=== PATIENT | female | born 1950 | race Caucasian/White ===

== ENCOUNTER 2018-01-11 22:28 | Outpatient (REF) | payer MEDICARE, SELFPAY ==
[2018-01-11 23:27] LABS: TSH 29.78 uIU/mL (0.358-3.74)
[2018-01-13 12:43] LABS: Hepatitis C Ab w Rflx HCV PCR Negative (NEGAT)
== END 2018-01-11 22:48 ==
LOC: NCHCN 22:28
PROVIDERS: PCP Internal Medicine; Visit Provider Internal Medicine
DX: E03.9 Hypothyroidism, unspecified (principal); Z11.59 Encounter for screening for other viral diseases; Z01.84 Encounter for antibody response examination
CPT/HCPCS: 86803; 84443

== ENCOUNTER → 2018-08-16 16:11 | Outpatient (REF) | payer OTHER, SELFPAY ==
[2018-08-16 22:00] LABS: TSH (W/Ref FT4) 6.61 uIU/mL (0.358-3.74)
[2018-08-16 22:19] LABS: FREE T4 0.74 ng/dL (0.76-1.46)
== END ==
LOC: NCHCN 16:11
PROVIDERS: PCP Internal Medicine; Visit Provider Internal Medicine
DX: E03.9 Hypothyroidism, unspecified (principal)
CPT/HCPCS: 84439; 84443

== ENCOUNTER 2018-08-27 13:11 | Outpatient (REF) | payer OTHER, SELFPAY ==
--- NOTE | 2018-08-27 12:15 | PAPFT_PTH ---
PATIENT: Brenna Mc LOC: [facility]#:[id number] AGE/SX: 67/F ROOM: RE08/27/[address]: Nicole Baxter : 1950 BED: DIS: 08/27/2018 SPEC #: [id number] RECD: 08/30/18 13:04 STATUS: KEKE OROZCO #: [id number] NATALIIA: 08/27/18 12:[address]: Nicole Baxter DEPT: [facility] Cytology RECD BY: Shauna Perea ENTERED: 08/30/18 13:04 SP TYPE: PAPFT OTHR DR: Stuart Leyva Tissues: 1 - CX/ENDOCX FOR PAP SMEARS Procedures: PAP THIN PREP/UVM Screening HPV DNA PROBE Comments: [id number] (CHLAMYDIA/GC)
[2018-08-27 20:52] LABS: Abs Immature Grans 0.01 k/cumm (0.0-0.09); Absolute Eosinophil Count 0.52 k/cumm (0.0-0.7); Absolute Lymphocyte Count 1.46 k/cumm (1.2-3.4); Absolute Monocyte Count 0.43 k/cumm (0.11-0.7); Absolute Neutrophil Count 2.37 k/cumm (1.2-6.7); Eosinophils % 10.6; HCT 39.8 % (36.0-46.0); HGB 12.5 g/dL (12.0-15.5); Immature Grans % 0.2; Lymphocytes % 29.9; Mean Corp. HGB Concentration 31.4 g/dL (32.0-36.0); Mean Corpuscular Hemoglobin 29.1 pg (27.0-33.0); Mean Corpuscular Volume 92.6 fL (80-95); Mean Platelet Volume 10.4 fL (8.0-11.0); Monocytes % 8.8; Neutrophils % 48.5; Platelet Count 277 x1000/uL (130-400); RBC Distribution Width 16.3 % (11.7-14.6); White Blood Cell Count 4.89 k/cumm (4.4-10.8)
[2018-08-27 21:06] LABS: Iron 57 ug/dL (50-175); Total Iron Binding Capacity 375 ug/dL (250-450); Transferrin Sat 15 % (15-50)
[2018-08-27 21:39] LABS: ALT 24 U/L (12-78); AST 20 U/L (15-37); Albumin 3.4 g/dL (3.4-5.0); Alkaline Phosphatase 70 U/L (46-116); Anion Gap 12.3 mmol/L (3-11); BUN 21 mg/dL (7-18); Bilirubin, Total 0.3 mg/dL (0.2-1.0); CO2 23.7 mmol/L (21.0-32.0); CREATININE 1.05 mg/dL (0.55-1.02); Calcium 8.6 mg/dL (8.5-10.1); Chloride 109 mmol/L (98-107); Cholesterol 220 mg/dL (50-200); Estimated GFR 52.43 (mL/min/1.73m2); Glucose 84 mg/dL (70-100); HDL Cholesterol 62 mg/dL (40-60); LDL CHOLESTEROL 137 mg/dL (<100); Magnesium 1.6 mg/dL (1.8-2.4); Potassium 3.9 mmol/L (3.5-5.1); Sodium 145 mmol/L (136-145); Total Protein 6.4 g/dL (6.4-8.2); Triglyceride 85 mg/dL (30-150); Vitamin B12 507 pg/mL (193-986)
[2018-08-30 11:27] LABS: HIV-1/2 Ag & Ab Screen Negative (NEGAT)
[2018-08-30 14:19] LABS: Syphilis Serology (RPR) Negative (Negative)
[2018-08-31 14:26] LABS: Chlamydia Result Negative; GC Result Negative; Specimen Description SEE COMMENTS
== END 2018-08-27 13:31 ==
LOC: NCHCN 13:11
PROVIDERS: PCP Internal Medicine; Visit Provider Nurse Practitioner Family
DX: R53.83 Other fatigue (principal); D64.9 Anemia, unspecified; I10 Essential (primary) hypertension; E78.5 Hyperlipidemia, unspecified; N18.3 Chronic kidney disease, stage 3 (moderate); E53.8 Deficiency of other specified B group vitamins; E03.9 Hypothyroidism, unspecified; Z11.3 Encounter for screening for infections with a predominantly sexual mode of transmission; Z11.4 Encounter for screening for human immunodeficiency virus [HIV]; Z12.4 Encounter for screening for malignant neoplasm of cervix; Z11.51 Encounter for screening for human papillomavirus (HPV)
CPT/HCPCS: 80053; 80061; 83721; 87389; 87491; 87591; 88142; 82607; 83540; 83550; 83735; 85025; 86592; 87624

== ENCOUNTER 2018-12-27 11:31 | Outpatient (REF) | payer OTHER, SELFPAY ==
[2018-12-27 21:42] LABS: TSH (W/Ref FT4) 0.17 uIU/mL (0.36-3.74)
[2018-12-27 22:00] LABS: FREE T4 1.04 ng/dL (0.76-1.46)
== END 2018-12-27 11:51 ==
LOC: NCHCN 11:31
PROVIDERS: PCP Internal Medicine; Visit Provider Specialist/Technologist Athletic Trainer
DX: E03.9 Hypothyroidism, unspecified (principal)
CPT/HCPCS: 84439; 84443

== ENCOUNTER 2020-02-10 14:57 | Outpatient (REF) | payer OTHER, SELFPAY ==
[2020-02-10 20:49] LABS: HGB 11.5 g/dL (11.2-15.7); MCH 28.9 pg (27.0-33.0); MCHC 31.9 % (32.0-36.0); MCV 90.5 fL (80-95); MPV 10.8 fL (8.0-11.0); Platelet Count 350 10^3/uL (130-400); RBC 3.98 10^6/uL (3.93-5.22); RDW 14.9 % (11.7-14.6); RDW-SD 49.3 fL; WBC 7.75 10^3/uL (4.4-10.8)
[2020-02-10 21:33] LABS: Hemoglobin A1C 5.3 % (<5.7)
[2020-02-10 22:20] LABS: ALT 27 U/L (14-59); AST 26 U/L (15-37); Albumin 3.7 g/dL (3.4-5.0); Alkaline Phosphatase 69 U/L (46-116); Anion Gap 10.6 mmol/L (3-11); BUN 51 mg/dL (7-18); Bilirubin, Total 0.3 mg/dL (0.2-1.0); CO2 21.4 mmol/L (21.0-32.0); CREATININE 1.79 mg/dL (0.55-1.02); Calcium 8.6 mg/dL (8.5-10.1); Chloride 108 mmol/L (98-107); Estimated GFR 28.16 (mL/min/1.73m2); Glucose 65 mg/dL (74-106); Potassium 4.9 mmol/L (3.5-5.1); Sodium 140 mmol/L (136-145); TSH 0.01 uIU/mL (0.36-3.74); Total Protein 6.5 g/dL (6.4-8.2); Vitamin B12 484 pg/mL (193-986)
[2020-02-10 22:50] LABS: FREE T4 1.31 ng/dL (0.76-1.46)
[2020-02-13 05:11] LABS: Vitamin D 25 Total 66.6 ng/ml (30-100)
[2020-02-13 12:48] LABS: Albumin 60.1 % (55.8-66.1); Total Protein 6.4 g/dL (6.3-8.2)
== END 2020-02-10 15:17 ==
LOC: NCHCN 14:57
PROVIDERS: PCP Internal Medicine; Visit Provider Internal Medicine
DX: Z98.84 Bariatric surgery status (principal); E53.8 Deficiency of other specified B group vitamins; E03.9 Hypothyroidism, unspecified; N95.0 Postmenopausal bleeding; E10.9 Type 1 diabetes mellitus without complications; M15.9 Polyosteoarthritis, unspecified; M17.9 Osteoarthritis of knee, unspecified
CPT/HCPCS: 80053; 82306; 85027; 82607; 83036; 84165; 84439; 84443

== ENCOUNTER 2020-02-16 01:26 | Outpatient (CLI) | payer OTHER, SELFPAY ==
--- NOTE | 2020-02-16 | DI.US_ITS ---
EXAM: US PELVIS TRANSVAGINAL CLINICAL HISTORY: POSTMENOPAUSAL BLEEDING,N95.0,CYSTOCELE,N81.0 TECHNIQUE: Ultrasound performed using standard protocol. COMPARISON: US LEFT BREAST COMP = 4 QUADRANTS from 08/26/2017 FINDINGS: Pelvic ultrasound was performed transabdominally and transvaginally. Uterus is 59 x 14 x 40 millimet ers with an unremarkable myometrial appearance. Endometrial stripe is about 3 millimeters in thickne ss and appears homogeneous. The ovaries are unremarkable in appearance, right ovary measures 19 x 14 x 11 millimeters and left ov sonal measures 23 x 19 x 12 millimeters. Kidneys are unremarkable in appearance except for an incidental simple cyst measuring 4.6 cm in great est diameter of lower pole of the left kidney. No free fluid identified in the cul-de-sac. IMPRESSION: Negative pelvic ultrasound in a postmenopausal patient. DATA REPOSITORY:
== END 2020-02-16 01:46 ==
PROVIDERS: PCP Internal Medicine; Visit Provider Internal Medicine
DX: N81.0 Urethrocele (principal); N95.0 Postmenopausal bleeding
CPT/HCPCS: 76830; 76856

== ENCOUNTER 2020-05-09 11:50 | Emergency (ER) | payer OTHER, SELFPAY ==
[2020-05-09 12:01] VITALS: BP 126/65; PULSE 75; RESP 18; TEMP 36.7; O2SAT 99
--- NOTE | 2020-05-09 12:30 | W.ED.GENAD ---
Discharge Plan Disposition Patient Disposition: HOME Condition: Stable Discharge Details Clinical Impression: Rectal prolapse, Wound dehiscence Primary Care Provider: Stuart Leyva ED Provider: Sadiq Schultz Home Meds and New Rx's Prescriptions: Continued cyanocobalamin (vitamin B-12) 1,000 mcg capsule 1,000 mcg PO DAILY RF: 0 magnesium oxide 200 mg magnesium tablet 200 mg PO BID RF: 0 triamcinolone acetonide 0.1 % ointment 1 applic TP DAILY RF: 0 acetaminophen 500 mg capsule 500 mg PO Q6H PRNRF: 0 folic acid 400 mcg tablet 0.4 mg PO DAILY RF: 0 calcium carbonate-vitamin D3 600 mg(1,500mg) -200 unit tablet 1 tab PO DAILY RF: 0 Women's 50 Plus Multivitamin 400 mcg-500 mg calcium-20 mcg tablet 1 tab PO DAILY RF: 0 dextroamphetamine-amphetamine [Adderall] 20 MG tablet 20 mg PO TID RF: 0 topiramate [Topamax] 200 MG tablet 200 mg PO BID RF: 0 duloxetine [Cymbalta] 30 MG capsule,delayed release(DR/EC) 30 mg PO DAILY RF: 0 gabapentin 300 mg capsule 800 mg PO .three times daily RF: 0 levothyroxine [Synthroid] 100 mcg tablet 50 mcg PO DAILY RF: 0 omeprazole [Prilosec] 40 mg capsule,delayed release(DR/EC) 40 mg PO BID PRNRF: 0 tramadol 50 mg tablet 50 mg PO QID PRN RF: 0 aspirin 81 mg Tablet,Delayed Release (Dr/Ec) 81 mg PO DAILY RF: 0 Discharge Instructions Instructions: Wound Dehiscence (ED), Rectal Prolapse (ED) Additional Instructions: At this time it appears as though the rectal prolapse has resolved, I certainly understand it does return with certain types of movements and pressure. There is no emergent procedure indicated but I have spoken with our surgical team, Dr. Melo, who will see you in her office tomorrow at 3 PM. Also, I know you have been doing wet-to-dry pack on your abdominal wound however I did request that a barber or beauty shop manager to evaluate you today. This can also likely be assessed tomorrow through the surgical team. Please watch for new or worsening symptoms and return to the ER for any concerns. Referrals: Rosa Melo DO [OSTEOPATHIC DOCTOR] - Discharge Data Discharge Date/Time-TO BE ENTERED AT DEPARTURE: 05/09/20 13:47 Medical Decision Making 69-year-old female being referred to the ER for rectal prolapse as she was just evaluated by Dr. Umanzor. Apparently Dr. Umanzor also spoke with our surgical team, Dr. Melo. Patient at this time is asymptomatic, denies any abdominal pain, rectal pain to me whatsoever. I did receive a call from Dr. Melo who is aware of the patient and recommended using table sugar directly onto the prolapse if it is present for treatment here in the ER and she will be happy to follow the patient as an outpatient in her clinic tomorrow. Her clinic was contacted and an appointment for 3 PM was made. She does have impressive abdominal wound with dehiscence however there is no drainage, erythema, warmth, tenderness. I will have our wound care team RN evaluate the patient here in the ER and properly dressed. As far as her physical examination I see no acute rectal prolapse. Given this is unremarkable I also did an external vaginal exam and see no signs of a uterine or vaginal prolapse either. I explained my findings to the patient and she reports that it is not poking out right now. At this time there is no acute action required for the suspected rectal prolapse. She has follow-up with surgery tomorrow and both the rectal prolapse and the surgical incision can be addressed. Patient has no additional questions or concerns and is comfortable with this plan. Medical Records Medical records reviewed: Yes I reviewed the patient's medical records. HPI General Mode of arrival: ambulatory. Date/Time Provider Initiated Documentation: 05/09/20 11:59. Limitations to Documentation: no limitations. Information obtained by: patient. HPI Narrative: This is a 69-year-old female with past medical history that includes ADD, anxiety, GERD, hypertension, rectal prolapse, ventral incisional hernia, presenting to the ER today for ongoing symptoms that began in January. She states that she has had rectal prolapse since January, intermittent in nature. She states that she has been seen by her primary care provider for this. She had surgery for a hernia at [facility] on the ninth of this month, has a abdominal incision and wound that she is using wet-to-dry packing. She denies headache, fever, chest pain, shortness of breath, back pain, abdominal pain, nausea, vomiting, diarrhea, constipation, vaginal bleeding or discharge, dysuria, hematuria. She was evaluated by Dr. Apryl Umanzor, [place] RANGER OPERATOR, today. She personally evaluated the patient and saw a rectal prolapse. No evidence of necrosis or ischemia. She subsequently contacted our surgical team, Dr. Melo, who is aware that the patient is coming to the ER for evaluation. Patient denies any rectal pain whatsoever. Related Data Home Medications Medication Instructions Recorded Confirmed dextroamphetamine-amphetamine 20 mg PO TID 01/19/15 05/09/20 [Adderall] duloxetine [Cymbalta] 30 mg PO DAILY 01/19/15 05/09/20 topiramate [Topamax] 200 mg PO BID tab-cap 01/19/15 05/09/20 acetaminophen 500 mg capsule 500 mg PO Q6H PRN 09/09/18 05/09/20 calcium carbonate 600 mg (1,500 1 tab PO DAILY 09/09/18 05/09/20 mg)-vitamin D3 200 unit tablet cyanocobalamin (vitamin B-12) 1,000 mcg PO DAILY 09/09/18 05/09/20 1,000 mcg capsule folic acid 400 mcg tablet 0.4 mg PO DAILY 09/09/18 05/09/20 gabapentin 300 mg capsule 800 mg PO .three times daily cap 09/09/18 05/09/20 levothyroxine 100 mcg tablet 50 mcg PO DAILY tab-cap 09/09/18 05/09/20 magnesium oxide 200 mg PO BID tab 09/09/18 05/09/20 ofkacvnk-zxo-urnjg ac 400 1 tab PO DAILY tab 09/09/18 05/09/20 mcg-calcium carb 500 mg-vit K1 20 mcg tablet omeprazole 40 mg capsule,delayed 40 mg PO BID PRN tab-cap 09/09/18 05/09/20 release tramadol 50 mg tablet 50 mg PO QID PRN tab-cap 09/09/18 05/09/20 triamcinolone acetonide 0.1 % 1 applic TP DAILY 09/09/18 05/09/20 topical ointment aspirin 81 mg PO DAILY 05/09/20 05/09/20 Allergies Allergy/AdvReac Type Severity Reaction Status Date / Time codeine AdvReac Intermediate Unverified 05/09/20 12:18 NSAIDS (Non-Steroidal AdvReac Intermediate Unverified 05/09/20 12:18 Anti-Inflamma General Stated Complaint: GenMedical LUIS MIGUEL: 3 Review of Systems Constitutional Constitutional: Denies fatigue, Denies fever(s) and Denies headache(s) ENT Ears, Nose, Mouth, and Throat: Denies headache(s) Cardiovascular Cardiovascular: Denies chest pain Respiratory Respiratory: Denies cough Gastrointestinal Gastrointestinal: Denies abdominal pain, Denies constipation, Denies diarrhea, Denies nausea and Denies vomiting Genitourinary Genitourinary: Denies dysuria Musculoskeletal Musculoskeletal: Denies back pain Integumentary/Breasts Skin/Breast: Denies rash Neurologic Neurologic: Denies headache(s) Endocrine Endocrine: Denies fatigue PFSH Medical History ADD (attention deficit disorder) Anxiety B12 deficiency Chronic renal insufficiency Depression DJD (degenerative joint disease) GERD (gastroesophageal reflux disease) Heart murmur Hyperlipidemia Hypertension Hypothyroidism (acquired) Rectal prolapse S/P bariatric surgery Vaginal atrophy Ventral incisional hernia Weight loss, abnormal Surgical History Arthroplasty of knee Cholecystectomy Gastric Bypass Paola en y ? LTKA Thyroid total resection for goiter Total replacement of hip right venous ligation bilateral Social History Smoking/Tobacco Use Status: Never Smoking risk assessment performed?: Yes Alcohol Intake: never Substance use type: does not use Do you feel safe at home: Yes Exam Const General: cooperative, healthy appearing, comfortable and no acute distress Orientation: alert and awake HENMT Head: normal to inspection, normocephalic and atraumatic Mouth: moist mucous membranes Eyes General: appearance normal, both eyes and all related structures Conjunctivae: conjunctivae normal Sclera: sclerae normal Neck Neck: normal visual inspection, trachea midline and supple Resp Effort & Inspection: normal respiratory effort and able to speak in complete sentences Auscultation: clear to auscultation bilaterally Cardio Rate: regular rate Rhythm: regular rhythm GI Inspection: incision (Vertical incision with dehiscence) Palpation: soft, not firm, no guarding and nontender Auscultation: normal bowel sounds Rectal Exam - female: visual inspection normal Other: Abdomen without any erythema, warmth, drainage or tenderness. The rectal and pelvic examination performed with female RN in room External Female Exam: normal external appearance, normal appearance of the urethra and no tenderness externally Back/Spine/Pelvis Back: No back tenderness Skin General skin exam: no rashes or lesions noted Neuro General: patient alert, patient awake, moves all extremities and no focal motor deficits Sensory Exam: no sensory deficits noted Psych Appearance: grossly normal Mental Status: mental status grossly normal Course Vital Signs Vital signs: Vital Signs Temperature 36.7 C 05/09/20 12:01 Pulse 75 05/09/20 12:01 Respiratory Rate 18 05/09/20 12:01 Blood Pressure 126/65 05/09/20 12:01 Pulse Oximetry 99 05/09/20 12:01 Temperature 36.7 C 05/09/20 12:01 Temperature Source Skin 05/09/20 12:01 Pulse 75 05/09/20 12:01 Respiratory Rate 18 05/09/20 12:01 Respiratory Effort Non-Labored 05/09/20 12:17 Blood Pressure 126/65 05/09/20 12:01 Blood Pressure Position Sitting 05/09/20 12:01 Pulse Oximetry 99 05/09/20 12:01 Oxygen Delivery Method Room Air 05/09/20 12:01 Oxygen Flow Rate 0 05/09/20 12:01 Pain Level 1 05/09/20 12:01
== END 2020-05-09 13:47 | disposition home or self-care (01) ==
PROVIDERS: Emergency Provider Physician Assistant; PCP Internal Medicine
DX: K62.3 Rectal prolapse (principal); K43.9 Ventral hernia without obstruction or gangrene; T81.31XA Disruption of external operation (surgical) wound, not elsewhere classified, initial encounter; Y83.8 Other surgical procedures as the cause of abnormal reaction of the patient, or of later complication, without mention of misadventure at the time of the procedure; Z98.890 Other specified postprocedural states; I10 Essential (primary) hypertension
CPT/HCPCS: 99284; 99283

== ENCOUNTER → 2020-05-14 15:33 | Outpatient (BNVA) | payer OTHER, SELFPAY | PROVIDERS: PCP Internal Medicine; Referring Provider Internal Medicine; Visit Provider Surgery | DX: K62.3 Rectal prolapse (principal); N95.2 Postmenopausal atrophic vaginitis; F41.9 Anxiety disorder, unspecified; Z90.49 Acquired absence of other specified parts of digestive tract; Z98.890 Other specified postprocedural states | CPT/HCPCS: 99214 ==

== ENCOUNTER 2020-09-18 17:10 | Outpatient (REF) | payer OTHER, SELFPAY ==
[2020-09-18 21:42] LABS: Anion Gap 10.1 mmol/L (3-11); BUN 30 mg/dL (7-18); CO2 24.9 mmol/L (21.0-32.0); CREATININE 1.3 mg/dL (0.55-1.02); Calcium 8.6 mg/dL (8.5-10.1); Chloride 109 mmol/L (98-107); Estimated GFR 40.73 (mL/min/1.73m2); FREE T4 0.86 ng/dL (0.76-1.46); Glucose 112 mg/dL (74-106); Potassium 4.5 mmol/L (3.5-5.1); Sodium 144 mmol/L (136-145); TSH 0.98 uIU/mL (0.36-3.74)
== END 2020-09-18 17:11 | disposition home or self-care (01) ==
LOC: NCHCN 17:10
PROVIDERS: PCP Internal Medicine; Visit Provider Internal Medicine
DX: E03.9 Hypothyroidism, unspecified (principal); I10 Essential (primary) hypertension; N17.9 Acute kidney failure, unspecified; R53.83 Other fatigue
CPT/HCPCS: 80048; 84439; 84443

== ENCOUNTER 2021-04-01 19:55 | Outpatient (REF) | payer OTHER, SELFPAY ==
[2021-04-01 18:38] LABS: BUN 28 mg/dL (7-18); CREATININE 1.2 mg/dL (0.55-1.02); Calcium 8.9 mg/dL (8.5-10.1); Chloride 109 mmol/L (98-107); Estimated GFR 44.54 (mL/min/1.73m2); Glucose 82 mg/dL (74-106); Potassium 4.7 mmol/L (3.5-5.1); Sodium 143 mmol/L (136-145); TSH (W/Ref FT4) 25.78 uIU/mL (0.36-3.74)
[2021-04-01 19:19] LABS: FREE T4 0.54 ng/dL (0.76-1.46)
== END 2021-04-01 19:56 | disposition home or self-care (01) ==
LOC: NCHCN 19:55
PROVIDERS: PCP Internal Medicine; Visit Provider Family Medicine
DX: I10 Essential (primary) hypertension (principal); E03.9 Hypothyroidism, unspecified
CPT/HCPCS: 80048; 84439; 84443

== ENCOUNTER 2022-06-24 17:47 | Outpatient (REF) | payer OTHER, SELFPAY ==
[2022-06-24 22:04] LABS: HCT 39.2 % (36.0-46.0); HGB 12.4 g/dL (11.2-15.7); MCH 30.2 pg (27.0-33.0); MCHC 31.6 % (32.0-36.0); MCV 95 fL (80-95); Platelet Count 300 10^3/uL (130-400); RBC 4.11 10^6/uL (3.93-5.22); RDW 14.4 % (11.7-14.6); RDW-SD 50.3 fL; WBC 6.71 10^3/uL (4.4-10.8)
[2022-06-24 22:45] LABS: ALT 18 U/L (14-59); AST 15 U/L (15-37); Albumin 3.4 g/dL (3.4-5.0); Alkaline Phosphatase 64 U/L (46-116); Anion Gap 8.8 mmol/L (3-11); BUN 28 mg/dL (7-18); Bilirubin, Total 0.2 mg/dL (0.2-1.0); CO2 26.2 mmol/L (21.0-32.0); CREATININE 1.1 mg/dL (0.55-1.02); Calcium 8.7 mg/dL (8.5-10.1); Chloride 110 mmol/L (98-107); Estimated GFR 54.06 (mL/min/1.73m2); Glucose 64 mg/dL (74-106); Potassium 4.3 mmol/L (3.5-5.1); Sodium 145 mmol/L (136-145); TSH (W/Ref FT4) 1.95 uIU/mL (0.36-3.74); Vitamin B12 366 pg/mL (193-986)
== END 2022-06-24 17:48 | disposition home or self-care (01) ==
LOC: NCHCN 17:47
PROVIDERS: PCP Internal Medicine; Visit Provider Internal Medicine
DX: E03.9 Hypothyroidism, unspecified (principal); F41.8 Other specified anxiety disorders; K21.9 Gastro-esophageal reflux disease without esophagitis; N18.30 Chronic kidney disease, stage 3 unspecified; E53.8 Deficiency of other specified B group vitamins
CPT/HCPCS: 80053; 85027; 82607; 84443

== ENCOUNTER 2024-03-02 19:30 | Emergency (ER) | payer OTHER, SELFPAY ==
[2024-03-02] VITALS (9 sets, daily range): BP systolic 178–200; BP diastolic 83–90; PULSE 60–82; RESP 16; TEMP 35.8; O2SAT 97–99
--- NOTE | 2024-03-02 19:42 | ED.GENADUL_ITS ---
Discharge Plan Disposition Patient Disposition: Home Condition: Stable Discharge Details Clinical Impression: Acute on chronic back pain Primary Care Provider: Stuart Leyva ED Provider: Lawson Morley Home Meds and New Rx's Prescriptions: New prednisone 20 mg tablet 40 mg PO DAILY 4 Days Qty: 8 0RF Rx Instructions: take 2 tabs per day once per day starting 03/04/24 methocarbamol 750 mg tablet 750 mg PO QID 7 Days Qty: 28 0RF Continued acetaminophen 500 mg capsule 500 mg PO Q6H PRN Discharge Instructions Instructions: Back Exercises, Methocarbamol, Oxycodone, Prednisone, Low Back Pain ED Additional Instructions: You were seen in the emergency department for your acute on chronic lower back pain, you need to be taking 650 mg of Tylenol every 6 hours, half-way through the Tylenol it would be reasonable to try an NSAID if you have had no upper GI bleeding in a long time take 400 mg of ibuprofen also on a 6-hour schedule. I have sent prescriptions for a skeletal muscle relaxer called methocarbamol to your pharmacy, take this as directed, I have sent you home with an oxycodone tablet to help you sleep tonight and I have sent a prescription for prednisone, start the prednisone we sent you home with tomorrow and cook pickled meat your prescr iption and start it the next day. You need to see pain clinic or spinal doctor for spinal cortisone injections, please return to the emergency department at once for any bowel or urinary changes, numbness to the groin or genitals, paresthesias of lower extremities, worsening back pain with fever. Referrals: [facility] [Provider Group] Stuart Leyva MD [Primary Care Provider] - Discharge Data Discharge Date/Time-TO BE ENTERED AT DEPARTURE: 03/02/24 20:44 HPI General Date/Time Provider Initiated Documentation: 03/02/24 19:42 . HPI Narrative: 73 year-old female presents to ED today by POV/ambulating with a chief complaint of acute on chronic known sciatica/lumbar back pain with onset for the past 3 days. Quality described as sharp R lumbar back pain, no radiation to numbness/tingling in LEs, urinary retention, bowel incontinence, numbness to saddle, dysuria, hematuria, fever, endorses nausea to pain. Severity is described as severe. Palliating factors include OTC analgesics not helping. Provoking factors include movement. Events leading up to the incident/Associated Symptoms: Patient wondering if ED can provide spinal cortisone injections. Patient not anticoagulated. Related Data Home Medications ?Medication ?Instructions ?Recorded ?Confirmed acetaminophen 500 mg capsule 500 mg PO Q6H PRN 09/09/18 03/02/24 methocarbamol 750 mg tablet 750 mg PO QID 7 days #28 tabs 03/02/24 prednisone 20 mg tablet 40 mg (2 x 20 mg) PO DAILY 4 days 03/02/24 #8 tabs Previous Rx's ?Medication ?Instructions ?Recorded methocarbamol 750 mg tablet 750 mg PO QID 7 days #28 tabs 03/02/24 prednisone 20 mg tablet 40 mg (2 x 20 mg) PO DAILY 4 days 03/02/24 #8 tabs Allergies Allergy/AdvReac Type Severity Reaction Status Date / Time codeine AdvReac Unknown Other (See Unverified 03/02/24 19:36 Comment) NSAIDS (Non-Steroidal AdvReac Unknown GI Bleeding Unverified 03/02/24 19:36 Anti-Inflamma General Stated Complaint: Nk/Back Pain LUIS MIGUEL: 4 Review of Systems All systems reviewed & are unremarkable except as noted in HPI and below Exam Narrative Exam Narrative: GENERAL APPEARANCE: Well-nourished, non-toxic, awake and alert, atraumatic, no acute distress. SKIN: Warm, pink, dry, intact, without rashes/lesions/ulcerations. HEAD: Normocephalic, atraumatic, normal hair distribution for gender/age. EYES: Normal conjunctiva, no exudates on lids/lashes. ENT: Nares patent, no circumoral cyanosis, no facial swelling NECK: Supple, trachea midline, painless cervical ROM. LUNGS/CHEST: Non-labored respirations, normal A/P diameter, symmetrical expansion, no chest wall deformity HEART (CV/PV): No peripheral edema, no JVD. ABDOMEN: Soft, non-distended, no guarding. MSK: Normal ROM, no swelling/deformity to bilateral UEs or LEs, moving all extremities without weakness, no cyanosis, spine midline without tenderness, normal curvature, right paraspinal lumbar tenderness without midline crepitus or step-off, no right CVA tenderness to percussion NEURO: Mental Status AAOx4 - alert to person, place, time, events No facial droop, no forehead involvement. Motor: No focal weakness - strength 5/5 in bilateral UEs and LEs, proximal and distal, symmetric. Sensory: sensation intact to light touch globally. Gait normal: patient ambulated without ataxia into ED room. PSYCH: euthymic, cooperative, pleasant, appropriate speech Course Vital Signs Vital signs: Vital Signs Temperature 35.8 C L 03/02/24 19:33 Pulse 82 03/02/24 19:33 Respiratory Rate 16 03/02/24 19:33 Pulse Oximetry 99 03/02/24 19:33 Temperature 35.8 C L 03/02/24 19:33 Pulse 82 03/02/24 19:33 Respiratory Rate 16 03/02/24 19:33 Respiratory Effort Normal 03/02/24 19:35 Pulse Oximetry 99 03/02/24 19:33 Pain Level 9 03/02/24 19:33 Medical Decision Making This dictation utilizes [id number] dictation software and may contain unedited grammatical errors. 73 year-old female presents to ED today by POV/ambulating with a chief complaint of acute on chronic known sciatica/lumbar back pain with onset for the past 3 days. Quality described as sharp R lumbar back pain, no radiation to numbness/tingling in LEs, urinary retention, bowel incontinence, numbness to saddle, dysuria, hematuria, fever, endorses nausea to pain. Severity is described as severe. Palliating factors include OTC analgesics not helping. Provoking factors include movement. Events leading up to the incident/Associated Symptoms: Patient wondering if ED can provide spinal cortisone injections. Patients' medical history: Hypertension, unmedicated, GERD, chronic renal insufficiency, degenerative disc disease, status post bariatric surgery. Family and social history: Noncontributory. Pertinent exam findings / vital signs include right lumbar paraspinal tenderness without midline vertebral crepitus or step-off, neurovascularly intact in lower extremities with strength 5/5, no saddle anesthesia. Differential / pathologies of concern include chronic lumbar back pain, no symptoms of pyelonephritis or UTI, unlikely cauda equina. Diagnostic studies of: -None. Interventions of: -Acetaminophen, Lidoderm patch, methocarbamol, Zofran, prednisone, and oxycodone to go. ED Course/Assessment/Plan: 73-year-old female presents with acute on chronic lumbar back pain,, worse with movement, no neurovascular compromise of the lower extremities or signs of cauda equina, reports no urinary changes or fevers, patient improved somewhat with medications here and I did provide an oxycodone to go after discussion with the patient, sent prescription for methocarbamol and prednisone, recommend strict r eturn criteria for any neurovascular compromise of lower extremities, urinary retention, bowel incontinence, severe increase in back pain fever. Patient was in significant pain likely because of her hypertension which did improve. Findings not consistent with cauda equina, renal pathology, neurovascular compromise of lower extremities, no risk factors for spinal epidural abscess. Disposition of acute on chronic back pain. Patient verbalized understanding of the plan and return to ED criteria and engaged in shared decision making. Medical Records Medical records reviewed: Yes I reviewed the patient's medical records. Quality:SDOH Health Related Social Needs: No Data to Display PFSH All Active Problems (Updated 03/02/24 @ 20:29 by RENEE Bustamante) Acute on chronic back pain (Acute) S/P right hemicolectomy (Acute) Rectal prolapse (Acute) Vaginal atrophy (Acute) Medical History (Updated 03/02/24 @ 20:29 by RENEE Bustamante) Hypertension GERD (gastroesophageal reflux disease) Chronic renal insufficiency DJD (degenerative joint disease) Ventral incisional hernia Hyperlipidemia Heart murmur Depression B12 deficiency Weight loss, abnormal Surgical History (Updated 05/16/20 @ 20:07 by Rosa Melo DO) venous ligation bilateral Total replacement of hip right Thyroid total resection for goiter LTKA Gastric Bypass Paola en y ? Cholecystectomy Arthroplasty of knee Social History Smoking/Tobacco Use Status: Never Smoking risk assessment performed?: Yes Alcohol Intake: never Substance use type: does not use Do you feel safe at home: Yes Do you feel safe in your relationship?: Yes
[2024-03-02] MEDS: Ondansetron O.D.T. 4 MG TABEF PO (19:54)
[2024-03-02] MEDS: Methocarbamol 750 MG TAB 1500 MG PO (19:54)
[2024-03-02] MEDS: Lidocaine 5% Patch 1 PATCH TP (19:54)
[2024-03-02] MEDS: Acetaminophen 325 MG TAB 650 MG PO (19:55)
--- OUTSIDE RECORDS SUMMARY | 2024-03-02 20:25 | XMS_ITS | Encounter Summary ---
Author Organization [facility] Address [facility] [place] [address] Care Team Providers Care Fence Builder Name Role Phone Stuart Leyva MD Primary Care Provider [phone] Reason for Visit * Reason Onset Date Comments Medication Refill 10/31/2015 Encounter Details Date Type Department Care Team (Late st Contact Info) Description 10/31/2015 Refill [place] [address] Clifton Amaya MD [facility] [place] [address] Social History Tobacco Use Types Packs/Day Years Used Date Smoking Tobacco: Former Cigarettes 0 04/20/1966 - 04/20/2006 Smokeless Tobacco: Never Alcohol Use Standard Drinks/Week Comments No 0 (1 standard drink = 0.6 oz pur e alcohol) Sex and Gender Information Value Date Recorded Sex Assigned at Not on file Gender Identity Not on file Sexual Orientation Not on file documented as of this encounter Plan of Treatment Not on file documented as of this encounter Visit Diagnoses Not on filedocumented in this encounter Care Teams Fence Builder Relationship Specialty Start Date End Date Stuart Leyva MD [address] [place] [address] PCP - General Internal Medicine 06/28/15 documented as of this encounter
--- OUTSIDE RECORDS SUMMARY | 2024-03-02 20:25 | XMS_ITS | Encounter Summary ---
Author Organization [facility] [place] [address] Care Team Providers Care Licensed Land Surveyor Name Role Phone Stuart Leyva MD Primary Care Provider [phone] Reason for Visit * Auth/Cert Specialty Diagnoses / Procedures Referred By Iraj crowe Referred To Contact Diagnoses Ventral incisional hernia abdominal pannus Procedures PRO EXCISE EXCESS SKIN TISSUE, ABDOMEN ABDOMINOPLASTY Referral ID Status Reason Start Date Expiration Date Visits Re quested Visits Authorized [id number] 1 1 Encounter Details Date Type Department Care Team (Latest Contact Info) Description 10/01/2015 6:24 AM EDT - 10/04/2015 6:00 PM EDT Hospital Encounter [address] [place] [address] Ivania Sauer MD [facility] [place] [address] Jeanette Koch MD [facility] [place] [address] Ventral incisional hernia Discharge Disposition: Home with VNA Social History Tobacco Use Types Packs/Day Years [...] on file documented as of this encounter Last Filed Vital Signs Vital Sign Reading Time Taken Comments Blood Pressure 110/72 10/04/2015 2:28 PM EDT Pulse 80 10/04/2015 2:28 PM EDT Temperature 36.5 ??C (97.7 ??F) 10/04/2015 2:28 PM ED T Respiratory Rate 16 10/04/2015 2:28 PM EDT Oxygen Saturation 99% 10/04/2015 9:04 AM EDT Inhaled Oxygen Concentration - - Weight 74 kg (163 lb 1.6 oz) 10/01/2015 6:44 AM EDT Height 162.6 cm (5' 4) 10/01/2015 6:44 AM EDT Body Mass Index 10/01/2015 6:44 AM EDT documented in this encounter Discharge Summaries * Angela Hernandez PA - 10/02/2015 8:15 AM EDT General Surgery Discharge Summary Patient Name: Brenna Mc Patient Age: 64 y.o. Birthdate: 1950 Admit date: 10/01/2015 Discharge date and time: 10/04/2015 Attending Physician: Jeanette Koch MD Primary Diagnosis: Ventral Hernia Secondary Diagnosis: Abdominal Pannus Operations and Procedures: 1) Abdominoplasty and Panniculectomy 2) Ventral Hernia Repair Surgeons: Surgeon(s) and Role: Panel 1: * Ivania Sauer MD - Primary * Tarik Osman MD Panel 2: * Jeanette Koch MD - Primary * Slava Leong DO History of Present Illness: Brenna Mc is a 64 y.o. female referred by Flora Sawyer MD regarding a ventral hernia. Ms. Mc had a history of an open gastric bypass at [facility] over 30 years ago. She has not followed up with her bariatric surgery program recently. She presented with a history of post prandial epigastric pain as well as intermittent vomiting withfood. For a time she states that she was only able to eat fruit, however this has improved somewhat. She reports some spitting up/vomiting of bile and heartburn. This is improved with daily PPI. She also reports taking a significant amount of Aleve due to her arthritis. She also reports noticing a bulge in her abdomen for a little less than a year. She was seen by a surgeon, however was referred to [facility] for repair due to her hernia size. She underwent a CT abdomen pelvis on 01/01/15 that showed a midline ventral hernia containing the cecum, terminal ileum and distal small bowel. There was no evidence of obstructions. There was anatomy consistent with a gastric bypass and stable biliary dilation. On review of this CT, her rectus muscles appear about 10 cm apart. If undergoing ventral hernia repair, she would like to see if she can have excess abdominal skin removed at the same time. In terms of her hernia, she feels that it is getting larger over time and can cause discomfort. When she eats she will feel her bowel get full through her abdomen. She takes laxatives to ensure that she moves her bowels regularly. She was also seen in the Plastic surgery clinic for consideration for abdominal panniculectomy. Her maximum weight was 400 lbs over thirty years ago. She now weighs 169 lbs.She has lost 150 pounds in the last 2 years. Her current weight has been stable for some months. She has lost weight aftergastric bypass surgery which was performed over 30 years ago. She is scheduled to have ventral hernia repair with Dr. Koch and is wondering if she may coordinate this with a panniculectomy at the same time. She feels her protruding stomach exacerbates her back pain. Due to her hernia she reports she is only able to eat fruit. She admits to increasing difficulty with keeping the fold under her pannus free of rashes and infection, and clean, and odor free. She has tried over the counter powders for this but continues to have chronic rashes. Hospital Course: Brenna Mc is a 64 y.o. female who was admitted on 10/01/2015 for a combinedcase of abdominoplasty/panniculectomy and ventral hernia repair. The operative course was uneventful. On POD# 0 she was started on a clear liquid diet that she tolerated without problems. She was advanced to a regular diet later in the day on POD# 1. She was changed to oral pain medications and thePCA was discontinued on POD# 1. The jo catheter was removed on POD# 1 and she was voiding without difficulty. On POD# 1, 2 & 3 the dressings were dry and intact and the wounds were benign. Shedid have a bowel movement prior to discharge and was passing flatus and taking PO without difficulty. Prior to discharge on POD# Brenna Mc was afebrile, with stable vital signs. On POD# 3, she was discharged to home in stable condition. Vital Signs: Last value Range last 24hrs Temperature Temp: 36.7 ??C (98 ??F) Temp: [36.4 ??C (97.5 ??F)-36.9 ??C (98.4 ??F)] Heart Rate Heart Rate: 88 Heart Rate: [77-89] Blood Pressure BP: 116/76 BP: (108-124)/(68-83) Respiratory Rate Resp: 16 Resp: [14-18] SpO2 SpO2: 99 % SpO2: [94 %-100 %] Pertinent Lab Data: Recent Labs 06/16/16 0356 /15/16 0348 //16 0520 WBC 7.0 6.9 6.6 HGB 11.0* 11.8 11.6 HCT 34.4 35.9 35.0 PLATELET 185 182 191 Recent Labs /16/16 0356 //16 0348 //16 0520 NA 140 140 141 K 3.7 3.5 4.0 CL 104 106 106 CO2 25 24 24 BUN 17 14 16 CREATININE 0.79 0.75 0.98 GLUCOSE 86 100 82 CALCIUM 8.0* 7.8* 7.5* Physical Exam: General: NAD, appears uncomfortable, pleasant, conversant HEENT: PERRL, anicteric sclerae CVS: RRR Pulm: CTAB Abd: soft, appropriately tender, non-distended. Mid-line incision with sutures in place with mild drainage but no evidence of edema, erythema or ecchymosis. No evidence of active bleeding, no s/s of infection. Abdominal binder in place. JOSE drains in the bilateral lower abdomen without evidence of edema, erythema or ecchymosis. : jo removed; no problems with voiding Skin: warm, dry Ext: no c/c/e Neuro: CN 2-12 grossly intact, nonfocal,moving all four extremities spontaneously Imaging: No results found. Condition at discharge: Stable Mental Status: awake and alert, oriented x 3 Medications: Your Medications Notice Some of the medications listed here do not show instructions, such as how often to take the medication. Ask your doctor or nurse how to use these medications. Specifically ask about these and similar medications: - folic acid (FOLVITE) 400 mcg tablet - topiramate (TOPAMAX) 200 mg tablet New Medications Dose Details cephalexin 500 mg Cap Commonly known as: KEFLEX Take 1 capsule by mouth 2 times daily for 14 days. 500 mg Quantity: 28 capsule Refills: 1 HYDROmorphone 2 mg Tab Commonly known as: DILAUDID Take 1-2 tablets by mouth every 4 hours as needed for Pain (Take 1 tablet for pain 1-5; take 2 tablets for pain 6-10). 2-4 mg Quantity: 60 tablet Refills: 0 Continued medications, unchanged Dose Details b complex vitamins Cap Take 1 capsule by mouth daily. 1 capsule Refills: 0 calcium-vitamin D3 600 mg(1,500mg) -400 unit Cap 1 Capsule(s), PO, Twice daily Refills: 0 dextroamphetamine-amphetamine 20 mg Tab Commonly known as: ADDERALL Take 20 mg by mouth 4 times daily. 20 mg Refills: 0 DULoxetine 60 mg Cpdr Commonly known as: CYMBALTA Take 60 mg by mouth daily. 60 mg Refills: 0 folic acid 400 mcg Tab Commonly known as: FOLVITE ?nk?wn!?? Refills: 0 furosemide 20 mg Tab Commonly known as: LASIX Take 20 mg by mouth 2 times daily. 20 mg Refills: 0 GLUCOSAMINE CHONDROITIN PLUS ORAL Take by mouth. Refills: 0 levothyroxine 100 mcg Tab Commonly known as: SYNTHROID Take 100 mcg by mouth daily. 100 mcg Refills: 0 multivitamin Tab Commonly known as: THERAGRAN Take 1 tablet by mouth daily. 1 tablet Refills: 0 NEURONTIN 300 mg Cap 300 M-2 Capsule(s), PO, QHS Generic drug: gabapentin Refills: 0 omeprazole 40 mg Cpdr Commonly known as: PriLOSEC Take 40 mg by mouth daily. 40 mg Refills: 0 senna 8.6 mg Tab Commonly known as: SENOKOT Take 1 tablet by mouth daily. 1 tablet Refills: 0 TOPAMAX 200 mg Tab ?nk?wn!?? Generic drug: topiramate Refills: 0 traMADol 50 mg Tab Commonly known as: ULTRAM Take 50 mg by mouth every 6 hours as needed for Pain. 50 mg Refills: 0 STOPPED Medications meloxicam 7.5 mg Tab Commonly known as: MOBIC Disposition: Home Allergies: Allergies Allergen Reactions ??? Lactose Other (See Comments) cramps ??? Codeine Phosphate Nausea Only stomach pain ??? Morphine Sulfate Other (See Comments) leg swelling ??? Nsaids (Non-Steroidal Anti-Inflammatory Drug) Nausea Only stomach pain Outpatient Services/Studies: Referral to Home Health - at DISCHARGE Order Comments: Patient with bilateral lower abdominal JOSE drains that need draining and maintenancedaily. Patient needs assistance with maintenance and draining/documenting. Scheduling Instructions: DOCUMENTATION FOR VNA SERVICES (INCLUDING THOSE PATIENTS WITH MEDICARE COVERAGE REQUIRING HOME VNA SERVICES AND/OR HOSPICE SERVICES) PAT[facility]ATION[facility] [address] [facility] [address] (home) Undercover Operator's Name: Patient In discussion with the attending physician, it is certified that this patient is under their care and that they, or a Nurse Practitioner,Clinical Nurse specialist or Physician Data Security Administrator who is working directly with them, had a face to face encounter that meets the physician face to face encounter requirements with this patient on 10/04/2015 The encounter with the patient was in whole, or in part, for the following medical condition, whichis the primary reason for home health care services: s/p ventral incisional hernia & panniculectomy In discussion with the provider, it is certified that, based on their findings, the following services are medically necessary for home health services. To provide the following care/treatments with the clinical findings supporting the need for services as follows: HOME CARE ORDERS: RN ORDERS:Assess wound or incision, vital signs, cardiopulmonary status, nutrition, hydration, elimination, meds effectiveness and management; reinforce education re health issues PT ORDERS: Continue rehab for endurance, gait stability and strength with mobility and transfers. Home safety evaluation. Home exercise program if appropriate. OT: assess and continue rehab for managing ADL's. HOME HEALTH CARE AGENCY: [facility] PHONE: [phone] FAX: [phone] Start of care: 24-48 hours of discharge FOR MEDICARE ONLY: (please delete this section if not Medicare) In discussion with the attending physician, it is certified that the clinical findings support thatthis patient is homebound because absences from home require considerable and taxing effort due to: Restricted mobility due to LE strength and motion due to recent surgery Deconditioned frail elder with poor ambulation tolerance , requires assistance to leave home Please note that any additional orders needs or changes will need to be obtained from this patient's PCP: STUART LEYVA MD [address] / [facility] [address] All VNA agencies which cover the area of patient's residence have been reviewed, either verbally clifford writing, and patient/family have chosen the home health care agency noted Question Response Notes Agency name and contact information [facility] Patient location post discharge home What services are requested Registered Nurse Start date 10/05/2015 Responsible MD post discharge contact info home Scheduled Appointments: Future Appointments and Orders Future Appointments Provider Department Dept Phone 10/16/2015 9:40 AM Georgia Fatima APRN Plastic Surgery [phone] 11/05/2015 11:30 AM Jeanette Koch MD General Surgery [phone] Future Orders Complete By Expires Referral to Home Health - at DISCHARGE [[id number] CPT(R)] As directed Process Instructions: Scheduling Instructions: DOCUMENTATION FOR VNA SERVICES (INCLUDING THOSE PATIENTS WITH MEDICARE COVERAGE REQUIRING HOME VNA SERVICES AND/OR HOSPICE SERVICES) PATIENT'S LOCATION: [facility] [address] [facility] [address] (home) Undercover Operator's Name: Patient In discussion with the attending physician, it is certified that this patient is under their care and that they, or a Nurse Practitioner,Clinical Nurse specialist or Physician Data Security Administrator who is working directly with them, had a face to face encounter that meets the physician face to face encounter requirements with this patient on 10/04/2015 The encounter with the patient was in whole, or in part, for the following medical condition, whichis the primary reason for home health care services: s/p ventral incisional hernia & panniculectomy In discussion with the provider, it is certified that, based on their findings, the following services are medically necessary for home health services. To provide the following care/treatments with the clinical findings supporting the need for services as follows: HOME CARE ORDERS: RN ORDERS:Assess wound or incision, vital signs, cardiopulmonary status, nutrition, hydration, elimination, meds effectiveness and management; reinforce education re health issues PT ORDERS: Continue rehab for endurance, gait stability and strength with mobility and transfers. Home safety evaluation. Home exercise program if appropriate. OT: assess and continue rehab for managing ADL's. HOME HEALTH CARE AGENCY: [facility] PHONE: [phone] FAX: [phone] Start of care: 24-48 hours of discharge FOR MEDICARE ONLY: (please delete this section if not Medicare) In discussion with the attending physician, it is certified that the clinical findings support thatthis patient is homebound because absences from home require considerable and taxing effort due to: Restricted mobility due to LE strength and motion due to recent surgery Deconditioned frail elder with poor ambulation tolerance , requires assistance to leave home Please note that any additional orders needs or changes will need to be obtained from this patient's PCP: STUART LEYVA MD [address] / [facility] [address] All VNA agencies which cover the area of patient's residence have been reviewed, either verbally clifford writing, and patient/family have chosen the home health care agency noted Comments: Patient with bilateral lower abdominal JOSE drains that need draining and maintenance daily. Patient needs assistance with maintenance and draining/documenting. Questions: Agency name and contact information: [facility] Patient location post discharge: home What services are requested: Registered Nurse Start date: 10/05/2015 Responsible MD post discharge contact info: home Instructions Given to Patient at Discharge: Instructions following open Abdominal Surgery Wound Care: Your sutures will need to be removed in 10-14 days. An appointment in the Plastic Surgery clinic will be scheduled for you to have them removed if your Primary Care Provider is not able to remove them for you. You do not have to keep the area covered, unless it is more comfortable when it is covered. You may now shower and get incisions wet. Pat dry immediately following. Do not scrub them vigorously for the next 2-3 weeks. Do not soak incision(s) under water for the next 2 weeks (i.e. soaking inbath or swimming) as this may promote a wound infection Call Doctor For: Please call if you notice worsening redness or drainage from the incision(s) lasting longer than 5 days after your surgery; any foul-smelling drainage from the incision; pain not controlled by pain medications; persistent nausea or vomiting, or for any fevers greater than 101.3 F. The number for questions is [phone] before 5 PM weekdays and [phone] after 5 PM and weekends. Diet: You have no restrictions to your diet at this time. Activity: No heavy lifting more than 10-15 pounds for the next 2 weeks, then you may gradually liftheavier objects as tolerated by discomfort. Otherwise activity as tolerated by your comfort level. Pain Medication: Take only as needed. -Take the medication exactly as it is prescribed and make sure to read all instructions that come with the medication. -Over the next couple of days you should be requiring less of this medication to control you pain, so that eventually you will not need any at all. You do not have to take all of the medication that was prescribed, you may have some left over. -You may use ibuprofen (motrin, advil) or tylenol in addition to this medication if your pain is not controlled. -Taking more than the prescribed amount of medication or using with alcohol or other drugs can cause you to stop breathing resulting in coma, brain damage or . -Opioids can slow reaction time, cause drowsiness or cloud judgement. No driving for 8 hours after any dose of opioid pain medication if one was prescribed for you. -Using this drug may cause addiction. While addiction is more common in people with a personal or family history of addiction, it can occur in anyone. -Opioids are at risk of being diverted by anyone with access to your home. Opioids should be storedin a safe and secure place, such as a locked cabinet or safe. -Unused opioids should be disposed of appropriately. They may be returned to a take-back location, or mixed with a small amount of water and poured over an undesirable waste such as used coffee grounds or cat litter. -Please note that most pain medications can cause constipation. You may use a stool softener such as Miralax to prevent this. Other Medication: There have been no changes to your medications. Please resume the use of them as you had been taking prior to admission. Drain Care: Empty the drain(s) at least once daily. Keep track of how much drainage there is in each 24 hour time frame. When the drainage is less than 30cc in 24 hours for 2 days in a row; the drainis ready to be removed. Please call the clinic at [phone] to schedule an appointment to have the drain(s) removed. If you have more than one drain, it is possible they may be removed at different times. Follow-up: You have a follow-up appointment scheduled with Dr. Koch in the General Surgery clinic on Thursday, November 05, 2015 at 11:30am. You are also scheduled for a follow-up appointment with Plastic Surgery on Friday, October 16, 2015 at 9:40am. Signed: FRANCISCO JAVIER Sheppard 10/04/2015 Primary Neva Physician: STUART LEYVA MD [address] / [facility] [address] [facility] A Prospective Study of Opioid Use in General Surgery Patients RESEARCH PROJECT INFORMATION SHEET This research project is being conducted by Dr. Saravanan Tristan Jr. and surgeons from the Section of General Surgery from the Department of Surgery at the [facility]. It is a study which is designed to help surgeons determine the best number of pain pills that should beinitially prescribed to patients after outpatient surgery and at discharge from the hospital. Your participation is voluntary. Participation involves completing a Survey Form which tracks your daily pain level and use of post-operative pain medicines. You may choose to not answer any or all questions. The survey will be collected when you return for a post-operative visit with your doctor. The surveys will be stored as password protected files in a coded manner that assures confidentiality. Names and other identifying information will not be used in any presentation or paper written about this project. If you agree to participate, we will collect information from your medical record but we will not add any information about this research to your medical record. The information collected will be your age, gender, the nature of the operation you had and your use of pain medicines around the time ofsurgery or while you were an inpatient. The information collected will be maintained confidentially. Names and other identifying information will not be used in any presentation or paper written about this project. Data collected for this study will be maintained until April 2019. The information collected for this study will be used only for purposes of research as stated earlier in this form. Research data may be shared with officials of [facility], [facility], and others involved in the oversight of this study as permitted by law. Questions about this project may be directed to: Saravanan Tristan Jr., MD, Section of General Surgery, [facility], [place] [address] . [id number] [facility] Approval Expires 08/27/2016 [facility] Approval Date 08/29/2015 Patient Survey Form for A Prospective Study of Postoperative Opioid Use in General Surgery Patients Your Name: Brenna Mc Opioid prescribed: Dilaudid 2mg Number of pills prescribed: 60 Opioid prescription filled (Y/N): yes You are being asked to be part of a research study on the use of opioid pain medicines after surgery. Your participation is voluntary. All information from this study will be kept confidential. ? Unless this box is checked, your surgeon would like you to take acetaminophen (Tylenol) 650 mg three times a day until your pain is gone. Only use the opioid if you still have pain after taking acetaminophen. Acetaminophen used (Y/N): Post-operative or Number opioid pills Pain Score: rate your pain on scale 0-10 post-discharge day taken (1 = hardly notice the pain; 10 = can???t focus on anything but pain) 0 1 2 3 4 5 6 7 8 9 10 >10 Total number of opioid pills taken: Date submitted: If you have taken all of the opioids prescribed to you and you are still having significant pain, call [phone] Thursday-Thursday 7am -5pm and talk to one of the General Surgery nurses. Did you require an opioid refill? (Y/N) If you have unused opioids, please dispose of them by flushing them down the toilet or deposit them in the drop box at your local police or fire station. documented in this encounter Discharge Instructions * Discharge Instructions* Angela Hernandez PA - 10/04/2015 1:59 PM EDT PLASTIC SURGERY DISCHARGE INSTRUCTIONS During the first 1 to 3 weeks, expect to feel tired from the anesthesia and in general, due to the healing process. Rest frequently during the day, and limit visitors until you feel more up to it. Altered sensation (such as shooting or burning pain) or numbness is common after surgery. Normal ornear normal sensation should return within a few months but some areas may stay numb permanently. You will be able to return to work in 4-6 weeks. You will not be able to lift more than 5 pounds for 6 weeks and no more than 10- 20 pounds for 3 months. No strenuous exercise (tennis, aerobics, jogging) for 3 months. Feel free to walk as much as you want. Walking improves circulation, respiratory function and healing. You will not be able to drive for 2-3 weeks or while taking you pain medication. You may wear your safety belt if you place a small pillow over your abdominal incision. No sexual activity for 6 weeks. No smoking for at least 2 weeks following your surgery. POSTOPERATIVE DRAIN AND INCISION CARE Your hospital nurse will review your drain care. You will learn how to strip, measure, and record the total amount of fluid from each drain. Call the clinic at [phone] and schedule an appointment with the nurses to have your drains removed when the drainage is 30cc or less in a 24 hour period for 2 days in a row. Note: Generalized abdominal swelling above the incision may last for several weeks to months due totissue fluid build-up. Do not use ice or heat on your surgical site. You may shower 48 hours after surgery. Do not take a bath or use a hot tub until your skin is completely healed. To reduce the strain on your incision, you should remain in a flexed/recliner chair position for about 5 days- this may take longer in some instances so let your body be your guide. You may remove your dressings after 48 hours. If you feel more comfortable with dressings under thebinder, then you may replace them to suit your comfort needs. If present, nonabsorbable stitches are removed in 2 weeks. Spitting sutures: Occasionally an area of redness and tenderness develops where a dissolving stitchbecomes irritated and pushes to the surface. If this occurs, it is not an emergency. You may clip the stitch with a clean scissor or call for an appointment with a nurse. No tanning on incision lines for at least 6 months to minimize scarring. No over the counter lotions, solutions, or herbal preparations on your incisions unless directed byyour doctor. You will be provided with an abdominal binder or girdle. Wear it 24 hours a day for 4 to 6 weeks, removing it briefly to shower. If any of these occur, contact your doctor right away - 1) Signs of infection: A temperature over 100.4'F or 38'C. Redness or warmth spreading away from the incision lines after the first 48 hours. Yellow pus-like or foul smelling drainage larger than dime size from the incisions or drainage sites. 2) Seromas/Hematoma: Before or after your drains are removed, if you notice localized swelling thiscould be a collection of fluid under the skin at or near the incision site. 3) Increased pain or discomfort that is not relieved by your pain medicine. During office hours: Thursday through Thursday 8 am to 5 pm Call [phone] On weekends or after hours: Call [phone] and ask the remelt pan tank operator to page the Plastic Surgery Resident manager mission. Prescription Line: Call the line at [phone] from 8am-4pm Thursday through Thursday. Narcotic renewals will not be honored after hours or on weekends. Make your request a few days before you run out as it make take up to 24 hours for physician approval. Scheduled Appointments: Future Appointments and Orders ?? Future Appointments?? Provider?? Department?? Dept Phone?? 10/16/2015 9:40 AM?? Georgia Fatima APRN?? Plastic Surgery?? [phone]?? 11/05/2015 11:30 AM?? Jeanette Koch MD?? General Surgery?? [phone]?? Instructions Given to Patient at Discharge: Instructions following open Abdominal Surgery Wound Care: Your sutures will need to be removed in 10-14 days. An appointment in the Plastic Surgery clinic will be scheduled for you to have them removed if your Primary Care Provider is not able to remove them for you. ?? You do not have to keep the area covered, unless it is more comfortable when it is covered. You may now shower and get incisions wet. Pat dry immediately following. Do not scrub them vigorously for the next 2-3 weeks. Do not soak incision(s) under water for the next 2 weeks (i.e. soaking inbath or swimming) as this may promote a wound infection Call Doctor For: Please call if you notice worsening redness or drainage from the incision(s) lasting longer than 5 days after your surgery; any foul-smelling drainage from the incision; pain not controlled by pain medications; persistent nausea or vomiting, or for any fevers greater than 101.3 F. The number for questions is [phone] before 5 PM weekdays and [phone] after 5 PM and weekends. Diet: You have no restrictions to your diet at this time. Activity: No heavy lifting more than 10-15 pounds for the next 2 weeks, then you may gradually liftheavier objects as tolerated by discomfort. Otherwise activity as tolerated by your comfort level. Pain Medication: Take only as needed. -Take the medication exactly as it is prescribed and make sure to read all instructions that come with the medication. ?? -Over the next couple of days you should be requiring less of this medication to control you pain, so that eventually you will not need any at all. You do not have to take all of the medication that was prescribed, you may have some left over. ?? -You may use ibuprofen (motrin, advil) or tylenol in addition to this medication if your pain is not controlled. -Taking more than the prescribed amount of medication or using with alcohol or other drugs can cause you to stop breathing resulting in coma, brain damage or . ?? -Opioids can slow reaction time, cause drowsiness or cloud judgement. No driving for 8 hours after any dose of opioid pain medication if one was prescribed for you. ?? -Using this drug may cause addiction. While addiction is more common in people with a personal or family history of addiction, it can occur in anyone. -Opioids are at risk of being diverted by anyone with access to your home. Opioids should be storedin a safe and secure place, such as a locked cabinet or safe. ?? -Unused opioids should be disposed of appropriately. They may be returned to a take-back location, or mixed with a small amount of water and poured over an undesirable waste such as used coffee grounds or cat litter. ?? -Please note that most pain medications can cause constipation. You may use a stool softener such as Miralax to prevent this. Other Medication: There have been no changes to your medications. Please resume the use of them as you had been taking prior to admission. Drain Care: Empty the drain(s) at least once daily. Keep track of how much drainage there is in each 24 hour time frame. When the drainage is less than 30cc in 24 hours for 2 days in a row; the drainis ready to be removed. Please call the clinic at [phone] to schedule an appointment to have the drain(s) removed. If you have more than one drain, it is possible they may be removed at different times. Follow-up: You have a follow-up appointment scheduled with Dr. Koch in the General Surgery clinic on Thursday, November 05, 2015 at 11:30am. You are also scheduled for a follow-up appointment with Plastic Surgery on Friday, October 16, 2015 at 9:40am. [facility] A Prospective Study of Opioid Use in General Surgery Patients RESEARCH PROJECT INFORMATION SHEET This research project is being conducted by Dr. Saravanan Tristan Jr. and surgeons from the Section of General Surgery from the Department of Surgery at the [facility]. It is a study which is designed to help surgeons determine the best number of pain pills that should beinitially prescribed to patients after outpatient surgery and at discharge from the hospital. Your participation is voluntary. Participation involves completing a Survey Form which tracks your daily pain level and use of post-operative pain medicines. You may choose to not answer any or all questions. The survey will be collected when you return for a post-operative visit with your doctor. The surveys will be stored as password protected files in a coded manner that assures confidentiality. Names and other identifying information will not be used in any presentation or paper written about this project. If you agree to participate, we will collect information from your medical record but we will not add any information about this research to your medical record. The information collected will be your age, gender, the nature of the operation you had and your use of pain medicines around the time ofsurgery or while you were an inpatient. The information collected will be maintained confidentially. Names and other identifying information will not be used in any presentation or paper written about this project. Data collected for this study will be maintained until April 2019. The information collected for this study will be used only for purposes of research as stated earlier in this form. Research data may be shared with officials of [facility], [facility], and others involved in the oversight of this study as permitted by law. Questions about this project may be directed to: Saravanan Tristan Jr., MD, Section of General Surgery, [facility], [place], [id number] . [id number] [facility] Approval Expires 08/27/2016 [facility] Approval Date 08/29/2015 Patient Survey Form for A Prospective Study of Postoperative Opioid Use in General Surgery Patients Your Name: Brenna Mc Opioid prescribed: Dilaudid 2mg ?? Number of pills prescribed: 60 Opioid prescription filled (Y/N): yes You are being asked to be part of a research study on the use of opioid pain medicines after surgery. Your participation is voluntary. All information from this study will be kept confidential. ? Unless this box is checked, your surgeon would like you to take acetaminophen (Tylenol) 650 mg three times a day until your pain is gone. Only use the opioid if you still have pain after taking acetaminophen. Acetaminophen used (Y/N): Post-operative or Number opioid pills Pain Score: rate your pain on scale 0-10 post-discharge day taken (1 = hardly notice the pain; 10 = can???t focus on anything but pain) 0 1 2 3 4 5 6 7 8 9 10 >10 Total number of opioid pills taken: Date submitted: ?? If you have taken all of the opioids prescribed to you and you are still having significant pain, call [phone] Thursday-Thursday 7am -5pm and talk to one of the General Surgery nurses. Did you require an opioid refill? (Y/N) If you have unused opioids, please dispose of them by flushing them down the toilet or deposit them in the drop box at your local police or fire station. documented in this encounter Medications at Time of Discharge Medication Sig Dispensed Refills Start Date End Date omeprazole (PRILOSEC) 40 mg Capsule, Delayed Release(E.C.) Take 40 mg by mouth daily. levothyroxine (SYNTHROID) 100 mcg Tablet Take 100 mcg by mouth daily. b complex vitamins Capsule Take 1 capsule by mouth daily. traMADol (ULTRAM) 50 mg Tablet Take 50 mg by mouth every 6 hours as needed for Pain. furosemide (LASIX) 20 mg Tablet Take 20 mg by mouth 2 times daily. GLUC/CHND/OM3/DHA/EPA/F MELLISSA/STR (GLUCOSAMINE CHONDROITIN PLUS ORAL) Take by mouth. senna (SENOKOT) 8.6 mg Tablet Take 1 tablet by mouth daily. multivitamin (THERAGRAN) tablet Take 1 tablet by mouth daily. gabapentin (NEURONTIN) 300 mg capsule 300 M-2 Capsule(s), PO, QHS 01/02/2010 folic acid (FOLVITE) 400 mcg tablet 01/02/2010 topiramate (TOPAMAX) 200 mg tablet 01/02/2010 Calcium Carbonate-Vitamin D3 600 mg(1,500mg) -400 unit Cap 1 Capsule(s), PO, Twice daily 01/02/2010 cephalexin (KEFLEX) 500 mg Capsule Take 1 capsule by mouth 2 times daily for 14 days. 28 capsule 1 10/04/2015 10/18/2015 HYDROmorphone (DILAUDID) 2 mg Tablet Take 1-2 tablets by mouth every 4 hours as needed for Pain (Take 1 tablet for pain 1-5; take 2 tablets for pain 6-10). 60 tablet 10/03/2015 10/26/2015 DULoxetine (CYMBALTA) 60 mg Capsule, Delayed Release(E.C.) Take 60 mg by mouth daily. 10/26/2015 dextroamphetamine-amphe tamine (ADDERALL) 20 mg tablet Take 20 mg by mouth 4 times daily. 10/26/2015 documented as of this encounter Progress Notes * Arti Albert MSW - 10/04/2015 3:04 PM EDT Office of Care Management (OCM) Social Work Note Relevant Information MANAGER LANDSCAPE was referred to the Patient by Sadie Ram RN/PABLO for assistance completing Advance Directives. MANAGER LANDSCAPE met with Patient and completed [place] Advance Directives this afternoon. Patient appeared to be in good spirits this afternoon and expressed appreciation for services received at [facility]. Patient appointed friend Ally Schmitz as DPOA agent ([id number] [place] [address]; home phone of [phone] and cell of [phone]) and no alternate designated at this time. Patient listed her children, Jaquelin Chen, Raymond Chen, and Dariela Chen as individuals whoshould NOT be consulted related to her health care. Original and copies for agent returned to the Francisco Javier perdomo. Copy to be scanned to the record at [facility] and to be sent to [place] AD registry. MANAGER LANDSCAPE will continue to be available for support and referral to resources as needed. MIKE Guevara * Nely Jonas RN - 10/04/2015 2:53 PM EDT IV removed, site benign. My assessment remains unchanged from my previous assessment. Patient denies chest pain or SOB. Discussed pain management. Patient medicated before discharge. Patient has all belongings and has received discharge summary. Summary reviewed and all questions answered. Patient e ncouraged to call with any further questions or concerns. Patient discharged to home with friend. Discharge packet and prescriptions sent home with patient. Drain care done with patient and friend, both verbalized understanding of procedure. [facility]charge summary [facility]ed to [facility]. [facility] called. * Sadie Ram RN - 10/04/2015 11:43 AM EDT Office of Care Management (OCM) / Clinical Documentation Manager(CM)/ Initial Assessment Discussed patient with Provider Team and in multidisciplinary discharge-planning rounds. Reviewed record and interviewed patient. Introduced/reviewed CM role and services accepted. REASON for HOSPITALIZATION: POD#3 s/p ventral hernia repair w/ mesh and panniculectomy. PMH has no past medical history on file. PREVIOUS FUNCTIONAL STATUS: Independent CURRENT FUNCTIONAL STATUS: SOCIAL / FAMILY SUPPORTS: Lives alone, but has a friend that will stay with her for a bit. ADVANCE DIRECTIVES: Advanced Directives-educated on these and patient would like to fill out HEALTH /PRESCRIPTION COVERAGE: Medicare & Medicaid [place] CURRENT HOME/COMMUNITY SERVICES/EQUIPMENT: NONE MANAGER LANDSCAPE REFERRAL: Notified for: ADs PRIMARY CARE PHYSICIAN: STUART LEYVA MD [address] / [place] [address] DISCHARGE NEEDS: Property Coordinator will ask the Battery Tester And Repairer to place referral to: [facility]. PHONE: [phone] FAX: [phone] ANTICIPATED BARRIERS TO DISCHARGE: NONE TRANSPORTATION @ D/C: Friend PLAN: CM will continue to monitor progress, follow for continuity of care and assist with dischargeplanning while hospitalized . * Jhonny Engel MD - 10/04/2015 7:15 AM EDT PLASTIC SURGERY INPATIENT PROGRESS NOTE ID: Brenna Mc is a 64 y.o. female patient POD#3 s/p ventral hernia repair w/ mesh and panniculectomy. S: No events overnight. No complaints. Pain controlled. Tolerating diet. + flatus. O: Temp: [36.4 ??C (97.5 ??F)-36.9 ??C (98.4 ??F)] Heart Rate: [77-90] Resp: [14-18] BP: (105-124)/(64-83) Intake/Output Summary (Last 24 hours) at 10/04/15 0715 Last data filed at 10/04/15 0548 Gross per 24 hour Intake 1447 ml Output 615 ml Net 832 ml NAD, A/O Nonlabored, symmetric chest movement Abd incision CDI, no SOI, JOSE drains SS Recent Results (from the past 24 hour(s)) Basic Metabolic Panel (non-fasting) Result Value Ref Range Glucose Lvl 86 65 - 199 mg/dL BUN 17 8 - 18 mg/dL Creatinine 0.79 0.70 - 1.20 mg/dL Sodium 140 135 - 145 mmol/L Potassium 3.7 3.5 - 5.0 mmol/L Chloride 104 98 - 107 mmol/L CO2 25 22 - 31 mmol/L Anion Gap 11 5 - 15 mmol/L Calcium 8.0 (L) 8.5 - 10.5 mg/dL Estimated GFR >60 >=60 Hemogram Result Value Ref Range WBC 7.0 4.0 - 10.0 x10(3)/mcL RBC 3.85 (L) 3.93 - 5.22 x10(6)/mcL Hemoglobin 11.0 (L) 11.2 - 15.7 gm/dL Hematocrit 34.4 34.0 - 45.0 % MCV 89.4 79.0 - 94.0 fL MCH 28.6 26.6 - 32.2 pg MCHC 32.0 32.0 - 36.5 gm/dL Platelets 185 145 - 370 x10(3)/mcL RDWSD 52.1 (H) 35.0 - 46.0 fL RDWCV 15.9 (H) 10.9 - 14.4 % MPV 10.1 9.0 - 12.0 fL Differential, Automated Result Value Ref Range Neutrophils % 66.9 % Neutr Abs (ANC) 4.65 1.50 - 6.30 x10(3)/mcL Lymphocytes % 15.4 % Lymphocytes Abs 1.1 1.0 - 3.6 x10(3)/mcL Monocytes % 14.0 % Monocyte Abs 1.0 0.2 - 1.0 x10(3)/mcL Eosinophils % 3.2 % Eosinophils Abs 0.2 0.0 - 0.5 x10(3)/mcL Basophils % 0.4 % Basophils Abs 0.0 0.0 - 0.2 x10(3)/mcL Immature Gran % 0.10 % Charline Gran Abs 0.01 0.00 - 0.05 x10(3)/mcL A/P: Brenna Mc is a 64 y.o. female patient POD#3 s/p ventral hernia repair w/ mesh and panniculectomy. Doing well post op. + flatus. No BM. Tolerating diet. Continue JOSE drains. Walk over hunched over for first week. Abdominal binder when OOB. Prealbumin 22 on 3/9/16. OK for discharge from a plastic surgery standpoint. No heavy lifting. Continue ancef while in house and then give keflex ondischarge while drains are in place. Follow up in 7-10 days upon discharge. Jhonny Engel MD Plastic Surgery Resident, PGY-6 * Dorothy Lopez, PT - 10/03/2015 1:13 PM EDT Physical Therapy Initial Note Patient profile: Brenna Mc is a 64 y.o. female admitted on 10/01/2015 by Jeanette Maharaj MD for scheduled ventral hernia repair w/ mesh and panniculectomy Social History/Premordid Level of Function: [facility], [place] in a mobile home 4 steps w/ b/l railing to enter Gets OO high bed toward R and has use a log roll technique from having ahd previous abdominal surgery S: I want to go home tomorrow. I have a friend who will be staying with me for as long as I need her. I have stayed very active and I use that log roll technique all the time O: Referral received. eDH reviewed. Spoke w/ RN. Pt seen for initial eval, log roll bed mobility, tranfer and gait training on level w/ device and ^/down 3 stairs with 2 railings w/ CGA 1 A/P: Pt now POD # 2 ventral hernia repair w/ mesh and panniculectomy Moving quite well but did need some assistance with her legs when getting into flat high bed using stool and a log roll technique r/t pain. Anticipate thatm with good pain management that she will achieve the following goals by tomorrow to allow safe return home with /7 from friend. Will have no DME needs. Will assess for ongoing PT needs at [place] 1. Pt will not be limited by pain for all the following activities 2. Pt will demonstrate safe and independent log roll bed mobility 3. Pt will demonstrate safe and Independent transfers 4. Pt will demonstrate safe and independent ambulation without assistive device level and stairs prn (ambulate 4x.day w/ nursing staff) 5. Pt will demonstrate independent knowledge and performance of postural and general ROM exs prn 6. Pt will demonstrate effective deep breath and cough to Indep manage secretions. Treatment Plan: See 2-3x for progressive functional conditioning/ strengthening, postural and ROM exs, log roll bed mobility, transfers and gait training, pt and family teaching, DC Planning If any questions please contact: Dorothy Lopez PT In-patient Rehab. Medicine Pager # [phone] Total Time Spent with Patient : 33 mins eval Total Timed Treatment: 0 mins * Angela Hernandez PA - 10/03/2015 10:16 AM EDT Minimally Invasive Surgery Inpatient Progress Note ID: Brenna Mc is a 64 y.o. female s/p abdominoplasty, panniculectomy and ventral hernia repair. Now 2 Days Post-Op. 24hr events: ?? No acute events ?? Jo d/c'd ?? Advanced to regular diet ?? Transitioned to oral pain medications Subjective: Admits to feeling a little better today than she did yesterday. She states she does have a rx for Xanax at home, which she typically only uses at night to help her sleep. She admits her back and sciatica are causing her more pain and discomfort than her abdomen. She mentions that the chair in her room is also extremely uncomfortable. She did walk yesterday with a walker without much trouble. She has been ambulating to the bathroom frequently. She admits she has not had much to eat as she is not hungry. Also not having a BM is not helping her to want to eat anything. O: Last value Range last 24hrs Temperature Temp: 36.8 ??C (98.2 ??F) Temp: [36.6 ??C (97.9 ??F)-37.5 ??C (99.5 ??F)] Heart Rate Heart Rate: 90 Heart Rate: [81-90] Blood Pressure BP: 122/82 BP: (116-144)/(72-82) Respiratory Rate Resp: 18 Resp: [16-18] SpO2 SpO2: 98 % SpO2: [95 %-98 %] 10/01 0701 - 10/02 0700 In: 2764 [P.O.:1960; I.V.:804] Out: 1565 [Urine:1365] Physical Exam: General: NAD, resting comfortably, pleasant, conversant HEENT: PERRL, anicteric sclerae CVS: RRR Pulm: CTAB Abd: soft, appropriately tender, non-distended. MId-line incision with sutures present without any evidence of edema, erythema or ecchymosis. No drainage noted or s/s of infection. 2 drains in the lower abdomen, one on the left, and one on the right. : no problems with voiding Skin: warm, dry Ext: no c/c/e Neuro: non-focal, moving all four extremities spontaneously Labs: Recent Labs 10/03/15 0348 10/02/15 0520 WBC 6.9 6.6 HGB 11.8 11.6 HCT 35.9 35.0 PLATELET 182 191 Recent Labs 10/03/15 0348 10/02/15 0520 NA 140 141 K 3.5 4.0 CL 106 106 CO2 24 24 BUN 14 16 CREATININE 0.75 0.98 GLUCOSE 100 82 CALCIUM 7.8* 7.5* Microbiology: None New Studies: None ASSESSMENT: Brenna Mc is a 64 y.o. female s/p abdominoplasty, panniculectomy and ventral hernia repair. Now 2 Days Post-Op Slow to progress. HLIV to encourage po intake. PLAN: NEURO: Pain control with oral Dilaudid and Tylenol. Continue home Ultram, Adderall, Neurontin and Cymbalta. Ativan x1 given last evening with good results. CV: No acute issues. PULM: Encourage frequent ambulation and IS use. GI: Diet Regular diet : no problems with voiding FEK: HLIV; monitor lytes and replace prn ID: no indication of active infection. HEME: No indication of active bleeding ENDO: Continue home synthroid 100mcg PROPHYLAXIS: JAVIER for DVT; Protonix for gastric DISPO: floor status, Full Code Plan for discharge possible later today or tomorrow depending on progress. FRANCISCO JAVIER SHEPPARD 10/03/2015 * Mary Anne Ruiz, DO - 10/03/2015 7:57 AM EDT PLASTIC SURGERY INPATIENT PROGRESS NOTE ID: [id number] POD#2 s/p ventral hernia repair w/ mesh and panniculectomy S: No issues overnight. Patient without c/o. Pain poorly controlled, denies n/v. +Flatus/- BM O: Vitals: 10/03/15 0359 BP: 141/72 Pulse: 81 Resp: 18 Temp: 36.6 ??C (97.9 ??F) I/O last 3 completed shifts: In: 4618 [P.O.:2680; I.V.:1938] Out: 3730 [Urine:3340; Other:390] I/O this shift: In: - Out: 250 [Urine:250] GEN: NAD, A/O x 3 LUNG: CTA b/l HEART: RRR, no murmurs ABD: abdominal binder in place, surgical dressings removed, incisions healing adequately, no areas of dehiscence appreciated, no ecchymosis/erythema surrounding incisional sites, no evidence of hematoma/seroma, JOSE bilaterally holding bulb suction with moderate volume serosanguinous drainage in bulb EXTREM: no c/c/e A/P: Brenna Mc is a 64 y.o. female patient POD#2 s/p ventral hernia repair w/ mesh by General Surgery and panniculectomy by Plastic Surgery (Dr. Sauer). Patient is progressing slowly post-operative. She looks quite uncomfortable and would benefit from better pain management. This should allow for more ambulation and more rapid surgical recovery. JOSE's should remain in place. MARY ANNE RUIZ DO 10/03/2015 * Angela Hernnadez PA - 10/02/2015 10:06 AM EDT Minimally Invasive Surgery Inpatient Progress Note ID: Brenna Mc is a 64 y.o. female s/p abdominoplasty, panniculectomy and ventral hernia repair. Now 1 Day Post-Op. 24hr events: ?? No acute events Subjective: Admits to having what she describes as a burning sensation in her lower abdomen, but states her back is causing her more discomfort than her abdomen. She has been tolerating clear liquidswithout any problems. She recently had the jo removed, and has not yet voided on her own. She denies n/v/cp/sob. She is nervous about getting out of bed to ambulate, but states she knows she needsto. O: Last value Range last 24hrs Temperature Temp: 37 ??C (98.6 ??F) Temp: [36.5 ??C (97.7 ??F)-37.9 ??C (100.2 ??F)] Heart Rate Heart Rate: 75 Heart Rate: [62-111] Blood Pressure BP: 130/70 BP: (120-153)/(70-96) Respiratory Rate Resp: 16 Resp: [9-20] SpO2 SpO2: 97 % SpO2: [97 %-100 %] 09/30 0701 - 10/01 0700 In: 4104 [P.O.:770; I.V.:3334] Out: 2770 [Urine:2280] Physical Exam: General: NAD, resting comfortably, pleasant, conversant HEENT: PERRL, anicteric sclerae CVS: RRR Pulm: CTAB Abd: soft, appropriately tender, non-distended. MId-line incision with sutures present without any evidence of edema, erythema or ecchymosis. No drainage noted or s/s of infection. 2 drains in the lower abdomen, one on the left, and one on the right. : jo removed; awaiting first void Skin: warm, dry Ext: no c/c/e Neuro: non-focal, moving all four extremities spontaneously Labs: Recent Labs 10/02/15 0520 WBC 6.6 HGB 11.6 HCT 35.0 PLATELET 191 Recent Labs 10/02/15 0520 NA 141 K 4.0 CL 106 CO2 24 BUN 16 CREATININE 0.98 GLUCOSE 82 CALCIUM 7.5* Microbiology: None New Studies: None ASSESSMENT: Brenna Mc is a 64 y.o. female s/p abdominoplasty, panniculectomy and ventral hernia repair. Now 1 Day Post-Op PLAN: NEURO: Pain control with ENLISTED AIRCREW/AERIAL OBSERVER/GUNNER Dilaudid; transition to oral Dilaudid and Tylenol. Continue home Ultram, Adderall, Neurontin and Cymbalta. CV: NO acute issues. PULM: Encourage frequent ambulation and IS use. GI: Diet Clear Liquid; will advance when demonstrating ROBF. : jo removed; awaiting first void FEK: LR 100cc/hr until tolerating adequate po; monitor lytes and replace prn ID: no indication of active infection. HEME: No indication of active bleeding ENDO: Continue home synthroid 100mcg PROPHYLAXIS: JAVIER for DVT; Protonix for gastric DISPO: floor status, Full Code Plan for discharge possible tomorrow or the next day depending on progress. FRANCISCO JAVIER SHEPPARD 10/02/2015 * Mary Anne Ruiz, DO - 10/02/2015 7:26 AM EDT PLASTIC SURGERY INPATIENT PROGRESS NOTE ID: [id number] POD#1 s/p ventral hernia repair w/ mesh and panniculectomy S: No issues overnight. Patient without c/o. Pain moderately controlled, denies n/v. Did not get out of bed last night. O: Vitals: 10/02/15 0452 BP: 131/76 Pulse: 70 Resp: 17 Temp: 36.5 ??C (97.7 ??F) I/O last 3 completed shifts: In: 4104 [P.O.:770; I.V.:3334] Out: 2770 [Urine:2280; Other:310; Blood:180] GEN: NAD, A/O x 3 LUNG: CTA b/l HEART: RRR, no murmurs ABD: abdominal binder in place, midline dressing with small areas of saturation, incisions otherwise healing well, horizontal inferior abdominal incision dressings clean/dry, JOSE bilaterally holding bulb suction with moderate volume serosanguinous drainage in bulb EXTREM: no c/c/e A/P: Brenna Mc is a 64 y.o. female patient POD#1 s/p ventral hernia repair w/ mesh by General Surgery and panniculectomy by Plastic Surgery (Dr. Sauer). Patient is doing well post-operatively. It is important she begin ambulating as tolerated. PT/OT consults placed. JOSE's should remain in place. Operative dressings to be removed tomorrow AM. MARY ANNE RUIZ, DO 10/02/2015 * Maryam Snider RN - 10/01/2015 3:53 PM EDT Patient arrived to floor via bed. Patient A&O x 3, lungs clear, heart rate regular. Patient hashypoactive bowel sounds. Patient has a dressing to midline abd, drainage to dressing, area marked. Pt has bilateral JOSE drains. Insertion site to R JOSE putting out a small amount of serosanguinous drainage, abdominal pad placed. JOSE on R putting out small amount serosanguinous drainage. JOSE on L putting out a moderate amount of serosanguinous drainage. Jo in place. Patient has an IV of LR and Dilaudid ENLISTED AIRCREW/AERIAL OBSERVER/GUNNER infusing into L PIV. Patient states their pain level is 7/10. Patient denies chest pain, shortness of breath, numbness or tingling. Patient oriented to room, call massey, IS. RN will monitor patient. * Paige Salamanca RN - 10/01/2015 12:48 PM EDT Arrived pacu #9, monitors placed, alarms set. Abd. Binder in place. C/O nausea documented in this encounter H&P Notes * Jeanette Koch MD - 10/01/2015 7:18 AM EDT Please see clinic note dated 06/27/15 for further historical details, copied below. The patient's history and physical exam have been reviewed and completed. There has been no interval change from thatof the pre-operative history and physical exam. She underwent an EGD that showed to evidence of obstruction or ulceration at her GJ. All preoperative questions were answered. Plan to proceed with open ventral hernia repair with mesh, possible component separation, with panniculectomy by plastics. Brenna Mc is a 64 y.o. female referred by FLORA SAWYER MD regarding a ventral hernia. Ms. Mc had a history of an open gastric bypass at [facility] over 30 years ago. She has not followed up with her bariatric surgery program recently. She now presents with a history of post prandial epigastric pain as well as intermittent vomiting with food. For a time she states that she was only able to eat fruit, however this has improved somewhat. She reports some spitting up/vomiting of bile and heartburn. This is improved with daily PPI. She also reports taking a significant amount of Aleve due to her arthritis. She also reports noticing a bulge in her abdomen for a little less than a year. She was seen by a surgeon, however was referred to [facility] [place] for repair due to her hernia size. She underwent a CT abdomen pelvis on 01/01/15 that showed a midline ventral hernia containing the cecum, terminal ileum and distal small bowel. There was no evidence of obstructions. There was anatomy consistent with a gastric bypass and stable biliary dilation. On my review of this CT, her rectus muscles appear about 10 cm apart. If undergoing ventral hernia repair, she would like to see if she can have excess abdominal skin removed at the same time. In terms of her hernia, she feels that it is getting larger over time and can cause discomfort. When she eats she will feel her bowel get full through her abdomen. She takes laxatives to ensure that she moves her bowels regularly. Modifiable risk factors: Body mass index is 28.72 kg/(m^2). Tobacco: Denies Diabetes: Non diabetic Patient Active Problem List Diagnosis Code ??? Right knee pain M25.561 ??? S/P Right total hip arthroplasty- 01/12/2008 ([facility]) Z96.649 ??? S/P Left total knee arthroplasty- 07/15/2007 ([facility]) Z96.659 ??? Migraine G43.909 ??? Hypertension I10 ??? Hypothyroidism E03.9 ??? Hyperlipidemia E78.5 ??? Depression F32.9 ??? Pain in thoracic spine M54.6 ??? Thoracic spondylosis without myelopathy M47.814 ??? ADD (attention deficit disorder) F90.0 Depression - ex recently reports taking pills I shouldn't have however I am better now Past surgical history: Venous ligation? Cholecystectomy Gastric bypass L TKA R CADE Thyroidectomy Medications: Current Outpatient Prescriptions on File Prior to Visit Medication Sig Dispense Refill ??? dextroamphetamine-amphetamine (ADDERALL) 20 mg tablet Take 20 mg by mouth 4 times daily. ??? multivitamin (THERAGRAN) tablet Take 1 tablet by mouth daily. ??? gabapentin (NEURONTIN) 300 mg capsule 300 M-2 Capsule(s), PO, QHS ??? folic acid (FOLVITE) 400 mcg tablet ??? topiramate (TOPAMAX) 200 mg tablet ??? Calcium Carbonate-Vitamin D3 600 mg(1,500mg) -400 unit Cap 1 Capsule(s), PO, Twice daily ??? [DISCONTINUED] levothyroxine (SYNTHROID) 88 mcg tablet Take 88 mcg by mouth daily. ??? [DISCONTINUED] venlafaxine (EFFEXOR XR) 150 mg 24 hr capsule Take 150 mg by mouth daily. ??? [DISCONTINUED] OMEPRAZOLE ORAL Take 40 mg by mouth nightly. ??? [DISCONTINUED] metoprolol succinate (TOPROL-XL) 50 mg 24 hr tablet Take 100 mg by mouth daily. ??? [DISCONTINUED] LORazepam (ATIVAN) 1 mg tablet Take 0.5 mg by mouth as needed. Breaks a 1mg in half ??? [DISCONTINUED] simvastatin (ZOCOR) 20 mg tablet ??? [DISCONTINUED] nadkojx-xfcyrudivvnnk-nkwbbvlt (EXCEDRIN EXTRA STRENGTH) 250-250-65 mg per tablet No current facility-administered medications on file prior to visit. Omeprazole 40 mg daily. Allergies: Lactose; Codeine phosphate; Morphine sulfate; and Nsaids (non-steroidal anti- inflammatory drug) Social History: reports that she quit smoking about 9 years ago. She has never used smokeless tobacco. She reports that she does not drink alcohol or use illicit drugs. On disability for her arthritis since 1995 Family History: Father - cirrhosis 2 sisters - etoh, mental health/depression Son - obese, hypertension MGF - CAD MGM - DM, sister, aunt Stroke Review of systems: Review of systems is negative for any unexplained weight loss or weight gain - she states that her weight fluxuates. She denies any cough, chest pain or shortness on breath on exertion. She has no fevers, chills or night sweats. Bowel and bladder elimination is normal. She does report peripheral edema. All other system reviews are negative. BP 152/77 mmHg Pulse 79 Resp 16 Ht 162.6 cm (5' 4) Wt 75.932 kg (167 lb 6.4 oz) BMI 28.72 kg/m2 SpO2 100% On physical examination, this is a thin female who appears her stated age. She has intermittent abnormal involuntary movements of her lips. There is no scleral or skin icterus. Mucous membranes are moist and pupils reactive. Her lungs are clear to auscultation. Heart is regular, rate, and rhythm and without murmurs. Her abdomen is nontender and without palpable masses. The incisional hernia itself is soft and easily reducible in her central abdomen. Her fascial edges are about 10 cm apart. She has a large amount of excess abdominal skin, as well as skin under her arms. Her extremity and neurological exam are grossly normal. Impression: Symptomatic ventral hernia s/p distal open gastric bypass, as well as intermittent vomiting and epigastric pain. Her hernia is soft and easily reversible, and there was no evidence of obstruction on exam. I am concerned that she may have a narrowing or ulceration of her gastro-jejunostomy, particularly given her chronic NSAID use. I do not have her operative reports to see how her bypass was performed. I would like to proceed with an EGD to assess her upper GI anatomy and ensure that this is not causing her symptoms prior to proceeding with a hernia repair. We discussed open and laparoscopic hernia repairs, however given the width of her fascia defect, I recommended an open repair. She may require component separation depending on intraoperative findings. She would like to see plastic surgery to see if she can have her excess abdominal skin removed at the same time. I will place a referral for this. Will also check her nutrition labs and vitamins to ensure that she is well nourished. Will finalize a surgical plan after her endoscopy, labs, and plastic surgery evaluation. * Tarik Osman MD - 10/01/2015 6:51 AM EDT Patient Name: Brenna Mc Patient Age: 64 y.o. Birthdate: 1950 Admit date: 10/01/2015 Attending Physician: Ivania Sauer MD No interval changes in medical hx. There were no vitals filed for this visit. nad nsr Breathing is non labored Abdominal pannus. Ventral hernia A/p To OR for panniculectomy with hernia repair by General Surgery. The operative procedure, risks, benefits, alternatives and complications were discussed, patient's questions were answered and she elected to proceed. Consent was verified. documented in this encounter Nursing Notes * Nina Watts RN - 10/01/2015 8:28 AM EDT One white metal ring and eye glasses labeled and brought to OR main desk, per procedure. Patient kept two rings on with stones, aware they would be cut off if indicated. documented in this encounter Miscellaneous Notes * Initial Assessments - Raj Obrien, OT - 10/04/2015 1:58 PM EDT Occupational Therapy Evaluation Patient profile: Brenna Mc is a 64 y.o. female admitted on 10/01/2015 by Jeanette Maharaj MD for ventral hernia repair with mesh and panniculectomy. Pt is POD #3. Active Non-Hospital Problems Diagnosis ??? Abdominal pannus ??? ADD (attention deficit disorder) ??? Pain in thoracic spine ??? Thoracic spondylosis without myelopathy ??? Right knee pain ??? S/P Right total hip arthroplasty- 01/12/2008 ([facility]) ??? S/P Left total knee arthroplasty- 07/15/2007 ([facility]) ??? Migraine ??? Hypertension ??? Hypothyroidism ??? Hyperlipidemia ??? Depression Past Surgical History Procedure Laterality Date ??? Gastric bypass surgery ??? Pro excise excess skin tissue, abdomen N/A 10/01/2015 ABDOMINOPLASTY performed by Ivania Sauer MD at [facility] MAIN OR ??? Pro muscle-skin flap, trunk Bilateral 10/01/2015 FLAP, MYOCUTANEOUS OR FASCIOCUTANEOUS, TRUNK performed by Ivania Sauer MD at [facility] MAIN OR ??? Pro repair incisional hernia, reducible N/A 10/01/2015 REPAIR INITIAL INCISIONAL OR VENTRAL HERNIA REDUCIBLE performed by Jeanette Koch MD at [facility] MAIN OR ??? N/A 10/01/2015 MODIFIER PANNICULECTOMY performed by Ivania Sauer MD at [facility] MAIN OR ??? N/A 10/01/2015 MODIFIER MESH,BARD VENTRALIGHT ST performed by Jeanette Koch MD at [facility] OR Social History: Patient lives alone. States she has a friend who can help her out Home Setup: mobile home with 4 steps to enter DME: none Baseline ADL/Mobility: Independent with ADL???s and IADL???s. Code status: full Precautions/Special Considerations: log roll bed mobility, abdominal incisions, abdominal binder when OOB, no heavy lifting Activity order: activity as tolerated Subjective: I had one of these a long time ago, of course I remember how to work it. re: sockaid Objective: Seen today for OT evaluation. Cognitive Status/Behavior: ?? alert, oriented to person, place, and time ?? Pleasant and cooperative ?? Receptive to suggestions ?? Confused re: management of drains (ie where to pin them, how to take care of them). Nursing to provide education on care, instructed pt in various places to pin them for comfort Communication: functional Vision & Perception: functional Range of motion, strength, coordination: Hand dominance: right Bilateral UEs are within functional limitations B LE's: moving against gravity, unable to make figure 4 position Sensation: not formally assessed Activities of Daily Living: Self-feeding: independent Hygiene grooming: pt combing hair with set up Upper and lower body dressing and bathing: ?? Showered with nursing and supervision - discussed shower set up and safety for home ?? Mod A to don abdominal binder ?? Mod A to don underwear - pt provided with newspaper or periodical editor to make task easier upon d/c ?? Pt also provided with sockaid and long handled sponge, educated on use and pt verbalizes understanding ?? Pinned drains to abdominal binder - pt educated on how to don underwear with the drains in placeto avoid kinks in the tubing, anticipate that it will be easiest to pin drains to inside of shirt once dressed Toileting: Toilet Transfer: independent Toilet Hygiene: independent Functional Mobility: Sit to stand: independent Ambulation: in room with supervision Stand to sit: independent Balance: ?? Sitting: good ?? Standing: good IADL???s: Assistance available to patient. Pt aware of lifting restriction and states that she willhave a friend coming to stay with her who can assist with heavier tasks. Endurance: Information taken from last recorded vitals in flowsheet. Last value Range last 8 hrs Heart Rate Heart Rate: 88 Heart Rate: [88] Blood Pressure BP: 116/76 BP: (116)/(76) SpO2 SpO2: 99 % SpO2: [99 %] On room air. Pain: C/o soreness. Skin: Abdominal incisions. Informed Consent: The patient agrees to and understands the OT treatment plan and goals. Education: patient have been educated on Role of occupational therapy/rehabilitation, Assistive device/technique, ADL, Positioning, Safety, Precautions/Protocol, Brace Management, Functional Mobility, Activity pacing/Energy conservation, Home Management, Balance and Recommendations and verbalizes understanding. Patient status, treatment, and mobility recommendations discussed with nursing. Assessment: Pt has been seen by OT for evaluation, and she demonstrates the ability to perform basic ADL???s with supervision-min A and use of adaptive equipment. Pt with difficulty performing LB dressing but states she will have a friend present who could help, she was also given adaptive equipment to make tasks easier. Pt educated in energy conservation strategies for home and reports she will have assistance for IADL tasks upon initial d/c. She was educated on drain management (ie where to pin drains to her clothing) but requires cuing to follow through. Anticipate that pt will return homewith assistance. Do not anticipate further OT needs. Equipment needs at discharge: Patient has all necessary equipment Discharge Recommendations: Based on the current findings noted during this evaluation, patient could benefit from Home without further Skilled Therapy when medically ready for hospital discharge. Other Recommendations: Encourage OOB activity and participation in self-care activities. Plan: OT will continue to monitor. Eval Date: 10/04/2015 Total time spent with patient: 35 minutes for evaluation Total timed interventions: 15 minutes for SCHM Pager: [phone] RAJ OBRIEN OT 10/04/2015 Occupational Therapy Rehabilitation Department * Plan of Care - Nely Boyce RN - 10/04/2015 2:39 AM EDT Problem: General Plan of Care Goal: Plan of Care Review Outcome: Ongoing (Interventions Implemented as Appropriate) 10/04/15 0225 Plan of Care Review Plan of Care Outcome Status ongoing (interventions implemented as appropriate) Progress progress toward functional goals as expected Coping/Psychosocial Response Interventions Plan of Care Reviewed with patient OUTCOME EVALUATION NOTE: OUTCOME SUMMARY: Pt A&O x4; able to sleep in between care. PRN Dilaudid for pain. Abdominal binder in place. Abdominal incisions BRIAN. Bilateral abdominal JPs putting out small amount SS fluid. Pt voiding adequateamount. One time Ativan administered per order. Will continue to closely monitor. PLAN MOVING FORWARD: -[x]Pain Control -[x]Mobilize INDIVIDUALIZED FALL PREVENTION: Patient has history of: No past medical history on file. Patient has following SCHEDULED medications: ??? gabapentin 300 mg Oral BID ??? dextroamphetamine-amphetamine 20 mg Oral 4 Times Daily ??? DULoxetine 60 mg Oral Daily ??? folic acid 400 mcg Oral Daily ??? levothyroxine 100 mcg Oral Daily ??? multivitamin 1 tablet Oral Daily ??? topiramate 100 mg Oral BID ??? sodium chloride 0.9 % 5 mL Intravenous BID ??? heparin (porcine) 5,000 Units Subcutaneous 2 times per day ??? docusate sodium 100 mg Oral BID ??? polyethylene glycol (MIRALAX)oral powder 17 g Oral Daily ??? senna 8.6 mg Oral BID ??? pantoprazole 40 mg Oral Daily ??? acetaminophen 1,000 mg Oral [facility] Patient has following PRN medications: HYDROmorphone, traMADol, sodium chloride 0.9 %, lidocaine, magnesium hydroxide, bisacodyl, prochlorperazine OR prochlorperazine, diphenhydrAMINE, ondansetron, nalOXone Baseline mobility: independent. Pt currently independent. Assistance: --assist with walker Supervision: -[]Hands-on for all transfers and ambulation -[x]Eyes-on for all transfers and ambulation -[]Arms-Reach for all transfers and ambulation Surveillance: -[x]Bed Alarm/Chair Alarm -[x]Purposeful Rounding -[x]Team Care -[x]Bedside Nurse Knowledge Exchange CPG OUTCOME EVALUATION: Goal: Individualization and Mutuality Outcome: Ongoing (Interventions Implemented as Appropriate) 10/03/15 1608 Individualization Patient Specific Goals pain control, ambulate, discharge home Goal: Fall Prevention-Safe Patient Handling Outcome: Ongoing (Interventions Implemented as Appropriate) 10/03/15 0743 10/03/152039 Musculoskeletal Interventions Activity/Level of Assistance -- independently Positioning -- HOB up 30-45 degrees;independent Self-Care Promotion adaptive equipment provided;independence encouraged while providing assistance -- Schreiber Fall Risk History of Falling -- 0 Secondary Diagnosis -- 15 Ambulatory Aids -- 0 Intravenous Therapy/Heparin/Saline Lock -- 20 Gait/Transferring -- 10 Mental Status -- 0 Score -- 45 Activity and Safety Assistive Device -- None OTHER Schreiber Fall Risk -- High Safety Interventions Safety Precautions/Fall Reduction -- assistive device;environmental modification;lighting adjusted for task/safety;low bed;nonskid shoes/slippers when out of bed;room near unit station Goal: Infection Control Outcome: Ongoing (Interventions Implemented as Appropriate) 10/03/152039 Coping/Psychosocial Response Interventions Counseling calming techniques promoted;emotional support provided Safety Interventions Isolation Precautions standard precautions maintained Infection Prevention nutrition promoted;hydration promoted;promote handwashing;rest/sleep promoted Goal: Discharge Needs Assessment Outcome: Ongoing (Interventions Implemented as Appropriate) 10/03/15 1608 10/04/15 0225 Discharge Needs Assessment Concerns to be Addressed -- no discharge needs identified Readmission Within the Last 30 Days no previous admission in last 30 days -- Equipment Needed After Discharge none -- Current Health Anticipated Changes Related to Illness none -- Self-Care Equipment Currently Used at Home none -- Living Environment Transportation Available family or friend will provide -- Problem: Pain, Acute (Adult, Obstetrics) Goal: Identify Signs and Symptoms and Related Risk Factors Signs and symptoms and related risk factors are identified upon initiation of Human Response Clinical Practice Guideline (CPG) Outcome: Ongoing (Interventions Implemented as Appropriate) 10/02/15 0253 Pain, Acute Related Risk Factors (Acute Pain) anxiety;surgery Signs and Symptoms (Acute Pain) facial mask of pain/grimace;verbalization of pain descriptors Goal: Acceptable Pain Control/Comfort Level Patient will demonstrate the desired outcomes. Outcome: Ongoing (Interventions Implemented as Appropriate) 10/04/15 0225 Pain, Acute (Adult, Obstetrics) Acceptable Pain Control/Comfort Level making progress toward outcome * Plan of Care - Nely Jonas RN - 10/03/2015 4:12 PM EDT Problem: General Plan of Care Goal: Plan of Care Review 10/03/15 1608 Plan of Care Review Plan of Care Outcome Status ongoing (interventions implemented as appropriate) Progress progress toward functional goals as expected Coping/Psychosocial Response Interventions Plan of Care Reviewed with patient OUTCOME EVALUATION NOTE: OUTCOME SUMMARY: Pt had a good day. Pt is ambulating around unit and in room independently. Pt passed physical therapy. Abd binder in place. Pain is being controlled w/ PRN Dilaudid (see MAR). JOSE drains in place. Pt eating and drinking. Pt is hoping to go home tomorrow. Call massey in reach, pt ringing, will Continueto monitor. PLAN MOVING FORWARD: Pain control, ambulate, prepare for discharge INDIVIDUALIZED FALL PREVENTION INTERVENTIONS: Patient-specific fall risk factors per assessment: [current deficits]: Hospital environment, narcotic medications, surgery Assistance [level of assistance required for transfers and ambulation]: independent Supervision [direct monitoring required during toileting and ADLs]: Eyes on w/ ADLs Surveillance [continuous indirect monitoring]: Hourly rounding, nurse knowledge exchange at bedside Patient-specific fall prevention interventions for sensory deficits provided, if applicable: CPG GOAL OUTCOME EVALUATION: Goal: Individualization and Mutuality 10/03/15 1608 Individualization Patient Specific Goals pain control, ambulate, discharge home Goal: Fall Prevention-Safe Patient Handling 10/03/15 0743 10/03/15 1519 Musculoskeletal Interventions Activity/Level of Assistance -- independently Positioning -- up in chair Self-Care Promotion adaptive equipment provided;independence encouraged while providing assistance -- Safety Interventions Safety Precautions/Fall Reduction bed alarm;environmental modification;fall reduction program maintained;low bed;lighting adjusted for task/safety;assistive device;nonskid shoes/slippers when out of bed;muscle strengthening facilitated;room near unit station -- Goal: Infection Control 10/03/15 0743 Coping/Psychosocial Response Interventions Counseling verbalization of feelings encouraged;reassurance provided Safety Interventions Isolation Precautions standard precautions maintained Infection Prevention rest/sleep promoted;nutrition promoted;hydration promoted;environmental surveillance Goal: Discharge Needs Assessment 10/03/15 1608 Discharge Needs Assessment Concerns to be Addressed no discharge needs identified Readmission Within the Last 30 Days no previous admission in last 30 days Equipment Needed After Discharge none Current Health Anticipated Changes Related to Illness none Self-Care Equipment Currently Used at Home none Living Environment Transportation Available family or friend will provide Problem: Pain, Acute (Adult, Obstetrics) Intervention: Pain Management Interventions 10/03/15 0743 Pain/Comfort Interventions Pain Management Interventions multimodal measures utilized * Op Note - Ivania Sauer MD - 10/03/2015 7:57 AM EDT [facility] [place] Operative Note Patient Name: Brenna Mc : [id number] MR#: [id number] Case Date: 10/01/2015 Surgeon: Surgeon(s) and Role: Panel 1: * Ivania Sauer MD - Primary * Tarik Osman MD Panel 2: * Jeanette Koch MD - Primary * Slava Leong DO Preoperative diagnosis: abdominal pannus Postoperative diagnosis: abdominal pannus Procedure(s): ABDOMINOPLASTY MODIFIER PANNICULECTOMY FLAP, MYOCUTANEOUS OR FASCIOCUTANEOUS, TRUNK REPAIR INITIAL INCISIONAL OR VENTRAL HERNIA REDUCIBLE MODIFIER MESH,BARD VENTRALIGHT ST Anesthesia: General Estimated Blood Loss: 160 mL Specimens removed during surgery: abdominal pannus, not sent for pathology Findings: 0.875 kg pannus Complications: none Fluids: 2 L crystalloid Drains: 19F x2 Drain/Device Site 10/01/15 Left abdomen collapsible closed device (Active) Insertion Site drainage 10/02/2015 9:00 PM Drainage Characteristics/Odor serosanguineous 10/02/2015 9:00 PM Drainage Amount moderate 10/02/2015 9:00 PM Therapy Setting (Negative Pressure Wound Therapy) continuous therapy 10/02/2015 9:00 PM General Output (mL) 20 10/03/2015 4:00 AM Drain/Device Site 10/01/15 Right abdomen collapsible closed device (Active) Insertion Site drainage 10/02/2015 9:00 PM Drainage Characteristics/Odor serosanguineous 10/02/2015 9:00 PM Drainage Amount small 10/02/2015 9:00 PM Therapy Setting (Negative Pressure Wound Therapy) continuous therapy 10/02/2015 9:00 PM General Output (mL) 10 10/03/2015 4:00 AM Surgical Closure: Primary Closure - closure of ALL tissue levels during the original surgery regardless of wires, wickes, drains, or other devices extruding through the incision Disposition: awakened from anesthesia, extubated and taken to the recovery room in a stable condition, having suffered no apparent untoward event. Condition: doing well without problems (Please see the Surgical Encounter Summary for any Implant and Specimen details pertinent to this patient.) HPI/Surgical Indications: 64 year old female with large ventral hernia and patulous abdominal pannus from weight loss. We were consulted by Dr Lopez for panniculectomy and possible component's separation. We discussed the procedure in detail with the patient and she agreed, electing to proceed. Procedure Description: TYPE OF REPORT: Operative report. DATE OF SURGERY: October 01, 2015. Ms. Mc was identified and marked in the upright position in the preoperative holding area with a [id number] panniculectomy incisional pattern. We reviewed the surgical plan with the patient which was to allow Dr. Koch to perform her hernia repair through a pre-existing midline abdominal incision and that we would remove the excess skin through this incisional pattern. We also discussed the possibility of a separation of components to achieve closure over the mesh. The patient understood the potential risks and complications and elected to proceed. The patient was brought to the operating room, placed on the operating room table in the supine position. Anesthetic monitors and SCDs were applied. After induction of general anesthesia, the patient was intubated orally and maintained on general anesthesia throughout the remainder of the case. The abdomen and flanks were prepped and draped in a standard sterile fashion. The operation began with Dr. Koch performing an open ventral hernia repair with mesh through a pre-existing vertical supraumbilical midline incision. The details of this will be dictated independently by Dr. Koch. Upon completion of the hernia repair, we were called to the operating room. There was no need for component separation as there was primary closure of the fascia. We began by evaluating the wound. There was use of Prolene sutures for lateral tacking of the mesh in a circumferential fashion. There was no significant bleeding. There was a significant amount of redundant skin in the midline. We began by extending our incision around the umbilical remnant which was preserved and then the low inferior Pfannenstiel-type incision. Dissection ensued from superficial to deep with electrocautery. At the level of the rectus fascia, flaps were elevated on each side. Care was taken to preserve lateral row perforators to supply the skin of the abdominal wound closure. As there was a significant amount of nonabsorbable suture and an ample amount of extra skin, we opted to perform a [id number] closure utilizing dermal fascial flaps in the midline. We de-epithelialized the skin of the area which was planned for resection on each side along the vertical midline. This was approximately 6-8 cm on each side. We then utilized this as a dermal fascial flap and tacked the left abdominal flap to the right anterior rectus sheath making a small opening in the flap for the umbilical remnant. We trimmed more of the right sided flap and secured this to the dermal aspect of the left sided flap. This gave the patient improved contour and performed double coverage over non-absorbing sutures from the hernia repair. We then trimmed the excess skin in a vzrvz-pr-bbk pattern and weighed this. This was 875 g. Hemostasis was achieved with electrocautery. Two number 19 Uzbek Clifton style drains were inserted and brought out through lateral low abdominal incisional skin. Closure was then performed in a multilayered fashion with 0 Vicryl for fascial level repair, 2-0 Vicryl for deep dermis and an absorbed stapling device for deep dermis along the Pfannenstiel limb of the cejfm-hy-xvo panniculectomy. The Pfannenstiel portion was closed at the skin level with 3-0 Monocryl in a running subcuticular fashion. The midline was closed with 3-0 Prolene in the interrupted and running subcuticular fashion for improved strength. Operative sites were cleansed and dried. Dermabond was applied across the wound margins. The drapes were taken down. The patient was weaned from anesthesia and extubated in the operating room. She was transitioned to her OR stretcher and transported to the Postanesthesia Care Unit where she was reported stable and breathing spontaneously. There were no apparent complications to the procedure. The patient tolerated the procedure well. All sponge and needle counts were reported as corrected by nursing staff at the end of the case. Infection Bundle used? No Attestation: Case Date: 10/01/2015 I was present and I participated during the entire procedure (does not need to include opening and closing). IVANIA SAUER MD 10/03/2015 * Plan of Care - Maryam Snider RN - 10/02/2015 1:42 PM EDT Problem: General Plan of Care Goal: Plan of Care Review Outcome: Ongoing (Interventions Implemented as Appropriate) 10/02/15 0253 10/02/15 0804 Plan of Care Review Plan of Care Outcome Status ongoing (interventions implemented as appropriate) -- Progress progress toward functional goals as expected -- Coping/Psychosocial Response Interventions Plan of Care Reviewed with -- patient OUTCOME EVALUATION NOTE: OUTCOME SUMMARY: Pt has been anxious and tearful throughout the day. Pt c/o of some pain in abdomen and the majorityof pain r/t to her baseline back pain. Pain managed with t-pump, Tramadol prn, Dilaudid prn, Tylenol and gabapentin scheduled. Pt up with a 1-assist and FWW. Pt in chair most of the day today. Pt encouraged to drink. IV fluids maintained due to poor oral intake. Pt voided x2. BS inaccurate due to bandage, concerns for retention due to fluids, increased oral intake, and hx of retention. However, straight cathed after 2nd void for 40cc. Vital signs remain stable. Hypoactive BS, pt denies passing flatus. Dressing to abdomen noted to have dried drainage. JOSE drains maintained. L putting out > than R, serosanguinous drainage. Pt resting between care. PLAN MOVING FORWARD: Pain control Mobilize INDIVIDUALIZED FALL PREVENTION INTERVENTIONS: Patient-specific fall risk factors per assessment: [current deficits]: Pain medication, unfamiliar environment, generalized weakness Assistance [level of assistance required for transfers and ambulation]: 1-assist with FWW Supervision [direct monitoring required during toileting and ADLs]: Hands on with ADLs Surveillance [continuous indirect monitoring]: Bed alarm, rounding Patient-specific fall prevention interventions for sensory deficits provided, if applicable: N/A CPG GOAL OUTCOME EVALUATION: Goal: Individualization and Mutuality Outcome: Ongoing (Interventions Implemented as Appropriate) 10/01/15 1823 Mutuality/Individual Preferences What anxieties, fears or concerns do you have about your health or care? none What questions do you have about your health or care? none What information would help us give you more personalized care? no information to anyone but Ally Goal: Fall Prevention-Safe Patient Handling Outcome: Ongoing (Interventions Implemented as Appropriate) 10/02/15 0253 10/02/15 0804 10/02/15 1009 Musculoskeletal Interventions Activity/Level of Assistance -- -- up in room;ambulated Positioning -- -- up in chair Self-Care Promotion assistance provided to decrease frustration;independence encouraged while providing assistance -- -- Schreiber Fall Risk History of Falling -- 0 -- Secondary Diagnosis -- 0 -- Ambulatory Aids -- 0 -- Intravenous Therapy/Heparin/Saline Lock -- 20 -- Gait/Transferring -- 10 -- Mental Status -- 0 -- Score -- 30 -- Activity and Safety Assistive Device -- -- Front wheel walker OTHER Schreiber Fall Risk -- Med -- Safety Interventions Safety Precautions/Fall Reduction -- bed alarm;environmental modification;lighting adjusted for task/safety;low bed;nonskid shoes/slippers when out of bed -- Goal: Infection Control Outcome: Ongoing (Interventions Implemented as Appropriate) 10/02/15 0804 Coping/Psychosocial Response Interventions Counseling calming techniques promoted;emotional support provided;goal setting facilitated;relaxation techniques promoted Safety Interventions Isolation Precautions standard precautions maintained Infection Prevention environmental surveillance;hydration promoted Goal: Discharge Needs Assessment Outcome: Ongoing (Interventions Implemented as Appropriate) 10/02/15 0253 Discharge Needs Assessment Concerns to be Addressed no discharge needs identified Readmission Within the Last 30 Days no previous admission in last 30 days Equipment Needed After Discharge none Current Health Anticipated Changes Related to Illness none Self-Care Equipment Currently Used at Home none Living Environment Transportation Available car;family or friend will provide Problem: Pain, Acute (Adult, Obstetrics) Goal: Identify Signs and Symptoms and Related Risk Factors Signs and symptoms and related risk factors are identified upon initiation of Human Response Clinical Practice Guideline (CPG) Outcome: Ongoing (Interventions Implemented as Appropriate) 10/02/15 0253 Pain, Acute Related Risk Factors (Acute Pain) anxiety;surgery Signs and Symptoms (Acute Pain) facial mask of pain/grimace;verbalization of pain descriptors Goal: Acceptable Pain Control/Comfort Level Patient will demonstrate the desired outcomes. Outcome: Ongoing (Interventions Implemented as Appropriate) 10/02/15 1320 Pain, Acute (Adult, Obstetrics) Acceptable Pain Control/Comfort Level making progress toward outcome * Plan of Care - Bing Ghosh RN - 10/02/2015 3:14 AM EDT Problem: General Plan of Care Goal: Plan of Care Review 10/02/15 025 Plan of Care Review Plan of Care Outcome Status ongoing (interventions implemented as appropriate) Progress progress toward functional goals as expected Coping/Psychosocial Response Interventions Plan of Care Reviewed with patient OUTCOME EVALUATION NOTE: OUTCOME SUMMARY: Pt rested comfortably between care overnight. Denies N/V, SOB, CP. Midline abdominal dsg showing dried drainage (area previously marked). JOSE drains x 2 patent and draining s/s fluid. Abdominal binderon. Jo catheter in place; air locking frequently - requiring tube manipulation for urine drainage. Pain well controlled with ENLISTED AIRCREW/AERIAL OBSERVER/GUNNER and tylenol. PLAN MOVING FORWARD: Pain control JOSE drain management D/C jo Ambulate INDIVIDUALIZED FALL PREVENTION INTERVENTIONS: Patient-specific fall risk factors per assessment: [current deficits]: Medications; unfamiliar environment; surgery <24 hrs ago Assistance [level of assistance required for transfers and ambulation]: Repositions independently; has not been OOB yet Supervision [direct monitoring required during toileting and ADLs]: Eyes on Surveillance [continuous indirect monitoring]: Masimo; purposeful rounding Patient-specific fall prevention interventions for sensory deficits provided, if applicable: N/A CPG GOAL OUTCOME EVALUATION: Goal: Individualization and Mutuality 10/01/15 9747 Mutuality/Individual Preferences What anxieties, fears or concerns do you have about your health or care? none What questions do you have about your health or care? none What information would help us give you more personalized care? no information to anyone but Ally Goal: Fall Prevention-Safe Patient Handling 10/01/15 1545 10/01/15 2100 10/01/152110 Musculoskeletal Interventions Activity/Level of Assistance (pt has not been OOB yet) -- -- Positioning -- independent -- Self-Care Promotion -- -- -- Schreiber Fall Risk History of Falling -- -- 0 Secondary Diagnosis -- -- 0 Ambulatory Aids -- -- 0 Intravenous Therapy/Heparin/Saline Lock -- -- 20 Gait/Transferring -- -- 10 Mental Status -- -- 0 Score -- -- 30 OTHER Schreiber Fall Risk -- -- Med Safety Interventions Safety Precautions/Fall Reduction -- -- bed alarm;environmental modification;fall reduction programmaintained;lighting adjusted for task/safety;low bed 10/02/15252 Musculoskeletal Interventions Activity/Level of Assistance -- Positioning -- Self-Care Promotion assistance provided to decrease frustration;independence encouraged while providing assistance Schreiber Fall Risk History of Falling -- Secondary Diagnosis -- Ambulatory Aids -- Intravenous Therapy/Heparin/Saline Lock -- Gait/Transferring -- Mental Status -- Score -- OTHER Schreiber Fall Risk -- Safety Interventions Safety Precautions/Fall Reduction -- Goal: Infection Control 10/01/15 2100 10/01/152110 Coping/Psychosocial Response Interventions Counseling emotional support provided;reassurance provided -- Safety Interventions Isolation Precautions -- standard precautions maintained Infection Prevention -- rest/sleep promoted;promote handwashing;hydration promoted;environmental surveillance;bronchial hygiene promoted Goal: Discharge Needs Assessment 10/02/15252 Discharge Needs Assessment Concerns to be Addressed no discharge needs identified Readmission Within the Last 30 Days no previous admission in last 30 days Equipment Needed After Discharge none Current Health Anticipated Changes Related to Illness none Self-Care Equipment Currently Used at Home none Living Environment Transportation Available car;family or friend will provide Problem: Pain, Acute (Adult, Obstetrics) Goal: Identify Signs and Symptoms and Related Risk Factors Signs and symptoms and related risk factors are identified upon initiation of Human Response Clinical Practice Guideline (CPG) 10/02/15252 Pain, Acute Related Risk Factors (Acute Pain) anxiety;surgery Signs and Symptoms (Acute Pain) facial mask of pain/grimace;verbalization of pain descriptors Goal: Acceptable Pain Control/Comfort Level Patient will demonstrate the desired outcomes. 10/02/15 0253 Pain, Acute (Adult, Obstetrics) Acceptable Pain Control/Comfort Level making progress toward outcome * Op Note - Jeanette Koch MD - 10/01/2015 1:58 PM EDT [facility] [place] Operative Note Patient Name: Brenna Mc : [id number] MR#: [id number] Case Date: 10/01/2015 Surgeon: Surgeon(s) and Role: Panel 1: * Ivania Sauer MD - Primary * Tarik Osman MD Panel 2: * Jeanette Koch MD - Primary * Slava Leong DO Preoperative diagnosis: Ventral hernia Postoperative diagnosis: Ventral hernia Procedure(s): REPAIR INITIAL INCISIONAL OR VENTRAL HERNIA REDUCIBLE MODIFIER MESH,BARD VENTRALIGHT ST Panniculectomy performed by Dr. Sauer Findings: 15 cm fascial defect in length, approximately 10 cm wide, however able to bring fascial edges together without difficulty without need for component separation. Fascia generally attenuated with poorly developed rectus abdominus muscles. Ventrio mesh 24.6 cm x 19.6 cm placed as underlay, fascia closed over mesh. Anesthesia: General Estimated Blood Loss: 160 mL (50 ml for General surgery portion of the procedure) Specimens removed during surgery: None Drains: None for hernia repair, drains were placed by Dr. Sauer Surgical Closure: Primary Closure - closure of ALL tissue levels during the original surgery regardless of wires, wickes, drains, or other devices extruding through the incision Disposition: awakened from anesthesia, extubated and taken to the recovery room in a stable condition, having suffered no apparent untoward event. 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 After review of her therapeutic options, she presented for openelective repair, with coordination for a panniculectomy by Dr. Sauer of Plastic surgery. Operative Procedure: The patient was brought to the Operating Room and placed in a supine position with arms out. Following uneventful induction of general endotracheal anesthesia, an orogastric tubewas placed as well as Venodyne stockings. Her abdomen was prepped and draped in the usual sterile fashion. A 10 blade was then used to create an incision through the previous scar. This incision was carefully carried down using electrocautery and scissors to enter the abdominal cavity in the mid portion of her surgery. Inspection of the abdomen revealed minimal omental adhesions to the hernia sacand adhesions. These were taken down sharply, bluntly and using electrocautery until the under surfa ce of the fascia was free of adhesions. Her transverse colon was elevated and the jejuno-jejunostomy was located and appeared widely patent. The upper portion of her fascia did not have a true herniadefect, however was very attenuated and therefore the the length of her prior incision was opened up and the old suture was removed. The hernia sac was excised using electrocautery. The muscles of the rectus abdominus were grasped and found the easily come together in the midline. She did not require a component separation. Small flaps were then created in the subcutaneous plane above the fascia to allow for better fascial bites. We then placed an underlay [address] mesh. This was anchored with interrupted 0 prolenes, placed every 2-3 cm, incorporating fascia and the inner layer of the mesh ring. We ensured that there was no bowel caught in the closure prior to tying down the mesh.A small area of redundant attenuated fascia in the midline was excised. The fascia was then closed primarily using two running #1 PDS sutures. At this point the procedure was turned over to Dr. Sauer to complete to panniculectomy portion of the procedure. I was the attending physician supervising the resident in the above care and I was present with theresident for the entire general surgery portion of the procedure. * Brief Op Note - Tarik Osman MD - 10/01/2015 12:54 PM EDT Brief Operative Note Patient Name: Brenna Mc : [id number] MR#: [id number] Case Date: 10/01/2015 Surgeon: Surgeon(s) and Role: Panel 1: * Ivania Sauer MD - Primary * Tarik Osman MD Panel 2: * Jeanette Koch MD - Primary * Slava Leong DO Preoperative diagnosis: abdominal pannus Postoperative diagnosis: abdominal pannus Procedure(s): ABDOMINOPLASTY MODIFIER PANNICULECTOMY FLAP, MYOCUTANEOUS OR FASCIOCUTANEOUS, TRUNK REPAIR INITIAL INCISIONAL OR VENTRAL HERNIA REDUCIBLE MODIFIER MESH,BARD VENTRALIGHT ST Specimen: none Anesthesia: General Findings: 0.875 kg pannus Complications: none Fluids: 2L Estimated Blood Loss: 180cc Drains: 19F x2 Disposition: awakened from anesthesia, extubated and taken to the recovery room in a stable condition, having suffered no apparent untoward event. Condition: doing well without problems (Please see the Surgical Encounter Summary for any Implant and Specimen details pertinent to this patient.) Infection Bundle used? N/A * Brief Op Note - Slava Leong DO - 10/01/2015 10:33 AM EDT Brief Operative Note Patient Name: Brenna Mc : [id number] MR#: [id number] Case Date: 10/01/2015 Surgeon: Surgeon(s) and Role: Panel 1: * Ivania Sauer MD - Primary Panel 2: * Jeanette Koch MD - Primary * Slava Leong DO Preoperative diagnosis: Incisional hernia, abdominal pannus Postoperative diagnosis: Same Procedure(s): Panel 2: Open ventral hernia repair with mesh Anesthesia: General Findings: Large incisional hernia, 15 x 10 cm Ventrio mesh 24.6 cm x 19.6 cm placed as underlay, fascia closed over mesh Complications: None Fluids: Final IVF TBD Estimated Blood Loss: 50 mL from our portion of the procedure Drains: None from Dr. Koch portion of the procedure Disposition: Plan to extubate in OR Condition: doing well without problems (Please see the Surgical Encounter Summary for any Implant and Specimen details pertinent to this patient.) Infection Bundle used? N/A documented in this encounter Plan of Treatment Not on file documented as of this encounter Procedures Procedure Name Priority Date/Time Associated Diagnosis Comments SUPERVISOR PARTIAL DENTURE DEPARTMENT SCAN 10/06/2015 12:00 AM EDT HEMOGRAM Routine 10/04/2015 3:56 AM EDT DIFFERENTIAL, AUTOMATED Routine 10/04/19 3:56 AM EDT CBC (WITH DIFF) Routine 10/04/2015 3:56 AM EDT BASIC METABOLIC PANEL Routine 10/04/2015 3:56 AM EDT HEMOGRAM Routine 10/03/2015 3:48 AM EDT DIFFERENTIAL, AUTOMATED Routine 10/03/19 3:48 AM EDT CBC (WITH DIFF) Routine 10/03/2015 3:48 AM EDT BASIC METABOLIC PANEL Routine 10/03/2015 3:48 AM EDT HEMOGRAM Routine 10/02/2015 5:20 AM EDT DIFFERENTIAL, AUTOMATED Routine 10/02/19 5:20 AM EDT CBC (WITH DIFF) Routine 10/02/2015 5:20 AM EDT BASIC METABOLIC PANEL Routine 10/02/2015 5:20 AM EDT MODIFIER MESH,BARD VENTRALIGHT ST 10/01/2015 7:37 AM EDT abdominal pannus REPAIR INITIAL INCISIONAL OR VENTRAL HERNIA REDUCIBLE (WRVU 11.92) 10/01/2015 7:37 AM EDT abdominal pannus FLAP, MYOCUTANEOUS OR FASCIOCUTANEOUS, TRUNK (WRVU 23) 10/01/2015 7:37 AM EDT abdominal pannus MODIFIER PANNICULECTOMY 10/01/19 16 7:37 AM EDT abdominal pannus PANNICULECTOMY (WRVU 17.11) 10/01/2015 7:37 AM EDT abdominal pannus REPAIR INITIAL INCISIONAL OR VENTRAL HERNIA REDUCIBLE Routine 10/01/2015 6:36 AM EDT FLAP, MYOCUTANEOUS OR FASCIOCUTANEOUS, TRUNK Routine 10/01/2015 6:36 AM EDT POCT HGB STAT 10/01/2015 documented in this encounter Results * SCAN DOC: SUPERVISOR PARTIAL DENTURE DEPARTMENT (10/06/2015 12:00 AM EDT) Anatomical Region Laterality Modality Other Scanning Provider MEDIA MGR SCAN EXT O RDR/RSLT * Differential, Automated (10/04/2015 3:56 AM EDT) Neutrophil % 66.9 % [facility] Neutrophil Absolute 4.65 1.50 - 6.30 x10(3)/[facility] Lymph % 15.4 % [facility] Lymphocytes Abs 1.1 1.0 - 3.6 x10(3)/[facility] Monocyte % 14.0 % [facility] Monocyte Abs 1.0 0.2 - 1.0 x10(3)/[facility] Eos % 3.2 % [facility] Eosinophils Abs 0.2 0.0 - 0.5 x10(3)/[facility] Basophil % 0.4 % [facility] Baso Absolute 0.0 0.0 - 0.2 x10(3)/[facility] LABORATORY Immature Gran % 0.10 % [facility] Comment: Immature granulocytes(IG's)percentage and absolute count will include metamyelocytes, myelocytes, and promyelocytes. Blood smears from CBCs yielding IG's will be scanned manually for concordance. If this scan disagrees with the automated IG or if promyelocytes are noted, a manual differential will be performed. Immature Gran Absolute 0.01 0.00 - 0.05 x10(3)/[facility] LABORATORY Blood specimen (specimen) 10/04/2015 3:56 AM EDT 10/04/2015 4:21 AM EDT Narrative Resulting Agency Comment Spec In Lab Jeanette Koch MD HEMATOLOGY ORDERABL ES [facility] [place] [address] * (ABNORMAL) Hemogram (10/04/2015 3:56 AM EDT) White Blood Cell 7.0 4.0 - 10.0 x10(3)/mc L [facility] Red Blood Cell 3.85(L) 3.93 - 5.22 x10(6)/mc L [facility] Hemoglobin 11.0(L) 11.2 - 15.7 gm/dL [facility] Hematocrit 34.4 34.0 - 45.0 % [facility] Mean Cell Volume 89.4 79.0 - 94.0 fL [facility] Mean Cell Hemoglobin 28.6 26.6 - 32.2 pg [facility] Mean Cell Hemoglobin Concentration 32.0 32.0 - 36.5 gm/dL [facility] Platelet 185 145 - 370 x10(3)/mc L [facility] RDW Standard Deviation 52.1(H) 35.0 - 46.0 fL [facility] RDW coefficient of variation 15.9(H) 10.9 - 14.4 % [facility] Mean Platelet Volume 10.1 9.0 - 12.0 fL [facility] Blood specimen (specimen) 10/04/2015 3:56 AM EDT 10/04/2015 4:21 AM EDT Narrative Resulting Agency Comment Spec In Lab Jeanette Koch MD HEMATOLOGY ORDERABL ES [facility] [place] [address] * (ABNORMAL) Basic Metabolic Panel (non-fasting) (10/04/2015 3:56 AM EDT) Glucose 86 65 - 199 mg/dL [facility] Comment:Diabetes: >=200 mg/d L plus symptoms Blood Urea Nitrogen 17 8 - 18 mg/dL [facility] Creatinine 0.79 0.70 - 1.20 mg/dL [facility] Comment: Please note that the pediatric reference intervals supplied above were not validated at [facility] [facility]. Results from pediatric patients should be interpreted in conjunction to the patient's age, height and muscle mass. Sodium 140 135 - 145 mmol/L [facility] Potassium 3.7 3.5 - 5.0 mmol/L [facility] Comment: Please note: ??Patients with WBC >100,000 may have falsely elevated Potassium levels. ??For accurate Potassium quantification in these patients send serum separator tube (gold top) for subsequent determinations. ??Contact the Clinical Chemistry Laboratory if there are any questions. Chloride 104 98 - 107 mmol/L [facility] Carbon Dioxide 25 22 - 31 mmol/L [facility] Anion Gap 11 5 - 15 mmol/L [facility] Calcium 8.0(L) 8.5 - 10.5 mg/dL [facility] Est Glomerular Filtration Rate >60 >=60 [facility] Comment: This estimated GFR (eGFR) value was calculated using the MDRD equation which has been validated on patients between the ages of 18 and 70. The MDRD should not be used to assess kidney function in patients < 18 years of age or in patients with extremes of body mass, or in patients with acute kidney failure. This value should be multiplied by 1.2 for patients. For further information please copy and paste the following links into your internet browser. [email or web address] Blood specimen (specimen) 10/04/2015 3:56 AM EDT 10/04/2015 4:21 AM EDT Narrative Resulting Agency Comment Spec In Lab Jeanette Kcoh MD CHEMISTRY ORDERABLE S [facility] [place] [address] * (ABNORMAL) Differential, Automated (10/03/2015 3:48 AM EDT) Neutrophil % 75.5 % [facility] Neutrophil Absolute 5.20 1.50 - 6.30 x10(3)/[facility] LABORATORY Lymph % 10.0 % [facility] Lymphocytes Abs 0.7(L) 1.0 - 3.6 x10(3)/[facility] LABORATORY Monocyte % 12.2 % [facility] Monocyte Abs 0.8 0.2 - 1.0 x10(3)/[facility] LABORATORY Eos % 1.6 % [facility] Eosinophils Abs 0.1 0.0 - 0.5 x10(3)/[facility] LABORATORY Basophil % 0.6 % [facility] Baso Absolute 0.0 0.0 - 0.2 x10(3)/[facility] LABORATORY Immature Gran % 0.10 % [facility] Comment: Immature granulocytes(IG's)percentage and absolute count will include metamyelocytes, myelocytes, and promyelocytes. Blood smears from CBCs yielding IG's will be scanned manually for concordance. If this scan disagrees with the automated IG or if promyelocytes are noted, a manual differential will be performed. Immature Gran Absolute 0.01 0.00 - 0.05 x10(3)/ L [facility] Blood specimen (specimen) 10/03/2015 3:48 AM EDT 10/03/2015 4:16 AM EDT Narrative Resulting Agency Comment Spec In Lab Jeanette Koch MD HEMATOLOGY ORDERABL ES [facility] [place] [address] * (ABNORMAL) Hemogram (10/03/2015 3:48 AM EDT) White Blood Cell 6.9 4.0 - 10.0 x10(3)/mc L [facility] Red Blood Cell 4.06 3.93 - 5.22 x10(6)/mc L [facility] Hemoglobin 11.8 11.2 - 15.7 gm/dL [facility] Hematocrit 35.9 34.0 - 45.0 % [facility] Mean Cell Volume 88.4 79.0 - 94.0 fL [facility] Mean Cell Hemoglobin 29.1 26.6 - 32.2 pg [facility] Mean Cell Hemoglobin Concentration 32.9 32.0 - 36.5 gm/dL [facility] Platelet 182 145 - 370 x10(3)/mc L [facility] RDW Standard Deviation 52.6(H) 35.0 - 46.0 fL [facility] RDW coefficient of variation 16.1(H) 10.9 - 14.4 % [facility] Mean Platelet Volume 10.1 9.0 - 12.0 fL [facility] Blood specimen (specimen) 10/03/2015 3:48 AM EDT 10/03/2015 4:16 AM EDT Narrative Resulting Agency Comment Spec In Lab Jeanette Koch MD HEMATOLOGY ORDERABL ES [facility] [place] [address] * (ABNORMAL) Basic Metabolic Panel (non-fasting) (10/03/2015 3:48 AM EDT) Glucose 100 65 - 199 mg/dL [facility] Comment:Diabetes: >=200 mg/d L plus symptoms Blood Urea Nitrogen 14 8 - 18 mg/dL [facility] Creatinine 0.75 0.70 - 1.20 mg/dL [facility] Comment: Please note that the pediatric reference intervals supplied above were not validated at [facility] [place] [facility]. Results from pediatric patients should be interpreted in conjunction to the patient's age, height and muscle mass. Sodium 140 135 - 145 mmol/L [facility] Potassium 3.5 3.5 - 5.0 mmol/L [facility] Comment: Please note: ??Patients with WBC >100,000 may have falsely elevated Potassium levels. ??For accurate Potassium quantification in these patients send serum separator tube (gold top) for subsequent determinations. ??Contact the Clinical Chemistry Laboratory if there are any questions. Chloride 106 98 - 107 mmol/L [facility] Carbon Dioxide 24 22 - 31 mmol/L [facility] Anion Gap 10 5 - 15 mmol/L [facility] Calcium 7.8(L) 8.5 - 10.5 mg/dL [facility] Est Glomerular Filtration Rate >[address] [facility] Comment: This estimated GFR (eGFR) value was calculated using the MDRD equation which has been validated on patients between the ages of 18 and 70. The MDRD should not be used to assess kidney function in patients < 18 years of age or in patients with extremes of body mass, or in patients with acute kidney failure. This value should be multiplied by 1.2 for patients. For further information please copy and paste the following links into your internet browser. [email or web address] Blood specimen (specimen) 10/03/2015 3:48 AM EDT 10/03/2015 4:16 AM EDT Narrative Resulting Agency Comment Spec In Lab Jeanette Koch MD CHEMISTRY ORDERABLE S [facility] [place] [address] * Differential, Automated (10/02/2015 5:20 AM EDT) Neutrophil % 65.8 % [facility] Neutrophil Absolute 4.35 1.50 - 6.30 x10(3)/[facility] LABORATORY Lymph % 20.4 % [facility] Lymphocytes Abs 1.4 1.0 - 3.6 x10(3)/[facility] LABORATORY Monocyte % 11.5 % [facility] Monocyte Abs 0.8 0.2 - 1.0 x10(3)/[facility] LABORATORY Eos % 1.4 % [facility] Eosinophils Abs 0.1 0.0 - 0.5 x10(3)/[facility] LABORATORY Basophil % 0.6 % [facility] Baso Absolute 0.0 0.0 - 0.2 x10(3)/[facility] LABORATORY Immature Gran % 0.30 % [facility] Comment: Immature granulocytes(IG's)percentage and absolute count will include metamyelocytes, myelocytes, and promyelocytes. Blood smears from CBCs yielding IG's will be scanned manually for concordance. If this scan disagrees with the automated IG or if promyelocytes are noted, a manual differential will be performed. Immature Gran Absolute 0.02 0.00 - 0.05 x10(3)/[facility] LABORATORY Blood specimen (specimen) 10/02/2015 5:20 AM EDT 10/02/2015 5:37 AM EDT Narrative Resulting Agency Comment Spec In Lab Jeanette Koch MD HEMATOLOGY ORDERABL ES [facility] [place] [address] * (ABNORMAL) Hemogram (10/02/2015 5:20 AM EDT) White Blood Cell 6.6 4.0 - 10.0 x10(3)/ L [facility] Red Blood Cell 3.98 3.93 - 5.22 x10(6)/[facility] LABORATORY Hemoglobin 11.6 11.2 - 15.7 gm/dL [facility] Hematocrit 35.0 34.0 - 45.0 % [facility] Mean Cell Volume 87.9 79.0 - 94.0 fL [facility] Mean Cell Hemoglobin 29.1 26.6 - 32.2 pg [facility] Mean Cell Hemoglobin Concentration 33.1 32.0 - 36.5 gm/dL [facility] Platelet 191 145 - 370 x10(3)/mc L [facility] RDW Standard Deviation 53.7(H) 35.0 - 46.0 fL [facility] RDW coefficient of variation 16.8(H) 10.9 - 14.4 % [facility] Mean Platelet Volume 10.1 9.0 - 12.0 fL [facility] Blood specimen (specimen) 10/02/2015 5:20 AM EDT 10/02/2015 5:37 AM EDT Narrative Resulting Agency Comment Spec In Lab Jeanette Koch MD HEMATOLOGY ORDERABL ES [facility] [place] [address] * (ABNORMAL) Basic Metabolic Panel (non-fasting) (10/02/2015 5:20 AM EDT) Glucose 82 65 - 199 mg/dL [facility] Comment:Diabetes: >=200 mg/d L plus symptoms Blood Urea Nitrogen 16 8 - 18 mg/dL [facility] Creatinine 0.98 0.70 - 1.20 mg/dL [facility] Comment: Please note that the pediatric reference intervals supplied above were not validated at [facility]. Results from pediatric patients should be interpreted in conjunction to the patient's age, height and muscle mass. Sodium 141 135 - 145 mmol/L [facility] Potassium 4.0 3.5 - 5.0 mmol/L [facility] Comment: Please note: ??Patients with WBC >100,000 may have falsely elevated Potassium levels. ??For accurate Potassium quantification in these patients send serum separator tube (gold top) for subsequent determinations. ??Contact the Clinical Chemistry Laboratory if there are any questions. Chloride 106 98 - 107 mmol/L [facility] Carbon Dioxide 24 22 - 31 mmol/L [facility] Anion Gap 11 5 - 15 mmol/L [facility] Calcium 7.5(L) 8.5 - 10.5 mg/dL [facility] Est Glomerular Filtration Rate 57(L) >=60 [facility] Comment: This estimated GFR (eGFR) value was calculated using the MDRD equation which has been validated on patients between the ages of 18 and 70. The MDRD should not be used to assess kidney function in patients < 18 years of age or in patients with extremes of body mass, or in patients with acute kidney failure. This value should be multiplied by 1.2 for patients. For further information please copy and paste the following links into your internet browser. [email or web address] Blood specimen (specimen) 10/02/2015 5:20 AM EDT 10/02/2015 5:37 AM EDT Narrative Resulting Agency Comment Spec In Lab Jeanette Koch MD CHEMISTRY ORDERABLE S [facility] [place] [id number] * POCT HGB (10/01/2015) POC Hemoglobin 13.5 g/dL 10/01/2015 Ivania Sauer MD POINT OF CARE TEST O RDERABLES documented in this encounter Visit Diagnoses Diagnosis Ventral incisional hernia Ventral incisional hernia documented in this encounter Admitting Diagnoses Diagnosis Ventral incisional hernia documented in this encounter Administered Medications Inactive Administered Medications - up to 3 most recent administrations Medication Order MAR Action Action Date Dose Rate Site acetaminophen (OFIRMEV) injection 1,000 mg 1,000 mg, Intravenous, at 400 mL/hr, Administer over 15 Minutes, EVERY 8 HOURS SCHEDULED, 3 doses, First dose on Thu10/01/15 at 1400, Last dose on Thu10/02/15 at 0600, Maximum dose of acetaminophen is 4000 mg from all sources in 24 hours., Routine, Is ketorolac (Toradol) IV contraindicated? Yes, Can this patient tolerate oral medications or suppositories? Yes Given 10/01/2015 1:29 PM EDT 1,000 mg 400 mL/hr acetaminophen (TYLENOL) tablet 1,000 mg 1,000 mg, Oral, EVERY 6 HOURS SCHEDULED, First dose on Thu10/01/15 at 1800, Until Discontinued, Maximum dose of acetaminophen is 4000 mg from all sources in 24 hours., Routine Given 10/04/2015 12:33 PM EDT 1,000 mg Given 10/04/2015 5:47 AM EDT 1,000 mg Given 10/04/2015 12:10 AM EDT 1,000 mg bisacodyl (DULCOLAX) suppository 10 mg 10 mg, Rectal, DAILY PRN, Starting on Thu10/01/15 at 1524, Until Thu10/04/15 at 0904, Constipation, Administer if needed per patient's routine or if no bowel movement within 48 hours to achieve: 1) One bowel movement at least every 48 hours, AND 2) Without straining. If multiple bowel medications ordered, consider adding if docusate or milk of magnesia not sufficient., Routine Given 10/03/2015 6:05 PM EDT 10 mg dextroamphetamine-amphetamine (ADDERALL) tablet 20 mg 20 mg, Oral, 4 TIMES DAILY, First dose on Thu10/02/15 at 0600, Until Discontinued, Routine Given 10/04/2015 12:3 3 PM EDT 20 mg Given 10/04/2015 8:36 AM EDT 20 mg Given 10/04/2015 5:46 AM EDT 20 mg docusate sodium (COLACE) capsule 100 mg 100 mg, Oral, 2 TIMES DAILY, First dose on Thu10/01/15 at 2100, Until Discontinued, Routine Given 10/03/2015 8:48 PM EDT 100 mg Given 10/03/2015 9:04 AM EDT 100 mg Given 10/02/2015 8:57 PM EDT 100 mg DULoxetine (CYMBALTA) capsule 60 mg 60 mg, Oral, DAILY, First dose on Thu10/02/15 at 0900, Until Discontinued, Routine Given 10/04/2015 9:12 AM EDT 60 mg Given 10/03/2015 9:05 AM EDT 60 mg Given 10/02/2015 8:05 AM EDT 60 mg fentaNYL (PF) 50 mcg/mL 2mL syringe 25 mcg, Intravenous, EVERY 5 MIN PRN, Pain, for 1-4 pain score, Starting on Thu10/01/15 at 1233, Until Thu10/01/15 at 1514, for 1-4 pain score Hold for respiratory rate less than 10 per minute. Maximum dose: 250 mcg over one hour., PACU Recovery Given 10/01/2015 2:17 PM EDT 25 mcg Given 10/01/2015 2:11 PM EDT 25 mcg Given 10/01/2015 2:06 PM EDT 25 mcg folic acid (FOLVITE) tablet 400 mcg 400 mcg, Oral, DAILY, First dose on Thu10/01/15 at 1700, Until Discontinued, Routine Given 10/04/2015 9:12 AM EDT 400 mcg Given 10/03/2015 9:06 AM EDT 400 mcg Given 10/02/2015 8:05 AM EDT 400 mcg furosemide (LASIX) tablet 20 mg 20 mg, Oral, 2 TIMES DAILY, First dose (after last modification) on Thu10/01/15 at 1800, Until Discontinued, Routine Given 10/01/2015 6:23 PM EDT 20 mg gabapentin (NEURONTIN) capsule 300 mg 300 mg, Oral, 3 TIMES DAILY, First dose on Thu10/01/15 at 1630, Until Discontinued, Routine Given 10/02/2015 8:04 AM EDT 300 mg Given 10/01/2015 9:01 PM EDT 300 mg Given 10/01/2015 4:15 PM EDT 300 mg gabapentin (NEURONTIN) capsule 300 mg 300 mg, Oral, 2 TIMES DAILY, First dose (after last modification) on Thu10/02/15 at 2100, Until Discontinued, Routine Given 10/04/2015 8:36 AM EDT 300 mg Given 10/03/2015 8:48 PM EDT 300 mg Given 10/03/2015 9:06 AM EDT 300 mg heparin (porcine) subcutaneous injection 5,000 Units 5,000 Units, Subcutaneous, EVERY 12 HOURS SCHEDULED (2 times per day), First dose on Thu10/01/15 at 2100, Until Discontinued, Routine Given 10/04/2015 9:12 AM EDT 5,000 Units Given 10/03/2015 8:48 PM EDT 5,000 Units Given 10/03/2015 9:07 AM EDT 5,000 Units HYDROmorphone (DILAUDID) 1 mg/mL [employer]ED [employer]CREW/[employer]BSERVER/GUNNER 50 mL Intravenous, ENLISTED AIRCREW/AERIAL OBSERVER/GUNNER ONLY, Starting on Thu10/01/15 at 1300, Until Thu10/02/15 at 0708 New Syringe/Cartridge 10/01/2015 1:18 PM EDT 50 mg HYDROmorphone (DILAUDID) syringe 0.2-0.4 mg 0.2-0.4 mg, Intravenous, EVERY 5 MIN PRN, Pain, Starting on Thu10/01/15 at 1233, Until Thu10/01/15 at 1514, For moderate pain (4-6) give: 0.2 mg every 5 minute prn For severe pain (7-10) give: 0.4 mg every 5 minutes prn Maximum dose: 4 mg per hour Hold for respiratory rate less than 10 per minute., PACU Recovery Given 10/01/2015 1:49 PM EDT 0.4 mg Given 10/01/2015 1:41 PM EDT 0.4 mg Given 10/01/2015 1:31 PM EDT 0.4 mg HYDROmorphone (DILAUDID) tablet 2-4 mg 2-4 mg, Oral, EVERY 4 HOURS PRN, Starting on Thu10/02/15 at 0707, Until Thu10/05/15 at 0040, Pain, Take 1 tablet for pain 1-5; take 2 tablets for pain 6-10, Routine Given 10/04/2015 12:33 PM EDT 4 mg Given 10/04/2015 8:36 AM EDT 4 mg Given 10/04/2015 4:24 AM EDT 4 mg lactated ringers infusion 1,000 mL 1,000 mL, at 100 mL/hr, Intravenous, CONTINUOUS, Starting on Thu10/01/15 at 0715, Until Thu10/01/15 at 1317, Day of Surgery (Day of Procedure) New Bag 10/01/2015 1:16 PM EDT 1,000 mLs 100 mL/hr New Bag 10/01/2015 12:45 PM EDT New Bag 10/01/2015 9:26 AM EDT lactated ringers infusion 1,000 mL 1,000 mL, at 100 mL/hr, Intravenous, CONTINUOUS, Starting on Thu10/01/15 at 1300, Until Thu10/03/15 at 0848 New Bag 10/02/2015 12:17 PM EDT 1,000 mL s 100 mL/hr New Bag 10/01/2015 9:03 PM EDT 1,000 mLs 100 mL/hr New Bag 10/01/2015 1:25 PM EDT 1,000 mLs 100 mL/hr levothyroxine (SYNTHROID) tablet 100 mcg 100 mcg, Oral, DAILY, First dose on Thu10/02/15 at 0600, Until Discontinued, Routine Given 10/04/2015 5:46 AM EDT 100 mcg Given 10/03/2015 6:24 AM EDT 100 mcg Given 10/02/2015 6:31 AM EDT 100 mcg LORazepam (ATIVAN) tablet 0.5-1 mg 0.5-1 mg, Oral, ONCE, 1 dose, On Thu10/02/15 at 2130, Please give 0.5mg tablet, if in 45 minutes no relief please give another 0.5mg tablet, Routine Given 10/02/2015 9:23 PM EDT 0.5 mg LORazepam (ATIVAN) tablet 0.5-1 mg 0.5-1 mg, Oral, ONCE, 1 dose, On Thu10/03/15 at 2100, Please give 0.5mg tablet, if in 45 minutes no relief please give another 0.5mg tablet, Routine Given 10/03/2015 8:48 PM EDT 0.5 mg multivitamin (THERAGRAN) tablet 1 tablet 1 tablet, Oral, DAILY, First dose on Thu10/01/15 at 1700, Until Discontinued Given 10/04/2015 9:12 AM EDT 1 tablet Given 10/03/2015 9:05 AM EDT 1 tablet Given 10/02/2015 8:05 AM EDT 1 tablet ondansetron (ZOFRAN) injection 4 mg 4 mg, Intravenous, EVERY 30 MIN PRN, Starting on Thu10/01/15 at 1233, Until Thu10/01/15 at 1514, Nausea, May repeat 4 mg once in 30 minutes. If multiple antiemetics ordered, use ondansetron first and if ineffective use prochlorperazine second and if ineffective use promethazine, PACU Recovery Given 10/01/2015 1:00 PM EDT 4 mg pantoprazole (PROTONIX) tablet 40 mg 40 mg, Oral, DAILY, First dose on Thu10/02/15 at 0900, Until Discontinued, DO NOT CRUSH OR OPEN Therapeutic interchange for omeprazole (Prilosec) 40 mg Given 10/04/2015 9:12 AM EDT 40 mg Given 10/03/2015 9:06 AM EDT 40 mg Given 10/02/2015 9:49 AM EDT 40 mg polyethylene glycol (MIRALAX) packet 17 g 17 g, Oral, DAILY, First dose on Thu10/01/15 at 1700, Until Discontinued, Routine Given 10/03/2015 9:04 AM EDT 17 g Given 10/02/2015 8:05 AM EDT 17 g prochlorperazine (COMPAZINE) injection 10 mg 10 mg, Intravenous, EVERY 6 HOURS PRN, Starting on Thu10/01/15 at 1524, Until Thu10/05/15 at 0040, Nausea, Nausea/Vomiting, If multiple antiemetics are ordered, use ondansetron first. If ondansetron ineffective use prochlorperazine. , Routine prochlorperazine (COMPAZINE) tablet 10 mg 10 mg, Oral, EVERY 6 HOURS PRN, Starting on Thu10/01/15 at 1524, Until Thu10/05/15 at 0040, Nausea, Nausea/Vomiting, If multiple antiemetics are ordered, use ondansetron first. If ondansetron ineffective use prochlorperazine. PO Preferred. If patient unable to take PO, may give IV if ordered., Routine senna (SENOKOT) tablet 8.6 mg 8.6 mg, Oral, 2 TIMES DAILY, First dose on Thu10/01/15 at 2100, Until Discontinued, Routine Given 10/03/2015 8:48 PM EDT 8.6 mg Given 10/03/2015 9:05 AM EDT 8.6 mg Given 10/02/2015 8:57 PM EDT 8.6 mg sodium chloride 0.9 % flush 5 mL 5 mL, Intravenous, 2 TIMES DAILY, First dose on Thu10/01/15 at 2100, Until Discontinued, Routine Given 10/04/2015 9:13 AM EDT 5 mLs Given 10/03/2015 8:48 PM EDT 5 mLs Given 10/03/2015 9:09 AM EDT 5 mLs topiramate (TOPAMAX) tablet 100 mg 100 mg, Oral, 2 TIMES DAILY, First dose on Thu10/01/15 at 2100, Until Discontinued, Routine Given 10/04/2015 9:12 AM EDT 100 mg Given 10/03/2015 8:48 PM EDT 100 mg Given 10/03/2015 9:06 AM EDT 100 mg traMADol (ULTRAM) tablet 50 mg 50 mg, Oral, EVERY 6 HOURS PRN, Starting on Thu10/01/15 at 1524, Until Thu10/01/15 at 1625, Pain, Routine Given 10/01/2015 4:15 PM EDT 50 mg traMADol (ULTRAM) tablet 50 mg 50 mg, Oral, EVERY 6 HOURS PRN, Starting on Thu10/02/15 at 0909, Until Thu10/05/15 at 0040, Pain, Routine Given 10/04/2015 3:17 AM EDT 50 mg Given 10/02/2015 6:46 PM EDT 50 mg Given 10/02/2015 10:09 AM EDT 50 mg documented in this encounter Active and Recently Administered Medications Times are shown in EDT. Scheduled Medication Order 10/02/2015 10/03/2015 10/04/2015 acetaminophen (TYLENOL) tablet 1,000 mg 1,000 mg, Oral, EVERY 6 HOURS SCHEDULED, First dose on Thu10/01/15 at 1800, Until Discontinued, Maximum dose of acetaminophen is 4000 mg from all sources in 24 hours., Routine 0043 (Given - Provider: Bing Ghosh RN)0631 (Given - Provider: Bing Ghosh RN)1213 (Given - Provider: Maryam Snider RN)1707 (Given - Provider: Maryam Snider RN) 0225 (Given - Provider: Bing Ghosh RN)0624 (Given - Provider: Bing Ghosh RN)1115 (Given - Provider: Nely Jonas RN)1800 (Not Given - Provider: Nely Jonas RN - Reason: Patient/family refused) 0010 (Given - Provider: Nely Boyce RN)0547 (Given - Provider: Nely Boyce RN)1233 (Given - Provider: Nely Jonas RN)1800 (Due) dextroamphetamine-amphet amine (ADDERALL) tablet 20 mg 20 mg, Oral, 4 TIMES DAILY, First dose on Thu10/02/15 at 0600, Until Discontinued, Routine 0631 (Given - Provider: Bing Ghosh RN)0805 (Given - Provider: Maryam Snider RN)1213 (Given - Provider: Maryam Snider RN)1422 (Given - Provider: Maryam Snider RN) 0624 (Given - Provider: Bing Ghosh RN)0906 (Given - Provider: Nely Jonas RN)1114 (Given - Provider: Nely Jonas RN)1517 (Given - Provider: Nely Jonas RN) 0546 (Given - Provider: Nely Boyce RN)0836 (Given - Provider: Nely Jonas RN)1233 (Given - Provider: Nely Jonas RN)1500 (Due) docusate sodium (COLACE) capsule 100 mg 100 mg, Oral, 2 TIMES DAILY, First dose on Thu10/01/15 at 2100, Until Discontinued, Routine 0805 (Given - Provider: Maryam Snider RN)205 (Given - Provider: Bing Ghosh RN) 0904 (Given - Provider: Nely Jonas RN)2048 (Given - Provider: Nely Boyce RN) 0900 (Not Given - Provider: Nely Jonas RN - Reason: Medication Discontinued) DULoxetine (CYMBALTA) capsule 60 mg 60 mg, Oral, DAILY, First dose on Thu10/02/15 at 0900, Until Discontinued, Routine 0805 (Given - Provider: Maryam Snider RN) 0905 (Given - Provider: Nely Jonas RN) 0912 (Given - Provider: Nely Jonas RN) folic acid (FOLVITE) tablet 400 mcg 400 mcg, Oral, DAILY, First dose on Thu10/01/15 at 1700, Until Discontinued, Routine 0805 (Given - Provider: Mrayam Snider RN) 0906 (Given - Provider: Nely Jonas RN) 0912 (Given - Provider: Nely Jonas RN) gabapentin (NEURONTIN) capsule 300 mg (CANCELED) 300 mg, Oral, 3 TIMES DAILY, First dose on Thu10/01/15 at 1630, Until Discontinued, Routine 08 (Given - Provider: Maryam Snider RN) gabapentin (NEURONTIN) capsule 300 mg 300 mg, Oral, 2 TIMES DAILY, First dose (after last modification) on Thu10/02/15 at 2100, Until Discontinued, Routine 2056 (Given - Provider: Bing Ghosh RN) 09 (Given - Provider: Nely Jonas RN)2047 (Given - Provider: Nely Boyce RN) 0836 (Given - Provider: Nely Jonas RN)2100 (Due) heparin (porcine) subcutaneous injection 5,000 Units 5,000 Units, Subcutaneous, EVERY 12 HOURS SCHEDULED (2 times per day), First dose on Thu10/01/15 at 2100, Until Discontinued, Routine 0805 (Given - Provider: Maryam Snider RN)2056 (Given - Provider: Bing Ghosh RN) 0907 (Given - Provider: Nely Jonas RN)2047 (Given - Provider: Nely Boyce RN) 0912 (Given - Provider: Nely Jonas RN)2100 (Due) levothyroxine (SYNTHROID) tablet 100 mcg 100 mcg, Oral, DAILY, First dose on Thu10/02/15 at 0600, Until Discontinued, Routine 0631 (Given - Provider: Bing Ghosh RN) 0624 (Given - Provider: Bing Ghosh RN) 0546 (Given - Provider: Nely Boyce RN) LORazepam (ATIVAN) tablet 0.5-1 mg (COMPLETED) 0.5-1 mg, Oral, ONCE, 1 dose, On Thu10/02/15 at 2130, Please give 0.5mg tablet, if in 45 minutes no relief please give another 0.5mg tablet, Routine 2122 (Given - Provider: Bing Ghosh RN) LORazepam (ATIVAN) tablet 0.5-1 mg (COMPLETED) 0.5-1 mg, Oral, ONCE, 1 dose, On Thu10/03/15 at 2100, Please give 0.5mg tablet, if in 45 minutes no relief please give another 0.5mg tablet, Routine 2047 (Given - Provider: Nely Boyce RN) multivitamin (THERAGRAN) tablet 1 tablet 1 tablet, Oral, DAILY, First dose on Thu10/01/15 at 1700, Until Discontinued 08 (Given - Provider: Maryam Snider RN) 09 (Given - Provider: Nely Jonas RN) 09 (Given - Provider: Nely Jonas RN) pantoprazole (PROTONIX) tablet 40 mg 40 mg, Oral, DAILY, First dose on Thu10/02/15 at 0900, Until Discontinued, DO NOT CRUSH OR OPEN Therapeutic interchange for omeprazole (Prilosec) 40 mg 0949 (Given - Provider: Maryam Snider RN) 09 (Given - Provider: Nely Jonas RN) 09 (Given - Provider: eNly Jonas RN) polyethylene glycol (MIRALAX) packet 17 g 17 g, Oral, DAILY, First dose on Thu10/01/15 at 1700, Until Discontinued, Routine 08 (Given - Provider: Maryam Snider RN) 09 (Given - Provider: Nely Jonas RN) 09 (Not Given - Provider: Nely Jonas RN - Reason: Medication Discontinued) senna (SENOKOT) tablet 8.6 mg 8.6 mg, Oral, 2 TIMES DAILY, First dose on Thu10/01/15 at 2100, Until Discontinued, Routine 0805 (Given - Provider: Maryam Snider RN)2056 (Given - Provider: Bing Ghosh RN) 09 (Given - Provider: Nely Jonas RN)2047 (Given - Provider: Nely Boyce RN) 0900 (Not Given - Provider: Nely Jonas RN - Reason: Medication Discontinued) sodium chloride 0.9 % flush 5 mL 5 mL, Intravenous, 2 TIMES DAILY, First dose on Thu10/01/15 at 2100, Until Discontinued, Routine 0806 (Given - Provider: Maryam Snider RN)210 (Given - Provider: Bing Ghosh RN) 09 (Given - Provider: Nely Jonas RN)204 (Given - Provider: Nely Boyce RN) 0913 (Given - Provider: Nely Jonas RN)2100 (Due) topiramate (TOPAMAX) tablet 100 mg 100 mg, Oral, 2 TIMES DAILY, First dose on Thu10/01/15 at 2100, Until Discontinued, Routine 0805 (Given - Provider: Maryam Snider RN)205 (Given - Provider: Bing Ghosh RN) 09 (Given - Provider: Nely Jonas RN)2047 (Given - Provider: Nely Boyce RN) 0912 (Given - Provider: Nely Jonas RN)2100 (Due) Continuous Medication Order 10/02/2015 10/03/2015 10/04/2015 lactated ringers infusion 1,000 mL (CANCELED) 1,000 mL, at 100 mL/hr, Intravenous, CONTINUOUS, Starting on Thu10/01/15 at 1300, Until Thu10/03/15 at 0848 1217 (New Bag - Provider: Maryam Snider RN) PRN Medication Order 10/02/2015 10/03/2015 10/04/2015 bisacodyl (DULCOLAX) suppository 10 mg 10 mg, Rectal, DAILY PRN, Starting on Thu10/01/15 at 1524, Until Graciela 10/04/15 at 0904, Constipation, Administer if needed per patient's routine or if no bowel movement within 48 hours to achieve: 1) One bowel movement at least every 48 hours, AND 2) Without straining. If multiple bowel medications ordered, consider adding if docusate or milk of magnesia not sufficient., Routine 1805 (Given - Provider: Nely Jonas RN) diphenhydrAMINE (BENADRYL) injection 25 mg 25 mg, Intravenous, EVERY 30 MIN PRN, 2 doses, Starting on Thu10/01/15 at 1524, Until Thu10/05/15 at 0040, Itching, May repeat dose in 30 minutes if pruritis not relieved. Per ENLISTED AIRCREW/AERIAL OBSERVER/GUNNER order., Routine HYDROmorphone (DILAUDID) tablet 2-4 mg 2-4 mg, Oral, EVERY 4 HOURS PRN, Starting on Thu10/02/15 at 0707, Until Thu10/05/15 at 0040, Pain, Take 1 tablet for pain 1-5; take 2 tablets for pain 6-10, Routine 0805 (Given - Provider: Maryam Snider RN)1214 (Given - Provider: Maryam Snider RN)1707 (Given - Provider: Maryam Snider RN)2057 (Given - Provider: Bing Ghosh RN) 0225 (Given - Provider: Bing Ghosh RN)0642 (Given - Provider: Bing Ghosh RN)1114 (Given - Provider: Nely Jonas RN)1518 (Given - Provider: Nely Jonas RN)1938 (Given - Provider: Nely Jonas RN) 0010 (Given - Provider: Nely Boyce RN)0424 (Given - Provider: Nely Boyce RN)0836 (Given - Provider: Nely Jonas RN)1233 (Given - Provider: Nely Jonas RN) lidocaine (XYLOCAINE) 10 mg/mL (1 %) injection 3 mg 3 mg (0.3 mL), Subcutaneous, ONCE PRN, 1 dose, Starting on Thu10/01/15 at 1524, Until Thu10/05/15 at 0040, for discomfort with PIV insertion, Routine magnesium hydroxide (MILK OF MAGNESIA) oral suspension 10 mL 10 mL, Oral, DAILY PRN, Starting on Thu10/01/15 at 1524, Until Thu10/04/15 at 0904, Constipation, Administer if needed per patient's routine or if no bowel movement within 48 hours to achieve: 1) One bowel movement at least every 48 hours, AND 2) Without straining. If multiple bowel medications ordered, consider adding if docusate not sufficient., Routine nalOXone (NARCAN) injection 0.2 mg 0.2 mg, Intravenous, EVERY 1 MIN PRN, Starting on Thu10/01/15 at 1524, Until Thu10/05/15 at 0040, Opioid Reversal, May repeat every 60 seconds to increase respiratory rate. DO NOT exceed 2 mg total dose. Per ENLISTED AIRCREW/AERIAL OBSERVER/GUNNER order., Routine ondansetron (ZOFRAN) injection 4 mg 4 mg, Intravenous, EVERY 30 MIN PRN, 2 doses, Starting on Thu10/01/15 at 1524, Until Thu10/05/15 at 0040, Nausea, May repeat dose once in 30 minutes if no relief from previous dose. If multiple antiemetics are ordered, use ondansetron first, prochlorperazine second. Per ENLISTED AIRCREW/AERIAL OBSERVER/GUNNER order. prochlorperazine (COMPAZINE) injection 10 mg(Linked Group 1) 10 mg, Intravenous, EVERY 6 HOURS PRN, Starting on Thu10/01/15 at 1524, Until Thu10/05/15 at 0040, Nausea, Nausea/Vomiting, If multiple antiemetics are ordered, use ondansetron first. If ondansetron ineffective use prochlorperazine. , Routine prochlorperazine (COMPAZINE) tablet 10 mg(Linked Group 1) 10 mg, Oral, EVERY 6 HOURS PRN, Starting on Thu10/01/15 at 1524, Until Thu10/05/15 at 0040, Nausea, Nausea/Vomiting, If multiple antiemetics are ordered, use ondansetron first. If ondansetron ineffective use prochlorperazine. PO Preferred. If patient unable to take PO, may give IV if ordered., Routine sodium chloride 0.9 % flush 5-20 mL 5-20 mL, Intravenous, EVERY 1 MIN PRN, Starting on Thu10/01/15 at 1524, Until Thu10/05/15 at 0040, flush, Flush pertains to all indwelling lines. Flush per protocol found in the job aid using the link provided on this medication record., Routine traMADol (ULTRAM) tablet 50 mg 50 mg, Oral, EVERY 6 HOURS PRN, Starting on Thu10/02/15 at 0909, Until Thu10/05/15 at 0040, Pain, Routine 1009 (Given - Provider: Maryam Snider, LAKHWINDER)1846 (Given - Provider: Maryam Snider RN) 0317 (Given - Provider: Nely Boyce RN) Linked Groups Order Group 1: prochlorperazine (COMPAZINE) tablet 10 mgJump to med 10 mg, Oral, EVERY 6 HOURS PRN, Starting on Thu10/01/15 at 1524, Until Thu10/05/15 at 0040, Nausea, Nausea/Vomiting, If multiple antiemetics are ordered, use ondansetron first. If ondansetron ineffective use prochlorperazine. PO Preferred. If patient unable to take PO, may give IV if ordered., Routine Or prochlorperazine (COMPAZINE) injection 10 mgJump to med 10 mg, Intravenous, EVERY 6 HOURS PRN, Starting on Thu10/01/15 at 1524, Until Thu10/05/15 at 0040, Nausea, Nausea/Vomiting, If multiple antiemetics are ordered, use ondansetron first. If ondansetron ineffective use prochlorperazine. , Routine documented in this encounter Care Teams Licensed Land Surveyor Relationship Specialty Start Date End Date Stuart Leyva MD [address] [place] [address] PCP - General Internal Medicine 06/28/15 documented as of this encounter
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
--- OUTSIDE RECORDS SUMMARY | 2024-03-02 20:25 | XMS_ITS | Clinical Summary ---
Author Organization [facility] Address [facility] [place] [address] Care Team Providers Care Cement Mason Maintenance Name Role Phone Stuart Leyva MD Primary Care Provider [phone] Allergies Active Allergy Reactions Criticality Noted Date Comments Codeine Phosphate Nausea Only Medium stomach pain Morphine Sulfate Other (See Comments) Medium leg swelling Nsaids (Non-Steroidal Anti-Inflammatory Drug) Nausea Only Medium stomach pain Medications Medication Sig Dispensed Refills Start Date End Date Status gabapentin (NEURONTIN) 300 mg capsule 300 M-2 Capsule(s), PO, QHS 01/02/2010 Active folic acid (FOLVITE) 400 mcg tablet 01/02/2010 Active topiramate (TOPAMAX) 200 mg tablet 01/02/2010 Active Calcium Carbonate-Vitamin D3 600 mg(1,500mg) -400 unit Cap 1 Capsule(s), PO, Twice daily 01/02/2010 Active multivitamin (THERAGRAN) tablet Take 1 tablet by mouth daily. Active levothyroxine (SYNTHROID) 100 mcg Tablet Take 100 mcg by mouth daily. Active b complex vitamins Capsule Take 1 capsule by mouth daily. Active traMADol (ULTRAM) 50 mg Tablet Take 50 mg by mouth every 6 hours as needed for Pain. Active furosemide (LASIX) 20 mg Tablet Take 20 mg by mouth 2 times daily. Active GLUC/CHND/OM3/DHA/EPA /FISH/STR (GLUCOSAMINE CHONDROITIN PLUS ORAL) Take by mouth. Active senna (SENOKOT) 8.6 mg Tablet Take 1 tablet by mouth daily. Active omeprazole (PRILOSEC) 40 mg Capsule, Delayed Release(E.C.) Take 40 mg by mouth daily. Active acetaminophen (TYLENOL) 500 mg Tablet Take 2 tablets by mouth every 6 hours as needed for Pain (for MODERATE pain). 30 tablet 1 10/30/2015 Active HYDROmorphone (DILAUDID) 2 mg Tablet Take 1-2 tablets by mouth every 4 hours as needed for Pain (2 mg for pain 1-5/10, 4 mg for pain 6-10/10). 30 tablet 10/30/2015 Active Active Problems Problem Noted Date Diagnosed Date Open abdominal wall wound 10/26/2015 Ventral incisional hernia 10/01/2015 Abdominal pannus 07/25/2015 ADD (attention deficit disorder) 09/02/2013 Pain in thoracic spine 06/23/2013 Thoracic spondylosis without myelopathy 06/24/19 14 Right knee pain 06/20/2013 S/P Right total hip arthroplasty- 01/12/2008 (Aric adams) 06/20/2013 S/P Left total knee arthroplasty- 07/15/2007 (Aric adams) 06/20/2013 Migraine 06/20/2013 Hypertension 06/20/2013 Hypothyroidism 06/20/2013 Hyperlipidemia 06/20/2013 Depression 06/20/2013 Immunizations Name Administration Dates Next Due Influenza Vaccine, Whole 04/20/2007 Pneumococcal 23-Valent Polysaccharide (Pneumovax 23) 12/05/2009 Social History Tobacco Use Types Packs/Day Years Used Date Smoking Tobacco: Former Cigarettes 0 04/20/1966 - 04/20/2006 Smokeless Tobacco: Never Alcohol Use Standard Drinks/Week Comments No 0 (1 standard drink = 0.6 oz pur e alcohol) Sex and Gender Information Value Date Recorded Sex Assigned at Not on file Gender Identity Not on file Sexual Orientation Not on file Last Filed Vital Signs Vital Sign Reading Time Taken Comments Blood Pressure 113/92 10/30/2015 1:40 PM EDT Pulse 93 10/30/2015 1:40 PM EDT Temperature 36.9 ??C (98.4 ??F) 10/30/2015 1:40 PM ED T Respiratory Rate 18 10/30/2015 1:40 PM EDT Oxygen Saturation 99% 10/30/2015 1:40 PM EDT Inhaled Oxygen Concentration - - Weight 71.4 kg (157 lb 4.8 oz) 10/26/2015 8:18 P M EDT Height 162.6 cm (5' 4) 10/26/2015 8:18 PM EDT Body Mass Index 27 10/26/2015 8:18 PM EDT Plan of Treatment Health Maintenance Due Date Last Done Comments CT Colonography 1950 Colonoscopy 1950 Colorectal Cancer Screening 1950 FIT DNA 1950 FIT 1950 Sigmoidoscopy (10 year) with FIT yearly 1950 Sigmoidoscopy 1950 Hepatitis C Screening 11/17/1969 Lipid Screening 11/17/1969 Tetanus/Diphtheria/Pertussis Vaccines (1 - Tdap) 11/17 Breast Cancer Share Decision Needed 1991 Breast Cancer screening 1991 Zoster vaccine (1 of 2) 11/17/2001 Bone Density Scan 11/17/2016 Pneumoccocal Vaccine: 65+ (2 of 2 - PCV) 11/17/2016 12/05/2009 Covid-19 Vaccine (1 - 2023- season) 2023 Influenza (Flu) vaccine (1 o f 1 - Influenza standard series) 12/20/2023 04/20/2007 Medical Devices Implanted Type Area Gas Mask Assembler Device Identifier Shelf Expiration Date Model / Serial / Lot Mesh,Ventrio, St,Ovl,7.7x9. 7in ([id number]) - [id number] Implanted:Qty : 1 on 10/01/2015 by Jeanette Koch MD at [facility] IMPLANTS N/A: Abdomen [employer] - 1825 08/15/2017 [id number] / / [id number] Advance Directives Documents on File Type Date Recorded Patient Bulk Gas Specialist Expl anation Advance Directives and Livin g Will 10/04/2015 3:41 PM 10/04/15 * Full Code (Latest Code Status on File) Date Activated Date Inactivated Comments 10/26/2015 6:19 PM 10/30/2015 6:43 PM Question Answer Comments Does patient have capacity to make decision: Yes * Full Code Date Activated Date Inactivated Comments 10/26/2015 6:00 PM 10/26/2015 6:19 PM Question Answer Comments Does patient have capacity to make decision: Yes * Full Code Date Activated Date Inactivated Comments 10/01/2015 11:16 AM 10/05/2015 12:40 AM Question Answer Comments Does patient have capacity to make decision: Yes * Full Code Date Activated Date Inactivated Comments 10/01/2015 7:20 AM 10/01/2015 11:16 AM Question Answer Comments Does patient have capacity to make decision: Yes Care Teams Cement Mason Maintenance Relationship Specialty Start Date End Date Stuart Leyva MD [address] [place] [address] PCP - General Internal Medicine 06/28/15
--- OUTSIDE RECORDS SUMMARY | 2024-03-02 20:25 | XMS_ITS | Encounter Summary ---
Author Organization [facility] Address [facility] [place] [address] Care Team Providers Care Tafe Registrar Name Role Phone Stuart Leyva MD Primary Care Provider [phone] Reason for Visit * Reason Onset Date Comments Medication Refill 10/31/2015 Encounter Details Date Type Department Care Team (Late st Contact Info) Description 10/31/2015 Refill [place] [address] Clifton Amaya MD [facility] [place] [address] Social History Tobacco Use Types Packs/Day Years [...] on file documented as of this encounter Miscellaneous Notes * Telephone Encounter - Emily Escobar RN - 10/31/2015 3:42 PM EDT Insurance would not pay for Avelox; Per Dr. Juan Lisa, and Stephen called into her pharmacy today. documented in this encounter Plan of Treatment Not on file documented as of this encounter Visit Diagnoses Not on filedocumented in this encounter Care Teams Tafe Registrar Relationship Specialty Start Date End Date Stuart Leyva MD [address] [place] [address] PCP - General Internal Medicine 06/28/15 documented as of this encounter
--- OUTSIDE RECORDS SUMMARY | 2024-03-02 20:25 | XMS_ITS | Encounter Summary ---
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 [facility] OR ??? N/A 10/01/2015 MODIFIER PANNICULECTOMY performed by Clifton Amaya MD at [facility] OR ??? N/A 10/01/2015 MODIFIER MESH,BARD VENTRALIGHT ST performed by Jeanette Koch MD at [facility] OR Medications: Current Facility-Administered Medications Medication Dose Route Frequency Provider Last Rate Last Dose ??? HYDROmorphone (DILAUDID) tablet 2-4 mg 2-4 mg Oral Q4H PRN Cliff Sesay MD 4 mg at [id number] ??? lidocaine (LIDODERM) 5 % patch 1 patch 1 patch Transdermal Daily Demetrius Gabriel MD 1 patchat 10/28/15 0855 And ??? lidocaine (LIDODERM) 5 %(700 mg/patch) Patch Verification 1 patch Transdermal BID Demetrius Gabriel MD 1 patch at 10/28/15 0030 And ??? lidocaine (LIDODERM) 5 %(700 mg/patch) Patch Removal 1 patch Transdermal Nightly Demetrius Gabriel MD 1 patch at 10/27/15 2100 ??? folic acid (FOLVITE) tablet 400 mcg 400 mcg Oral BID Clifton Martinez MD 400 mcg at 10/28/15 0852 ??? furosemide (LASIX) tablet 20 mg 20 mg Oral BID Clifton Martinez MD 20 mg at 10/28/15 0854 ??? levothyroxine (SYNTHROID) tablet 100 mcg 100 mcg Oral QAM Clifton Martinez MD 100 mcg at 10/28/15 0518 ??? multivitamin (THERAGRAN) tablet 1 tablet 1 tablet Oral Daily Clifton Martinez MD 1 tablet at 10/28/15 0854 ??? senna (SENOKOT) tablet 8.6 mg 8.6 mg Oral Daily Clifton Martinez MD 8.6 mg at 10/28/15 0853 ??? topiramate (TOPAMAX) tablet 200 mg 200 mg Oral BID Clifton Martinez MD 200 mg at 10/28/15 0852 ??? piperacillin-tazobactam (ZOSYN) 3.375 g in dextrose 5% 50 mL 3.375 g Intravenous Q8H Clifton Martinez MD 3.375 g at 10/28/15 0518 ??? sodium chloride 0.9 % flush 5 mL 5 mL Intravenous BID Clifton Martinez MD 5 mL at 10/26/15 2100 ??? sodium chloride 0.9 % flush 5-20 mL 5-20 mL Intravenous Q1 Min PRN Clifton Martinez MD ??? lactobacillus (BACID) tablet 1 tablet 1 tablet Oral Daily Clifton Martinez MD 1 tablet at 10/28/15 0854 ??? docusate sodium (COLACE) capsule 100 mg 100 mg Oral BID Clifton Martinez MD 100 mg at 10/27/15 0822 ??? ondansetron (ZOFRAN) injection 4 mg 4 mg Intravenous Q8H PRN Clifton Martinez MD ??? acetaminophen (TYLENOL) tablet 1,000 mg 1,000 mg Oral Q6H PRN Clifton Martinez MD 1,000 mg at 10/28/15 0852 ??? polyethylene glycol (MIRALAX) packet 17 g 17 g Oral Daily PRN Clifton Martinez MD ??? bisacodyl (DULCOLAX) EC tablet 10 mg 10 mg Oral BID PRN Clifton Martinez MD ??? bisacodyl (DULCOLAX) suppository 10 mg 10 mg Rectal Daily PRN Clifton Martinez MD ??? enoxaparin (LOVENOX) injection 40 mg 40 mg Subcutaneous Daily Clifton Martinez MD 40 mg at 10/28/15 0855 ??? calcium carbonate (TUMS) chewable tablet 1,000 mg 1,000 mg Oral BID Clifton Martinez MD 1,000 mgat 10/28/15 0855 And ??? cholecalciferol (Vitamin D3) tablet 400 Units 400 Units Oral BID Clifton Martinez MD 400 Units at 10/28/15 0905 ??? pantoprazole (PROTONIX) tablet 40 mg 40 mg Oral Daily Clifton Martinez MD 40 mg at 10/28/15 0854 ??? [START ON 10/29/2015] Vancomycin Level - MAR Order Reminder NOT APPLICABLE Once Clifton Martinez MD ??? vancomycin 1.5 g in sodium chloride 0.9% 250 mL 1,500 mg Intravenous Q24H Clifton Martinez MD 1,500 mg at 10/27/152002 ??? B-Complex with Vitamin C (SUPER B C) capsule 1 capsule 1 capsule Oral Daily Alejandro Reyes MD 1 capsule at 10/28/15 0855 ??? gabapentin (NEURONTIN) capsule 400 mg 400 mg Oral BID Alejandro Reyes MD 400 mg at [id number] Medical Review of Systems: Constitutional: afebrile HEENT: no change in vision or hearing Cardiovascular: no chest pain. S/p bypass. + BLE swelling Respiratory: no SOB GI: + constipation. 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 >Protective factor against SI: taking care of her dog and chickens. >Biggest support system: son Raymond, friend Raquel Shelton who gave her adult chickens and baby chicks. >On disability for spinal stenosis and arthritis. Family Medical/Psychiatric History: (mental illness, substance use, suicide) Depression - everyone maternal and paternal sides, including brothers, sisters, aunts, uncles, parents ETOH abuse - mother and father Extent of History Determination: Andrés # of descriptors, reviewed systems, PFS elements & level of hx with ? X? HPI Descriptors 1-3 1-3 4+ 4+ Reviewed Systems 0 1 2-9 X 10 Past, Fam, Soc Hx 0 0 1 X 3 Level of Hx PF EPF D X C Physical Exam: Last value Range last 24 hrs Temperature Temp: 37 ??C (98.6 ??F) Temp: [36.8 ??C (98.2 ??F)-37.3 ??C (99.1 ??F)] Heart Rate Heart Rate: 63 Heart Rate: [63-82] Blood Pressure BP: 110/70 BP: (107-122)/(55-71) Respiratory Rate Resp: 16 Resp: [16-22] SpO2 SpO2: 99 % SpO2: [97 %-99 %] Mental Status Evaluation: Musculoskeletal System: Muscle Strength/Tone (note atrophy, abnormal movements): normal Gait and Station: requires one person assist Psychiatric: ?? Appearance: age appropriate and thin & gaunt looking Behavior: distraught, cooperative, tearful without actual tears ?? Speech: slurred speech but has no teeth ?? Language: normal ?? Mood: terrible Affect: blunted ?? Thought Process: coherent and concrete ?? Associations: intact ?? Thought Content: no homicidal ideation. no suicidal ideation. Perception: no AVH. no delusions. no paranoia. ?? Orientation: person, place, situation, day of week, month of year and year ?? Attention/Concentration: intact Cognition: grossly intact ?? Memory: recent and remote memory intact ?? Fund of Knowledge: within normal limits ?? Insight: fair but need collateral from son Judgment: fair but need collateral from son Extent of Exam Determination: Andrés completed bullets and level of exam with x. Bullets Completed 1-5 6-8 9+ All Psych & Constitutional + 1 Musculoskeletal Level of Exam PF EPF D X C Assessment: Ms. Mc is a 64 year old female with PMH of CAD, multiple hernias, who is POD#2 s/p hernia repair and pannulectomy who we were consulted to see due to discontinuation of her outpatient psychiatric medications by her prescriber. We tried calling her son Phil but went to v von without identifier so we did not leave a message, but collateral information from son is needed to better assess patient's history. We do not recommend starting patient on stimulants and benzodiazepines at this time since she does not have an established outpatient prescriber to follow up with these medications. Instead, hydroxyzine 25mg PO TID PRN for anxiety would be a better alternative for anxiety symptoms during this hospitalization. We recommend restarting her cymbalta at 30mg for a few days as tolerated and increase to 60mg which is her outpatient dose. Please confirm with PCPthat he will prescribe this for her on an outpatient basis. She would benefit from counseling and ps ychotherapy upon discharge in addition to her medications. Diagnosis: Major Depressive Disorder, Generalized Anxiety Disorder, Attention Deficit Disorder Plan/Recommendations: 1. Continue to get in touch with son for collateral information. 2. Restart cymbalta at 30mg PO daily for 3 days to a week and if patient tolerates, increase to 60mg. Confirm with PCP that he agrees to prescribe this on an outpatient basis. 3. We do not recommend starting patient on stimulants or benzodiazepines at this time. 4. We recommend hydroxyzine 25mg PO TID PRN for anxiety. Recommendations were communicated to primary tennis desk team member Dr. Sesay at pager #[phone]. Josephine Woodson M.D. 10/28/15 Coding Determination Complexity of MDM Determination: Andrés appropriate # of Dx, Amt, complexity of date, Risk, & corresponding level of MDM with x.2 out of 3 elements in row must be met to qualify. # of Possible Diagnoses or Management Options Amount and/or Complexity of Data Risk of Complications, Morbidity, and or Mortality Type of Decision Making Minimal Minimal/None Minimal Straightforward Limited Limited Low Low Multiple Moderate Moderate Moderate X Extensive X Extensive X High X High Inpatient Consult Service Code Determination: Andrés Hx, Exam, MDM & KILEY/CPT Code with ? X? . All nava components in the row must be met to qualify for a given code. HISTORY EXAM MDM KILEY / CPT CODE PF PF Straightforward 3200 / 49209 EPF EPF Straightforward 3210 / 49765 D D Low 3220 / 14060 C C Moderate 3230 / 68365 X C X C X High X 3240 / 91026 Associated attestation - Marizol Haider MD - 10/28/2015 3:04 PM EDT Psychiatry Teaching Physician Involvement Resident: Chintan/Stevenson I saw and evaluated the patient [X ] With the resident. I reviewed the patient???s history during the visit and [X ] I agree with the details as written. My exam [X ] confirms the resident's findings. The assessment and plan were formulated in discussion with me and [X ] I agree with them as documented. Major issues addressed/discussed: 64 year old woman with history of anxiety, depression, ADHD admitted for management of periumbilical wound s/p hernia repair and panniculectomy. We were consulted for assistance in managing psychiatric medications since she reports that her outpatient providers refuse to continue prescribing for her (duloxetine 60mg daily, Adderall 20mg QID, alprazolam 1mg QHS PRN). She denies any suicidal ideation or safety concerns, but reports terrible mood and poor concentration since being without her medications. Her history of why providers are no longer willing to prescribe for her is somewhat convoluted and involves multiple other people treating her poorly (friend, psychiatry REFRIGERATION TECHNICIAN, [facility], PCP). It will be very important to obtain collateral information from son and providers in order to sort out the situatio n. Currently, she has no prescribers and is very anxious about finding someone who will prescribe her medications (especially Adderall). We discussed with her that we currently recommend resuming duloxetine (will re- start at 30mg x 3 days since she has been off it and then increase back to prior dose of 60mg). We do not recommend concurrent use of benzodiazepines with opioids (she is taking Dilaudid) and would not recommend resumingeither alprazolam or Adderall until we are able to obtain additional collateral, particularly sincethe potential for history of medication misuse has been raised. We suggested PRn hydroxyzine in themeantime for anxiety as needed. Recommendations as per resident note above, but in addition it will be important to obtain collateral information from her outpatient providers if possible. Psychiatry service will continue to follow. Please page [phone] with questions. * Plan of Care - Stuart Roth RN - 10/28/2015 4:54 AM EDT Problem: General Plan of Care Goal: Plan of Care Review Outcome: Ongoing (Interventions Implemented as Appropriate) 10/27/15 0426 10/27/15 2121 10/28/15 0452 Coping/Psychosocial Response Interventions Plan of Care Reviewed with -- patient -- Plan of Care Review Plan of Care Outcome Status ongoing (interventions implemented as appropriate) -- -- Progress -- -- no change OUTCOME EVALUATION NOTE: OUTCOME SUMMARY: No changes this shift. Pt continued to cry off and on. Refused pain medication throughout shift. Wet to dry abdominal dressing changed. PLAN MOVING FORWARD: ABT tx. Wound care. INDIVIDUALIZED FALL PREVENTION INTERVENTIONS: Patient-specific fall risk factors per assessment: [current deficits]: Wound, IV tubing Assistance [level of assistance required for transfers and ambulation]: sba Supervision [direct monitoring required during toileting and ADLs]: rn/manager wholesale Surveillance [continuous indirect monitoring]: Masimo, hourly rounding Patient-specific fall prevention interventions for sensory deficits provided, if applicable: [X] N/A CPG GOAL OUTCOME EVALUATION: Goal: Fall Prevention-Safe Patient Handling Outcome: Ongoing (Interventions Implemented as Appropriate) 10/27/15205810/27/152120 Safety Interventions Safety Precautions/Fall Reduction -- bed alarm;environmental modification;fall reduction program maintained;lighting adjusted for task/safety;low bed;muscle strengthening facilitated;nonskid shoes/slippers when out of bed;room near unit station Musculoskeletal Interventions Activity/Level of Assistance -- with stand by assist Positioning HOB up 30 degrees;independent -- Self-Care Promotion assistance provided to decrease frustration -- Schreiber Fall Risk History of Falling -- 0 Secondary Diagnosis -- 15 Ambulatory Aids -- 0 Intravenous Therapy/Heparin/Saline Lock -- 20 Gait/Transferring -- 0 Mental Status -- 0 Score -- 35 Activity and Safety Assistive Device None -- OTHER Schreiber Fall Risk -- Med Goal: Infection Control Outcome: Ongoing (Interventions Implemented as Appropriate) 10/27/152120 Safety Interventions Isolation Precautions standard precautions maintained Infection Prevention bronchial hygiene promoted;environmental surveillance;hydration promoted;nutrition promoted;promote handwashing;rest/sleep promoted Coping/Psychosocial Response Interventions Counseling calming techniques promoted;goal setting facilitated;personal strengths integrated;problem solving facilitated;reassurance provided;relaxation techniques promoted;understanding of situation facilitated;verbalization of feelings encouraged Goal: Discharge Needs Assessment Outcome: Ongoing (Interventions Implemented as Appropriate) 10/26/15195110/26/15202710/28/15451 Self-Care Equipment Currently Used at Home -- -- none Discharge Needs Assessment Equipment Needed After Discharge -- -- none Current Health Anticipated Changes Related to Illness none -- -- Living Environment Transportation Available -- family or friend will provide -- Problem: Pain, Acute (Adult, Obstetrics) Goal: Acceptable Pain Control/Comfort Level Patient will demonstrate the desired outcomes. Outcome: Ongoing (Interventions Implemented as Appropriate) 10/28/15451 Pain, Acute (Adult, Obstetrics) Acceptable Pain Control/Comfort Level making progress toward outcome Problem: Skin Integrity Impairment, Risk/Actual (Adult, Obstetrics) Goal: Skin Integrity/Wound Healing Patient will demonstrate the desired outcomes. Outcome: Ongoing (Interventions Implemented as Appropriate) 10/28/15 0452 Skin Integrity Impairment, Risk/Actual (Adult, Obstetrics) Skin Integrity/Wound Healing making progress toward outcome Problem: Infection, Risk/Actual (Adult, Obstetrics) Goal: Infection Prevention/Resolution/Control Patient will demonstrate the desired outcomes. Outcome: Ongoing (Interventions Implemented as Appropriate) 10/28/15 0452 Infection, Risk/Actual (Adult, Obstetrics) Infection Prevention/Resolution/Control making progress toward outcome * Plan of Care - Sadie Walters RN - 10/27/2015 5:48 PM EDT Problem: General Plan of Care Goal: Plan of Care Review Outcome: Ongoing (Interventions Implemented as Appropriate) 10/27/156 10/27/15 0846 Coping/Psychosocial Response Interventions Plan of Care Reviewed with -- patient Plan of Care Review Plan of Care Outcome Status ongoing (interventions implemented as appropriate) -- Progress improving -- OUTCOME EVALUATION NOTE: OUTCOME SUMMARY: Brenna seemed to have a decent day. Brenna was teary on and off all day today, spoke with social work. Pain management was an issue, giving PRN tramadol Q4h and tylenol Q6h, pain has gone down from a 9to 7/10 by the end of the day. Pain located in back (chronic back pain) and her abdomen. Abdominal dressing changed X2 during the day- due to changed T.I.D. Edema noted in BLE, SCDs in place the majority of the day, as well as patient being prescribed lasix. Adequate I&O, tolerating IV antibiotics. PLAN MOVING FORWARD: Encourage patient to ambulate (she had refused), pain management, abdominal wound dressing change, encourage hydration. INDIVIDUALIZED FALL PREVENTION INTERVENTIONS: Patient-specific fall risk factors per assessment: [current deficits]: 4+ medications, patient in significant pain, taking tramadol for pain management, female patient, edema in BLE, intermittent IV tubing, Masimo/SCDs. Assistance [level of assistance required for transfers and ambulation]: None, (assistance out of bed) Supervision [direct monitoring required during toileting and ADLs]: Eyes Surveillance [continuous indirect monitoring]: Hourly rounding, NKE at bedside, bed/chair alarm Patient-specific fall prevention interventions for sensory deficits provided, if applicable: [X] Yes Call massey within reach, lighting adjusted for tasks, environmental modification, bed/chair alarm, masimo tubing, IV tubing, Non skid socks when out of bed CPG GOAL OUTCOME EVALUATION: Goal: Fall Prevention-Safe Patient Handling Outcome: Ongoing (Interventions Implemented as Appropriate) 10/27/15 0846 Safety Interventions Safety Precautions/Fall Reduction bed alarm;chair alarm;lighting adjusted for task/safety;low bed;nonskid shoes/slippers when out of bed;supervised activity Musculoskeletal Interventions Activity/Level of Assistance independently Positioning HOB up 30-45 degrees;independent Self-Care Promotion assistance provided to decrease frustration;independence encouraged while providing assistance Schreiber Fall Risk History of Falling 0 Secondary Diagnosis 15 Ambulatory Aids 0 Intravenous Therapy/Heparin/Saline Lock 20 Gait/Transferring 0 Mental Status 0 Score 35 Activity and Safety Assistive Device None OTHER Schreiber Fall Risk Med Goal: Infection Control Outcome: Ongoing (Interventions Implemented as Appropriate) 10/27/15 0846 Safety Interventions Isolation Precautions standard precautions maintained Infection Prevention bronchial hygiene promoted;hydration promoted;nutrition promoted;rest/sleep promoted;promote handwashing Coping/Psychosocial Response Interventions Counseling calming techniques promoted;emotional support provided;personal strengths integrated;problem solving facilitated;reassurance provided;relaxation techniques promoted;understanding of situation facilitated;verbalization of feelings encouraged Goal: Discharge Needs Assessment Outcome: Ongoing (Interventions Implemented as Appropriate) 10/26/15195110/26/152027 Current Health Anticipated Changes Related to Illness none -- Living Environment Transportation Available -- family or friend will provide Problem: Pain, Acute (Adult, Obstetrics) Goal: Acceptable Pain Control/Comfort Level Patient will demonstrate the desired outcomes. Outcome: Ongoing (Interventions Implemented as Appropriate) 10/27/15 173 Pain, Acute (Adult, Obstetrics) Acceptable Pain Control/Comfort Level making progress toward outcome Problem: Skin Integrity Impairment, Risk/Actual (Adult, Obstetrics) Goal: Skin Integrity/Wound Healing Patient will demonstrate the desired outcomes. Outcome: Ongoing (Interventions Implemented as Appropriate) 10/27/15 1734 Skin Integrity Impairment, Risk/Actual (Adult, Obstetrics) Skin Integrity/Wound Healing making progress toward outcome Problem: Infection, Risk/Actual (Adult, Obstetrics) Goal: Infection Prevention/Resolution/Control Patient will demonstrate the desired outcomes. Outcome: Ongoing (Interventions Implemented as Appropriate) 10/27/15 1734 Infection, Risk/Actual (Adult, Obstetrics) Infection Prevention/Resolution/Control making progress toward outcome * Consult Note - Stuart Rodriguez MD - 10/27/2015 10:55 AM EDT Infectious Disease Inpatient Consult Note Reason for Consult: We are being asked to see Brenna Mc at the request of Dr. Amaya for evaluation of abdominal wound infection. HPI: Brenna Mc is a 64 y.o. female with h/o gastric bypass 30 years ago, R CADE, L TKA, migraines, ADD, depression, and recent admission from 09/30-10/03 for panniculectomy with ventral hernia repairwho is now admitted with an abdominal wound infection. Apparently, her surgery went well and she was discharged home with drains in place. She states that her PCP removed her stitches and there was asmall area that was not quite healed that started draining fluid - first clear and then becoming purulent. Per the surgery f/u note, she removed her own drains at home. At her f/u visit in plastics clinic on 10/25, the wound was large and foul smelling, so it was debrided in the office and packed. She was subsequently admitted and started on Vanc/Zosyn while awaiting culture results. She denies anyfevers or chills at home. Says she has been feeling awful since admission - wondering if the antibiotics are making her feel worse. No rashes or diarrhea. Says she just feels worn out. Past Medical history: No past medical history on file. Patient Active Problem List Diagnosis Code ??? Right knee pain M25.561 ??? S/P Right total hip arthroplasty- 01/12/2008 ([facility]) Z96.649 ??? S/P Left total knee arthroplasty- 07/15/2007 ([facility]) Z96.659 ??? Migraine G43.909 ??? Hypertension I10 ??? Hypothyroidism E03.9 ??? Hyperlipidemia E78.5 ??? Depression F32.9 ??? Pain in thoracic spine M54.6 ??? Thoracic spondylosis without myelopathy M47.814 ??? ADD (attention deficit disorder) F90.0 ??? Abdominal pannus E65 ??? Ventral incisional hernia K43.2 ??? Open abdominal wall wound S31.109A Medications: Vanc/Zosyn since 10/25 Allergies: Allergies Allergen Reactions ??? Lactose Other (See Comments) cramps ??? Codeine Phosphate Nausea Only stomach pain ??? Morphine Sulfate Other (See Comments) leg swelling ??? Nsaids (Non-Steroidal Anti-Inflammatory Drug) Nausea Only stomach pain Social History: Social History Social History ??? Marital status: Spouse name: N/A ??? Number of children: N/A ??? Years of education: N/A Occupational History ??? Not on file. Social History Main Topics ??? Smoking status: Former Smoker Years: 40.00 Quit date: 04/20/2006 ??? Smokeless tobacco: Never Used ??? Alcohol use No ??? Drug use: No ??? Sexual activity: Not on file Other Topics Concern ??? Not on file Social History Narrative Family History: non-contributory ROS General Denies fevers, chills HEENT Denies headache CVS Denies chest pain. Pulm Denies shortness of breath, cough. GI + abdominal pain, denies nausea/vomiting, constipation/diarrhea Denies dysuria. MS Denies arthralgia/myalgias. Neuro Denies focal weakness, paresthesias. Skin + abdominal wound Physical Exam: Last value Range last 48 hrs Temperature Temp: 36.8 ??C (98.2 ??F) Temp: [36.8 ??C (98.2 ??F)-37.3 ??C (99.1 ??F)] Heart Rate Heart Rate: 82 Heart Rate: [65-82] Blood Pressure BP: 107/55 BP: (107-132)/(55-70) Respiratory Rate Resp: 16 Resp: [14-16] SpO2 SpO2: 98 % SpO2: [98 %-100 %] General NAD Neuro A&O x 3 Eyes No icterus, no injection. Throat Mucous membranes moist. Heart RRR, 3/6 systolic murmur. Lungs CTAB. Abdomen Soft, midline with previous incision open with packing in place, no surrounding fluctuance.Mild surrounding erythema. Ext No joint swelling/erythema. Skin No rashes Labs: Lab Results Component Value Date WBC 7.7 10/26/2015 HGB 12.6 10/26/2015 HCT 38.2 10/26/2015 MCV 89.7 10/26/2015 PLATELET 372 (H) 10/26/2015 Lab Results Component Value Date NA 142 10/26/2015 K 3.2 (L) 10/26/2015 CL 103 10/26/2015 CO2 24 10/26/2015 BUN 29 (H) 10/26/2015 CREATININE 1.17 10/26/2015 GLUCOSE 86 10/04/2015 CALCIUM 9.4 10/26/2015 Micro: Wound culture: 10/25 - pending (+WBCs, GPCs) Imaging: None this admission Impression: 64 y.o. female with h/o gastric bypass 30 years ago, R CADE, L TKA, migraines, ADD, depression, and recent admission from 09/30-10/03 for panniculectomy with ventral hernia repair who is now admitted with an abdominal wound infection. Currently on Vanc/Zosyn and wound cultures are pending. Recommendations: 1 - Continue Vanc/Zosyn for now 2 - Will follow up wound cultures with further recs pending results We will continue to follow with you. Discussed with team. Patient seen and discussed with Dr. Rodriguez. Joellen Mendez MD Infectious Disease Fellow Internal Medicine/Pediatrics ID Attending I have confirmed the salient portions of the patient's data set independently by talking with the patient, examining the patient, and perusing the relevant laboratory, microbiological, radiological, pathological and other data. * Plan of Care - Paige Ortiz RN - 10/27/2015 4:31 AM EDT Problem: General Plan of Care Goal: Plan of Care Review Outcome: Ongoing (Interventions Implemented as Appropriate) 10/27/15 0426 Coping/Psychosocial Response Interventions Plan of Care Reviewed with patient Plan of Care Review Plan of Care Outcome Status ongoing (interventions implemented as appropriate) Progress improving OUTCOME EVALUATION NOTE: OUTCOME SUMMARY: RFA IV infiltrated 10min after 0600 Zosyn dose started. Med d/c'd and VAT called to start another IV, which she did. Zosyn cont. No c/o. Shadow drainage noted to lower abd dsg. PLAN MOVING FORWARD: IV abx, wound care, instructions regarding following up with MD appointments as directed. INDIVIDUALIZED FALL PREVENTION INTERVENTIONS: Patient-specific fall risk factors per assessment: [current deficits]: IVF, SCDs Assistance [level of assistance required for transfers and ambulation]: Standby assist Supervision [direct monitoring required during toileting and ADLs]: Eyes Surveillance [continuous indirect monitoring]: Hourly rounding, NKE at bedside Patient-specific fall prevention interventions for sensory deficits provided, if applicable: Yes CPG GOAL OUTCOME EVALUATION: Goal: Fall Prevention-Safe Patient Handling Outcome: Ongoing (Interventions Implemented as Appropriate) 10/27/15 0000 10/27/1519910/27/15216 Safety Interventions Safety Precautions/Fall Reduction -- bed alarm;fall reduction program maintained;nonskid shoes/slippers when out of bed -- Musculoskeletal Interventions Activity/Level of Assistance -- -- bedrest with bathroom privileges;with stand by assist Positioning -- independent -- Self-Care Promotion -- -- -- Schreiber Fall Risk History of Falling 0 -- -- Secondary Diagnosis 15 -- -- Ambulatory Aids 0 -- -- Intravenous Therapy/Heparin/Saline Lock 20 -- -- Gait/Transferring 0 -- -- Mental Status 0 -- -- Score 35 -- -- 10/27/15425 Safety Interventions Safety Precautions/Fall Reduction -- Musculoskeletal Interventions Activity/Level of Assistance -- Positioning -- Self-Care Promotion dressing assistance provided;independence encouraged while providing assistance;toileting assistance provided Schreiber Fall Risk History of Falling -- Secondary Diagnosis -- Ambulatory Aids -- Intravenous Therapy/Heparin/Saline Lock -- Gait/Transferring -- Mental Status -- Score -- Goal: Infection Control Outcome: Ongoing (Interventions Implemented as Appropriate) 10/27/1519910/27/15425 Safety Interventions Isolation Precautions standard precautions maintained -- Infection Prevention -- hydration promoted;nutrition promoted;promote handwashing;rest/sleep promoted Coping/Psychosocial Response Interventions Counseling -- understanding of situation facilitated;verbalization of feelings encouraged documented in this encounter Plan of Treatment Not on file documented as of this encounter Procedures Procedure Name Priority Date/Time Associated Diagnosis Comments EKG 12-LEAD Routine 10/30/2015 6:42 AM EDT Open abdominal wall wound, initial encounter VANCOMYCIN, TROUGH Timed 10/29/2015 8: 47 PM EDT BASIC METABOLIC PANEL Routine 10/28/2015 4:47 PM EDT PREALBUMIN Routine 10/27/2015 10:02 AM EDT HEMOGRAM Routine 10/26/2015 9:17 PM EDT DIFFERENTIAL, AUTOMATED Routine 10/26/2015 9:17 PM EDT CREATININE Routine 10/26/2015 9:17 PM EDT CBC (WITH DIFF) Routine 10/26/2015 9:17 PM EDT BUN Routine 10/26/2015 9:17 PM EDT PHOSPHORUS Routine 10/26/2015 9:17 PM EDT MAGNESIUM Routine 10/26/2015 9:17 PM EDT CALCIUM Routine 10/26/2015 9:17 PM EDT VANCOMYCIN, TROUGH Timed 10/26/2015 9: 17 PM EDT ELECTROLYTES PANEL Routine 10/26/2015 9: 17 PM EDT documented in this encounter Results * EKG 12 Lead (10/30/2015 6:42 AM EDT) Ventricular rate 60 BPM MUSE SYSTEM Atrial Rate 60 BPM MUSE SYSTEM P-R Interval 148 ms MUSE SYSTEM QRS Duration 108 ms MUSE SYSTEM Q-T Interval 420 ms MUSE SYSTEM QTC Calculated (Bezet) 420 ms MUSE SYSTEM Calculated P [place] 60 degrees MUSE SYSTEM Calculated R [place] -36 degrees MUSE SYSTEM Calculated T [place] 41 degrees MUSE SYSTEM INTERPRETATION Normal sinus rhythm Left axis deviation Septal infarct , age undetermined Abnormal ECG When compared with ECG of 19-NOV-2009 13:04, QRS duration has increased Septal infarct is now Present Confirmed by MD Chris, John ([id number]) on 10/30/2015 8:35:16 AM MUSE SYSTEM 10/30/2015 6:42 AM EDT 10/30/2015 8:35 AM EDT Clifton Amaya MD ECG ORDERABLES MUSE SYSTEM * Vancomycin, trough (10/29/2015 8:47 PM EDT) Vancomycin, Trough 12.2 mg/L [facility] Comment: Therapeutic range for complicated infections such as bacteremia, endocarditis, osteomyelitis, meningitis, and hospital-acquired pneumonia caused by S. aureus: 15-20 mg/L Therapeutic range for other indications: 10-15 mg/L Toxic: >25mg/L Reference: Vancomycin Therapeutic Monitoring: Review and Recommendations from the ASHP, IDSA and SIDP Task Force. ??Am J [employer]. 2009; 66:82-98 Blood specimen (specimen) 10/29/2015 8:47 PM EDT 10/29/2015 8:53 PM EDT Narrative Resulting Agency Comment Spec In Lab Clifton Amaya MD CHEMISTRY ORDERABLES Performing Organization Address City/[facility]/ZIP Co de Phone Number [facility] [place] [address] * (ABNORMAL) Basic Metabolic Panel (non-fasting) (10/28/2015 4:47 PM EDT) Glucose 123 65 - 199 mg/dL [facility] Comment:Diabetes: >=200 mg/d L plus symptoms Blood Urea Nitrogen 24(H) 8 - 18 mg/dL [facility] Creatinine 1.17 0.70 - 1.20 mg/dL [facility] Comment: Please note that the pediatric reference intervals supplied above were not validated at [facility] Results from pediatric patients should be interpreted in conjunction to the patient's age, height and muscle mass. Sodium 143 135 - 145 mmol/L [facility] Potassium 3.7 3.5 - 5.0 mmol/L [facility] Comment: Please note: ??Patients with WBC >100,000 may have falsely elevated Potassium levels. ??For accurate Potassium quantification in these patients send serum separator tube (gold top) for subsequent determinations. ??Contact the Clinical Chemistry Laboratory if there are any questions. Chloride 104 98 - 107 mmol/L [facility] Carbon Dioxide 28 22 - 31 mmol/L [facility] Anion Gap 11 5 - 15 mmol/L [facility] Calcium 8.5 8.5 - 10.5 mg/dL [facility] Est Glomerular Filtration Rate 47(L) >=60 [facility] Comment: This estimated GFR (eGFR) [...] the following links into your internet browser. [email or web address] Blood specimen (specimen) 10/28/2015 4:47 PM EDT 10/28/2015 4:50 PM EDT Narrative Resulting Agency Comment Spec In Lab Clifton Amaya MD CHEMISTRY ORDERABLES [facility] [place] [address] * (ABNORMAL) Prealbumin (10/27/2015 10:02 AM EDT) Prealbumin 10(L) 20 - 40 mg/dL [facility] Comment: Prealbumin levels are generally lower in the pediatric population; adult concentrations are usually attained near puberty. Blood specimen (specimen) 10/27/2015 10:02 AM EDT 10/27/2015 10:15 AM EDT Narrative Resulting Agency Comment Spec In Lab Clifton Amaya MD CHEMISTRY ORDERABLES Performing Organization Address [facility] Co de Phone Number [facility] [place] [address] * Vancomycin, trough (10/26/2015 9:17 PM EDT) Vancomycin, Trough <2.3 mg/L [facility] Comment: Therapeutic range for complicated infections such as bacteremia, endocarditis, osteomyelitis, meningitis, and hospital-acquired pneumonia caused by S. aureus: 15-20 mg/L Therapeutic range for other indications: 10-15 mg/L Toxic: >25 mg/L Reference: Vancomycin Therapeutic Monitoring: Review and Recommendations from the ASHP, IDSA and SIDP Task Force. ??Am J Health-Syst Pharm. 2009; 66:82-98 Please be advised that as of 10/31/2014 the Vancomycin assay has been re-calibrated and this re-calibration has resulted in an approximate 20% decrease in the reported Vancomycin results. This re-calibration was mandated by the assay multiple spindle router operator and was needed to bring the Vancomycin concentrations into better alignment with other Vancomycin assay. Blood specimen (specimen) 10/26/2015 9:17 PM EDT 10/26/2015 9:25 PM EDT Narrative Resulting Agency Comment Spec In Lab Clifton Amaya MD CHEMISTRY ORDERABLES Performing Organization Address [facility] Co de Phone Number [facility] [place] [address] * (ABNORMAL) Differential, Automated (10/26/2015 9:17 PM EDT) Neutrophil % 58.0 % [facility] Neutrophil Absolute 4.45 1.50 - 6.30 x10(3)/mc L [facility] Lymph % 20.0 % [facility] Lymphocytes Abs 1.5 1.0 - 3.6 x10(3)/mc L [facility] Monocyte % 11.1 % [facility] Monocyte Abs 0.8 0.2 - 1.0 x10(3)/[facility] Eos % 9.7 % [facility] Eosinophils Abs 0.7(H) 0.0 - 0.5 x10(3)/[facility] Basophil % 0.9 % [facility] Baso Absolute 0.1 0.0 - 0.2 x10(3)/[facility] Immature Gran % 0.30 % [facility] Comment: Immature granulocytes(IG's)percentage and absolute count will include metamyelocytes, myelocytes, and promyelocytes. Blood smears from CBCs yielding IG's will be scanned manually for concordance. If this scan disagrees with the automated IG or if promyelocytes are noted, a manual differential will be performed. Immature Gran Absolute 0.02 0.00 - 0.05 x10(3)/[facility] Blood specimen (specimen) 10/26/2015 9:17 PM EDT 10/26/2015 9:25 PM EDT Narrative Resulting Agency Comment Spec In Lab Clifton Amaya MD HEMATOLOGY ORDERABLE S [facility] [place] [address] * (ABNORMAL) Hemogram (10/26/2015 9:17 PM EDT) White Blood Cell 7.7 4.0 - 10.0 x10(3)/[facility] Red Blood Cell 4.26 3.93 - 5.22 x10(6)/[facility] Hemoglobin 12.6 11.2 - 15.7 gm/dL [facility] Hematocrit 38.2 34.0 - 45.0 % [facility] Mean Cell Volume 89.7 79.0 - 94.0 fL [facility] Mean Cell Hemoglobin 29.6 26.6 - 32.2 pg [facility] Mean Cell Hemoglobin Concentration 33.0 32.0 - 36.5 gm/dL [facility] Platelet 372(H) 145 - 370 x10(3)/mc L [facility] RDW Standard Deviation 48.1(H) 35.0 - 46.0 fL [facility] RDW coefficient of variation 14.9(H) 10.9 - 14.4 % [facility] Mean Platelet Volume 9.2 9.0 - 12.0 fL [facility] Blood specimen (specimen) 10/26/2015 9:17 PM EDT 10/26/2015 9:25 PM EDT Narrative Resulting Agency Comment Spec In Lab Clifton Amaya MD HEMATOLOGY ORDERABLE S Performing Organization Address City/[facility]/ZIP Co de Phone Number [facility] [place] [address] * Phosphorus (10/26/2015 9:17 PM EDT) Phosphorus 4.3 2.5 - 4.5 mg/dL [facility] Blood specimen (specimen) 10/26/2015 9:17 PM EDT 10/26/2015 9:25 PM EDT Narrative Resulting Agency Comment Spec In Lab Clifton Amaya MD CHEMISTRY ORDERABLES Performing Organization Address City/[facility]/ZIP Co de Phone Number [facility] [place] [address] * Magnesium (10/26/2015 9:17 PM EDT) Magnesium 0.78 0.69 - 1.07 mmol/L [facility] Blood specimen (specimen) 10/26/2015 9:17 PM EDT 10/26/2015 9:25 PM EDT Narrative Resulting Agency Comment Spec In Lab Clifton Amaya MD CHEMISTRY ORDERABLES Performing Organization Address City/[facility]/ZIP Co de Phone Number [facility] [place] [address] * Calcium (10/26/2015 9:17 PM EDT) Calcium 9.4 8.5 - 10.5 mg/dL [facility] Blood specimen (specimen) 10/26/2015 9:17 PM EDT 10/26/2015 9:25 PM EDT Narrative Resulting Agency Comment Spec In Lab Clifton Amaya MD CHEMISTRY ORDERABLES Performing Organization Address [facility] Co de Phone Number [facility] [place] [address] * (ABNORMAL) Creatinine (10/26/2015 9:17 PM EDT) [facility] Creatinine 1.17 0.70 - 1.20 mg/dL [facility] Comment: Please note that the pediatric reference intervals supplied above were not validated at [facility] Results from pediatric patients should be interpreted in conjunction to the patient's age, height and muscle mass. Est Glomerular Filtration Rate 47(L) >=60 [facility] Comment: This estimated GFR (eGFR) [...] the following links into your internet browser. [email or web address] Blood specimen (specimen) 10/26/2015 9:17 PM EDT 10/26/2015 9:25 PM EDT Narrative Resulting Agency Comment Spec In Lab Clifton Amaya MD CHEMISTRY ORDERABLES Performing Organization Address [facility] Co de Phone Number [facility] [place] [address] * (ABNORMAL) BUN (10/26/2015 9:17 PM EDT) Blood Urea Nitrogen 29(H) 8 - 18 mg/dL [facility] Blood specimen (specimen) 10/26/2015 9:17 PM EDT 10/26/2015 9:25 PM EDT Narrative Resulting Agency Comment Spec In Lab Clifton Amaya MD CHEMISTRY ORDERABLES Performing Organization Address [facility] Co de Phone Number [facility] [place] [address] * (ABNORMAL) Electrolytes panel (10/26/2015 9:17 PM EDT) Sodium 142 135 - 145 mmol/L [facility] Potassium 3.2(L) 3.5 - 5.0 mmol/L [facility] Comment: Please note: ??Patients with WBC >100,000 may have falsely elevated Potassium levels. ??For accurate Potassium quantification in these patients send serum separator tube (gold top) for subsequent determinations. ??Contact the Clinical Chemistry Laboratory if there are any questions. Chloride 103 98 - 107 mmol/L [facility] Carbon Dioxide 24 22 - 31 mmol/L [facility] Anion Gap 15 5 - 15 mmol/L [facility] Blood specimen (specimen) 10/26/2015 9:17 PM EDT 10/26/2015 9:25 PM EDT Narrative Resulting Agency Comment Spec In Lab Clifton Amaya MD CHEMISTRY ORDERABLES Performing Organization Address [facility] Co de Phone Number [facility] [place] [address] documented in this encounter Visit Diagnoses Diagnosis Open abdominal wall wound, initial encounter Open abdominal wall wound Open wound of abdominal wall, anterior, without mention of complication documented in this encounter Administered Medications Inactive Administered Medications - up to 3 most recent administrations Medication Order MAR Action Action Date Dose Rate Site acetaminophen (TYLENOL) tablet 1,000 mg 1,000 mg, Oral, EVERY 6 HOURS PRN, Starting on Thu10/26/15 at 2004, Until Thu10/30/15 at 1843, Pain, for MODERATE pain, Do not exceed 4,000 mg in 24 hours, Routine Given 10/30/2015 2:02 PM EDT 1,000 mg Given 10/30/2015 7:23 AM EDT 1,000 mg Given 10/29/2015 8:52 PM EDT 1,000 mg B-Complex with Vitamin C (SUPER B C) capsule 1 capsule 1 capsule, Oral, DAILY, First dose on Thu10/27/15 at 0900, Until Discontinued Given 10/29/2015 9:46 AM EDT 1 capsule Given 10/28/2015 8:55 AM EDT 1 capsule Given 10/27/2015 8:21 AM EDT 1 capsule B-Complex with Vitamin C (SUPER B C) capsule 1 capsule 1 capsule, Oral, DAILY, First dose on Thu10/30/15 at 1700, Until Discontinued calcium carbonate (TUMS) chewable tablet 1,000 mg 1,000 mg, Oral, 2 TIMES DAILY, First dose on Thu10/26/15 at 2200, Until Discontinued, Formulary interchange for Calcium 600/Vitamin D 400 BID per P&T, Routine Given 10/30/2015 10:11 AM EDT 1,00 0 mg Given 10/29/2015 8:52 PM EDT 1,000 mg Given 10/29/2015 9:00 AM EDT 1,000 mg cholecalciferol (Vitamin D3) tablet 400 Units 400 Units, Oral, 2 TIMES DAILY, First dose on Thu10/26/15 at 2200, Until Discontinued, Formulary interchange for Calcium 600/Vitamin D 400 BID per P&T, Routine Given 10/30/2015 10:11 AM EDT 400 Units Given 10/29/2015 8:52 PM EDT 400 Units Given 10/29/2015 9:47 AM EDT 400 Units docusate sodium (COLACE) capsule 100 mg 100 mg, Oral, 2 TIMES DAILY, First dose on Thu10/26/15 at 2100, Until Discontinued, Routine Given 10/30/2015 10:12 AM EDT 100 mg Given 10/29/2015 8:53 PM EDT 100 mg Given 10/28/2015 8:21 PM EDT 100 mg DULoxetine (CYMBALTA) capsule 30 mg 30 mg, Oral, DAILY, First dose on Thu10/29/15 at 0900, Until Discontinued, Routine Given 10/30/2015 10:13 AM EDT 30 mg Given 10/29/2015 9:59 AM EDT 30 mg enoxaparin (LOVENOX) injection 40 mg 40 mg, Subcutaneous, DAILY, First dose on Thu10/27/15 at 0900, Until Discontinued, Routine Given 10/30/2015 10:19 AM EDT 40 mg Given 10/29/2015 9:48 AM EDT 40 mg Given 10/28/2015 8:55 AM EDT 40 mg enoxaparin (LOVENOX) injection 40 mg 40 mg, Subcutaneous, ONCE, 1 dose, On Thu10/26/15 at 2200, Routine Given 10/26/2015 9:52 PM EDT 40 mg folic acid (FOLVITE) tablet 400 mcg 400 mcg, Oral, 2 TIMES DAILY, First dose on Thu10/26/15 at 2200, Until Discontinued, Routine Given 10/30/2015 10:12 AM EDT 400 mcg Given 10/29/2015 8:53 PM EDT 400 mcg Given 10/29/2015 9:46 AM EDT 400 mcg furosemide (LASIX) tablet 20 mg 20 mg, Oral, 2 TIMES DAILY, First dose on Thu10/26/15 at 2200, Until Discontinued, Routine Given 10/28/2015 4:32 PM EDT 20 mg Given 10/28/2015 8:54 AM EDT 20 mg Given 10/27/2015 4:39 PM EDT 20 mg furosemide (LASIX) tablet 20 mg 20 mg, Oral, 2 TIMES DAILY PRN, Starting on Thu10/29/15 at 0915, Until Thu10/30/15 at 1843, for edema as needed, Routine gabapentin (NEURONTIN) capsule 400 mg 400 mg, Oral, 2 TIMES DAILY, First dose (after last reorder) on Thu10/27/15 at 0000, Until Discontinued, Routine Given 10/30/2015 10:11 AM EDT 400 mg Given 10/29/2015 8:53 PM EDT 400 mg Given 10/29/2015 9:47 AM EDT 400 mg hyaluronidase (ovine) (VITRASE) injection 1-10 mL 1-10 mL, Subcutaneous, ONCE, On Thu10/27/15 at 0845, 1 dose, Hyaluronidase is supplied in a 1-mL vial at a concentration of 200 units/mL. Dilute with 9 mL of normal saline. This yields the desired concentration of 20 units/mL. Draw up 1 mL increments of the diluted solution into a 1-mL syringe with a 26-g needle. Instill 0.2 -mL aliquots of the solution at least every 2 - 3 centimeters or five evenly spaced aliquots subcutaneously around the periphery of the infiltrated area. Use a new 26-gauge needle for each injection. This is best done within one hour of the extravasation. Discard the remaining solution. Given 10/27/2015 8:45 AM EDT 1 mL Right Arm HYDROmorphone (DILAUDID) tablet 2-4 mg 2-4 mg, Oral, EVERY 4 HOURS PRN, Starting on Thu10/28/15 at 0817, Until Thu10/30/15 at 1843, Pain, 2 mg for pain 1-5/10, 4 mg for pain 6-1010, Routine Given 10/30/2015 2:03 PM EDT 4 mg Given 10/30/2015 7:24 AM EDT 4 mg Given 10/30/2015 2:05 AM EDT 4 mg hydrOXYzine (ATARAX) tablet 25 mg 25 mg, Oral, 3 TIMES DAILY PRN, Starting on Thu10/29/15 at 0601, Until Thu10/30/15 at 1843, Itching, Routine lactobacillus (BACID) tablet 1 tablet 1 tablet, Oral, DAILY, First dose on Thu10/27/15 at 0900, Until Discontinued, Routine Given 10/30/2015 10:11 AM EDT 1 tablet Given 10/29/2015 9:59 AM EDT 1 tablet Given 10/28/2015 8:54 AM EDT 1 tablet levofloxacin (LEVAQUIN) tablet 750 mg 750 mg, Oral, EVERY MORNING, First dose on Thu10/30/15 at 0700, Until Discontinued, Routine, Indication for (Active or Suspected): Skin/Skin Structure, Restricted Antibiotic: Please indicate the most appropriate choice: ID Approval by Saravanan Dyson Given 10/30/2015 10:45 AM EDT 750 mg levothyroxine (SYNTHROID) tablet 100 mcg 100 mcg, Oral, EVERY MORNING, First dose on 10/27/15 at 0600, Until Discontinued, Routine Given 10/30/2015 5:44 AM EDT 100 mcg Given 10/29/2015 6:03 AM EDT 100 mcg Given 10/28/2015 5:18 AM EDT 100 mcg lidocaine (LIDODERM) 5 % patch 1 patch 1 patch, Transdermal, DAILY, First dose on Thu10/27/15 at 1400, Until Discontinued, Apply patch(es) for 12 hours, and then remove for 12 hours, Routine Patch Applied 10/28/2015 8:55 AM EDT 1 patch 14- Abdomen (Right) Patch Applied 10/27/2015 2:44 PM EDT 1 patch 14- Abdomen (Right) lidocaine (LIDODERM) 5 %(700 mg/patch) Patch Removal Transdermal, NIGHTLY, First dose on Thu10/27/15 at 2100, Until Discontinued, Remove lidocaine 5 %(700 mg/patch) patch lidocaine (LIDODERM) 5 %(700 mg/patch) Patch Verification Transdermal, 2 TIMES DAILY, First dose on Thu10/28/15 at 0030, Until Discontinued, Verify lidocaine 5 %(700 mg/patch) patch. lidocaine (XYLOCAINE) 10 mg/mL (1 %) injection 3 mg 3 mg (0.3 mL), Subcutaneous, ONCE PRN, 1 dose, Starting on Thu10/26/15 at 2004, Until Thu10/27/15 at 0750, for discomfort with PIV insertion, Recovery (Recovery-Hospital Unit), Routine Given 10/27/2015 7:50 AM EDT 3 mg Left Arm multivitamin (THERAGRAN) tablet 1 tablet 1 tablet, Oral, DAILY, First dose on Thu10/26/15 at 2200, Until Discontinued Given 10/30/2015 10:19 AM EDT 1 tablet Given 10/29/2015 9:47 AM EDT 1 tablet Given 10/28/2015 8:54 AM EDT 1 tablet pantoprazole (PROTONIX) tablet 40 mg 40 mg, Oral, DAILY, First dose on Thu10/26/15 at 2100, Until Discontinued, Formulary interchange for Omeprazole 40mg po Daily per P&T DO NOT CRUSH OR OPEN Given 10/30/2015 10:12 AM EDT 40 mg Given 10/29/2015 9:59 AM EDT 40 mg Given 10/28/2015 8:54 AM EDT 40 mg piperacillin-tazobactam (ZOSYN) 3.375 g in dextrose 5% 50 mL 3.375 g, Intravenous, EVERY 8 HOURS, First dose on Thu10/26/15 at 2200, Until Discontinued, Administer over 4 Hours, Warning Vesicant/Irritant Medication , Indication for (Active or Suspected): Skin/Skin Structure Given 10/29/2015 2:12 PM EDT 3.375 g 12.5 mL/hr Given 10/29/2015 6:03 AM EDT 3.375 g 12.5 mL/hr Given 10/29/2015 12:01 AM EDT 3.375 g 12.5 mL/hr senna (SENOKOT) tablet 8.6 mg 8.6 mg, Oral, DAILY, First dose on Thu10/27/15 at 0900, Until Discontinued, Routine Given 10/30/2015 10:14 AM EDT 8.6 mg Given 10/29/2015 9:47 AM EDT 8.6 mg Given 10/28/2015 8:53 AM EDT 8.6 mg sodium chloride 0.9 % flush 5 mL 5 mL, Intravenous, 2 TIMES DAILY, First dose on Thu10/26/15 at 2100, Until Discontinued, Recovery (Recovery-Hospital Unit), Routine Given 10/30/2015 10:45 AM EDT 5 mLs Given 10/29/2015 9:00 PM EDT 5 mLs Given 10/29/2015 9:48 AM EDT 5 mLs topiramate (TOPAMAX) tablet 200 mg 200 mg, Oral, 2 TIMES DAILY, First dose on Thu10/26/15 at 2200, Until Discontinued, Routine Given 10/30/2015 10:12 AM EDT 200 mg Given 10/29/2015 8:54 PM EDT 200 mg Given 10/29/2015 9:46 AM EDT 200 mg traMADol (ULTRAM) tablet 50 mg 50 mg, Oral, EVERY 6 HOURS PRN, Starting on Thu10/26/15 at 2004, Until Thu10/27/15 at 1219, Pain, Routine Given 10/27/2015 8:25 AM EDT 50 mg Given 10/27/2015 2:25 AM EDT 50 mg traMADol (ULTRAM) tablet 50 mg 50 mg, Oral, EVERY 4 HOURS PRN, Starting on Thu10/27/15 at 1230, Until Thu10/28/15 at 0829, Pain, Routine Given 10/27/2015 4:39 PM EDT 50 mg Given 10/27/2015 12:31 PM EDT 50 mg vancomycin 1.5 g in sodium chloride 0.9% 250 mL 1,500 mg, Intravenous, EVERY 24 HOURS, First dose on Thu10/26/15 at 2100, Until Discontinued, Maximum infusion rate is 1 gram/hour. If flushing of the face, neck, upper body, arms, and/or back occurs decrease infusion rate by 50% to reduce the severity of symptoms. This medication may have an associated drug lab level. Please see MAR for scheduled level. Warning Vesicant/Irritant Medication , STAT, Indication for (Active or Suspected): Skin/Skin Structure Given 10/28/2015 10:13 PM EDT 1,500 mg Given 10/27/2015 8:03 PM EDT 1,500 mg Given 10/27/2015 1:37 AM EDT 1,500 mg documented in this encounter Active and Recently Administered Medications Times are shown in EDT. Scheduled Medication Order 10/28/2015 10/29/2015 10/30/2015 B-Complex with Vitamin C (SUPER B C) capsule 1 capsule 1 capsule, Oral, DAILY, First dose on Thu10/27/15 at 0900, Until Discontinued 0855 (Given - Provider: Sadie Walters RN) 0946 (Given - Provider: Sadie Walters RN) 09 (Not Given - Provider: Sadie Walters RN - Reason: Patient/family refused - Comment: she had wanted to rest and not wait for it to come up from pharmacy) B-Complex with Vitamin C (SUPER B C) capsule 1 capsule 1 capsule, Oral, DAILY, First dose on Thu10/30/15 at 1700, Until Discontinued calcium carbonate (TUMS) chewable tablet 1,000 mg(Linked Group 1) 1,000 mg, Oral, 2 TIMES DAILY, First dose on Thu10/26/15 at 2200, Until Discontinued, Formulary interchange for Calcium 600/Vitamin D 400 BID per P&T, Routine 0855 (Given - Provider: Sadie Walters RN)2021 (Given - Provider: Paige Ortiz RN) 0900 (Given - Provider: Sadie Walters RN)2051 (Given - Provider: Brenna Kessler RN) 101 (Given - Provider: Giselle Ignacio RN) cholecalciferol (Vitamin D3) tablet 400 Units(Linked Group 1) 400 Units, Oral, 2 TIMES DAILY, First dose on Thu10/26/15 at 2200, Until Discontinued, Formulary interchange for Calcium 600/Vitamin D 400 BID per P&T, Routine 0905 (Given - Provider: Sadie Walters RN)2020 (Given - Provider: Paige Ortiz, LAKHWINDER) 0947 (Given - Provider: Sadie Walters RN)2051 (Given - Provider: Brenna Kessler RN) 101 (Given - Provider: Giselle Ignacio RN) docusate sodium (COLACE) capsule 100 mg 100 mg, Oral, 2 TIMES DAILY, First dose on Thu10/26/15 at 2100, Until Discontinued, Routine 0852 (Not Given - Provider: Sadie Walters RN - Reason: Patient/family refused)2020 (Given - Provider: Paige Ortiz RN) 09 (Not Given - Provider: Sadie Walters RN - Reason: Patient/family refused)2052 (Given - Provider: Brenna Kessler RN) 101 (Given - Provider: Giselle Ignacio RN) DULoxetine (CYMBALTA) capsule 30 mg 30 mg, Oral, DAILY, First dose on Thu10/29/15 at 0900, Until Discontinued, Routine 0959 (Given - Provider: Sadie Walters RN) 101 (Given - Provider: Giselle Ignacio RN) enoxaparin (LOVENOX) injection 40 mg 40 mg, Subcutaneous, DAILY, First dose on Thu10/27/15 at 0900, Until Discontinued, Routine 0855 (Given - Provider: Sadie Walters RN) 0948 (Given - Provider: Sadie Walters RN) 101 (Given - Provider: Giselle Ignacio RN) folic acid (FOLVITE) tablet 400 mcg 400 mcg, Oral, 2 TIMES DAILY, First dose on Thu10/26/15 at 2200, Until Discontinued, Routine 0852 (Given - Provider: Sadie Walters RN)2021 (Given - Provider: Paige Ortiz RN) 0946 (Given - Provider: Sadie Walters RN)2052 (Given - Provider: Brenna Kessler RN) 101 (Given - Provider: Giselle Ignacio RN) furosemide (LASIX) tablet 20 mg (CANCELED) 20 mg, Oral, 2 TIMES DAILY, First dose on Thu10/26/15 at 2200, Until Discontinued, Routine 0854 (Given - Provider: Sadie Walters RN)1632 (Given - Provider: Sadie Walters RN) 0900 (Not Given - Provider: Sadie Walters RN - Reason: Patient/family refused) gabapentin (NEURONTIN) capsule 400 mg 400 mg, Oral, 2 TIMES DAILY, First dose (after last reorder) on Thu10/27/15 at 0000, Until Discontinued, Routine 0854 (Given - Provider: Sadie Walters RN)2021 (Given - Provider: Paige Ortiz RN) 0947 (Given - Provider: Sadie Walters RN)205 (Given - Provider: Brenna Kessler RN) 1011 (Given - Provider: Giselle Ignacio RN) lactobacillus (BACID) tablet 1 tablet 1 tablet, Oral, DAILY, First dose on Thu10/27/15 at 0900, Until Discontinued, Routine 0854 (Given - Provider: Sadie Walters RN) 0959 (Given - Provider: Sadie Walters RN) 1011 (Given - Provider: Giselle Ignacio, LAKHWINDER) levofloxacin (LEVAQUIN) tablet 750 mg 750 mg, Oral, EVERY MORNING, First dose on Thu10/30/15 at 0700, Until Discontinued, Routine, Indication for (Active or Suspected): Skin/Skin Structure, Restricted Antibiotic: Please indicate the most appropriate choice: ID Approval by Saravanan Dyson 1045 (Given - Provider: Sadie Walters RN - Comment: to be given after EKG obtained) levothyroxine (SYNTHROID) tablet 100 mcg 100 mcg, Oral, EVERY MORNING, First dose on Thu10/27/15 at 0600, Until Discontinued, Routine 0518 (Given - Provider: Stuart Roht RN) 0603 (Given - Provider: Paige Ortiz, LAKHWINDER) 0544 (Given - Provider: Brenna Kessler RN) lidocaine (LIDODERM) 5 % patch 1 patch(Linked Group 2) 1 patch, Transdermal, DAILY, First dose on Thu10/27/15 at 1400, Until Discontinued, Apply patch(es) for 12 hours, and then remove for 12 hours, Routine 0855 (Patch Applied - Provider: Sadie Walters RN) 0948 (Not Given - Provider: Sadie Walters RN - Reason: Patient/family refused - Comment: It did not even work for me) 0900 (Not Given - Provider: Giselle Ignacio RN - Reason: Patient/family refused) lidocaine (LIDODERM) 5 %(700 mg/patch) Patch Removal(Linked Group 2) Transdermal, NIGHTLY, First dose on Thu10/27/15 at 2100, Until Discontinued, Remove lidocaine 5 %(700 mg/patch) patch 2100 (Patch Removed - Provider: Paige Ortiz RN) 2100 (Patch Not Removed (add comment) - Provider: Brenna Kessler RN - Comment: no patch) lidocaine (LIDODERM) 5 %(700 mg/patch) Patch Verification(Linked Group 2) Transdermal, 2 TIMES DAILY, First dose on Thu10/28/15 at 0030, Until Discontinued, Verify lidocaine 5 %(700 mg/patch) patch. 0030 (Not Given - Provider: Stuart Roth RN - Reason: Contraindicated - Comment: removed per order)0900 (Patch (dose and location) verified - Provider: Sadie Walters RN)2100 (Patch (dose and location) verified - Provider: Paige Ortiz RN) 0900 (Patch Not Verified (add comment) - Provider: Sadie Walters RN - Comment: patient refused)2100 (Not Given - Provider: Brenna Kessler RN - Reason: See comment - Comment: no patch) 0900 (Not Given - Provider: Giselle Ignacio RN - Reason: Patient/family refused) multivitamin (THERAGRAN) tablet 1 tablet 1 tablet, Oral, DAILY, First dose on Thu10/26/15 at 2200, Until Discontinued 0854 (Given - Provider: Sadie Walters RN) 0947 (Given - Provider: Sadie Walters RN) 1019 (Given - Provider: Giselle Ignacio RN) pantoprazole (PROTONIX) tablet 40 mg 40 mg, Oral, DAILY, First dose on Thu10/26/15 at 2100, Until Discontinued, Formulary interchange for Omeprazole 40mg po Daily per P&T DO NOT CRUSH OR OPEN 0854 (Given - Provider: Sadie Walters RN) 0959 (Given - Provider: Sadie Walters RN) 1012 (Given - Provider: Giselle Ignacio, LAKHWINDER) piperacillin-tazobacta m (ZOSYN) 3.375 g in dextrose 5% 50 mL (CANCELED) 3.375 g, Intravenous, EVERY 8 HOURS, First dose on Thu10/26/15 at 2200, Until Discontinued, Administer over 4 Hours, Warning Vesicant/Irritant Medication , Indication for (Active or Suspected): Skin/Skin Structure 0518 (Given - Provider: Stuart Roth RN)1309 (Given - Provider: Sadie Walters RN) 0001 (Given - Provider: Paige Ortiz, LAKHWINDER)0603 (Given - Provider: Paige Ortiz RN)1412 (Given - Provider: Sadie Walters RN) senna (SENOKOT) tablet 8.6 mg 8.6 mg, Oral, DAILY, First dose on Thu10/27/15 at 0900, Until Discontinued, Routine 0853 (Given - Provider: Sadie Walters RN) 0947 (Given - Provider: Sadie Walters RN) 1014 (Given - Provider: Giselle Ignacio, LAKHWINDER) sodium chloride 0.9 % flush 5 mL 5 mL, Intravenous, 2 TIMES DAILY, First dose on Thu10/26/15 at 2100, Until Discontinued, Recovery (Recovery-Hospital Unit), Routine 0900 (Not Given - Provider: Sadie Walters RN - Reason: See comment - Comment: IV infusing)2014 (Given - Provider: Paige Ortiz RN) 0948 (Given - Provider: Sadie Walters RN)2100 (Given - Provider: Brenna Kessler RN) 104 (Given - Provider: Sadie Walters RN) topiramate (TOPAMAX) tablet 200 mg 200 mg, Oral, 2 TIMES DAILY, First dose on Thu10/26/15 at 2200, Until Discontinued, Routine 0852 (Given - Provider: Sadie Walters RN)2020 (Given - Provider: Paige Ortiz RN) 0946 (Given - Provider: Sadie Walters RN)2054 (Given - Provider: Brenna Kessler, LAKHWINDER) 1012 (Given - Provider: Giselle Ignacio, LAKHWINDER) vancomycin 1.5 g in sodium chloride 0.9% 250 mL (CANCELED) 1,500 mg, Intravenous, EVERY 24 HOURS, First dose on Thu10/26/15 at 2100, Until Discontinued, Maximum infusion rate is 1 gram/hour. If flushing of the face, neck, upper body, arms, and/or back occurs decrease infusion rate by 50% to reduce the severity of symptoms. This medication may have an associated drug lab level. Please see MAR for scheduled level. Warning Vesicant/Irritant Medication , STAT, Indication for (Active or Suspected): Skin/Skin Structure 2213 (Given - Provider: Paige Ortiz RN) 2100 (Not Given - Provider: Brenna Kessler RN - Reason: Medication Discontinued) PRN Medication Order 10/28/2015 10/29/2015 10/30/2015 acetaminophen (TYLENOL) tablet 1,000 mg 1,000 mg, Oral, EVERY 6 HOURS PRN, Starting on Thu10/26/15 at 2003, Until Thu10/30/15 at 1843, Pain, for MODERATE pain, Do not exceed 4,000 mg in 24 hours, Routine 0852 (Given - Provider: Sadie Walters RN) 0912 (Given - Provider: Giselle Ignacio, LAKHWINDER)2052 (Given - Provider: Brenna Kessler, LAKHWINDER) 0723 (Given - Provider: Brenna Kessler, LAKHWINDER)1402 (Given - Provider: Sadie Walters RN) bisacodyl (DULCOLAX) EC tablet 10 mg 10 mg, Oral, 2 TIMES DAILY PRN, Starting on Thu10/26/15 at 2003, Until Thu10/30/15 at 1843, Constipation, DO NOT CRUSH OR OPEN Administer if needed per patient's routine or if no bowel movement within 48 hours to achieve: 1) One bowel movement at least every 48 hours, AND 2) Without straining. If multiple bowel medications ordered, consider adding bisacodyl if polyethylene glycol (MIRALAX) and lactulose not sufficient., Routine bisacodyl (DULCOLAX) suppository 10 mg 10 mg, Rectal, DAILY PRN, Starting on Thu10/26/15 at 2004, Until Thu10/30/15 at 1843, Constipation, Administer if needed per patient's routine or if no bowel movement within 48 hours to achieve: 1) One bowel movement at least every 48 hours, AND 2) Without straining. If multiple bowel medications ordered, consider adding bisacodyl if polyethylene glycol (MIRALAX) and lactulose not sufficient. If patient unable to take PO, may give FL if ordered, Routine furosemide (LASIX) tablet 20 mg 20 mg, Oral, 2 TIMES DAILY PRN, Starting on Thu10/29/15 at 0915, Until Thu10/30/15 at 1843, for edema as needed, Routine 0945 (Not Given - Provider: Sadie Walters RN - Reason: Patient/family refused - Comment: I am going home) HYDROmorphone (DILAUDID) tablet 2-4 mg 2-4 mg, Oral, EVERY 4 HOURS PRN, Starting on Thu10/28/15 at 0817, Until Thu10/30/15 at 1843, Pain, 2 mg for pain 1-5/10, 4 mg for pain 6-10/10, Routine 0851 (Given - Provider: Sadie Walters RN)1315 (Given - Provider: Sadie Walters RN)202 (Given - Provider: Paige Ortiz RN)2133 (Given - Provider: Paige Ortiz RN) 0557 (Given - Provider: Paige Ortiz, LAKHWINDER)1000 (Given - Provider: Sadie Walters RN)1408 (Given - Provider: Sadie Walters RN)2051 (Given - Provider: Brenna Kessler, LAKHWINDER) 0205 (Given - Provider: Brenna Kessler RN)0724 (Given - Provider: Brenna Kessler RN)1403 (Given - Provider: Sadie Walters RN) hydrOXYzine (ATARAX) tablet 25 mg 25 mg, Oral, 3 TIMES DAILY PRN, Starting on Thu10/29/15 at 0601, Until Thu10/30/15 at 1843, Itching, Routine ondansetron (ZOFRAN) injection 4 mg(Linked Group 3) 4 mg, Intravenous, EVERY 8 HOURS PRN, Starting on Thu10/26/15 at 2003, Until Thu10/30/15 at 1843, Nausea, May repeat times one in 30 minutes if ineffective. If multiple antiemetics are ordered, use ondanstron first, Recovery (Recovery-Hospital Unit) polyethylene glycol (MIRALAX) packet 17 g 17 g, Oral, DAILY PRN, Starting on Thu10/26/15 at 2003, Until Thu10/30/15 at 1843, Constipation, Administer if needed per patient's routine or if no bowel movement within 48 hours to achieve: 1) One bowel movement at least every 48 hours, AND 2) Without straining. If multiple bowel medications ordered, consider polyethylene glycol(MIRALAX) first., Routine sodium chloride 0.9 % flush 5-20 mL 5-20 mL, Intravenous, EVERY 1 MIN PRN, Starting on Thu10/26/15 at 2003, Until Thu10/30/15 at 1843, flush, Flush pertains to all indwelling lines. Flush per protocol found in the job aid using the link provided on this medication record., Recovery (Recovery-Hospital Unit), Routine Linked Groups Order Group 1: calcium carbonate (TUMS) chewable tablet 1,000 mgJump to med 1,000 mg, Oral, 2 TIMES DAILY, First dose on Thu10/26/15 at 2200, Until Discontinued, Formulary interchange for Calcium 600/Vitamin D 400 BID per P&T, Routine And cholecalciferol (Vitamin D3) tablet 400 UnitsJump to med 400 Units, Oral, 2 TIMES DAILY, First dose on Thu10/26/15 at 2200, Until Discontinued, Formulary interchange for Calcium 600/Vitamin D 400 BID per P&T, Routine Group 2: lidocaine (LIDODERM) 5 % patch 1 patchJump to med 1 patch, Transdermal, DAILY, First dose on Thu10/27/15 at 1400, Until Discontinued, Apply patch(es) for 12 hours, and then remove for 12 hours, Routine And lidocaine (LIDODERM) 5 %(700 mg/patch) Patch VerificationJump to med Transdermal, 2 TIMES DAILY, First dose on Thu10/28/15 at 0030, Until Discontinued, Verify lidocaine 5 %(700 mg/patch) patch. And lidocaine (LIDODERM) 5 %(700 mg/patch) Patch RemovalJump to med Transdermal, NIGHTLY, First dose on 10/27/15 at 2100, Until Discontinued, Remove lidocaine 5 %(700 mg/patch) patch Group 3: ondansetron (ZOFRAN) tablet 4 mg (CANCELED) 4 mg, Oral, EVERY 8 HOURS PRN, Starting on Thu10/26/15 at 2003, Until Thu10/27/15 at 0815, Nausea, Vomiting, If multiple antiemetics are ordered, use ondansetron first. PO Preferred. If patient unable to take PO, may give IV if ordered. May repeat times one in 45 minutes if ineffective., Recovery (Recovery-Hospital Unit), Routine Or ondansetron (ZOFRAN) injection 4 mgJump to med 4 mg, Intravenous, EVERY 8 HOURS PRN, Starting on Thu10/26/15 at 2003, Until Tu10/30/15 at 1843, Nausea, May repeat times one in 30 minutes if ineffective. If multiple antiemetics are ordered, use ondanstron first, Recovery (Recovery- Hospital Unit) documented in this encounter Care Teams Analytics Developer Relationship Specialty Start Date End Date Stuart Leyva MD [address] [place] [address] PCP - General Internal Medicine 06/28/15 documented as of this encounter
--- OUTSIDE RECORDS SUMMARY | 2024-03-02 20:25 | XMS_ITS | Encounter Summary ---
[facility] [place] [address] Care Team Providers Care Wine Steward Name Role Phone Stuart Leyva MD Primary Care Provider [phone] Encounter Details Date Type Department Care Team (Late st Contact Info) Description 11/08/2015 Telephone [place] [id number] Emily Escobar, RN Social History Tobacco Use Types Packs/Day Years [...] Telephone Encounter - Emily Escobar RN - 11/08/2015 12:11 PM EDT TELEPHONE NOTE Date of call: 11/08/2015 Time of call: 12:11 PM Caller: This procedure writer Reason for call: Pt had her hospital check today and did not show for her appointment. Plan/Instructions: I left a message on her machine to give us a call and let us know how she's doing, and if she would like to reschedule. documented in this encounter Plan of Treatment Not on file documented as of this encounter Visit Diagnoses Not on filedocumented in this encounter Care Teams Wine Steward Relationship Specialty Start Date End Date Stuart Leyva MD [address] [place] [address] PCP - General Internal Medicine 06/28/15 documented as of this encounter
--- OUTSIDE RECORDS SUMMARY | 2024-03-02 20:25 | XMS_ITS | Encounter Summary ---
Author Organization [facility] Address [facility] [place] [address] Care Team Providers Care Display Coordinator Name Role Phone Stephen Leiva MD Primary Care Provider [phone] Encounter Details Date Type Department Care Team (Late st Contact Info) Description 11/16/2013 12:11 PM EDT Anesthesia Event [place] [address] Finn Mascorro MD [facility] [place] [address] Ronit Manning, PA [facility] PRE-[place] [address] Anesthesia Record Procedure Summary Procedure Name Responsible Anesthesiologist Anesthesia Start Time Anesthesia Stop Time TOTAL KNEE ARTHROPLASTY (WRVU 19.6) (Right: Knee) Events Date Time Event Comment 11/16/2013 1209 Meds * Agents No agents on file. * Blood No blood administrations on file. Lines, Drains, and Airways Type Details Placement Removal Drain/Device Site 10/01/15; Left; abdo men; collapsible closed device; [address] [place] [place] drain 10/01/15 0000 by Nina Watts, RN Drain/Device Site 10/01/15; Right; abd omen; collapsible closed device; [address] drain 10/01/15 0000 by Nina Watts, RN documented in this encounter Social History Tobacco Use Types Packs/Day [...] on file documented as of this encounter OR Notes * Anesthesia Preprocedure Evaluation - Finn Mascorro MD - 09/01/2013 12:01 PM EDT Pre-Anesthesia Evaluation for: Brenna Bowling a 62 y.o. female. Procedure(s): @TOTAL KNEE ARTHROPLASTY MODIFIER PFC STABILIZED FIXED MODULAR DEPUY Patient Active Problem List Diagnosis ??? Pain in thoracic spine ??? Thoracic spondylosis without myelopathy ??? Right knee pain ??? S/P Right total hip arthroplasty- 01/12/2008 ([facility]) ??? S/P Left total knee arthroplasty- 07/15/2007 ([facility]) ??? Migraine ??? Hypertension ??? Hypothyroidism ??? Hyperlipidemia ??? Depression No past medical history on file. No past surgical history on file. History Substance Use Topics ??? Smoking status: Former Smoker -- 40 years Quit date: 04/20/2006 ??? Smokeless tobacco: Never Used ??? Alcohol Use: No History Drug Use No Allergies Allergen Reactions ??? Lactose Other (See Comments) cramps ??? Codeine Phosphate Nausea Only stomach pain ??? Morphine Sulfate Other (See Comments) leg swelling ??? Nsaids (Non-Steroidal Anti-Inflammatory Drug) Nausea Only stomach pain Medications: MAR and/or home medications have been reviewed. Physical Exam: There were no vitals filed for this visit. There is no height or weight on file to calculate BMI. Airway Assessment: Cardiovascular Assessment: Pulmonary Assessment: Dental Assessment: Misc Assessment: Other exam findings: 08/18/13 ECG: Sinus rhythm, LAD, LAFB C/W ECG from 11/19/09, no significant change. Anesthesia Plan: ASA 2 Mac 4 grade I with two previous surgeries Note documents shoveling snow for 3 hours Chronic pain left knee HTN S/p thyroidectomy There is no documentation of other significant cardiac or pulmonary disease that is likely to alterthe anesthetic plan or course. This is a preliminary note based on a chart review in preparation for anesthetic care. [place] [facility] [place]: documented in this encounter Plan of Treatment Not on file documented as of this encounter Visit Diagnoses Not on filedocumented in this encounter Care Teams Display Coordinator Relationship Specialty Start Date End Date Stephen Leiva MD PCP - General 06/20/13 06/27/15 documented as of this encounter
--- OUTSIDE RECORDS SUMMARY | 2024-03-02 20:26 | XMS_ITS | Encounter Summary ---
Author Organization [facility] Address [facility] [place] [address] Care Team Providers Care Newspaper Writer Name Role Phone Stuart Leyva MD Primary Care Provider [phone] Encounter Details Date Type Department Care Team (Latest Contact Info) Description 06/29/2015 10:12 AM EST - 06/29/2015 11:12 AM EST Hospital Encounter [place] [address] Jeanette Koch MD [facility] [place] [address] Discharge Disposition: Home Social History Tobacco Use Types Packs/Day Years [...] on file documented as of this encounter Medications at Time of Discharge Medication Sig Dispensed Refills Start Date End Date levothyroxine (SYNTHROID) 100 mcg Tablet Take 100 mcg by mouth daily. b complex vitamins Capsule Take 1 capsule by mouth daily. traMADol (ULTRAM) 50 mg Tablet Take 50 mg by mouth every 6 hours as needed for Pain. furosemide (LASIX) 20 mg Tablet Take 20 mg by mouth 2 times daily. GLUC/CHND/OM3/DHA/EPA/FIS H/STR (GLUCOSAMINE CHONDROITIN PLUS ORAL) Take by mouth. [...] Cap 1 Capsule(s), PO, Twice daily 01/02/2010 DULoxetine (CYMBALTA) 60 mg Capsule, Delayed Release(E.C.) Take 60 mg by mouth daily. 10/26/2015 meloxicam (MOBIC) 7.5 mg Tablet Take 7.5 mg by mouth daily. 10/04/2015 dextroamphetamine-ampheta mine (ADDERALL) 20 mg tablet Take 20 mg by mouth 4 times daily. 10/26/2015 documented as of this encounter Plan of Treatment Not on file documented as of this encounter Visit Diagnoses Not on filedocumented in this encounter Active and Recently Administered Medications Care Teams Newspaper Writer Relationship Specialty Start Date End Date Stuart Leyva MD [address] [place] [address] PCP - General Internal Medicine 06/28/15 documented as of this encounter
--- OUTSIDE RECORDS SUMMARY | 2024-03-02 20:26 | XMS_ITS | Encounter Summary ---
Author Organization [facility] [place] [address] Care Team Providers Care Options Advisor Name Role Phone Stephen Leiva MD Primary Care Provider [phone] Encounter Details Date Type Department Care Team (Late st Contact Info) Description 12/26/2010 Orders Only [place] [address] Jae Zuleta MD [address] [place] [address] Social History Tobacco Use Types Packs/Day Years Used Date Smoking Tobacco: Never Assessed Sex and Gender Information Value Date Recorded Sex Assigned at Not on file Gender Identity Not on file Sexual Orientation Not on file documented as of this encounter Plan of Treatment Pending Results Name Type Priority Associated Diagnoses Date /Time Film Library- Storage only DX Pelvis Imaging Routine 12/26/2010 9:02 PM EDT documented as of this encounter Visit Diagnoses Not on filedocumented in this encounter Care Teams Options Advisor Relationship Specialty Start Date End Date Stephen Leiva MD PCP - General 06/20/13 06/27/15 documented as of this encounter
--- OUTSIDE RECORDS SUMMARY | 2024-03-02 20:26 | XMS_ITS | Encounter Summary ---
Author Organization [facility] Address [facility] [place] [address] Care Team Providers Care Assistant Professor Of English Name Role Phone Stephen Leiva MD Primary Care Provider [phone] Encounter Details Date Type Department Care Team (Latest Contact Info) Description 06/20/2013 12:53 PM EST - 06/20/2013 11:59 PM EST Hospital Encounter XRay at [address] [place] [address] Aftercare following joint replacement; Patellofemoral disorder of right knee Social History Tobacco Use Types Packs/Day Years [...] Sig Dispensed Refills Start Date End Date multivitamin (THERAGRAN) tablet Take 1 tablet by mouth daily. gabapentin (NEURONTIN) 300 mg capsule 300 M-2 Capsule(s), PO, QHS 01/02/2010 folic acid (FOLVITE) 400 mcg tablet 01/02/2010 topiramate (TOPAMAX) 200 mg tablet 01/02/2010 Calcium Carbonate-Vitamin D3 600 mg(1,500mg) -400 unit Cap 1 Capsule(s), PO, Twice daily 01/02/2010 levothyroxine (SYNTHROID) 88 mcg tablet Take 88 mcg by mouth daily. 06/27/2015 dextroamphetamine-ampheta mine (ADDERALL) 20 mg tablet Take 20 mg by mouth 4 times daily. 10/26/2015 venlafaxine (EFFEXOR XR) 150 mg 24 hr capsule Take 150 mg by mouth daily. 06/27/2015 OMEPRAZOLE ORAL Take 40 mg by mouth nightly. 06/27/2015 metoprolol succinate (TOPROL-XL) 50 mg 24 hr tablet Take 100 mg by mouth daily. 06/27/2015 LORazepam (ATIVAN) 1 mg tablet Take 0.5 mg by mouth as needed. Breaks a 1mg in half 06/27/2015 simvastatin (ZOCOR) 20 mg tablet 01/02/2010 06/27/2015 wjrbzqf-ikjihomntnhrp-sfa feine (EXCEDRIN EXTRA STRENGTH) 250-250-65 mg per tablet 01/02/2010 06/27/2015 documented as of this encounter Plan of Treatment Not on file documented as of this encounter Procedures Procedure Name Priority Date/Time Associated Diagnosis Comments XR JOINT TEAM ALIGNMENT AP LAT SCHUSS SKYLINE Routine 06/20/2013 1:51 PM EST Aftercare following joint replacement Patellofemoral disorder of right knee documented in this encounter Results * XR JOINT TEAM ALIGNMENT AP LAT SCHUSS SKYLINE (06/20/2013 1:51 PM EST) Anatomical Region Laterality Modality N/A Radiographic Tawana ging 06/20/2013 1:51 PM EST Narrative 06/20/2013 4:58 PM EST Examination JOINT TEAM STANDING ALIGNMENT AP LAT SCHUSS SKYLINE/BILAT Clinical History LT TKA 07/15/07-RT KNEE PAIN Comparison 10/18/2009. Technique Separate images of the pelvis, knees and feet were acquired in the AP projection with the patient standing. In addition to routine views of the knee, these images were stitched together to form a composite image of the pelvis and legs allowing for evaluation of lower extremity alignment in the weight bearing position. 5 views of both knees. Findings The patient is status post a left total knee prosthesis, no sign of postop complication. ??The right knee shows progression of lateral compartment osteoarthritis, slight worsening of medial compartment narrowing to the lesser degree. ??No significant joint effusion noted on either knee, but there is marked patellofemoral joint osteoarthritis on the right. ??This is particularly notable in the medial facet. ??The patient is also status post right total hip replacement, non cemented. ??The weightbearing axis of the lower extremities is as follows: ??Right lower extremity, deviated laterally from the knee midline approximately 20 mm, left lower extremity deviated just laterally to the knee midline, approximately 4 mm. This results in mild right genu valgus. Impression Status post left total knee replacement, no sign of postop complication. ?? Progression of moderate right lateral and milder medial compartment narrowing, and severe osteoarthritis in the right patellofemoral joint. ??Mild right genu valgus. Procedure Note Lino Guthrie MD - 06/20/2013 Examination JOINT TEAM STANDING ALIGNMENT AP LAT SCHUSS SKYLINE/BILAT Clinical History LT TKA 07/15/07-RT KNEE PAIN Comparison 10/18/2009. Technique Separate images of the pelvis, knees and feet were acquired in the AP projection with the patient standing. In addition to routine views of theknee, these images were stitched together to form a composite image of thepelvis and legs allowing for evaluation of lower extremity alignment in the weightbearing position. 5 views of both knees. Findings The patient is status post a left total knee prosthesis, no sign of postop complication. The right knee shows progression of lateral compartment osteoarthritis, slight worsening of medial compartment narrowing to thelesser degree. No significant joint effusion noted on either knee, but there is marked patellofemoral joint osteoarthritis on the right. This isparticularly notable in the medial facet. The patient is also status post right totalhip replacement, non cemented. The weightbearing axis of the lowerextremities is as follows: Right lower extremity, deviated laterally from the kneemidline approximately 20 mm, left lower extremity deviated just laterally to theknee midline, approximately 4 mm. This results in mild right genu valgus. Impression Status post left total knee replacement, no sign of postop complication. Progression of moderate right lateral and milder medial compartmentnarrowing, and severe osteoarthritis in the right patellofemoral joint. Mild rightgenu valgus. Jae Zuleta MD IMG DX ORDERABLES documented in this encounter Visit Diagnoses Diagnosis Aftercare following joint replacement Patellofemoral disorder of right knee Unspecified disorder of lower leg joint documented in this encounter Care Teams Assistant Professor Of English Relationship Specialty Start Date End Date Stephen Leiva MD PCP - General 06/20/13 06/27/15 documented as of this encounter
--- OUTSIDE RECORDS SUMMARY | 2024-03-02 20:26 | XMS_ITS | Encounter Summary ---
Author Organization [facility] Address [facility] [place] [address] Care Team Providers Care Collections Officer Name Role Phone Stephen Sawyer MD Primary Care Provider [phone] Reason for Referral * Consultation (Routine) - Closed Specialty Diagnoses / Procedures Referred By Iraj crowe Referred To Contact Plastic Surgery Diagnoses Ventral hernia without obstruction or gangrene Excess skin of abdomen Jeanette Koch MD [facility] [place] [address] [facility] [address] [address] Referral ID Status Reason Start Date Expiration Date V isits Requested Visits Authorized [id number] Closed Consult, Test & Treat 06/27/2015 06/26/2016 1 1 Encounter Details Date Type Department Care Team (Late st Contact Info) Description 06/27/2015 3:10 PM EST Office [place] [address] Nancy Wooten MD [facility] [place] [address] Jeanette Koch MD [facility] [place] [address] Ventral hernia without obstruction or gangrene; Epigastric pain; Malnutrition; Excess skin of abdomen; Vitamin D deficiency Social History Tobacco Use Types Packs/Day Years [...] Sign Reading Time Taken Comments Blood Pressure 152/77 06/27/2015 3:15 PM EST Pulse 79 06/27/2015 3:15 PM EST Temperature - - Respiratory Rate 16 06/27/2015 3:15 PM EST Oxygen Saturation 100% 06/27/2015 3:15 PM EST Inhaled Oxygen Concentration - - Weight 75.9 kg (167 lb 6.4 oz) 06/27/2015 3:15 P M EST Height 162.6 cm (5' 4) 06/27/2015 3:15 PM EST Body Mass Index 28.73 06/27/2015 3:15 PM EST documented in this encounter Progress Notes * Jeanette Koch MD - 06/27/2015 3:15 PM EST Brenna Mc is a 64 y.o. female referred by STEPHEN SAWYER MD regarding a ventral hernia. Ms. Mc had a history of an open gastric bypass at [facility] over 30 years ago. She has not [...] by a surgeon, however was referred to [facility] for repair due [...] ??? S/P Right total hip arthroplasty- 01/12/2008 ([facility]) Z96.649 ??? S/P Left total knee arthroplasty- 07/15/2007 ([facility]) Z96.659 ??? Migraine G43.909 [...] simvastatin (ZOCOR) 20 mg tablet ??? [DISCONTINUED] yumcidx-iiksheemojyuh-hwxrdbkx (EXCEDRIN EXTRA STRENGTH) 250-250-65 mg per tablet [...] her endoscopy, labs, and plastic surgery evaluation. documented in this encounter Plan of Treatment Scheduled Referrals Name Type Priority Associated Diagnoses Orde r Schedule Referral to Plastic Surgery Outpatient Referral Routine Ventral hernia without obstruction or gangrene Excess skin of abdomen Ordered: 06/27/2015 documented as of this encounter Procedures Procedure Name Priority Date/Time Associated Diagnosis Comments PTH Routine 06/27/2015 4:38 PM EST Malnutrition HEMOGRAM Routine 06/27/2015 4:38 PM EST Malnutrition DIFFERENTIAL, AUTOMATED Routine 06/27/2015 4:38 PM EST Malnutrition VITAMIN B1, WHOLE BLOOD Routine 06/27/2015 4:38 PM EST Malnutrition IRON AND TIBC Routine 06/27/2015 4:38 PM EST Malnutrition VITAMIN D, 25-HYDROXY Routine 06/27/2015 4:38 PM EST Vitamin D deficiency CBC (WITH DIFF) Routine 06/27/2015 4:38 PM EST Malnutrition PREALBUMIN Routine 06/27/2015 4:38 PM EST Malnutrition FOLATE, SERUM Routine 06/27/2015 4:38 PM EST Malnutrition FERRITIN Routine 06/27/2015 4:38 PM EST Malnutrition VITAMIN B12 Routine 06/27/2015 4:38 PM EST Malnutrition COMPREHENSIVE METABOLIC PANEL Routine 06/27/2015 4:38 PM EST Malnutrition documented in this encounter Results * (ABNORMAL) Differential, Automated (06/27/2015 4:38 PM EST) Neutrophil % 66.8 % [facility] Neutrophil Absolute 6.58(H) 1.50 - 6.30 x10(3)/mc L [facility] Lymph % 22.1 % [facility] Lymphocytes Abs 2.2 1.0 - 3.6 x10(3)/ L [facility] Monocyte % 7.4 % [facility] Monocyte Abs 0.7 0.2 - 1.0 x10(3)/mc L [facility] Eos % 3.0 % [facility] Eosinophils Abs 0.3 0.0 - 0.5 x10(3)/ L [facility] Basophil % 0.4 % [facility] Baso Absolute 0.0 0.0 - 0.2 x10(3)/mc L [facility] Immature Gran % 0.30 % [facility] Comment: Immature granulocytes(IG's)percentage and absolute count will include metamyelocytes, myelocytes, and promyelocytes. Blood smears from CBCs yielding IG's will be scanned manually for concordance. If this scan disagrees with the automated IG or if promyelocytes are noted, a manual differential will be performed. Immature Gran Absolute 0.03 0.00 - 0.05 x10(3)/mc L [facility] Blood specimen (specimen) 06/27/2015 4:38 PM EST 06/27/2015 4:45 PM EST Narrative Resulting Agency Comment Spec In Lab Jeanette Koch MD HEMATOLOGY ORDERABL ES [facility] [place] [address] * (ABNORMAL) Hemogram (06/27/2015 4:38 PM EST) White Blood Cell 9.9 4.0 - 10.0 x10(3)/mc L [facility] Red Blood Cell 4.06 3.93 - 5.22 x10(6)/mc L [facility] Hemoglobin 11.6 11.2 - 15.7 gm/dL [facility] Hematocrit 35.2 34.0 - 45.0 % [facility] Mean Cell Volume 86.7 79.0 - 94.0 fL [facility] Mean Cell Hemoglobin 28.6 26.6 - 32.2 pg [facility] Mean Cell Hemoglobin Concentration 33.0 32.0 - 36.5 gm/dL [facility] Platelet 318 145 - 370 x10(3)/mc L [facility] RDW Standard Deviation 48.9(H) 35.0 - 46.0 fL [facility] RDW coefficient of variation 15.6(H) 10.9 - 14.4 % [facility] Mean Platelet Volume 9.2 9.0 - 12.0 fL [facility] Blood specimen (specimen) 06/27/2015 4:38 PM EST 06/27/2015 4:45 PM EST Narrative Resulting Agency Comment Spec In Lab Jeanette Koch MD HEMATOLOGY ORDERABL ES Performing Organization Address City/[facility]/ZIP Co de Phone Number [facility] [place] [address] * Vitamin B1, whole blood (06/27/2015 4:38 PM EST) Vit B1 Lvl Wb (AUGUST) 130 70 - 180 nmol/L [facility] Comment: Test Performed by: [facility] [place] [address] Profiling Machine Operator: Shauna Ellsworth, Ph.D. Blood specimen (specimen) 06/27/2015 4:38 PM EST 06/28/2015 9:07 AM EST Narrative Resulting Agency Comment Spec In Lab Jeanette Koch MD LAB SEND OUT ORDERA BLES Performing Organization Address [facility]/ZIP Co de Phone Number [facility] [place] [address] * Folate, serum (06/27/2015 4:38 PM EST) Folate >20.0 4.6 - 34.8 ng/mL [facility] Blood specimen (specimen) 06/27/2015 4:38 PM EST 06/27/2015 4:45 PM EST Narrative Resulting Agency Comment Spec In Lab Jeanette Koch MD CHEMISTRY ORDERABLE S Performing Organization Address [facility] Co de Phone Number [facility] [place] [address] * PTH (06/27/2015 4:38 PM EST) Parathyroid Hormone 45 15 - 65 pg/mL [facility] Blood specimen (specimen) 06/27/2015 4:38 PM EST 06/27/2015 4:45 PM EST Narrative Resulting Agency Comment Spec In Lab Jeanette Koch MD CHEMISTRY ORDERABLE S Performing Organization Address [place]/[facility] Co de Phone Number [facility] [place] [address] * Prealbumin (06/27/2015 4:38 PM EST) Prealbumin 22 20 - 40 mg/dL [facility] Comment: Prealbumin levels are generally lower in the pediatric population; adult concentrations are usually attained near puberty. Blood specimen (specimen) 06/27/2015 4:38 PM EST 06/27/2015 4:45 PM EST Narrative Resulting Agency Comment Spec In Lab Jeanette Koch MD CHEMISTRY ORDERABLE S Performing Organization Address [facility] Co de Phone Number [facility] [place] [address] * (ABNORMAL) VIT D Total Evaluation (06/27/2015 4:38 PM EST) Vitamin D Total 25 OH 20(L) 30 - 100 ng/mL [facility] Comment: Deficient <10 ng/mL Insufficient 10 to 29 ng/mL Sufficient 30 to 100 ng/mL Potential Intoxication >100 ng/mL According to the [place] National Osteoporosis Foundation, Vitamin D concentrations >30 ng/mL are sufficient to protect bone health. ??The National Kidney Foundation has similarly stated that patients with Vitamin D concentrations <30ng/mL should be considered to be insufficient or deficient. http://PatientsLikeMe/DHnatlkidneyfoundation http://PatientsLikeMe/DHVitD The [employer] Vitamin D Immunoassay detects both 25-OH Vitamin D2 and 25-OH Vitamin D3, but only a total Vitamin D concentration is reported. Blood specimen (specimen) 06/27/2015 4:38 PM EST 06/27/2015 4:45 PM EST Narrative Resulting Agency Comment Spec In Lab Jeanette Koch MD CHEMISTRY ORDERABLE S Performing Organization Address [facility] Co de Phone Number [facility] [place] [address] * Vitamin B12 (06/27/2015 4:38 PM EST) Vitamin B12 917 207 - 974 pg/mL [facility] Blood specimen (specimen) 06/27/2015 4:38 PM EST 06/27/2015 4:45 PM EST Narrative Resulting Agency Comment Spec In Lab Jeanette Koch MD CHEMISTRY ORDERABLE S Performing Organization Address City/[facility] Co de Phone Number [facility] [place] [address] * (ABNORMAL) Comprehensive metabolic panel (non-fasting) (06/27/2015 4:38 PM EST) Glucose 78 65 - 199 mg/dL [facility] Comment:Diabetes: >=200 mg/d L plus symptoms Blood Urea Nitrogen 28(H) 8 - 18 mg/dL [facility] Creatinine 1.02 0.70 - 1.20 mg/dL [facility] Comment: Please note that the pediatric reference intervals supplied above were not validated at [facility]. Results from pediatric patients should be interpreted in conjunction to the patient's age, height and muscle mass. Sodium 145 135 - 145 mmol/L [facility] Potassium 3.7 3.5 - 5.0 mmol/L [facility] Comment: Please note: ??Patients with WBC >100,000 may have falsely elevated Potassium levels. ??For accurate Potassium quantification in these patients send serum separator tube (gold top) for subsequent determinations. ??Contact the Clinical Chemistry Laboratory if there are any questions. Chloride 112(H) 98 - 107 mmol/L [facility] Carbon Dioxide 21(L) 22 - 31 mmol/L [facility] Anion Gap 12 5 - 15 mmol/L [facility] Calcium 8.4(L) 8.5 - 10.5 mg/dL [facility] Protein, Total 6.0(L) 6.1 - 8.0 gm/dL [facility] Albumin 3.8 3.2 - 5.2 gm/dL [facility] Aspartate Aminotransferase 30 0 - 30 unit/L [facility] Alanine Aminotransferase 37(H) 0 - 30 unit/L [facility] Alkaline Phosphatase 70 40 - 104 unit/L [facility] Bilirubin, Total <0.2(L) 0.2 - 1.3 mg/dL [facility] Bilirubin, Direct <0.1 0.0 - 0.3 mg/dL [facility] Est Glomerular Filtration Rate 55(L) >=60 [facility] Comment: This estimated GFR [...] the following links into your internet browser. http://PatientsLikeMe/DHnkdep http://PatientsLikeMe/DHMCnkf Blood specimen (specimen) 06/27/2015 4:38 PM EST 06/27/2015 4:45 PM EST Narrative Resulting Agency Comment Spec In Lab Jeanette Kohc MD CHEMISTRY ORDERABLE S Performing Organization Address [facility] Co de Phone Number [facility] [place] [address] * (ABNORMAL) Ferritin (06/27/2015 4:38 PM EST) Ferritin 12(L) 30 - 400 ng/mL [facility] Comment: Pediatric reference ranges not verified at [facility], interpret with caution. Reference ranges for females greater than 50 years of age approach values for men, i.e., 30-400 ng/mL. Blood specimen (specimen) 06/27/2015 4:38 PM EST 06/27/2015 4:45 PM EST Narrative Resulting Agency Comment Spec In Lab Jeanette Koch MD CHEMISTRY ORDERABLE S Performing Organization Address [facility] Co de Phone Number [facility] [place] [address] * (ABNORMAL) Iron and TIBC (06/27/2015 4:38 PM EST) Iron 23(L) 30 - 150 mcg/dL [facility] TIBC 369 250 - 450 mcg/dL [facility] Iron Saturation 6(L) 20 - 50 % [facility] Blood specimen (specimen) 06/27/2015 4:38 PM EST 06/27/2015 4:45 PM EST Narrative Resulting Agency Comment Spec In Lab Jeanette Koch MD CHEMISTRY ORDERABLE S [facility] [place] [address] documented in this encounter Visit Diagnoses Diagnosis Ventral hernia without obstruction or gangrene Ventral hernia, unspecified, without mention of obstruction or gangrene Epigastric pain Abdominal pain, epigastric Malnutrition Unspecified protein-calorie malnutrition Excess skin of abdomen Unspecified hypertrophic and atrophic condition of skin Vitamin D deficiency Unspecified vitamin D deficiency documented in this encounter Care Teams Collections Officer Relationship Specialty Start Date End Date Stephen Sawyer MD PCP - General 06/20/13 06/27/15 documented as of this encounter
--- OUTSIDE RECORDS SUMMARY | 2024-03-02 20:26 | XMS_ITS | Encounter Summary ---
Author Organization [facility] [address] Care Team Providers Care Shellfish Sorter Name Role Phone Stuart Leyva MD Primary Care Provider Encounter Details Date Type Department Care Team (Latest Contact Info) Description 09/28/2015 8:31 AM EDT - 09/28/2015 11:59 PM EDT Hospital [place] [address] Discharge Disposition: Home Social History Tobacco Use [...] 1-5; take 2 tablets for pain 6-10). 30 tablet 10/03/2015 10/03/2015 HYDROmorphone (DILAUDID) 2 mg Tablet Take 1-2 tablets by mouth every 4 hours as needed for Pain (Take 1 tablet for pain 1-5; take 2 tablets for pain 6-10). 60 tablet 10/03/2015 10/26/2015 DULoxetine (CYMBALTA) 60 mg Capsule, Delayed Release(E.C.) Take 60 mg by mouth daily. 10/26/2015 meloxicam (MOBIC) 7.5 mg Tablet Take 7.5 mg by mouth daily. 10/04/2015 dextroamphetamine-amphe tamine (ADDERALL) 20 mg tablet Take 20 mg by mouth 4 times daily. 10/26/2015 documented as of this encounter Plan of Treatment Not on file documented as of this encounter Procedures Procedure Name Priority Date/Time Associated Diagnosis Comments SURGICAL PATHOLOGY REPORT Routine 09/28/2015 12:00 PM EDT documented in this encounter Results * Surgical Pathology Report (09/28/2015 12:00 PM EDT) Final Diagnosis [id number] ? Location: [facility] The signing pathologist has (i) examined the relevant preparation(s) for the specimen(s) and (ii) rendered or confirmed the diagnosis(es). . ?Surgical Pathology DIAGNOSIS A - Gastric pouch, ??biopsy: Gastric antral gland mucosa with nonspecific reactive gastropathy. No H. pylori-like microorganism is seen. Congo red stain is negative for amyloid. B - Distal esophagus, ?? biopsy: Chronic nonspecific cardioesophagitis. No goblet cell metaplasia is seen. 10/01/15 AAY 10/02/15 Verified by: ? Frantz Ross MD ?Pathologist ?(Electronic Signature) The attending pathologist whose signature appears on this report has reviewed all diagnostic slides and has edited the gross and/or microscopic portion of the report in rendering the final pathologic diagnosis. ADDITIONAL STUDIES Immunohistochemistry Studies: Formalin-fixed, paraffin-embedded tissue sections are studied using the polymer system technique with appropriate positive and negative controls. ?These IHC studies provide the pathologist with adjunctive diagnostic information. Antibody specificity has been verified by testing antibodies on a series of in-house tissues with known immunohistochemical performance characteristics. The clinical interpretation of any antibody positive staining or its absence is evaluated within the context of clinical presentation, morphology, histopathological criteria and other diagnostic tests. Block ? Antibody ?Result (Positive/Negative) A1 ? H. pylori ?Negative CLINICAL INFORMATION Specimen Submitted: A - Gastric pouch B - Distal esophagus - assess for Warren ?? 's, island of salmon mucosa 2 cm above z line Clinical History: Nausea/vomiting, status post gastric bypass Clinical Diagnosis: Normal bypass anatomy Referring Identifier: ??[id number] SPECIMEN PROCESSING A - Labeled/Fixative: Gastric pouch, formalin. Quantity/Size: Single, 0.3 x 0.2 x 0.2 cm. Tissue Description: Soft, leger-pink tissue. Sections/Processing: (T1) . SPECIMEN PROCESSING B - Labeled/Fixative: Distal esophagus, formalin. Quantity/Size: Two, 0.2 and 0.3 cm. Tissue Description: Soft, leger-pink tissue, wispy. Sections/Processing: (T1) ??pps 10/02/2015 4:38 PM EDT [facility] GI Biopsy 09/28/2015 12:0 0 PM EDT 09/28/2015 12:00 PM EDT GI Biopsy 09/28/2015 12:0 0 PM EDT 09/28/2015 12:00 PM EDT Narrative Resulting Agency Comment Spec In Lab / APD Jeanette Koch MD PATHOLOGY/CYTOLOGY ORDERABLES [facility] [place] [address] documented in this encounter Visit Diagnoses Not on filedocumented in this encounter Care Teams Shellfish Sorter Relationship Specialty Start Date End Date Stuart Leyva MD [address] [place] [id number] PCP - General Internal Medicine 06/28/15 documented as of this encounter
--- OUTSIDE RECORDS SUMMARY | 2024-03-02 20:26 | XMS_ITS | Encounter Summary ---
[place] [address] Care Team Providers Care Jewelry Enameler Name Role Phone Adriana Santana APRN Primary Care Provider Reason for Visit * Reason Onset Date Comments Follow-up 05/05/2013 Encounter Details Date Type Department Care Team (Late st Contact Info) Description 05/05/2013 [place]phone [place] [id number] Jae Zuleat MD [address] [place] [address] Follow-up Social History Tobacco Use Types Packs/Day Years Used Date Smoking Tobacco: Never Sex and Gender Information Value Date Recorded Sex Assigned at Not on file Gender Identity Not on file Sexual Orientation Not on file documented as of this encounter Miscellaneous Notes * Telephone Encounter - Tatiana Alberto - 05/17/2013 11:23 AM EST Patient scheduled * Telephone Encounter - Usha Palafox - 05/16/2013 1:13 PM EST Left message on home and cell to schedule follow up appointment. * Telephone Encounter - Yazmin Jaramillo - 05/12/2013 9:57 AM EST I have called and left a message for patient to call and schedule an appointment. She has left knee tka and r hip samy replaced and I believe she now has right knee problems. She called me and said someone from [facility] tried to call her. Her new phone is [phone] She has not been in for years. Thank you Eun documented in this encounter Plan of Treatment Not on file documented as of this encounter Visit Diagnoses Not on filedocumented in this encounter Care Teams Jewelry Enameler Relationship Specialty Start Date End Date Adriana Santana, [address] [place] [address] PCP - General 03/12/10 06/19/13 documented as of this encounter
--- OUTSIDE RECORDS SUMMARY | 2024-03-02 20:26 | XMS_ITS | Encounter Summary ---
Author Organization [facility] Address [facility] [place] [address] Care Team Providers Care Jump Roll Operator Name Role Phone Stuart Leyva MD Primary Care Provider [phone] Encounter Details Date Type Department Care Team (Late Contact Info) Description 06/27/2015 Abstract Nicole Nunez Conversion Results [address] [place] [address] Apd Conversion, Flowsheet Provider, Social History Tobacco Use Types Packs/Day Years [...] Time Taken Comments Blood Pressure 152/77 06/27/2015 8:12 AM EST Sourced from APD Conversion Pulse - - Temperature - - Respiratory Rate - - Oxygen Saturation - - Inhaled Oxygen Concentration - - Weight 77 kg (169 lb 12.1 oz) 06/27/2015 8:12 AM EST Sourced from [facility] Conversion Height 162.6 cm (5' 4.02) 06/27/2015 8 :12 AM EST Sourced from [facility] Conversion Body Mass Index 29.12 06/27/2015 8:12 AM EST documented in this encounter Plan of Treatment Not on file documented as of this encounter Visit Diagnoses Not on filedocumented in this encounter Care Teams Jump Roll Operator Relationship Specialty Start Date End Date Stuart Leyva MD [address] [place] [address] PCP - General Internal Medicine 06/28/15 documented as of this encounter
--- OUTSIDE RECORDS SUMMARY | 2024-03-02 20:26 | XMS_ITS | Encounter Summary ---
Author Organization [facility] [place] [address] Care Team Providers Care Fiber Technician Name Role Phone Stuart Leyva MD Primary Care Provider [phone] Reason for Visit * Auth/Cert Specialty Diagnoses / Procedures Referred By Iraj crowe Referred To Contact Diagnoses Ventral incisional hernia abdominal pannus Procedures PRO EXCISE EXCESS SKIN TISSUE, ABDOMEN ABDOMINOPLASTY Referral ID Status Reason Start Date Expiration Date Visits Re quested Visits Authorized [id number] 1 1 Encounter Details Date Type Department Care Team (Late st Contact Info) Description 10/01/2015 7:32 AM EDT Anesthesia Event [place] [address] Sindi Brown MD [facility] [place] [address] Anesthesia Record Procedure Summary Procedure Name Responsible Anesthesiologist Anesthesia Start Time Anesthesia Stop Time PANNICULECTOMY (WRVU 17.11) (Abdomen) Sindi Brown MD 10/01/15 0732 10/01/15 1300 Events Date Time Event Comment 10/01/2015 0720 0732 Start 0740 AN Verify 0742 An Start Data 0744 An Induction 0746 An Intubation 0752 Anesthesia Ready 0810 an sarita now Procedure #1 St art 0937 Break/Relief In JOANNA Jorge TOTH LLY, KILN PUSHER 0959 Break/Relief Out 1023 an sarita now Procedure #2 st art 1243 Extubation/LMA Out 1245 an stop data 1254 Recovery or ICU Handoff Lisa ent care was transferred to the destination unit staff after review of the patient's medical history, current anesthetic/surgical status and plan, according to the Provider Handoff Checklist. Extub criteria met. Pt extub to FM O2 without diff/ VSS t/o . To PACU awake /exchanging well, denies pain and able to C/DB in PACU. Report to RN at Bedside. 1300 Stop Meds Name Total Midazolam 2 mg fentaNYL 200 mcg IV Lidocaine 40 mg Propofol 160 mg Rocuronium 100 mg Ondansetron 4 mg Dexamethasone 8 mg Neostigmine 1 mg Glycopyrrolate 0.2 mg ceFAZolin (ANCEF) 2g in dextrose 5% 50 m L 4 g Succinylcholine 100 mg HYDROmorphone 2 mg Ketamine 10 mg/mL 40 mg lactated ringers infusion 1,000 mL 2,000 mL * Agents Name O2 Air N2O Sevoflurane (et) * Blood No blood administrations on file. Lines, Drains, and Airways Type Details Placement Removal Drain/Device Site 10/01/15; Left; abdomen; collapsible closed device; [address] [place] drain 10/01/15 0000 by Nina Watts RN Drain/Device Site 10/01/15; Right; abdomen; collapsible closed device; [address] [place] drain 10/01/15 0000 by Nina Watts, LAKHWINDER Supraglottic Oral Airway: 100 mm (5); Inserted by: marilee ; Removal Date: 10/01/15; Removal Time: 1243 10/01/15 1211 by 10/01/15 1243 by Apolonia Raza CRNA Urethral Catheter 10/01/15; Abdominal surgery; Physician order; indwelling catheter with core temperature probe; latex; 14; inserted at this facility; 1; 5; 10; none; drainage bag to dependent drainage; 10/02/15; 0638 10/01/15 0000 by Nina Watts RN 10/02/15 0638 by Eloina Chiang, PRINTING GREY CLOTH TENDER Incision 10/01/15; abdomen; 12/16/21 (LDA cleanup utility RA#[id number]); 1715 (LDA cleanup utility RA#[id number]) 10/01/15 0000 by Nina Watts RN 12/16/21 1715 by Ousmane Mitchell (RETIRED) Peripheral IV Line - Single Lumen 10/01/15; 0740; 10/04/15; 1455 10/01/15 0740 by Apolonia Raza CRNA 10/04/15 1455 by Nely Jonas RN ETT Mask Ventilation: No t Attempted (0); ETT Type: Cuffed, Oral; ETT Size: 7 mm; Rosales Blade: 2; Notes: Asleep, RSI, Cricoid Pressure; Attempts: 1; Laryngoscopy Grade: 1; ETT Placement Verified By: Auscultation, Capnometry, Visual; Secured at Teeth: 21 cm; Inserted by: marilee MEI; Removal Date: 10/01/15; Removal Time: 1243 10/01/15 0746 by Apolonia Raza CRNA 10/01/15 1243 by Apolonia Raza CRNA documented in this encounter Social History Tobacco [...] of this encounter OR Notes * Anesthesia Postprocedure Evaluation - Sindi Brown MD - 10/01/2015 3:00 PM EDT [facility] Department of Anesthesiology Post-procedure Note Patient: Brenna Mc Procedure Summary Date Anesthesia Start Anesthesia Stop Room / Location 10/01/15 0732 [facility] Procedure Diagnosis Surgeon Responsible Provider ABDOMINOPLASTY (N/A Abdomen); MODIFIER PANNICULECTOMY (N/A Abdomen); FLAP, MYOCUTANEOUS OR FASCIOCUTANEOUS, TRUNK (Bilateral Trunk); REPAIR INITIAL INCISIONAL OR VENTRAL HERNIA REDUCIBLE (N/A Abdomen); MODIFIER MESH,BARD VENTRALIGHT ST (N/A ) (abdominal pannus) Clifton Amaya MD; Scott Koch MD Schroeck, Hedwig, MD All Anesthesia Providers: Anesthesiologist: Sindi Brown MD KILN PUSHER: Apolonia Raza CRNA Last (1hr) Vitals: BP Temp Pulse 74 (10/01/15 1430) Resp SpO2 98 % (10/01/15 1445) Patient Location: PACU/[facility] Level of Consciousness: Awake and Alert Pain Management: Satisfactory Analgesia PONV: None Cardiovascular Status: At Baseline and Hemodynamically Stable Respiratory Status: Supplemental O2 (NC or FM) Postoperative Fluid Status: Intravascular EUvolemia Possible Anesthetic Complications: NONE apparent at time of evaluation Final Primary Anesthesia Type: General (The anesthetic type performed was the same as planned.) Comments: SINDI BROWN MD * Anesthesia Preprocedure Evaluation - Sindi Brown MD - 09/29/2015 2:00 PM EDT Pre-Anesthesia Evaluation for: Brenna Mc a 64 y.o. female. Procedure(s): ABDOMINOPLASTY MODIFIER PANNICULECTOMY FLAP, MYOCUTANEOUS OR FASCIOCUTANEOUS, TRUNK IMPLANTATION OF BIOLOGIC IMPLANT FOR SOFT TISSUE REINFORCEMENT REPAIR INITIAL INCISIONAL OR VENTRAL HERNIA REDUCIBLE MODIFIER MESH,BARD VENTRALIGHT ST Patient Active Problem List Diagnosis ??? Abdominal pannus ??? ADD (attention deficit disorder) ??? Pain in thoracic spine ??? Thoracic spondylosis without myelopathy ??? Right knee pain ??? S/P Right total hip arthroplasty- 01/12/2008 ([facility]) ??? S/P Left total knee arthroplasty- 07/15/2007 ([facility]) ??? Migraine ??? Hypertension ??? Hypothyroidism ??? Hyperlipidemia ??? Depression No past medical history on file. Past Surgical History Procedure Laterality Date ??? Gastric bypass surgery History Substance Use Topics ??? Smoking status: Former Smoker Years: 40.00 Quit date: 04/20/2006 ??? Smokeless tobacco: Never Used ??? Alcohol use: No History Drug Use No Allergies Allergen [...] on file to calculate BMI. Airway Assessment: Mallampati: I TM distance: >3 FB Neck ROM: full Cardiovascular Assessment: cardiovascular exam normal Pulmonary Assessment: pulmonary exam normal Dental Assessment: (+) upper dentures and lower dentures Misc Assessment: Anesthesia Plan: ASA 3 general, with a(n) intravenous induction 64yoF for abdominaoplasty and repair of ventral hernia. H/o open bariatric surgery in 2008, HTN (lasix), depression, GERD (symptomatic despite PPI, mainly when NPO she feels like bile is building up, makes me nauseous), hypothyroidism (synthroid), s/p bilat TKA. Active lifestyle (yardwork) without cardiopulm symptoms. Tolerated anes well for previous procedures (except spinal headache once). Creatinine 1.02/GFR 55 in 06/2015. Plan: GETA/RSI, antiemetics. Multimodal analgesia. The patient verbalized understanding of the anesthesia plan including risks and alternatives and agreed to proceed. All questions were answered. Randi Brown MD. Region - Other Informed Consent: Anesthetic plan and risks discussed with patient. Plan discussed with KILN PUSHER and attending. PAT Staff Note documented in this encounter Plan of Treatment Not on file documented as of this encounter Visit Diagnoses Not on filedocumented in this encounter Administered Medications Inactive Administered Medications - up to 3 most recent administrations Medication Order MAR Action Action Date Dose Rate Site ceFAZolin (ANCEF) 2g in dextrose 5% 50 mL 2 g, Intravenous, ONCE, 1 dose, On Thu10/01/15 at 0715, Administer over 30 Minutes, Indication for (Active or Suspected): Prophylaxis Given 10/01/2015 10:57 AM EDT 2 g Given 10/01/2015 7:52 AM EDT 2 g dexamethasone (DECADRON) injection PRN, Starting on Thu10/01/15 at 0800, Until Thu10/01/15 at 1300, Anesthesia Intra-op, Routine Given 10/01/2015 11:45 AM EDT 4 mg Given 10/01/2015 8:00 AM EDT 4 mg fentaNYL 50 mcg/mL multi-dose injection PRN, Starting on Thu10/01/15 at 0744, Until Thu10/01/15 at 1300, Pain, Anesthesia Intra-op, Routine Given 10/01/2015 8:30 AM EDT 100 mcg Given 10/01/2015 7:44 AM EDT 100 mcg glycopyrrolate (ROBINUL) multi-dose injection PRN, Starting on Thu10/01/15 at 1145, Until Thu10/01/15 at 1300, Anesthesia Intra-op, Routine Given 10/01/2015 12:11 PM EDT 0.2 mg HYDROmorphone (DILAUDID) injection PRN, Starting on Thu10/01/15 at 0919, Until Thu10/01/15 at 1300, Pain, Anesthesia Intra-op, Routine Given 10/01/2015 12:45 PM EDT 0.4 mg Given 10/01/2015 11:37 AM EDT 0.4 mg Given 10/01/2015 10:45 AM EDT 0.4 mg ketamine (KETALAR) 10 mg/mL bolus injection (Anesthesia) PRN, Starting on Thu10/01/15 at 1023, Until Thu10/01/15 at 1300, Anesthesia Intra-op Given 10/01/2015 10:23 AM EDT 40 mg lactated ringers infusion 1,000 mL 1,000 mL, at 100 mL/hr, Intravenous, CONTINUOUS, Starting on Thu10/01/15 at 0715, Until Thu10/01/15 at 1317, Day of Surgery (Day of Procedure) New Bag 10/01/2015 1:16 PM EDT 1,000 mLs 100 mL/hr New Bag 10/01/2015 12:45 PM EDT New Bag 10/01/2015 9:26 AM EDT lidocaine (PF) (XYLOCAINE) 100 mg/5 mL (2 %) injection PRN, Starting on Thu10/01/15 at 0744, Until Thu10/01/15 at 1300, Anesthesia Intra-op, Routine Given 10/01/2015 7:44 AM EDT 40 mg midazolam (PF) (VERSED) 1 mg/mL multi-dose injection PRN, Starting on Thu10/01/15 at 0730, Until Thu10/01/15 at 1300, Sleep, Anesthesia Intra-op, Routine Given 10/01/2015 7:30 AM EDT 2 mg neostigmine (PROSTIGMINE) multi-dose injection PRN, Starting on Thu10/01/15 at 1145, Until Thu10/01/15 at 1300, Anesthesia Intra-op, Routine Given 10/01/2015 12:13 PM EDT 1 mg ondansetron (ZOFRAN) injection PRN, Starting on Thu10/01/15 at 1145, Until Thu10/01/15 at 1300, Nausea, Anesthesia Intra-op, Routine Given 10/01/2015 11:45 AM EDT 4 mg propofol (DIPRIVAN) 10 mg/mL bolus injection (Anesthesia) PRN, Starting on Thu10/01/15 at 0744, Until Thu10/01/15 at 1300, Anesthesia Intra-op Given 10/01/2015 7:44 AM EDT 160 mg rocuronium (ZEMURON) multi-dose injection PRN, Starting on Thu10/01/15 at 0804, Until Thu10/01/15 at 1300, Anesthesia Intra-op, Routine Given 10/01/2015 10:00 AM EDT 25 mg Given 10/01/2015 9:09 AM EDT 25 mg Given 10/01/2015 8:04 AM EDT 50 mg succinylcholine (ANECTINE) injection PRN, Starting on Thu10/01/15 at 0744, Until Thu10/01/15 at 1300, Anesthesia Intra-op, Routine Given 10/01/2015 7:44 AM EDT 100 mg documented in this encounter Care Teams Fiber Technician Relationship Specialty Start Date End Date Stuart Leyva MD [address] [place] [address] PCP - General Internal Medicine 06/28/15 documented as of this encounter
--- OUTSIDE RECORDS SUMMARY | 2024-03-02 20:26 | XMS_ITS | Encounter Summary ---
Author Organization [facility] Address [facility] [place] [address] Care Team Providers Care Line Installer Trolley Name Role Phone Stuart Leyva MD Primary Care Provider [phone] Reason for Visit * Auth/Cert Specialty Diagnoses / Procedures Referred By Iraj crowe Referred To Contact Diagnoses Ventral incisional hernia abdominal pannus Procedures PRO EXCISE EXCESS SKIN TISSUE, ABDOMEN ABDOMINOPLASTY Referral ID Status Reason Start Date Expiration Date Visits Re quested Visits Authorized [id number] 1 1 Encounter Details Date Type Department Care Team (Late st Contact Info) Description 10/01/2015 7:30 AM EDT - 10/01/2015 12:28 PM EDT [place] [address] Ivania Sauer MD [facility] [place] [address] PANNICULECTOMY (WRVU 17.11) Social History Tobacco Use Types Packs/Day Years [...] 10/01/2015 6:44 AM EDT Body Mass Index 28 10/01/2015 6:44 AM EDT documented in this [...] history of an open gastric bypass at [facility] over 30 years ago. She has [...] by a surgeon, however was referred to [facility] for repair due to her hernia size. [...] without difficulty. Prior to discharge on POD# Brennagilda Mc was afebrile, with stable vital signs. [...] %-100 %] Pertinent Lab Data: Recent Labs //16 0356 //16 0348 10/01/16 0520 WBC 7.0 6.9 6.6 HGB 11.0* 11.8 11.6 HCT 34.4 35.9 35.0 PLATELET 185 182 191 Recent Labs //16 0356 10/02/16 0348 10/01/16 0520 NA 140 140 141 K 3.7 [...] SERVICES AND/OR HOSPICE SERVICES) PATIENT'S LOCATION: Brenna Mc [address] [facility] [address] (home) Home Furnishings Sales Representative's Name: Patient In discussion with the attending physician, it is certified that this patient is under their care and that they, or a Nurse Practitioner,Clinical Nurse specialist or Physician Relationship Banker who is working directly with them, had [...] for managing ADL's. HOME HEALTH CARE AGENCY: [facility] PHONE: [phone] FAX: [phone] Start of care: 24-48 hours of discharge [...] STUART LEYVA MD [address] / [facility] [place] [address] All VNA agencies which cover the area of patient's residence have been reviewed, either verbally clifford writing, and patient/family have chosen the home health care agency noted Question Response Notes Agency name and contact information [facility] Patient location post discharge home What services are requested Registered Nurse Start date 10/05/2015 Responsible MD post discharge contact info home Scheduled Appointments: Future Appointments and Orders Future Appointments Provider Department Dept Phone 10/16/2015 9:40 AM Georgia Fatima APRN Plastic Surgery [phone] 11/05/2015 11:30 AM Jeanette Koch MD General Surgery [phone] Future Orders Complete By Expires Referral to Home Health - at DISCHARGE [[id number] CPT(R)] As directed Process Instructions: Scheduling Instructions: DOCUMENTATION FOR VNA SERVICES (INCLUDING THOSE PATIENTS WITH MEDICARE COVERAGE REQUIRING HOME VNA SERVICES AND/OR HOSPICE SERVICES) PAT[facility]'S [facility]ATION[facility] [address] [facility] [address] (home) Home Furnishings Sales Representative's Name: Patient In discussion with the attending physician, it is certified that this patient is under their care and that they, or a Nurse Practitioner,Clinical Nurse specialist or Physician Relationship Banker who is working directly with them, had [...] for managing ADL's. HOME HEALTH CARE AGENCY: [facility] PHONE: [phone] FAX: [phone] Start of care: 24-48 hours of discharge [...] STUART LEYVA MD [address] / [facility] [address] All VNA agencies which cover the area of patient's residence have been reviewed, either verbally clifford writing, and patient/family have chosen the home health care agency noted Comments: Patient with bilateral lower abdominal JOSE drains that need draining and maintenance daily. Patient needs assistance with maintenance and draining/documenting. Questions: Agency name and contact information: [facility] Patient location post discharge: [...] 101.3 F. The number for questions is [phone] before 5 PM weekdays and [phone] after 5 PM and weekends. Diet: You [...] be removed. Please call the clinic at [phone] to schedule an appointment to have the [...] STUART LEYVA MD [address] / [facility] [address] [facility] A Prospective Study of Opioid Use in General Surgery Patients RESEARCH PROJECT INFORMATION SHEET This research project is being conducted by Dr. Saravanan Tristan Jr. and surgeons from the Section of General Surgery from the Department of Surgery at the [facility] [employer] [facility] at [facility]. It is a study which is designed [...] data may be shared with officials of [facility], [facility], and others involved in the oversight of this study as permitted by law. Questions about this project may be directed to: Saravanan Tristan Jr., MD, Section of General Surgery, [facility], [place] [id number] . [id number] [facility] Approval Expires 08/27/2016 [facility] Approval Date 08/29/2015 Patient Survey Form [...] you are still having significant pain, call [phone] Thursday-Thursday 7am -5pm and talk to one [...] from each drain. Call the clinic at [phone] and schedule an appointment with the nurses [...] Thursday 8 am to 5 pm Call [phone] On weekends or after hours: Call [phone] and ask the photocopying machine operator to page the Plastic Surgery Resident button decorating machine operator. Prescription Line: Call the line at [phone] from 8am-4pm Thursday through Thursday. Narcotic renewals will not be honored after hours or on weekends. Make your request a few days before you run out as it make take up to 24 hours for physician approval. Scheduled Appointments: Future Appointments and Orders ?? Future Appointments?? Provider?? Department?? Dept Phone?? 10/16/2015 9:40 AM?? Georgia Fatima APRN?? Plastic Surgery?? [phone]?? 11/05/2015 11:30 AM?? Jeanette Koch MD?? General Surgery?? [phone]?? Instructions Given to Patient at Discharge: Instructions [...] 101.3 F. The number for questions is [phone] before 5 PM weekdays and [phone] after 5 PM and weekends. Diet: You [...] be removed. Please call the clinic at [phone] to schedule an appointment to have the [...] on Friday, October 16, 2015 at 9:40am. [facility] A Prospective Study of Opioid Use in General Surgery Patients RESEARCH PROJECT INFORMATION SHEET This research project is being conducted by Dr. Saravanan Tristan Jr. and surgeons from the Section of General Surgery from the Department of Surgery at the [facility] [employer] at [facility]. It is a study which is designed [...] data may be shared with officials of [facility], [facility], and others involved in the oversight of this study as permitted by law. Questions about this project may be directed to: Saravanan Tristan Jr., MD, Section of General Surgery, [facility], [place] [id number] . [id number] [facility] Approval Expires 08/27/2016 [facility] Approval Date 08/29/2015 Patient Survey Form [...] you are still having significant pain, call [phone] Thursday-Thursday 7am -5pm and talk to one [...] of this encounter Progress Notes * Arti Albert, FURNACE ROOM SUPERVISOR - 10/04/2015 3:04 PM EDT Office of Care Management (OCM) Social Work Note Relevant Information FURNACE ROOM SUPERVISOR was referred to the Patient by Sadie Ram RN/PABLO for assistance completing Advance Directives. FURNACE ROOM SUPERVISOR met with Patient and completed [place] Advance Directives this afternoon. Patient appeared to be in good spirits this afternoon and expressed appreciation for services received at [facility]. Patient appointed friend Ally Schmitz as DPOA agent ([address] [place] [address]; home phone of [phone] and cell of [phone]) and no alternate designated at this time. Patient listed her children, Jaquelin Chen, Raymond Chen, and Dariela Chen as individuals whoshould NOT be consulted related to her health care. Original and copies for agent returned to the Francisco Javier perdomo. Copy to be scanned to the record at [facility] and to be sent to [place] AD registry. FURNACE ROOM SUPERVISOR will continue to be available for support [...] EDT Office of Care Management (OCM) / Assurance Sourcing Manager(CM)/ Initial Assessment Discussed patient with Provider [...] & Medicaid [place] CURRENT HOME/COMMUNITY SERVICES/EQUIPMENT: NONE FURNACE ROOM SUPERVISOR REFERRAL: Notified for: ADs PRIMARY CARE PHYSICIAN: STUART LEYVA MD [address] / [place] [address] DISCHARGE NEEDS: Safety Officer will ask the Home Extension Agent to place referral to: [facility] PHONE: [phone] FAX: [phone] ANTICIPATED BARRIERS TO DISCHARGE: NONE TRANSPORTATION @ [...] Abdominal binder when OOB. Prealbumin 22 on 06/27/15. OK for discharge from a plastic surgery standpoint. No heavy lifting. Continue ancef while in house and then give keflex ondischarge while drains are in place. Follow up in 7-10 days upon discharge. Jhonny Engle MD Plastic Surgery Resident, PGY-6 * Dorothy Lopez, PT - 10/03/2015 1:13 PM EDT Physical Therapy Initial Note Patient profile: Brenna Mc is a 64 y.o. female admitted on 10/01/2015 by Jeanette Maharaj MD for scheduled ventral hernia repair w/ mesh and panniculectomy Social History/Premordid Level of Function: [place] 4 steps w/ [...] tomorrow to allow safe return home with 24/7 from friend. Will have no DME needs. Will assess for ongoing PT needs at [place] 1. Pt will not be limited by [...] and gait training, pt and family teaching, [place] Planning If any questions please contact: Dorothy Lopez PT In-patient Rehab. Medicine Pager # [phone] Total Time Spent with Patient : 33 [...] JOSE's should remain in place. MARY ANNE RUIZ, 10/03/2015 * Angela Hernandez PA - 10/02/2015 10:06 AM EDT Minimally [...] Day Post-Op PLAN: NEURO: Pain control with BUILD MANAGER Dilaudid; transition to oral Dilaudid and Tylenol. [...] JAVIER SHEPPARD 10/02/2015 * Mary Anne Ruiz, - 10/02/2015 7:26 AM EDT PLASTIC SURGERY [...] to be removed tomorrow AM. MARY ANNE RUIZ DO 10/02/2015 * Maryam Snider RN - [...] has an IV of LR and Dilaudid BUILD MANAGER infusing into L PIV. Patient states their [...] history of an open gastric bypass at [facility] over 30 years ago. She has [...] by a surgeon, however was referred to [facility] for repair due to her hernia size. [...] ??? S/P Right total hip arthroplasty- 01/12/2008 ([facility]) Z96.649 ??? S/P Left total knee arthroplasty- 07/15/2007 ([facility]) Z96.659 ??? Migraine G43.909 ??? Hypertension I10 [...] simvastatin (ZOCOR) 20 mg tablet ??? [DISCONTINUED] pgemfxx-qheoffvhiqoed-aakejzyd (EXCEDRIN EXTRA STRENGTH) 250-250-65 mg per tablet [...] in this encounter Nursing Notes * Nina Watts, RN - 10/01/2015 8:28 AM EDT One [...] ??? S/P Right total hip arthroplasty- 01/12/2008 ([facility]) ??? S/P Left total knee arthroplasty- 07/15/2007 ([facility]) ??? Migraine ??? Hypertension ??? Hypothyroidism ??? Hyperlipidemia ??? Depression Past Surgical History Procedure Laterality Date ??? Gastric bypass surgery ??? Pro excise excess skin tissue, abdomen N/A 10/01/2015 ABDOMINOPLASTY performed by Ivania Sauer MD at [facility] MAIN OR ??? Pro muscle-skin flap, trunk Bilateral 10/01/2015 FLAP, MYOCUTANEOUS OR FASCIOCUTANEOUS, TRUNK performed by Ivania Sauer MD at [facility] MAIN OR ??? Pro repair incisional hernia, reducible N/A 10/01/2015 REPAIR INITIAL INCISIONAL OR VENTRAL HERNIA REDUCIBLE performed by Jeanette Koch MD at [facility] MAIN OR ??? N/A 10/01/2015 MODIFIER PANNICULECTOMY performed by Ivania Sauer MD at [facility] MAIN OR ??? N/A 10/01/2015 MODIFIER MESH,BARD VENTRALIGHT ST performed by Jeanette Koch MD at [facility] MAIN OR Social History: Patient lives alone. States [...] to don underwear - pt provided with coat fitter to make task easier upon d/c ?? [...] timed interventions: 15 minutes for SCHM Pager: [phone] RAJ OBRIEN OT 10/04/2015 Occupational Therapy Rehabilitation [...] Daily ??? acetaminophen 1,000 mg Oral Q6H JAVIER Patient has following PRN medications: HYDROmorphone, traMADol, [...] Sauer MD - 10/03/2015 7:57 AM EDT [facility] Operative Note Patient Name: Brenna Mc : [id number] MR#: [id number] Case Date: 10/01/2015 Surgeon: Surgeon(s) and Role: [...] in the preoperative holding area with a ynbji-cg-eab panniculectomy incisional pattern. We reviewed the surgical [...] extra skin, we opted to perform a saij-zjuv-ddcsa closure utilizing dermal fascial flaps in the [...] then trimmed the excess skin in a qmpdc-bn-zhx pattern and weighed this. This was 875 g. Hemostasis was achieved with electrocautery. Two number 19 Chinese Clifton style drains were inserted and brought out through lateral low abdominal incisional skin. Closure was then performed in a multilayered fashion with 0 Vicryl for fascial level repair, 2-0 Vicryl for deep dermis and an absorbed stapling device for deep dermis along the Pfannenstiel limb of the hdvlc-vi-ecu panniculectomy. The Pfannenstiel portion was closed at [...] Care Goal: Plan of Care Review 10/02/15 0253 Plan of Care Review Plan of Care [...] for urine drainage. Pain well controlled with BUILD MANAGER and tylenol. PLAN MOVING FORWARD: Pain control [...] OUTCOME EVALUATION: Goal: Individualization and Mutuality 10/01/15 1303 Mutuality/Individual Preferences What anxieties, fears or concerns do you have about your health or care? none What questions do you have about your health or care? none What information would help us give you more personalized care? no information to anyone but Ally Goal: Fall Prevention-Safe Patient Handling 10/01/15 1798 10/01/15 2100 10/01/15 2111 Musculoskeletal Interventions Activity/Level of Assistance (pt has [...] Level Patient will demonstrate the desired outcomes. 10/02/15252 Pain, Acute (Adult, Obstetrics) Acceptable Pain Control/Comfort Level making progress toward outcome * Op Note - Jeanette Koch MD - 10/01/2015 1:58 PM EDT [facility] Operative Note Patient Name: Brenna Mc : [id number] MR#: [id number] Case Date: 10/01/2015 Surgeon: Surgeon(s) and Role: [...] Operative Note Patient Name: Brenna Mc : [id number] MR#: [id number] Case Date: 10/01/2015 Surgeon: Surgeon(s) and Role: [...] Operative Note Patient Name: Brenna Mc : [id number] MR#: [id number] Case Date: 10/01/2015 Surgeon: Surgeon(s) and Role: [...] Procedure Name Priority Date/Time Associated Diagnosis Comments MINES INSPECTOR SCAN 10/06/2015 12:00 AM EDT HEMOGRAM Routine 10/04/2015 3:56 AM EDT DIFFERENTIAL, AUTOMATED Routine 10/04/19 3:56 AM EDT CBC (WITH DIFF) Routine 10/04/2015 3:56 AM EDT BASIC METABOLIC PANEL Routine 10/04/2015 3:56 AM EDT HEMOGRAM Routine 10/03/2015 3:48 AM EDT DIFFERENTIAL, AUTOMATED Routine 10/03/19 16 3:48 AM EDT CBC (WITH DIFF) Routine 10/03/2015 3:48 AM EDT BASIC METABOLIC PANEL Routine 10/03/2015 3:48 AM EDT HEMOGRAM Routine 10/02/2015 5:20 AM EDT DIFFERENTIAL, AUTOMATED Routine 10/02/19 16 5:20 AM EDT CBC (WITH DIFF) Routine [...] in this encounter Results * SCAN DOC: MINES INSPECTOR (10/06/2015 12:00 AM EDT) Anatomical Region Laterality Modality Other Scanning Provider MEDIA MGR SCAN EXT O RDR/RSLT * Differential, Automated (10/04/2015 3:56 AM EDT) Neutrophil % 66.9 % [facility] Neutrophil Absolute 4.65 1.50 - 6.30 x10(3)/[facility] Lymph % 15.4 % [facility] Lymphocytes Abs 1.1 1.0 - 3.6 x10(3)/[facility] Monocyte % 14.0 % [facility] Monocyte Abs 1.0 0.2 - 1.0 x10(3)/[facility] Eos % 3.2 % [facility] Eosinophils Abs 0.2 0.0 - 0.5 x10(3)/[facility] Basophil % 0.4 % [facility] Baso Absolute 0.0 0.0 - 0.2 x10(3)/[facility] Immature Gran % 0.10 % [facility] Comment: Immature granulocytes(IG's)percentage and absolute count will include metamyelocytes, myelocytes, and promyelocytes. Blood smears from CBCs yielding IG's will be scanned manually for concordance. If this scan disagrees with the automated IG or if promyelocytes are noted, a manual differential will be performed. Immature Gran Absolute 0.01 0.00 - 0.05 x10(3)/[facility] Blood specimen (specimen) 10/04/2015 3:56 AM EDT 10/04/2015 4:21 AM EDT Narrative Resulting Agency Comment Spec In Lab Jeanette Koch MD HEMATOLOGY ORDERABL ES [facility] [place] [address] * (ABNORMAL) Hemogram (10/04/2015 3:56 AM EDT) [facility] White Blood Cell 7.0 4.0 - 10.0 x10(3)/mc L [facility] Red Blood Cell 3.85(L) 3.93 - 5.22 x10(6)/ L [facility] Hemoglobin 11.0(L) 11.2 - 15.7 gm/dL [facility] Hematocrit 34.4 34.0 - 45.0 % [facility] Mean Cell Volume 89.4 79.0 - 94.0 fL [facility] Mean Cell Hemoglobin 28.6 26.6 - 32.2 pg [facility] Mean Cell Hemoglobin Concentration 32.0 32.0 - 36.5 gm/dL [facility] Platelet 185 145 - 370 x10(3)/[facility] RDW Standard Deviation 52.1(H) 35.0 - 46.0 fL [facility] RDW coefficient of variation 15.9(H) 10.9 - 14.4 % [facility] Mean Platelet Volume 10.1 9.0 - 12.0 fL [facility] Blood specimen (specimen) 10/04/2015 3:56 AM EDT 10/04/2015 4:21 AM EDT Narrative Resulting Agency Comment Spec In Lab Jeanette Koch MD HEMATOLOGY ORDERABL ES [facility] [place] [address] * (ABNORMAL) Basic Metabolic Panel (non-fasting) (10/04/2015 3:56 AM EDT) [facility] Glucose 86 65 - 199 mg/dL [facility] Comment:Diabetes: >=200 mg/d L plus symptoms Blood Urea Nitrogen 17 8 - 18 mg/dL [facility] Creatinine 0.79 0.70 - 1.20 mg/dL [facility] Comment: Please note that the pediatric reference intervals supplied above were not validated at [facility]. Results from pediatric patients should be interpreted in conjunction to the patient's age, height and muscle mass. Sodium 140 135 - 145 mmol/L [facility] Carbon Dioxide 25 22 - 31 mmol/L [facility] Anion Gap 11 5 - 15 mmol/L [facility] Calcium 8.0(L) 8.5 - 10.5 mg/dL [facility] Est Glomerular Filtration Rate >60 >=60 [facility] Comment: This estimated GFR (eGFR) [...] the following links into your internet browser. [email or web address] Blood specimen (specimen) 10/04/2015 3:56 AM EDT 10/04/2015 4:21 AM EDT Narrative Resulting Agency Comment Spec In Lab Jeanette Koch MD CHEMISTRY ORDERABLE S [facility] [place] [address] * (ABNORMAL) Differential, Automated (10/03/2015 3:48 AM EDT) Neutrophil % 75.5 % [facility] Neutrophil Absolute 5.20 1.50 - 6.30 x10(3)/[facility] Lymph % 10.0 % [facility] Lymphocytes Abs 0.7(L) 1.0 - 3.6 x10(3)/[facility] Monocyte % 12.2 % [facility] Monocyte Abs 0.8 0.2 - 1.0 x10(3)/[facility] Eos % 1.6 % [facility] Eosinophils Abs 0.1 0.0 - 0.5 x10(3)/[facility] Basophil % 0.6 % [facility] Baso Absolute 0.0 0.0 - 0.2 x10(3)/[facility] Immature Gran % 0.10 % [facility] Comment: Immature granulocytes(IG's)percentage and absolute count will include metamyelocytes, myelocytes, and promyelocytes. Blood smears from CBCs yielding IG's will be scanned manually for concordance. If this scan disagrees with the automated IG or if promyelocytes are noted, a manual differential will be performed. Immature Gran Absolute 0.01 0.00 - 0.05 x10(3)/[facility] Blood specimen (specimen) 10/03/2015 3:48 AM EDT 10/03/2015 4:16 AM EDT Narrative Resulting Agency Comment Spec In Lab Jeanette Koch MD HEMATOLOGY ORDERABL ES [facility] [place] [address] * (ABNORMAL) Hemogram (10/03/2015 3:48 AM EDT) White Blood Cell 6.9 4.0 - 10.0 x10(3)/[facility] Red Blood Cell 4.06 3.93 - 5.22 x10(6)/[facility] Hemoglobin 11.8 11.2 - 15.7 gm/dL [facility] Hematocrit 35.9 34.0 - 45.0 % [facility] Mean Cell Volume 88.4 79.0 - 94.0 fL [facility] Mean Cell Hemoglobin 29.1 26.6 - 32.2 pg [facility] Mean Cell Hemoglobin Concentration 32.9 32.0 - 36.5 gm/dL [facility] Platelet 182 145 - 370 x10(3)/mc L [facility] RDW Standard Deviation 52.6(H) 35.0 - 46.0 fL [facility] RDW coefficient of variation 16.1(H) 10.9 - 14.4 % [facility] Mean Platelet Volume 10.1 9.0 - 12.0 fL [facility] Blood specimen (specimen) 10/03/2015 3:48 AM EDT 10/03/2015 4:16 AM EDT Narrative Resulting Agency Comment Spec In Lab Jeanette Koch MD HEMATOLOGY ORDERABL ES [facility] [place] [address] * (ABNORMAL) Basic Metabolic Panel (non-fasting) (10/03/2015 3:48 AM EDT) Glucose 100 65 - 199 mg/dL [facility] Comment:Diabetes: >=200 mg/d L plus symptoms Blood Urea Nitrogen 14 8 - 18 mg/dL [facility] Creatinine 0.75 0.70 - 1.20 mg/dL [facility] Comment: Please note that the pediatric reference intervals supplied above were not validated at [facility]. Results from pediatric patients should be interpreted in conjunction to the patient's age, height and muscle mass. Sodium 140 135 - 145 mmol/L [facility] Potassium 3.5 3.5 - 5.0 mmol/L [facility] Comment: Please note: ??Patients with WBC >100,000 may have falsely elevated Potassium levels. ??For accurate Potassium quantification in these patients send serum separator tube (gold top) for subsequent determinations. ??Contact the Clinical Chemistry Laboratory if there are any questions. Chloride 106 98 - 107 mmol/L [facility] Carbon Dioxide 24 22 - 31 mmol/L [facility] Anion Gap 10 5 - 15 mmol/L [facility] Calcium 7.8(L) 8.5 - 10.5 mg/dL [facility] Est Glomerular Filtration Rate >60 >=60 [facility] Comment: This estimated GFR (eGFR) [...] the following links into your internet browser. [email or web address] Blood specimen (specimen) 10/03/2015 3:48 AM EDT 10/03/2015 4:16 AM EDT Narrative Resulting Agency Comment Spec In Lab Jeanette Koch MD CHEMISTRY ORDERABLE S [facility] [place] [address] * Differential, Automated (10/02/2015 5:20 AM EDT) Neutrophil % 65.8 % [facility] Neutrophil Absolute 4.35 1.50 - 6.30 x10(3)/[facility] Lymph % 20.4 % [facility] Lymphocytes Abs 1.4 1.0 - 3.6 x10(3)/[facility] Monocyte % 11.5 % [facility] Monocyte Abs 0.8 0.2 - 1.0 x10(3)/[facility] Eos % 1.4 % [facility] Eosinophils Abs 0.1 0.0 - 0.5 x10(3)/[facility] Basophil % 0.6 % [facility] Baso Absolute 0.0 0.0 - 0.2 x10(3)/[facility] Immature Gran % 0.30 % [facility] Comment: Immature granulocytes(IG's)percentage and absolute count will include metamyelocytes, myelocytes, and promyelocytes. Blood smears from CBCs yielding IG's will be scanned manually for concordance. If this scan disagrees with the automated IG or if promyelocytes are noted, a manual differential will be performed. Immature Gran Absolute 0.02 0.00 - 0.05 x10(3)/[facility] Blood specimen (specimen) 10/02/2015 5:20 AM EDT 10/02/2015 5:37 AM EDT Narrative Resulting Agency Comment Spec In Lab Jeanette Koch MD HEMATOLOGY ORDERABL ES [facility] [place] [address] * (ABNORMAL) Hemogram (10/02/2015 5:20 AM EDT) White Blood Cell 6.6 4.0 - 10.0 x10(3)/mc L [facility] Red Blood Cell 3.98 3.93 - 5.22 x10(6)/mc L [facility] Hemoglobin 11.6 11.2 - 15.7 gm/dL [facility] Hematocrit 35.0 34.0 - 45.0 % [facility] Mean Cell Volume 87.9 79.0 - 94.0 fL [facility] Mean Cell Hemoglobin 29.1 26.6 - 32.2 pg [facility] Mean Cell Hemoglobin Concentration 33.1 32.0 - 36.5 gm/dL [facility] Platelet 191 145 - 370 x10(3)/mc L [facility] RDW Standard Deviation 53.7(H) 35.0 - 46.0 fL [facility] RDW coefficient of variation 16.8(H) 10.9 - 14.4 % [facility] Mean Platelet Volume 10.1 9.0 - 12.0 fL [facility] Blood specimen (specimen) 10/02/2015 5:20 AM EDT 10/02/2015 5:37 AM EDT Narrative Resulting Agency Comment Spec In Lab Jeanette Koch MD HEMATOLOGY ORDERABL ES [facility] [place] [address] * (ABNORMAL) Basic Metabolic Panel (non-fasting) (10/02/2015 5:20 AM EDT) Glucose 82 65 - 199 mg/dL [facility] Comment:Diabetes: >=200 mg/d L plus symptoms Blood Urea Nitrogen 16 8 - 18 mg/dL [facility] Creatinine 0.98 0.70 - 1.20 mg/dL [facility] Comment: Please note that the pediatric reference intervals supplied above were not validated at [facility]. Results from pediatric patients should be interpreted in conjunction to the patient's age, height and muscle mass. Sodium 141 135 - 145 mmol/L [facility] Potassium 4.0 3.5 - 5.0 mmol/L [facility] Comment: Please note: ??Patients with WBC >100,000 may have falsely elevated Potassium levels. ??For accurate Potassium quantification in these patients send serum separator tube (gold top) for subsequent determinations. ??Contact the Clinical Chemistry Laboratory if there are any questions. Chloride 106 98 - 107 mmol/L [facility] Carbon Dioxide 24 22 - 31 mmol/L [facility] Anion Gap 11 5 - 15 mmol/L [facility] Calcium 7.5(L) 8.5 - 10.5 mg/dL [facility] Est Glomerular Filtration Rate 57(L) >=60 [facility] Comment: This estimated GFR (eGFR) [...] the following links into your internet browser. [email or web address] Blood specimen (specimen) 10/02/2015 5:20 AM EDT 10/02/2015 5:37 AM EDT Narrative Resulting Agency Comment Spec In Lab Jeanette Koch MD CHEMISTRY ORDERABLE S Performing Organization Address City/State/[facility] Co de Phone Number [facility] [place] [address] * POCT HGB (10/01/2015) POC Hemoglobin 13.5 g/dL 10/01/2015 Ivania Sauer MD POINT OF CARE TEST O RDERABLES documented in this encounter Visit Diagnoses Not on filedocumented in this encounter Admitting Diagnoses Diagnosis Ventral [...] Given 10/04/2015 12:10 AM EDT 1,000 mg dextroamphetamine-amphetamine (ADDERALL) tablet 20 mg 20 mg, Oral, 4 TIMES DAILY, First dose on Thu10/02/15 at 0600, Until Discontinued, Routine Given 10/04/2015 12:3 3 PM EDT 20 mg Given 10/04/2015 8:36 AM EDT 20 mg Given 10/04/2015 5:46 AM EDT 20 mg DULoxetine (CYMBALTA) capsule 60 mg 60 mg, Oral, DAILY, First dose on Thu10/02/15 at 0900, Until Discontinued, Routine Given 10/04/2015 9:12 AM EDT 60 mg Given 10/03/2015 9:05 AM EDT 60 mg Given 10/02/2015 8:05 AM EDT 60 mg folic acid (FOLVITE) tablet 400 mcg 400 mcg, Oral, DAILY, First dose on Thu10/01/15 at 1700, Until Discontinued, Routine Given 10/04/2015 9:12 AM EDT 400 mcg Given 10/03/2015 9:06 AM EDT 400 mcg Given 10/02/2015 8:05 AM EDT 400 mcg gabapentin (NEURONTIN) capsule 300 mg 300 mg, [...] 9:07 AM EDT 5,000 Units HYDROmorphone (DILAUDID) tablet 2-4 mg 2-4 mg, Oral, EVERY 4 HOURS PRN, Starting on Thu10/02/15 at 0707, Until Thu10/05/15 at 0040, Pain, Take 1 tablet for pain 1-5; take 2 tablets for pain 6-10, Routine Given 10/04/2015 12:33 PM EDT 4 mg Given 10/04/2015 8:36 AM EDT 4 mg Given 10/04/2015 4:24 AM EDT 4 mg levothyroxine (SYNTHROID) tablet 100 mcg 100 mcg, Oral, DAILY, First dose on Thu10/02/15 at 0600, Until Discontinued, Routine Given 10/04/2015 5:46 AM EDT 100 mcg Given 10/03/2015 6:24 AM EDT 100 mcg Given 10/02/2015 6:31 AM EDT 100 mcg multivitamin (THERAGRAN) tablet 1 tablet 1 tablet, Oral, DAILY, First dose on Thu10/01/15 at 1700, Until Discontinued Given 10/04/2015 9:12 AM EDT 1 tablet Given 10/03/2015 9:05 AM EDT 1 tablet Given 10/02/2015 8:05 AM EDT 1 tablet pantoprazole (PROTONIX) tablet 40 mg 40 mg, Oral, DAILY, First dose on Thu10/02/15 at 0900, Until Discontinued, DO NOT CRUSH OR OPEN Therapeutic interchange for omeprazole (Prilosec) 40 mg Given 10/04/2015 9:12 AM EDT 40 mg Given 10/03/2015 9:06 AM EDT 40 mg Given 10/02/2015 9:49 AM EDT 40 mg prochlorperazine (COMPAZINE) injection 10 mg 10 mg, [...] ordered., Routine sodium chloride 0.9 % flush 5 mL [...] Bing Ghosh RN)1115 (Given - Provider: Nely Jonas, LAKHWINDER)1800 (Not Given - Provider: Nely Jonas RN - Reason: Patient/family refused) 0010 (Given - Provider: Nely Boyce RN)0547 (Given - Provider: Nely Boyce RN)1233 (Given - Provider: Nely Jonas, LAKHWINDER)1800 (Due) dextroamphetamine-amphet amine (ADDERALL) tablet 20 mg 20 mg, Oral, 4 TIMES DAILY, First dose on Thu10/02/15 at 0600, Until Discontinued, Routine 0631 (Given - Provider: Bnig Ghosh RN)0805 (Given - Provider: Maryam Snider [...] Routine 0805 (Given - Provider: Maryam Snider RN)2057 (Given - Provider: Bing Ghosh RN) 0904 (Given - Provider: Nely Jonas RN)204 (Given - Provider: Nely Boyce RN) 0900 [...] 0805 (Given - Provider: Maryam Snider RN) 0906 (Given - Provider: Nely [...] RN) 0836 (Given - Provider: Nely Jonas RN)2099 (Due) heparin (porcine) subcutaneous injection 5,000 Units 5,000 Units, Subcutaneous, EVERY 12 HOURS SCHEDULED (2 times per day), First dose on Thu10/01/15 at 2100, Until Discontinued, Routine 804 (Given - Provider: Maryam Snider RN)2056 (Given - Provider: Bing Ghosh RN) 09 (Given - Provider: Nely Jonas RN)2047 (Given - Provider: Nely Boyce RN) 0912 (Given - Provider: Nely Jonas RN)2099 (Due) levothyroxine (SYNTHROID) tablet 100 mcg 100 [...] 08 (Given - Provider: Maryam Snider RN) 904 (Given - Provider: Nely Jonas RN) 911 (Given - Provider: Nely Jonas RN) pantoprazole (PROTONIX) tablet 40 mg 40 mg, Oral, DAILY, First dose on Thu10/02/15 at 0900, Until Discontinued, DO NOT CRUSH OR OPEN Therapeutic interchange for omeprazole (Prilosec) 40 mg 09 (Given - Provider: Maryam Snider RN) 905 (Given - Provider: Nely Jonas RN) 911 (Given - Provider: Nely Jonas RN) polyethylene glycol (MIRALAX) packet 17 g 17 g, Oral, DAILY, First dose on Thu10/01/15 at 1700, Until Discontinued, Routine 08 (Given - Provider: Maryma Snider RN) 903 (Given - Provider: Nely Jonas RN) 09 (Not Given - Provider: Nely Jonas RN - Reason: Medication Discontinued) senna (SENOKOT) tablet 8.6 mg 8.6 mg, Oral, 2 TIMES DAILY, First dose on Thu10/01/15 at 2100, Until Discontinued, Routine 804 (Given - Provider: Maryam Snider RN)2056 (Given - Provider: Bing Ghosh RN) 904 (Given - Provider: Nely Jonas RN)2047 (Given - Provider: Nely Boyce RN) 0900 (Not Given - Provider: Nely Jonas RN - Reason: Medication Discontinued) sodium chloride 0.9 % flush 5 mL 5 mL, Intravenous, 2 TIMES DAILY, First dose on Thu10/01/15 at 2100, Until Discontinued, Routine 0806 (Given - Provider: Maryam Snider RN)2101 (Given - Provider: Bing Ghosh, LAKHWINDER) 09 (Given - Provider: Nely Jonas, LAKHWINDER)2047 (Given - Provider: Nely Boyce, LAKHWINDER) 0913 (Given - Provider: Nely Jonas, LAKHWINDER)2100 (Due) topiramate (TOPAMAX) tablet 100 mg 100 mg, Oral, 2 TIMES DAILY, First dose on Thu10/01/15 at 2100, Until Discontinued, Routine 08 (Given - Provider: Maryam Snider RN)2056 (Given - Provider: Bing Ghosh, LAKHWINDER) 09 (Given - Provider: Nely Jonas RN)2047 (Given - Provider: Nely Boyce, LAKHWINDER) 09 (Given - Provider: Nely Jonas RN)2100 (Due) [...] 30 minutes if pruritis not relieved. Per BUILD MANAGER order., Routine HYDROmorphone (DILAUDID) tablet 2-4 mg [...] NOT exceed 2 mg total dose. Per BUILD MANAGER order., Routine ondansetron (ZOFRAN) injection 4 mg 4 mg, Intravenous, EVERY 30 MIN PRN, 2 doses, Starting on Thu10/01/15 at 1524, Until Thu10/05/15 at 0040, Nausea, May repeat dose once in 30 minutes if no relief from previous dose. If multiple antiemetics are ordered, use ondansetron first, prochlorperazine second. Per BUILD MANAGER order. prochlorperazine (COMPAZINE) injection 10 mg(Linked Group [...] Pain, Routine 1009 (Given - Provider: Maryam Snider RN)1846 (Given - Provider: Maryam Snider RN) 0317 [...] Routine documented in this encounter Care Teams Line Installer Trolley Relationship Specialty Start Date End Date Stuart Leyva MD [address] [place] [address] PCP - General Internal Medicine 06/28/15 documented as of this encounter
--- OUTSIDE RECORDS SUMMARY | 2024-03-02 20:26 | XMS_ITS | Encounter Summary ---
[place] [address] Care Team Providers Care Outcomes Specialist Name Role Phone Stephen Leiva MD Primary Care Provider [phone] Reason for Visit * Reason Onset Date Comments Pre Procedure Call 09/05/2013 Encounter Details Date Type Department Care Team (Late st Contact Info) Description 09/05/2013 Telephone [place] [id number] Jae Zuleta MD [address] [place] [address] Pre Procedure Call Social History Tobacco Use Types Packs/Day Years [...] encounter Miscellaneous Notes * Telephone Encounter - Donald Moreira - 09/05/2013 1:10 PM EDT Returned patient phone call. Rescheduled surgical procedure with Dr. Zuleta to November 16 from September 14 due to a in the family. * Telephone Encounter - Karyna Bridges - 09/05/2013 12:47 PM EDT Patient states that she has had a in the family and needs to reschedule her surgery with Dr Zuleta. Please call her at [phone]. documented in this encounter Plan of Treatment Not on file documented as of this encounter Visit Diagnoses Not on filedocumented in this encounter Care Teams Outcomes Specialist Relationship Specialty Start Date End Date Stephen Leiva MD PCP - General 06/20/13 06/27/15 documented as of this encounter
--- OUTSIDE RECORDS SUMMARY | 2024-03-02 20:26 | XMS_ITS | Encounter Summary ---
Author Organization [facility] Address [facility] [place] [address] Care Team Providers Care Waybill Clerk Name Role Phone Stephen Leiva MD Primary Care Provider [phone] Encounter Details Date Type Department Care Team (Late st Contact Info) Description 06/21/2013 External Results XRay at [address] [place] [address] Provider, Scanning Social History Tobacco Use Types Packs/Day Years [...] Procedure Name Priority Date/Time Associated Diagnosis Comments DIAGNOSTIC RADIOLOGY SCAN Routine 06/21/2012 DIAGNOSTIC RADIOLOGY SCAN Routine 12/26/2010 documented in this encounter Results * Scan Doc: Diagnostic Radiology (06/21/2012) Anatomical Region Laterality Modality Other Scanning Provider MEDIA MGR SCAN EXT O RDR/RSLT * Scan Doc: Diagnostic Radiology (12/26/2010) Anatomical Region Laterality Modality Other Scanning Provider MEDIA MGR SCAN EXT O RDR/RSLT documented in this encounter Visit Diagnoses Not on filedocumented in this encounter Care Teams Waybill Clerk Relationship Specialty Start Date End Date Stephen Leiva MD PCP - General 06/20/13 06/27/15 documented as of this encounter
--- OUTSIDE RECORDS SUMMARY | 2024-03-02 20:26 | XMS_ITS | Encounter Summary ---
[place] [address] Care Team Providers Care Workers Compensation Legal Secretary Name Role Phone Stephen Leiva MD Primary Care Provider [phone] Encounter Details Date Type Department Care Team (Late st Contact Info) Description 11/16/2013 - 04/20/2019 Surgery [place] [id number] Jae Zuleta MD [address] [place] [address] Not Performed TOTAL KNEE ARTHROPLASTY (WRVU 19.6) Social History Tobacco Use Types Packs/Day Years [...] on file documented as of this encounter H&P Notes * Jae Zuleta MD - 11/16/2013 12:11 PM EDT Patient was a no-show for surgery today. In addition, did not show up for TJA class, PAT, and her pre-op physical. Numerous attempts to contact her by telephone have not been successful. We will notify her PCP. I do not plan to reschedule this patient for surgery in the future, at this time. documented in this encounter Plan of Treatment Not on file documented as of this encounter Visit Diagnoses Not on filedocumented in this encounter Care Teams Workers Compensation Legal Secretary Relationship Specialty Start Date End Date Stephen Leiva MD PCP - General 06/20/13 06/27/15 documented as of this encounter
--- OUTSIDE RECORDS SUMMARY | 2024-03-02 20:26 | XMS_ITS | Encounter Summary ---
Author Organization [facility] Address [facility] [place] [address] Care Team Providers Care Accountant Controller Name Role Phone Stephen Leiva MD Primary Care Provider [phone] Encounter Details Date Type Department Care Team (Latest Contact Info) Description 06/20/2013 12:53 PM EST - 06/20/2013 11:59 PM EST Hospital Encounter XRay at [address] [place] [address] Aftercare following joint replacement Social History Tobacco Use Types Packs/Day Years [...] simvastatin (ZOCOR) 20 mg tablet 01/02/2010 06/27/2015 tmwnqie-jahoxsvaanduu-iqt feine (EXCEDRIN EXTRA STRENGTH) 250-250-65 mg per tablet 01/02/2010 06/27/2015 documented as of this encounter Plan of Treatment Not on file documented as of this encounter Procedures Procedure Name Priority Date/Time Associated Diagnosis Comments XR PELVIS AP AND HIP 2 VIEWS OF 1 HIP Routine 06/20/2013 1:51 PM EST Aftercare following joint replacement documented in this encounter Results * XR pelvis AP and hip 2 views of 1 hip (06/20/2013 1:51 PM EST) Anatomical Region Laterality Modality Pelvis, Hip N/A Radiographic Tawana ging 06/20/2013 1:51 PM EST Narrative 06/20/2013 2:40 PM EST Examination AP PELVIS AND 2 VIEWS ONE HIP/RIGHT Clinical History RT CADE 01/12/08 Comparison Multiple examination since 2007. Technique Findings Cementless right total hip arthroplasty is unchanged in appearance and alignment and no radiolucencies or periprosthetic fracture. ??The left hip osteoarthropathy with loss of superior lateral hip joint space has not been changed. ??there is degenerative disc disease at L5-S1 level. Impression Uncomplicated and unchanged right total hip arthroplasty. Procedure Note Donya Roque MD - 06/20/2013 Examination AP PELVIS AND 2 VIEWS ONE HIP/RIGHT Clinical History RT CADE 01/12/08 Comparison Multiple examination since 2007. Technique Findings Cementless right total hip arthroplasty is unchanged in appearance and alignment and no radiolucencies or periprosthetic fracture. The left hip osteoarthropathy with loss of superior lateral hip joint space has notbeen changed. there is degenerative disc disease at L5-S1 level. Impression Uncomplicated and unchanged right total hip arthroplasty. Jae Zuleta MD IMG DX ORDERABLES documented in this encounter Visit Diagnoses Diagnosis Aftercare following joint replacement documented in this encounter Care Teams Accountant Controller Relationship Specialty Start Date End Date Stephen Leiva MD PCP - General 06/20/13 06/27/15 documented as of this encounter
--- OUTSIDE RECORDS SUMMARY | 2024-03-02 20:26 | XMS_ITS | Encounter Summary ---
Author Organization [facility] Address [facility] [place] [address] Care Team Providers Care Industrial Hygiene Manager Name Role Phone Stephen Leiva MD Primary Care Provider [phone] Encounter Details Date Type Department Care Team (Late st Contact Info) Description 01/01/2015 - 01/01/2015 11:59 PM EDT Hospital Encounter Radiology Library at [facility] [place] [address] [facility] Disposition: Home Social History Tobacco Use [...] simvastatin (ZOCOR) 20 mg tablet 01/02/2010 06/27/2015 rnknmer-caxxshwjxmzrc-nmc feine (EXCEDRIN EXTRA STRENGTH) 250-250-65 mg per tablet 01/02/2010 06/27/2015 documented as of this encounter Plan of Treatment Not on file documented as of this encounter Procedures Procedure Name Priority Date/Time Associated Diagnosis Comments FILM LIBRARY STORAGE ONLY CT ABDOMEN AND PELVIS Routine 01/01/2015 12:00 AM EDT Pain documented in this encounter Results * Film Library- Storage Only CT Abdomen & Pelvis (01/01/2015 12:00 AM EDT) Narrative [facility] - 06/26/2015 3:30 PM EST See PACS for result report. Dr Madsen [facility] FILM LIBRARY ORD ERABLES Performing Organization Address City/State/[facility] Co de Phone Number [place], [place] documented in this encounter Visit Diagnoses Diagnosis Pain Generalized pain documented in this encounter Care Teams Industrial Hygiene Manager Relationship Specialty Start Date End Date Stephen Leiva MD PCP - General 06/20/13 06/27/15 documented as of this encounter
--- OUTSIDE RECORDS SUMMARY | 2024-03-02 20:26 | XMS_ITS | Encounter Summary ---
Author Organization [facility] [place] [address] Care Team Providers Care Pit Shoveler Name Role Phone Stephen Leiva MD Primary Care Provider [phone] Encounter Details Date Type Department Care Team (Late st Contact Info) Description 06/21/2012 Orders [place] [address] Jae Zuleta MD [address] [place] [address] Social History Tobacco Use Types Packs/Day Years Used Date Smoking Tobacco: Never Sex and Gender Information Value Date Recorded Sex Assigned at Not on file Gender Identity Not on file Sexual Orientation Not on file documented as of this encounter Plan of Treatment Pending Results Name Type Priority Associated Diagnoses Date /Time Film Library- Storage only DX Spine Imaging Routine 06/21/2012 9:02 PM EST documented as of this encounter Visit Diagnoses Not on filedocumented in this encounter Care Teams Pit Shoveler Relationship Specialty Start Date End Date Stephen Leiva MD PCP - General 06/20/13 06/27/15 documented as of this encounter
--- OUTSIDE RECORDS SUMMARY | 2024-03-02 20:26 | XMS_ITS | Encounter Summary ---
Author Organization [facility] [place] [address] Care Team Providers Care Technical Mgr Name Role Phone Adriana Santana APRN Primary Care Provider Encounter Details Date Type Department Care Team (Late st Contact Info) Description 05/17/2013 Orders [place] [address] Jae Zuleta MD [address] [place] [address] Aftercare following joint replacement; Patellofemoral disorder of right knee Social History Tobacco Use Types Packs/Day Years Used Date Smoking Tobacco: Never Sex and Gender Information Value Date Recorded Sex Assigned at Not on file Gender Identity Not on file Sexual Orientation Not on file documented as of this encounter Plan of Treatment Not on file documented as of this encounter Results * XR JOINT TEAM [...] the right patellofemoral joint. Mild rightgenu valgus. Authorizing Provider Result Ema Zuleta MD IMG DX ORDERABLES * XR pelvis AP and hip 2 [...] Uncomplicated and unchanged right total hip arthroplasty. Authorizing Provider Result Ema Zuleta MD IMG DX ORDERABLES documented in this encounter Visit Diagnoses Diagnosis Aftercare following joint replacement Patellofemoral disorder of right knee Unspecified disorder of lower leg joint Aftercare following joint replacement Patellofemoral disorder of right knee Unspecified disorder of lower leg joint Aftercare following joint replacement documented in this encounter Care Teams Technical Mgr Relationship Specialty Start Date End Date Adriana Santana APRN [address] [place] [address] PCP - General 03/12/10 06/19/13 documented as of this encounter
--- OUTSIDE RECORDS SUMMARY | 2024-03-02 20:26 | XMS_ITS | Encounter Summary ---
[place] [address] Care Team Providers Care Binding Stitcher Name Role Phone Stephen Leiva MD Primary Care Provider [phone] Reason for Referral * Physical Therapy (Routine) - Declined by Patient Specialty Diagnoses / Procedures Referred By Contac t Referred To Contact Physical Therapy Diagnoses Pain in thoracic spine Latanya Young, [facility] [place] [address] [place] [address] Referral ID Status Reason Start Date Expiration Date Visits Requested Visits Authorized [id number] Declined by Patient Evaluate and Treat 06/23/2013 12/20/2013 1 1 * Consultation (Routine) - Closed Specialty Diagnoses / Procedures Referred By Contac t Referred To Contact Pain Management Diagnoses Pain in thoracic spine Latanya Young, [facility] [place] [address] [facility] [address] [place] [phone] Referral ID Status Reason Start Date Expiration Date V isits Requested Visits Authorized [id number] Closed Consult Only 06/23/2013 12/20/2013 1 1 Reason for Visit * Reason Comments Back Pain Encounter Details Date Type Department Care Team (Late st Contact Info) Description 06/23/2013 9:20 AM EST Office Visit [facility] [place] [address] Latanya Young, BULLET ASSEMBLY PRESS SETTER OPERATOR [facility] [place] [address] Pain in thoracic spine (Primary Dx) Discharge Disposition: Home Social History Tobacco Use [...] as of this encounter Progress Notes * Latanya Young, DYAN - 06/23/2013 10:55 AM EST Chief complaint: Chief Complaint Patient presents with ??? Back Pain History of present illness:This patient is a 62 y.o. female that presents to the spine center for right-sided low back pain. She reports that she's had back pain for years but it has been worsening over time and she can no longer take pain. She was seeing a holistic chiropractor water her, regular basis and while it didn't help she couldn't afford to go all the time. She did lose 100 pounds notesthat it would help her symptoms but really didn't. Hers pain is 10 on a scale of 10. She still be she can get an injection today. She has some numbness in the right leg is sole of the foot. There is a burning pain around the left knee. She has recently had an injection in his knee. Her symptoms are worse with driving and nothing really makes it better. She does like to walk either. She doesn't sleep well. Although she she reports exercising locked but can't give me specific things that she does. Treatments have consisted of PT which sounded like it was modality based only. She is he can call. She uses pillows. She's not interested in opiates. She does have gabapentin. She is also under a lot of stress because she's been taking care of her autistic grandson and he had to be removed in the house recently. She likes to do jewelry making but has been I'm able to sit long enough to do this. Past medical history: Shoulder pain, left knee replacement, neck pain,Right knee pain. Prolapsed bladder. 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 She cares for about cystic grandson. Problem List: Patient Active Problem List Diagnosis Code ??? Right knee pain 719.46 ??? S/P Right total hip arthroplasty- 01/12/2008 ([facility]) V43.64 ??? S/P Left total knee arthroplasty- 07/15/2007 ([facility]) V43.65 ??? Migraine 346.90 ??? Hypertension 401.9 ??? Hypothyroidism 244.9 ??? Hyperlipidemia 272.4 ??? Depression 311 ??? Pain in thoracic spine 724.1 Review of Systems:Positive for 100 pound planned weight loss. Positive for nocturia and urge incontinence has been present for the past 2 months. No GI or other symptoms. Positive for stress. Medications and allergies were reviewed and updated. Physical Examination:. This is a 62-year-old female who appears to be stress. She cries during the exam. Her speech is somewhat pressured. She moves with great difficulty around the room. Her physical exam is notable for some tenderness in the right thoracic region about 3 inches from the axial spine. There is no tenderness elsewhere. She walks with a nonantalgic gait and can walk on heels and toes. Flexibility is actually fairly good in the lumbar spine. The back is somewhat flat however. She has normal strength and sensation. Reflexes are symmetrical and one at the patella and Achilles. There is no Maldonado, clonus, Babinski downgoing toes. There negative dural tension signs and negative SI joint dysfunction tests. She has palpable pulses. Hip range of motion is good to Diagnostic data:She has no recent imaging and a thoracolumbar spine x-ray was ordered for today. She actually reports to the mold maintenance technician that her pain is lower than what she pointed to me. Assessment: She has what appears to be facet arthropathy at the thoracolumbar junction. Plan: I did speak with the pain clinic providers and we are going to trial a thoracolumbar medial branch block and progress to radiofrequency per protocol. To see if that will help her. If it does not seem to help her then I would then order an MRI of the thoracic and lumbar spine to evaluate for this discomfort. And followup with her afterwards. She might also benefit from some physical therapy.She would likely need to do that here. And hopefully we can coordinate that appointment. All questions were answered visit was spent in face to face discussion of present symptoms and future plan of care. This note was written with voice recognition software documented in this encounter Plan of Treatment Scheduled Referrals Name Type Priority Associated Diagnoses Orde r Schedule Referral to Pain Clinic Outpatient Referral Routine Pain in thoracic spine Ordered: 06/23/2013 Referral to Physical Therapy Outpatient Referral Routine Pain in thoracic spine Ordered: 06/23/2013 documented as of this encounter Visit Diagnoses Diagnosis Pain in thoracic spine- Primary documented in this encounter Care Teams Binding Stitcher Relationship Specialty Start Date End Date Stephen Leiva MD PCP - General 06/20/13 06/27/15 documented as of this encounter
--- OUTSIDE RECORDS SUMMARY | 2024-03-02 20:26 | XMS_ITS | Encounter Summary ---
Author Organization [facility] [place] [address] [place] [address] Care Team Providers Care Hull Builder Name Role Phone Stuart Leyva MD Primary Care Provider Encounter Details Date Type Department Care Team (Late st Contact Info) Description 08/15/2015 Notes [place] [address] Jessica Chavira, SPRAY MAKER [facility] [place] [address] Social History Tobacco Use Types Packs/Day Years [...] as of this encounter Progress Notes * Jessica Chavira - 08/15/2015 10:47 AM EDT Bariatric Surgery Program Brenna did not show to today's visit to establish bariatric surgery follow up, and did not call to cancel today's visit. A phone message was left documented in this encounter Plan of Treatment Not on file documented as of this encounter Visit Diagnoses Not on filedocumented in this encounter Care Teams Hull Builder Relationship Specialty Start Date End Date Stuart Leyva MD [address] [place] [address] PCP - General Internal Medicine 06/28/15 documented as of this encounter
--- OUTSIDE RECORDS SUMMARY | 2024-03-02 20:26 | XMS_ITS | Encounter Summary ---
Author Organization [facility] [place] [address] Care Team Providers Care Gardening Supervisor Name Role Phone Stuart Leyva MD Primary Care Provider [phone] Reason for Visit * Reason Comments Advice Only s/p gastric bypass w ith excess abdominal skin also has hernia, upper arms * Consultation (Routine) - Closed Specialty Diagnoses / Procedures Referred By Iraj crowe Referred To Contact Plastic Surgery Diagnoses Ventral hernia without obstruction or gangrene Excess skin of abdomen Jeanette Koch MD [facility] [place] [address] [facility] [address] [place] [address] Referral ID Status Reason Start Date Expiration Date V isits Requested Visits Authorized [id number] Closed Consult, Test & Treat 06/27/2015 06/26/2016 1 1 Encounter Details Date Type Department Care Team (Late st Contact Info) Description 07/25/2015 1:00 PM EDT Office [place] [address] Ivania Sauer MD [facility] [address] Abdominal pannus Social History Tobacco Use Types Packs/Day Years [...] Sign Reading Time Taken Comments Blood Pressure - - Pulse - - Temperature - - Respiratory Rate - - Oxygen Saturation - - Inhaled Oxygen Concentration - - Weight 76.7 kg (169 lb) 07/25/2015 12:53 PM EDT Height 161.9 cm (5' 3.75) 07/25/2015 12:53 PM E DT Body Mass Index 29.24 07/25/2015 12:53 PM EDT documented in this encounter Patient Instructions * Patient Instructions* Jaky Salinas LPN - 07/25/2015 1:32 PM EDT You were given written and verbal preoperative instructions today. To prepare for your upcoming surgery, please review the Pre-Operative Instruction brochure that youwere given at today's appointment. Feel free to call our office [phone] if you have any questions or concerns. We monitor the phones from 8-5 Thursday through Thursday. documented in this encounter Progress Notes * Jaky Salinas LPN - 07/25/2015 1:31 PM EDT Pre-Op Teaching for Surgery Surgery: Components separation hernia repair, cristian hwang Written and verbal pre-operative instructions were given and reviewed with patient: Patient was advised to discontinue use of NSAIDS and aspirin products (unless otherwise advised by patient's PCP/Development Technologist for cardiac symptoms), fish oil, Vitamin E and herbal supplements for 14 days prior to surgery, to perform the pre-op scrub, and to coordinate a ride home following surgery. Smoking status and medications were further reviewed to rule out/address current use of Nicotine, Coumadin, Plavix, Estrogen or Tamoxifen. Photos were taken Patient was instructed to call the clinic at with any questions or concerns prior tosurgery. * Ivania Sauer MD - 07/25/2015 12:56 PM EDT Plastic Surgery Consultation Note Ivania Sauer MD PCP: STUART LEYVA MD CC: Abdominal pannus HPI: Brenna Mc is a 64 y.o. female seen in my office today for consideration for abdominal panniculectomy. She was referred by Dr. oKch for this consultation. Her maximum weight was 400 lbs over [...] is only able to eat fruit. She presents today because of increasing difficulty with keeping the fold under her pannus free of rashes and infection, and clean, and odor free. She has tried over the counter powders for this but continues to have chronic rashes. No past medical history on file. Past Surgical History Procedure Laterality Date ??? Gastric bypass surgery History Social History ??? Marital Status: Spouse Name: N/A Number of Children: N/A ??? Years of Education: N/A Occupational History ??? Not on file. Social History Main Topics ??? Smoking status: Former Smoker -- 40 years Quit date: 04/20/2006 ??? Smokeless tobacco: Never Used ??? Alcohol Use: No ??? Drug Use: No ??? Sexual Activity: Not on file Other Topics Concern ??? Not on file Social History Narrative ROS: HEENT, GI, /Renal, Psych, Card, Pulm, Endo, Heme, Immun, Neuro: negative Examination: Ht 161.9 cm (5' 3.75) Wt 76.658 kg (169 lb) BMI 29.25 kg/m2 Pleasant female in no acute distress, comfortable. She was well oriented and asked appropriate questions throughout the visit. HEENT: MMM, normocephalic, sclera: white, no facial abrasions Neuro: Pupils equal, round, and reactive to light, extra ocular muscles in tact, tongue midline Resp: No stridor, no wheezes, regular rate Extrem: no cyanosis/clubbing/or edema, no rashes Muscuskeletal: gross full ROM x 4 extrem, ambulating, no lesions Abdomen: Pt has well healed right subcostal incision intersecting with superior vertical midline incision She has left subcostal incision in addition There is large protuberant supraumbilical ventral hernia measuring 22 x 25 cm in diameter Grade 2: Panniculus extends to cover the genitalia Evidence of chronic sub pannus intertrigo There is a 9 cm gap between medial border of rectus muscles bilaterally with animation Impression: Brenna Mc is a 64 y.o. female is a suitable candidate for panniculectomy which would likely correct her physical symptomatology. We talked about the scars and risks from panniculectomy.I advised that due to her previous subcostal incisions I would recommend a [id number] pattern panniculectomy. She is aware that infection, delayed wound healing, seroma and numbness are possibilities. She has been provided with the [facility] patient information brochure, as well as their standard informed consent documents on both abdominoplasty, and panniculectomy. She has expressed a desire to proceed with surgical correction. I feel strongly that she will gain significant symptom relief and avoid further intertrigo following surgery. We have obtained photographs today. Insurance Guidelines [ X] Pannus grade 2 or higher [ ] Rashes; prescribed and documented treatment for any rashes that don???t respond to 3 - 6 monthsof treatment. [X ] If the weight has been lost due to gastric bypass, it must be 18 months s/p bariatric surgery [ ] Patient must be at goal weight and stable 6 months Based on this, we will request insurance pre-determination . I will communicate my recommendations to STUART LEYVA MD. Surgical Grid: Surgeon: Jose Luis Duration: 3.5 hours after General Surgery Anticipate 5 nights overnight Timeframe: coordinate Coordinated with: Dr. Koch Procedure: Panniculectomy (cristian de lis pattern) with component separation CPT: 53521, 40371-85, 33579, [address]4821 Surgical site: Abdomen Side: N/a Anesthesia: General Follow up: 7 days PAT: No I, Kalpana Bernal, am acting as scribe for Dr. Sauer. All work documented was performed by Dr. Sauer. ???I performed the above scribed service and agree with the accuracy of the note?? IVANIA SAUER MD documented in this encounter Plan of Treatment Not on file documented as of this encounter Procedures Procedure Name Priority Date/Time Associated Diagnosis Comments PANNICULECTOMY Routine 07/25/2015 1:31 PM EDT documented in this encounter Visit Diagnoses Diagnosis Abdominal pannus Localized adiposity documented in this encounter Care Teams Gardening Supervisor Relationship Specialty Start Date End Date Stuart Leyva MD [address] [place] [address] PCP - General Internal Medicine 06/28/15 documented as of this encounter
--- OUTSIDE RECORDS SUMMARY | 2024-03-02 20:26 | XMS_ITS | Encounter Summary ---
Author Organization [facility] Address [facility] [place] [address] Care Team Providers Care Machine Room Operator Name Role Phone Stuart Leyva MD Primary Care Provider [phone] Encounter Details Date Type Department Care Team (Late st Contact Info) Description 12/04/2009 Orders Only [place] [address] Bry Douglas MD [facility] [place] [address] Social History Tobacco Use Types Packs/Day Years [...] Associated Diagnosis Comments SURGICAL PATHOLOGY REPORT Routine 12/04/2009 7:15 PM EDT documented in this encounter Results * Surgical Pathology Report (12/04/2009 7:15 PM EDT) Surgical Pathology Report [id number] ? Location: 2WST; 0211; B The signing pathologist has (i) examined the relevant preparation(s) for the specimen(s) and (ii) rendered or confirmed the diagnosis(es). . ?Pathology Surgical Pathology Final Report Clinical Information Specimen Submitted: A - Total Thyroid, Neck Clinical History: Not provided Clinical Diagnosis: Multinodular goiter Gross Description Labeled/Fixative: ? Total thyroid, fresh. Qty/Size/Weight: ?Single, 8.5 x 7.5 x 3.7 cm, 114 g. Tissue Description: ? Total thyroid. ?? External Surface: ?Asymmetric with the left lobe markedly larger, ?8.0 x 6.5 x 3.7 cm. ??The right lobe of the ?thyroid is normal sized. ?? Lesion: ?Location: ? Base of left lobe, obliterating the isthmus. ?Size: ? 6.5 x 5.0 x 3.7 cm. ??The cut surface is spongy, ?pink, and seeping copious amounts of fluid. ?Contour/Capsule: ?The lesion is well encapsulated. ?? Additional lesion(s): ??None. ?? Remaining parenchyma: ??Deep red, firm, and homogeneous. Sections/Processin g: ?(1-2) sections of the superior right lobe; (3-4) sections of the mid right lobe; (5-6) sections of the inferior right lobe; (7) section of superior left lobe; (8-23) ??sections of the lesion. ?(R23) ??aje/BTP Microscopic Description Slides reviewed, microscopic description not recorded. 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 Misha COOK, Booker Pink ?Pathologist ?(Electronic Signature) The attending pathologist whose signature appears on this report has reviewed all diagnostic slides and has edited the gross and/or microscopic portion of the report in rendering the final pathologic diagnosis. MARTA HERNDON 12/04/2009 7:15 PM EDT Bry Douglas MD PATHOLOGY/CYTOLOGY ORDERABLES Performing Organization Address City/State/[facility] Co va Phone Number MARTA HERNDON documented in this encounter Visit Diagnoses Not on filedocumented in this encounter Care Teams Machine Room Operator Relationship Specialty Start Date End Date Stuart Leyva MD [address] [place] [address] PCP - General Internal Medicine 06/28/15 documented as of this encounter
--- OUTSIDE RECORDS SUMMARY | 2024-03-02 20:26 | XMS_ITS | Encounter Summary ---
Author Organization [facility] Address [facility] [place] [address] Care Team Providers Care Physical Medicine Specialist Name Role Phone Stuart Leyva MD Primary Care Provider [phone] Encounter Details Date Type Department Care Team (Late st Contact Info) Description 09/13/2015 Telephone [place] [address] Jeanette Koch MD [facility] [place] [place] [address] Social History Tobacco Use Types Packs/Day Years [...] encounter Miscellaneous Notes * Telephone Encounter - Jeanette Koch MD - 09/13/2015 4:05 PM EDT Patient did not have ride to first scheduled EGD. No show for second EGD. Discussed with her - symptoms largely the same, and ideally would perform scope prior to surgery. Alternatively could perform intraop, however would be more difficult to alter surgical plan if there is an ulcer or stricture of her GJ. States she will be able to get a ride on 09/27. Will plan for EGD at [facility] due to available time. She is scheduled for hernia repair/panniculectomy on 10/01/15. documented in this encounter Plan of Treatment Not on file documented as of this encounter Visit Diagnoses Not on filedocumented in this encounter Care Teams Physical Medicine Specialist Relationship Specialty Start Date End Date Stuart Leyva MD [address] [place] [address] PCP - General Internal Medicine 06/28/15 documented as of this encounter
--- OUTSIDE RECORDS SUMMARY | 2024-03-02 20:26 | XMS_ITS | Encounter Summary ---
Author Organization [facility] Address [facility] [place] [address] Care Team Providers Care Labor Contractor Name Role Phone Stephen Sawyer MD Primary Care Provider [phone] Reason for Visit * Reason Comments Back Pain R side Encounter Details Date Type Department Care Team (Latest Contact Info) Description 06/23/2013 11:30 AM EST Procedure [place] [address] Jean Pierre Patel MD [facility] [place] [address] Thoracic spondylosis without myelopathy (Primary Dx) Discharge Disposition: Home Social History [...] Sign Reading Time Taken Comments Blood Pressure 125/79 06/23/2013 12:01 PM EST Pulse 79 06/23/2013 12:01 PM EST Temperature - - Respiratory Rate 18 06/23/2013 12:01 PM EST Oxygen Saturation 99% 06/23/2013 12:01 PM EST Inhaled Oxygen Concentration - - Weight 85.3 kg (188 lb) 06/23/2013 11:46 AM EST Height 162.6 cm (5' 4) 06/23/2013 11:46 AM EST Body Mass Index 32.27 06/23/2013 11:46 AM EST documented in this encounter Patient Instructions * Patient Instructions* Ronit Siddiqui LPN - 06/23/2013 11:47 AM EST [facility] Discharge Instructions: You were seen by Dr. Jean Pierre Patel MD and Jona Jones DO who performed medial branch block. [x] You may resume your normal activities: today. You may shower today. DO NOT tub bathe, use whirlpools, hot tubs or pool therapy for 2 days. RemoveBand-Aid(s) later today/tomorrow. Do not drive until tomorrow. Use caution walking/climbing stairs as you may be unsteady on your feet. You may use your usual medications, including pain medications, as directed, unless otherwise instructed. You may use an ice pack as needed for the first 24 hours, on for 20 minutes then off for 20 minutes. Do not apply heat today. Attempt to empty your bladder 4-6 hours after your procedure. You received the following medications: Lidocaine, Omnipaque (contrast dye) and Sensorcaine. During regular business hours, please phone the Pain Management Center at for appointments or with any questions or if the following or other troubling symptoms develop: 1) Prolonged dizziness or weakness (more than 1 day). 2) Localized swelling, redness or drainage at the injection site(s). 3) Temperature of 101 degrees that lasts for more than 4 hours. After 5 PM or on weekends, call and ask for Pain Clinic provider on-call. If you are unable to reach the Pain Management Center and have a complication, please call your Primary Care Provider or proceed to your local emergency department. Ronit Siddiqui LPN Special instructions Pain Management Center Post -Procedure Pain Log Patient: Brenna Bowling [id number] It is important for you to keep track of your pain after your procedure that took place 06/23/2013. This information will help your Provider to determine how to help reduce your pain. Today you had a procedure for pain in your back. Your pain level before the procedure in this area was 9/10. Your pain level immediately after your procedure was 0/10. Time Pain Score Comments 1 hour 2 hours 3 hours 4 hours Please call the nurse in the Pain Management Center a day or two after your procedure and report the information above. She will assess your response to the procedure, and will recommend appropriate follow-up. documented in this encounter Progress Notes * Ronit Siddiqui LPN - 06/23/2013 11:47 AM EST Pre-Procedure Screening Questions: 1. Status: No 2. 3. 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 Yes 4. Patient taking antibiotics at present? No 5. NPO per Pain Management Center protocol? No 6. 7. Patient diabetic: No __ borderline (not treated with medications) __ managed with oral medications __ managed with injected medications 8. Patient routinely taking anticoagulants ? No Date stopped Current INR Patient Vital Signs documented in Doc Flowsheets associated with this encounter. Patient Discharge Instructions were reviewed with patient and copy provided to patient. documented in this encounter Procedure Notes * Jona Jones - 06/23/2013 12:15 PM ESTAssociated Order(s): NERVE BLOCK - CERVICAL/THORACIC Procedure(s): NERVE BLOCK - CERVICAL/THORACIC Pre-Procedure Diagnose(s): Thoracic spondylosis without myelopathy Thoracic MEDIAL BRANCH BLOCKS Date of Service: 06/23/2013 Patient: Brenna Bowling Provider: JONA JONES DO Brenna Bowling has been referred to the Pain Management Center for lumbar/sacral medial branch blocks. COMMENTS: Thoracic spondylosis without myelopathy. Ms. Bowling has a specific tender point in her thoracic area. Therefore the decision was made to go at the medial branches above and below that tender spot. Ms. Bowling was interviewed and the medical record reviewed. There were no medical, pharmacologic, radiographic or other structural contraindications to attempting fluoroscopically guided local anesthetic lumbar/sacral medial branch blocks. Risks and expected side effects as well as potential benefit of the procedure were reviewed with Ms. Vancend her voiced concerns addressed. The printed consent form was signed and witnessed. Standard time-out procedure was performed. Ms. Bowling was placed in the prone position on the fluoroscopy table and automated blood pressure cuff and pulse oximeter applied. The skin entry points for approaching the anatomic target points of the segmental medial branches ofright T8, T9, T10 and T11 were identified with anfluoroscopy and marked. Following thorough Chlorhexadine preparation of the skin and draping and 1% lidocaine infiltration of the skin entry points and subcutaneous tissues, a 22 gauge spinal needle was placed under fluoroscopic guidance down on to the target point for each respective segmental medial branch.Position was confirmed in A/P, oblique and lateral views with 0.25ml of omnipaque 240. At each point .5ml 0.5% bupivicaine was injected. Ms. Bowling's vital signs were stable throughout the procedure and were as recorded in the docflowsheet by the nursing staff. Follow up plans and appointments were discussed with Ms. Bowling. Ms. Bowling was instructed to keep careful note of how the usual pain was modified by these injections. Specifically, she was asked to keep a pain diary for the next 24 hours using a numeric pain scale of 0-10 and report these results at the follow- up visit. Post procedure instruction was given as documented in the nursing documentation and having met discharge criteria, she was discharged from the Pain Management Center. Based on the medial branches blocked today, if they patient has adequate relief and we are able to proceed to radiofrequency ablation, the treatment should result in the denervation of the right T9-T10, T10-T11 and T11-T12. We would expect to denervate a total of 3 facets during the radiofrequency ablation. COMMENTS: Patient tolerated the procedure well. She presented with pain at a 9/10 on an 11 point scale and left with a 0/10 VAS. The patient will follow-up with her pain diary tomorrow and we will schedule her for RFA or have her follow-up with Latanya. I was the attending physician supervising the resident in the above care and I was present with theresident for the entire procedure. JEAN PIERRE PATEL MD CC: STEPHEN SAWYER MD @PCPADD@ documented in this encounter Plan of Treatment Pending Results Name Type Priority Associated Diagnoses Date /Time XR Fluoro OR c-arm storage only Imaging Routine 06/23/2013 12:14 PM EST Scheduled Orders Name Type Priority Associated Diagnoses Orde r Schedule XR Fluoro OR c-arm storage only Imaging Routine Once PRN (for Ra diant use) for 1 Occurrences starting 06/23/2013 until 06/23/2013 documented as of this encounter Procedures Procedure Name Priority Date/Time Associated Diagnosis Comments NERVE BLOCK - CERVICAL/THORACIC Routine 06/24/2013 11:26 AM EST Thoracic spondylosis without myelopathy documented in this encounter Results * NERVE BLOCK - CERVICAL/THORACIC (06/24/2013 11:26 AM EST) Narrative Jean Pierre Patel MD - 06/24/2013 11:26 AM EST Jean Pierre Patel MD ? 06/24/2013 11:26 AM Thoracic MEDIAL BRANCH BLOCKS Date of Service: ??06/23/2013 Patient: ??Brenna Bowling ?? Provider: ??JONA JONES, DO Brenna Bowling has been referred to the Pain Management Center for lumbar/sacral medial branch blocks. ?? COMMENTS: Thoracic spondylosis without myelopathy. ??Ms. Bowling has a specific tender point in her thoracic area. ??Therefore the decision was made to go at the medial branches above and below that tender spot. Ms. Bowling was interviewed and the medical record reviewed. ?? There were no medical, pharmacologic, radiographic or other structural contraindications to attempting fluoroscopically guided local anesthetic lumbar/sacral medial branch blocks. ?? Risks and expected side effects as well as potential benefit of the procedure were reviewed with Ms. Vancend her voiced concerns addressed. ??The printed consent form was signed and witnessed. ??Standard time-out procedure was performed. Ms. Bowling was placed in the prone position on the fluoroscopy table and automated blood pressure cuff and pulse oximeter applied. ??The skin entry points for approaching the anatomic target points of the segmental medial branches ofright T8, T9, T10 and T11 were identified with anfluoroscopy ??and marked. ?? Following thorough Chlorhexadine preparation of the skin and draping and 1% lidocaine infiltration of the skin entry points and subcutaneous tissues, a 22 gauge spinal needle was placed under fluoroscopic guidance down on to the target point for each respective segmental medial branch.Position was confirmed in A/P, oblique and lateral views with 0.25ml of omnipaque 240. At each point .5ml 0.5% bupivicaine was injected. ?? Ms. Bowling's vital signs were stable throughout the procedure and were as recorded in the docflowsheet by the nursing staff. Follow up plans and appointments were discussed with Ms. Bowling. Ms. Bowling was instructed to keep careful note of how the usual pain was modified by these injections. ??Specifically, she was asked to keep a pain diary for the next 24 hours using a numeric pain scale of 0-10 and report these results at the follow-up visit. ??Post procedure instruction was given as documented in the nursing documentation and having met discharge criteria, she was discharged from the Pain Management Center. Based on the medial branches blocked today, if they patient has adequate relief and we are able to proceed to radiofrequency ablation, the treatment should result in the denervation of the right T9-T10, T10-T11 and T11-T12. We would expect to denervate a total of 3 facets during the radiofrequency ablation. COMMENTS: Patient tolerated the procedure well. ??She presented with pain at a 9/10 on an 11 point scale and left with a 0/10 VAS. ??The patient will follow-up with her pain diary tomorrow and we will schedule her for RFA or have her follow-up with Latanya. I was the attending physician supervising the resident in the above care and I was present with the resident for the entire procedure. JEAN PIERRE PATEL MD CC: STEPHEN SAWYER MD @PCPADD@ Procedure Note Jona Jones - 06/23/2013 12:15 PM EST Thoracic MEDIAL BRANCH BLOCKS Date of Service: 06/23/2013 Patient: Brenna Bowling Provider: JONA JONES DO Brenna Bowling has been referred to the Pain Management Center forlumbar/sacral medial branch blocks. COMMENTS: Thoracic spondylosis without myelopathy. Ms. Bowling has aspecific tender point in her thoracic area. Therefore the decision wasmade to go at the medial branches above and below that tender spot. Ms. Bowling was interviewed and the medical record reviewed. There were nomedical, pharmacologic, radiographic or other structural contraindicationsto attempting fluoroscopically guided local anesthetic lumbar/sacralmedial branch blocks. Risks and expected side effects as well aspotential benefit of the procedure were reviewed with Ms. Noel hervoiced concerns addressed. The printed consent form was signed andwitnessed. Standard time-out procedure was performed. Ms. Bowling was placed in the prone position on the fluoroscopy table andautomated blood pressure cuff and pulse oximeter applied. The skin entrypoints for approaching the anatomic target points of the segmental medialbranches ofright T8, T9, T10 and T11 were identified with anfluoroscopyand marked. Following thorough Chlorhexadine preparation of the skin anddraping and 1% lidocaine infiltration of the skin entry points andsubcutaneous tissues, a 22 gauge spinal needle was placed underfluoroscopic guidance down on to the target point for each respectivesegmental medial branch.Position was confirmed in A/P, oblique and lateralviews with 0.25ml of omnipaque 240. At each point .5ml 0.5% bupivicainewas injected. Ms. Bowling's vital signs were stable throughout the procedure and were asrecorded in the docflowsheet by the nursing staff. Follow up plans and appointments were discussed with Ms. Bowling. was instructed to keep careful note of how the usual pain wasmodified by these injections. Specifically, she was asked to keep a paindiary for the next 24 hours using a numeric pain scale of 0-10 and reportthese results at the follow-up visit. Post procedure instruction wasgiven as documented in the nursing documentation and having met dischargecriteria, she was discharged from the Pain Management Center. Based on the medial branches blocked today, if they patient has adequaterelief and we are able to proceed to radiofrequency ablation, thetreatment should result in the denervation of the right T9-T10, [id number] T11-T12. We would expect to denervate a total of 3 facets during theradiofrequency ablation. COMMENTS: Patient tolerated the procedure well. She presented with painat a 9/10 on an 11 point scale and left with a 0/10 VAS. The patient willfollow-up with her pain diary tomorrow and we will schedule her for RFA orhave her follow-up with Latanya. I was the attending physician supervising the resident in the above careand I was present with the resident for the entire procedure. JEAN PIERRE PATEL MD CC: STEPHEN SAWYER MD @PCPADD@ Jean Pierre Patel MD PROCEDURE/MINOR SURG ICAL ORDERABLES documented in this encounter Visit Diagnoses Diagnosis Thoracic spondylosis without myelopathy- Primary documented in this encounter Administered Medications Inactive Administered Medications - up to 3 most recent administrations Medication Order MAR Action Action Date Dose Rate Site BUpivacaine (PF) (MARCAINE) 0.5 % (5 mg/mL) injection 50 mg 50 mg (10 mL), Subcutaneous, ONCE, 1 dose, On Graciela 06/23/13 at 1230, Wasted 20 ml, Routine Given 06/23/2013 12:30 PM EST 50 mg iohexol (OMNIPAQUE) injection 0.75 mL 0.75 mL, Epidural, ONCE, 1 dose, On Graciela 06/23/13 at 1230, 49.25 mL wasted, Routine Given 06/23/2013 12:30 PM EST 0.75 mLs documented in this encounter Care Teams Labor Contractor Relationship Specialty Start Date End Date Stephen Sawyer MD PCP - General 06/20/13 06/27/15 documented as of this encounter
--- OUTSIDE RECORDS SUMMARY | 2024-03-02 20:26 | XMS_ITS | Encounter Summary ---
Author Organization [facility] [place] [address] Care Team Providers Care Environmental Science Program Director Name Role Phone Stephen Leiva MD Primary Care Provider [phone] Encounter Details Date Type Department Care Team (Late st Contact Info) Description 12/26/2010 Orders [place] [address] Jae Zuleta MD [address] [place] [address] Social History Tobacco Use Types Packs/Day Years Used Date Smoking Tobacco: Never Assessed Sex and Gender Information Value Date Recorded Sex Assigned at Not on file Gender Identity Not on file Sexual Orientation Not on file documented as of this encounter Plan of Treatment Pending Results Name Type Priority Associated Diagnoses Date /Time Film Library- Storage only DX Spine Imaging Routine 12/26/2010 9:02 PM EDT documented as of this encounter Visit Diagnoses Not on filedocumented in this encounter Care Teams Environmental Science Program Director Relationship Specialty Start Date End Date Stephen Leiva MD PCP - General 06/20/13 06/27/15 documented as of this encounter
--- OUTSIDE RECORDS SUMMARY | 2024-03-02 20:26 | XMS_ITS | Encounter Summary ---
[place] [address] Care Team Providers Care Hogshead Liner Name Role Phone Unavailable Primary Care Provider Unavailabl e Encounter Details Date Type Department Care Team (Late st Contact Info) Description 03/04/2010 9:15 AM EST Office Visit Dermatology [address] [place], [place] [address] Maxwell Lynn MD [address], [place] [address] Social History Tobacco Use Types Packs/Day Years [...]
--- OUTSIDE RECORDS SUMMARY | 2024-03-02 20:26 | XMS_ITS | Encounter Summary ---
[place] [address] Care Team Providers Care Diffusion Operator Name Role Phone Unavailable Primary Care Provider Unavailabl e Encounter Details Date Type Department Care Team (Late st Contact Info) Description 02/25/2010 1:30 PM EST Office Visit Dermatology [address] [place], [place] [address] Maxwell Lynn MD [address], [place] [address] Social History Tobacco Use Types Packs/Day Years [...]
--- OUTSIDE RECORDS SUMMARY | 2024-03-02 20:26 | XMS_ITS | Encounter Summary ---
Author Organization [facility] Address [facility] [place] [address] Care Team Providers Care Show Design Supervisor Name Role Phone Stephen Leiva MD Primary Care Provider [phone] Encounter Details Date Type Department Care Team (Latest Contact Info) Description 06/23/2013 10:34 AM EST - 06/23/2013 11:59 PM [facility] Hospital Encounter XRay at [address] [place] [address] Pain in thoracic spine Social History Tobacco Use Types Packs/Day Years [...] simvastatin (ZOCOR) 20 mg tablet 01/02/2010 06/27/2015 lendpat-erhjgalvymkre-txu feine (EXCEDRIN EXTRA STRENGTH) 250-250-65 mg per tablet 01/02/2010 06/27/2015 documented as of this encounter Plan of Treatment Not on file documented as of this encounter Procedures Procedure Name Priority Date/Time Associated Diagnosis Comments XR THORACOLUMBAR SPINE 2 VIEWS Routine 06/23/2013 11:00 AM EST documented in this encounter Results * XR thoracolumbar 2 view (06/23/2013 11:00 AM EST) Anatomical Region Laterality Modality N/A Radiographic Tawana ging 06/23/2013 11:0 0 AM EST Narrative 06/23/2013 11:11 AM EST Examination THORACOLUMBAR SPINE 2 VIEW Clinical History right midback pain [place] Comparison 2011 lumbar spine examination Technique Findings T7-L5 are included. ??The vertebral heights are preserved. ??No fracture. ?? Advanced L5-S1 degenerative disc disease is similar to the 2011 examination with vacuum phenomena and endplate sclerosis. Minimal retrolisthesis of L1 on 2 is also unchanged. There is lower lumbar spine facet arthropathy. The pedicles are intact. multiple abdominal sudha and sutures are in the upper abdomen. ?? Impression ? 1. No loss in vertebral heights of fracture. ? 2. Lower lumbar spine degenerative disc disease and facet arthropathy. ? 3. Minimal retrolisthesis of L1 on 2 is similar to the last examination and is on the basis of degenerative change. Procedure Note Donya Roque MD - 06/23/2013 Examination THORACOLUMBAR SPINE 2 VIEW Clinical History right midback pain TN Comparison 2011 lumbar spine examination Technique Findings T7-L5 are included. The vertebral heights are preserved. No fracture. Advanced L5-S1 degenerative disc disease is similar to the 2011examination with vacuum phenomena and endplate sclerosis. Minimal retrolisthesis of L1on 2 is also unchanged. There is lower lumbar spine facet arthropathy. Thepedicles are intact. multiple abdominal sudha and sutures are in the upperabdomen. Impression 1. No loss in vertebral heights of fracture. 2. Lower lumbar spine degenerative disc disease and facetarthropathy. 3. Minimal retrolisthesis of L1 on 2 is similar to the lastexamination and is on the basis of degenerative change. Luís Carrillo MD IMG DX ORDERABLES documented in this encounter Visit Diagnoses Diagnosis Pain in thoracic spine documented in this encounter Care Teams Show Design Supervisor Relationship Specialty Start Date End Date Stephen Leiva MD PCP - General 06/20/13 06/27/15 documented as of this encounter
--- OUTSIDE RECORDS SUMMARY | 2024-03-02 20:26 | XMS_ITS | Encounter Summary ---
[place] [address] Care Team Providers Care Supervisor Patching Name Role Phone Stephen Leiva MD Primary Care Provider [phone] Encounter Details Date Type Department Care Team (Late st Contact Info) Description 11/10/2013 Telephone [place] [id number] Jae Zuleta MD [address] [place] [address] Social History Tobacco Use Types Packs/Day Years [...] encounter Miscellaneous Notes * Telephone Encounter - Leena Reynolds - 11/25/2013 10:11 AM EDT Patient did not return our call and was a no show for her pre-op appointments as well as her surgery. * Telephone Encounter - Leena Reyonlds - 11/10/2013 9:05 AM EDT Left messages on both patient's home & cell phone number to call us back at her earliest convenience. Left our direct number. documented in this encounter Plan of Treatment Not on file documented as of this encounter Visit Diagnoses Not on filedocumented in this encounter Care Teams Supervisor Patching Relationship Specialty Start Date End Date Stephen Leiva MD PCP - General 06/20/13 06/27/15 documented as of this encounter
--- OUTSIDE RECORDS SUMMARY | 2024-03-02 20:26 | XMS_ITS | Encounter Summary ---
Author Organization [facility] Address [facility] [place] [address] Care Team Providers Care Pantograph Machine Set Up Operator Name Role Phone Stuart Leyva MD Primary Care Provider [phone] Encounter Details Date Type Department Care Team (Late st Contact Info) Description 06/29/2015 11:30 AM EST - 06/29/2015 12:00 PM EST Surgery [place] [address] Jeanette Koch MD [facility] [place] [address] Not Performed EGD, UPPER GI ENDOSCOPY (WRVU 2.09) Social History Tobacco Use Types Packs/Day Years [...] Active and Recently Administered Medications Care Teams Pantograph Machine Set Up Operator Relationship Specialty Start Date End Date Stuart Leyva MD [address] [place] [address] PCP - General Internal Medicine 06/28/15 documented as of this encounter
--- OUTSIDE RECORDS SUMMARY | 2024-03-02 20:26 | XMS_ITS | Encounter Summary ---
Author Organization Replaced By [facility] [place] [address] Care Team Providers Care Delivery Mgr Name Role Phone Stephen Leiva MD Primary Care Provider [phone] Reason for Referral * Surgical (Routine) - Closed Specialty Diagnoses / Procedures Referred By Iraj crowe Referred To Contact Orthopaedic Surgery / Orthopaedics Diagnoses Right knee pain S/P total hip arthroplasty S/P total knee arthroplasty, left Jeanette Garces PA [facility] [place] [address] [facility] [address] [place] [address] Referral ID Status Reason Start Date Expiration Date V isits Requested Visits Authorized [id number] Closed Consult, Test & Treat 06/20/2013 12/17/2013 1 1 Reason for Visit * Reason Comments Follow Up Surgery s/p left tka dos 06/19 10/25 and right samy dos 01/12/08 Right Knee Pain states has spinal st enosis as well. Encounter Details Date Type Department Care Team (Late st Contact Info) Description 06/20/2013 1:10 PM EST Office [place] [address] [facility], DR DURHAM Right knee pain; S/P Right total hip arthroplasty- 01/12/2008 ([facility]); S/P total knee arthroplasty, left; Pain in limb; Debility Discharge Disposition: Home Social History Tobacco Use [...] Sign Reading Time Taken Comments Blood Pressure 131/96 06/20/2013 2:28 PM EST Pulse 76 06/20/2013 2:28 PM EST Temperature - - Respiratory Rate - - Oxygen Saturation - - Inhaled Oxygen Concentration - - Weight 87.7 kg (193 lb 6.4 oz) 06/20/2013 2:28 PM EST with boots on Height 162.6 cm (5' 4) 06/20/2013 2:28 PM EST Body Mass Index 33.2 06/20/2013 2:28 PM EST documented in this encounter Progress Notes * Jae Zuleta MD - 06/20/2013 3:40 PM EST Very pleasant 62-year-old female for whom I previously done a left knee replacement and a right hipreplacement, proximally 6 years ago. She now has worsening pain in the right knee and x-rays show severe tricompartmental osteoarthrosis. She like to go ahead with knee replacement surgery but has such excruciating pain that she is having a difficult time functioning and sleeping. We talked about nonoperative options and decided to proceed with an injection of the right knee today. After meticulous sterile prep with DuraPrep and alcohol, I used a lateral parapatellar approach to inject 30 mg of Kenalog along with 7 cc of Marcaine 0.25% with epinephrine. He tolerated this well, placed a dry sterile bandage, and we will go ahead and make arrangements for right knee replacement surgery in the near future. * Jeanette Garces PA - 06/20/2013 2:56 PM EST Patient Name: Brenna Bowling : 1950 MR#: [id number] Date of Visit: 06/20/2013 Case Date: 07/15/2007 Surgeon: Jae Zuleta MD Procedure: Left TKA Case Date: 01/12/2008 Surgeon: Jae Zuleta MD Procedure: Right SAMY Questionnaire Responses: myD-H Hip & Knee 06/19/2013 MODEMS Satisfaction 100 VR12 - Physical Component Summary 38.73 VR12 - Mental Component Summary 37.07 PROMIS-10 General Health Good PROMIS-10 Quality of Life Good PROMIS-10 Physical Health Good PROMIS-10 Mental Health Good PROMIS-10 Social Activity and Relationship Satisfaction Good PROMIS-10 Social Roles at Home and Work Good PROMIS-10 Everyday Physical Activities Mostly PROMIS-10 Anxious or Depressed last 7 days Sometimes PROMIS-10 Fatigue last 7 days Moderate PROMIS-10 Pain last 7 days 8 PROMIS PHYSICAL HEALTH SCORE (range 16-68) 39.8 PROMIS MENTAL HEALTH SCORE (range 21-68) 43.5 HPI: Brenna Bowling is a very pleasant 62 y.o. year-old female who presents for a followup of her right SAMY and left TKA, she is nearly 6 years out from both. Regarding her right SAMY, she feels it isfunctioning well and pain is significantly improved compared to preoperatively. She is not using any assistive devices. She does give little sore when laying on her right hip, the soreness is all lateral. She has had a couple of falls since she was last seen but only sustained bumps and bruises. Regarding her left TKA, the knee feels like it has been functioning well, pain significantly improved compared to preoperatively. She has no pain with activity. She does feel some intermittent burning over the anterior knee after prolonged activities such as walking, this resolves immediately with resting. She does notice on stairs at times the left knee feels like he might give on her over the anterior knee, she feels that her strength is not very good in her quadriceps. Regarding her right knee, she has been having increasing pain more so over this last winter starting in February 2013. This pain increased after shoveling heavy snow. She has known arthritis in this knee. She has had some swelling but no redness or warmth. She feels a snapping and catching sensation when she is walking. Pain is worse with weightbearing and a little bit better at rest but does notcompletely go away. She describes her pain as anterior and medial. She gets of stabbing pain in theright knee with twisting motions. She has had injections in the past, her last steroid injection was about [address] Cordova in [place]. This lasted for about 2 months. She has tried wrapping her right knee, this does not help and actually makes it worse. She has tried a brace which also year teacher knee. She has done PT in the past with no significant improvement. She is also feeling significant pain starting in her posterior neck and all the way down for her low back. She has had intermittent pain for her right buttock as well radiating down to her right footwith tingling. She would like to be seen for specific evaluation of her spine. ROS: No fevers, chills, nausea, vomiting, or symptoms of infection. Eating and drinking well. Sleeping well at night. No chest pain or SOB. She has a significant backache today and has known disc generation in her lumbar spine. Over the last year she has lost 100 pounds by modifying her diet and activity, she attributes this to drinking more water with lemon in it and eating a lot of grapefruit. She also had a total thyroidectomy 12/04/2009, she is now on replacement therapy for her thyroid. She has not required antibiotic before dental work as she wears full dentures. Social History: She is at significant stress in her personal life recently, she was raising her autistic grandson who became very difficult and hard for her to manage. She recently had him removed from her home. She is now working right now, she has been on disability since 1997 due to arthritis. Nonsmoker. She is a 04-vwzd-dazq history but quit in 2006. Does not drink alcohol. Lives alone now. Physical Exam: Well-appearing female in no acute distress. Alert and Oriented x 3 and answers all questions appropriately. The incision is well healed, with no signs of infection over left knee and right hip. Both calves are soft and non-tender, negative Mignon's. Pedal pulses +2/4 and equal. Sensation equal and intact in both legs. +5/5 strength in EHL, FHL, tibialis anterior, gastrocnemius. Able to SLR both legs, no lag. Right Knee: Lacks about 5?? of extension, can actively flex to 100??. Stable to varus and valgus stress at 0?? and 30??. Negative anterior and posterior drawer. Tender to palpation around the patellawith motion and over the lateral joint line. There is some swelling in the right knee with a moderate effusion, no redness or warmth area patella tracks normally but there is crepitus with flexion and extension. Left Hip: No pain with motion at the left hip, flexion 105??, external rotation 40??, internal rotation 10??, abduction 45??, adduction 20??. Hip Exam: Right Guthrie Hip Score: Less than 30 degrees of fixed flexion: Yes Less than 10 degrees of fixed adduction: Yes less than 10 degrees of fixed int rotation in extension: Yes Limb Length discrepancy: 0cm Motion: Total degrees of Flexion:100 Total degrees of Abduction:45 Total degrees of Ext Rotation: 30 Total degrees of Adduction: 20 Gait Abnormality: Antalgic Pulses Palpable: Right PT: Yes Right DP:Yes Motor/Sensory: Right Distal Motor: Normal Distal Sensory: Normal Hip Abductors 4 and Knee Exam: Left Gait Abnormality: Antalgic Knee ROM: Extension:0 Flexion: 110 Alignment: 0-4 degrees Neutral Stability: A/P Translation <5mm Varus <5mm Valgus <5mm Extension La degrees or less Patella Tracking: Normal Pulses Palpable: Left PT:Yes Left DP:Yes Motor/Sensory: Distal Motor: Normal Distal Sensory: Normal Quadriceps Strength: 5 X-RAYS: 06/20/2013 AP, standing alignment, lateral, skyline, schuss views both knees Findings The patient is status post a left total knee prosthesis, no sign of postop complication. The right knee shows progression of lateral compartment osteoarthritis, slight worsening of medial compartment narrowing to the lesser degree. No significant joint effusion noted on either knee, but there is marked patellofemoral joint osteoarthritis on the right. This is particularly notable in the medial facet. The patient is also status post right total hip replacement, non cemented. The weightbearing axis of the lower extremities is as follows: Right lower extremity, deviated laterally from the knee midline approximately 20 mm, left lower extremity deviated just laterally to the knee midline, approximately 4 mm. This results in mild right genu valgus. Impression - Status post left total knee replacement, no sign of postop complication. Progression of moderate right lateral and milder medial compartment narrowing, and severe osteoarthritis in the right patellofemoral joint. Mild right genu valgus. AP Pelvis and 2 views right hip Findings - Cementless right total hip arthroplasty is unchanged in appearance and alignment and no radiolucencies or periprosthetic fracture. The left hip osteoarthropathy with loss of superior lateral hip joint space has not been changed. there is degenerative disc disease at L5-S1 level. Impression - Uncomplicated and unchanged right total hip arthroplasty. ASSESSMENT/PLAN: This patient was seen in conjunction with Dr. Zuleta. Almost 6 years out from right SAMY in left TKA and doing well overall. She has some trochanteric bursitis on the right side with IT band tightness. She also has some loss of muscle definition both quadriceps. She has been struggling more with right knee pain consistent with her osteoarthritis. I think that the discomfort she feels over the left knee after prolonged activity is most consistent with some quadriceps weakness, she has been under a significant amount of personal stress and admits that she has not been able to focus on stretching and strengthening regularly. I would recommend that she go to physical therapy for her right trochanteric bursitis and bilateral quadriceps strengthening. She would like a steroid injection in her right knee today, this was done as noted below. She wouldalso like to be scheduled for a right TKA, her arthritis has been progressively worsening and she is having more pain associated with this. We reviewed the risks and benefits of knee replacement as well as recovery time and postoperative course. Finally, she has been struggling with increasing back pain and neck pain and would like referral [facility] for further evaluation. I have made this referral today. Plan to followup in 2 years with new x-rays of her right hip and both knees for stable followup. She will come back sooner for her preoperative appointment for her right TKA. We discussed the appropriate precautions surrounding dental prophylaxis. I stressed that she shouldcall the office for a prescription prior to any further dental work for the lifetime of the joint replacement. We also discussed maintaining good foot care and giving prompt attention to any source of infection throughout the body including foot ulcers and urinary tract infections. PROCEDURE NOTE: Right knee steroid injection (performed by Dr. Zuleta) A time-out was performed and the Right knee was confirmed to be the site of injection. The patient was confirmed to have no allergies to betadine, local anesthetics, or corticosteroids. The patient was reminded that blood glucose can be transiently elevated by the corticosteroid injection. The patient was counseled about the potential risks of the procedure, including infection, bleeding and incomplete relief of symptoms. I also discussed with the patient that cortisone is not healthy for muscle tendons or cartilage and that there is an increased risk with repeated injections. The skin was prepped widely over the Right superolateral knee with Duraprep. Then, using sterile technique, a solution consisting of 7 cc 0.25% marcaine (17.5 mg), and 3 cc Kenalog (30 mg) was injected into the Right knee using a 22 gauge needle. The needle was felt to slide into the joint and mixture flowed freely. The skin was cleaned with alcohol and a Band-Aid was applied. The patient tolerated the procedure well. Signed: RENEE DENNISON 06/20/2013 documented in this encounter Plan of Treatment Scheduled Referrals Name Type Priority Associated Diagnoses Orde r Schedule Referral to Spine Center Outpatient Referral Routine Right knee pain S/P Right total hip arthroplasty- 01/12/2008 ([facility]) S/P total knee arthroplasty, left Ordered: 06/20/2013 documented as of this encounter Procedures Procedure Name Priority Date/Time Associated Diagnosis Comments TOTAL KNEE ARTHROPLASTY Routine 06/20/2013 3:42 PM EST documented in this encounter Visit Diagnoses Diagnosis Right knee pain Pain in joint, lower leg S/P Right total hip arthroplasty- 01/12/2008 ([facility]) Hip joint replacement by other means S/P total knee arthroplasty, left Pain in limb Debility Debility, unspecified documented in this encounter Administered Medications Inactive Administered Medications - up to 3 most recent administrations Medication Order MAR Action Action Date Dose Rate Site BUpivacaine (PF) (MARCAINE) 0.25 % (2.5 mg/mL) injection 17.5 mg 17.5 mg, Intra-articular, ONCE, 1 dose, On Thu06/20/13 at 1615, Routine Given 06/20/2013 3:49 PM EST 17.5 mg triamcinolone acetonide (KENALOG) injection 30 mg 30 mg, Intra-articular, ONCE, 1 dose, On 06/20/13 at 1615, Routine Given 06/20/2013 3:50 PM EST 30 mg documented in this encounter Care Teams Delivery Mgr Relationship Specialty Start Date End Date Stephen Leiva MD PCP - General 06/20/13 06/27/15 documented as of this encounter
--- OUTSIDE RECORDS SUMMARY | 2024-03-02 20:26 | XMS_ITS | Encounter Summary ---
Author Organization [facility] Address [facility] [place] [address] Care Team Providers Care Embroiderer Name Role Phone Adriana Santana APRN Primary Care Provider Reason for Visit * Reason Comments Skin Lesion Encounter Details Date Type Department Care Team (Late st Contact Info) Description 08/13/2011 10:00 AM EDT Office Visit Dermatology [address] [place] [address] [address] [place] [address] Maxwell Lynn MD [address], [place] [address] Neurodermatitis (Primary Dx) Social History Tobacco Use Types Packs/Day Years Used Date Smoking Tobacco: Never Sex and Gender Information Value Date Recorded Sex Assigned at Not on file Gender Identity Not on file Sexual Orientation Not on file documented as of this encounter Plan of Treatment Not on file documented as of this encounter Visit Diagnoses Diagnosis Neurodermatitis- Primary Lichenification and lichen simplex chronicus documented in this encounter Care Teams Embroiderer Relationship Specialty Start Date End Date Adriana Santana APRN [address] [place] [address] PCP - General 03/12/10 06/19/13 documented as of this encounter
--- OUTSIDE RECORDS SUMMARY | 2024-03-02 20:27 | XMS_ITS | Encounter Summary ---
Author Organization [facility] [place] [address] Care Team Providers Care Rotary Operator Name Role Phone Stuart Leyva MD Primary Care Provider [phone] Encounter Details Date Type Department Care Team (Late st Contact Info) Description 07/15/2007 Orders Only Orthopaedics at [facility] [address] [place] [address] Jae Zuleta MD [address] [place] [address] Social History Tobacco Use Types Packs/Day Years [...] Associated Diagnosis Comments SURGICAL PATHOLOGY REPORT Routine 07/15/2007 10:34 AM EDT documented in this encounter Results * Surgical Pathology Report (07/15/2007 10:34 AM EDT) Surgical Pathology Report [id number] ? Location: [facility]; [facility]; A The signing pathologist has (i) examined the relevant preparation(s) for the specimen(s) and (ii) rendered or confirmed the diagnosis(es). . ?Pathology Surgical Pathology Final Report Clinical Information Specimen Submitted: A - Bone and tissue left knee Clinical Diagnosis: Left knee OA Gross Description Labeled/Fixativ e: ? Bone and tissue, left knee; fresh. Quantity/Size: ?Multiple, 9.0 x 6.0 x 4.0 cm in aggregate. Tissue Description: ?? Fragments of yellow-white, hard, irregular bone, ?cartilage and soft tissue. ??Eburnation: ? Identified. ??Osteophytes: ?Identified. Sections/Proces sing: ??No sections are submitted. ??aje/EJR Diagnosis Articular bone and soft tissue consistent with osteoarthritis, left knee. ?? Gross surgical pathology examination. CR-0 07/15/07 AJE 07/16/07 Verified by: ? Deedee Espinoza, DO ?Pathologist ?(Electronic Signature) The attending pathologist whose signature appears on this report has reviewed all diagnostic slides and has edited the gross and/or microscopic portion of the report in rendering the final pathologic diagnosis. MARTA HERNDON 07/15/2007 10:3 4 AM EDT Jae Zuleta MD PATHOLOGY/CYTOLOGY O RDERABLES MARTA HERNDON documented in this encounter Visit Diagnoses Not on filedocumented in this encounter Care Teams Rotary Operator Relationship Specialty Start Date End Date Stuart Leyva MD [address] [place] [address] PCP - General Internal Medicine 06/28/15 documented as of this encounter
--- OUTSIDE RECORDS SUMMARY | 2024-03-02 20:27 | XMS_ITS | Clinical Summary ---
Author Organization [facility] Address [address] [place] [address] Care Team Providers Care Rug Designer Name Role Phone Stuart Leyva MD Primary Care Provider [phone] Allergies Active Allergy Reactions Criticality Noted Date Comments Codeine 11/16/2015 Belly pain Medications Folic Acid-Vit B6-Vit B12 2.5-25-1 mg tablet Take by mouth daily. Active topiramate (TOPAMAX) 200 mg tablet Take 200 mg by mouth 2 times daily. Active gabapentin (NEURONTIN) 400 mg capsule Take 400 mg by mouth as needed. Active traMADol (ULTRAM) 50 mg tablet Take 50 mg by mouth every 6 hours. Active DULoxetine (CYMBALTA) 60 mg capsule Take 60 mg by mouth daily. Active omeprazole (PRILOSEC) 20 mg capsule Take 40 mg by mouth daily as needed. Active dextroamphetami ne-amphetamine (ADDERALL) 20 mg tablet Take 20 mg by mouth 2 times daily. Active Multivitamins with Minerals tablet tablet Take 1 Tab by mouth daily. Active CALCIUM CARBONATE/VITAM IN D3 (VITAMIN D-3 ORAL) Take by mouth. Activ e ferrous gluconate (FERGON) 324 mg (38 mg iron) tablet Take 324 mg by mouth 2 times daily with breakfast and dinner. Active senna (SENOKOT) 8.6 mg tablet Take 1 Tab by mouth daily. Active aspirin-acetami nophen-caffeine (EXCEDRIN MIGRAINE) 250-250-65 mg per tablet Take 1 Tab by mouth every 6 hours as needed for Headaches. Extra strength Active acetaminophen (TYLENOL) 500 mg tablet Take 2 Tabs by mouth every 6 hours as needed for Pain. 1 Active docusate sodium (COLACE) 100 mg capsule Take 1 Cap by mouth 2 times daily as needed for Constipation. 1 Active polyethylene glycol 3350 (MIRALAX) 17 gram packet Take 17 g by mouth daily as needed (constipation) . 1 Active HYDROmorphone (DILAUDID) 2 mg tablet Take 1 Tab by mouth every 4 hours as needed for Pain. Daily Max: 12 mg 10 Tab 1 Active Magnesium Oxide 250 mg magnesium tablet Take 1 Tab by mouth 2 times daily. 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 Overview (04/28/2020): Added automatically from request for surgery [id number] Postprocedural non-healing wound 11/16/2015 Surgical History Surgery Date Site/Laterality Comments GASTRIC BYPASS SURGERY 1982 VARICOSE VEIN SURGERY THYROIDECTOMY INCISIONAL HERNIA REPAIR ABDOMINOPLASTY Medical History Medical History Date Comments Arthritis Thyroid disease Psychiatric problem ADD Hypertension HLD (hyperlipidemia) History of general anesthesia no issues Exercise involving walking Activity, other involving cardiorespiratory exercise very active with care of ho me and pet Heart murmur pt reports as pa rt of history Hypothyroidism 04/28/20 thyroidec denae in 2004 [facility] (gastroesophageal reflux disease) 04/28/20 on meds works well Depression 04/28/20 diagnosed clinical depression ADD (attention deficit disorder) on medication with control Family History Medical History Relation Comments Alcohol Abuse Father Cirrhosis Father Alcohol Abuse Mother Heart Disease Mother Relation Status Comments Father Mother Social History Tobacco Use Types Packs/Day Years Used Date Smoking Tobacco: Former Cigarettes 1 15 0 04/20/1989 - 04/20/2004 Smokeless Tobacco: Never Alcohol Use Standard Drinks/Week Comments Never 0 (1 standard drink = 0.6 oz pur e alcohol) AUDIT-C Answer Date Recorded Q1: How often do you have a drink containing alc ohol? Never 04/28/2020 Average Number of Drinks Not on file 021 Frequency of Binge Drinking Not on file 12/2020 PHQ-2 Answer Date Recorded PHQ-2 SUBTOTAL 0 04/28/2020 Interpersonal Safety Answer Date Record ed Physically Hurt Never 04/28/2020 Verbally Threaten Not on file 04/28/2020 Comments No Sex and Gender Information Value Date Recorded Sex Assigned at Not on file Legal Sex Female 18:26 EST Gender Identity Female 04/28/2020 5:17 EST Sexual Orientation Not on file Obstetrics History Last Filed Vital Signs Vital Sign Reading Time Taken Comments Blood Pressure 120/77 05/02/2020 1400 EST Pulse 76 05/02/2020 1400 EST Temperature 36 ??C (96.8 ??F) 05/02/2020 1400 EST Respiratory Rate 16 05/02/2020 1400 EST Oxygen Saturation 99% 05/02/2020 1400 EST Inhaled Oxygen Concentration - - Weight 63.5 kg (140 lb) 04/28/2020 1723 EST Height 162.6 cm (5' 4.02) 04/28/2020 1723 EST Body Mass Index 24.02 04/28/2020 1723 EST Plan of Treatment Health Maintenance Due Date Last Done Comments Hepatitis C Screen 1950 Fall Risk Screening 11/17/2016 COVID-19 Vaccine (2023-25 season) 2023 RSV Immunization ( o r 60+ Years) (1 - 1-dose 75+ series) 11/17/2026 Insurance [facility] Advance Directives For more information, please contact: [phone] * Full Code (Latest Code Status on File) Date Activated Date Inactivated Comments 04/28/2020 14:30 05/02/2020 17:19 Question Answer Comments Reason for decision includes: Full code consistent with overall plan of care Who participated in the discussion? Not Discusse d Care Teams Rug Designer Relationship Specialty Start Date End Date Stuart Leyva MD [address] [place] [address] PCP - General 11/15/15
--- OUTSIDE RECORDS SUMMARY | 2024-03-02 20:27 | XMS_ITS | Encounter Summary ---
Author Organization [facility] Address [address] [place] [address] Care Team Providers Care Supervisor Tunnel Heading Name Role Phone Stuart Leyva MD Primary Care Provider [phone] Reason for Visit * Auth/Cert Specialty Diagnoses / Procedures Referred By Contac t Referred To Contact Diagnoses Cecal volvulus (HCC-CMS) Cecal Voluvus Referral ID Status Reason Start Date Expiration Date Visits Re quested Visits Authorized [id number] 1 1 Encounter Details Date Type Department Care Team (Late st Contact Info) Description 04/28/2020 10:37 EST Anesthesia Event [facility] OR [address], [place] [id number] Ata Ho MD [address] [facility], Level [address] [place] [address] Anesthesia Record Procedure Summary Procedure Name Responsible Anesthesiologist Anesthesia Start Time Anesthesia Stop Time LAPAROTOMY, EXPLORATORY, with ILEOCECECTOMY Ata oH MD 04/28/20 1037 04/28/20 1440 Events Date Time Event Comment 04/28/2020 1037 An Start The patient was re-evaluated immediately before moderate or deep sedation use, before anesthesia induction, or before the anesthesia procedure. 1037 An Start Data 1056 An Induction The patient was reevaluated immediately before moderate or deep sedation use and before anesthesia induction. 1057 An Intubation 1120 Anesthesia Ready 1406 An Extubation SV, NMB revers ed as indicated, responsive to voice, suctioned, extubated awake 1417 an stop data 1440 Handoff to RN I completed my handoff to the receiving nurse during which we: 1. Identified the patient 2. Identified the responsible provider 3. Reviewed the pertinent medical history 4. Discussed the surgical course 5. Reviewed intra-op anesthesia management and issues during anesthesia 6. Set expectations for post-procedure period 7. Allowed opportunity for questions and acknowledgement of understanding. 1440 An Stop Meds Name Total fentanyl citrate (PF) injection 100 mcg glycopyrrolate pre-filled syringe 0.2 mg HYDROmorphone vial 2 mg/mL 1 mg lidocaine 2% (PF) injection glass vial 6 0 mg midazolam 1 mg/mL 2 mL vial 2 mg ondansetron (PF) (ZOFRAN) injection 4 mg phenylephrine pre-filled syringe 600 mcg propOFol (DIPRIVAN) injection 150 mg rocuronium 10 mg/mL vial 100 mg succinylcholine 20 mg/mL vial 80 mg sugammadex 100 mg/mL 2 mL vial 200 mg heparin vial 1,000 units/mL 5,000 Units phenylephrine pre-made bag 20 mg/250 mL 7,660 mcg indocyanine green 25 mg injection 3 mg lactated ringers (LR) infusion 1,300 mL * Agents Name Insp Sevoflurane Exp Sevoflurane O2 N2O Air * Blood No blood administrations on file. Lines, Drains, and Airways Type Details Placement Removal Wound 04/28/20; 0900; Othe r (infiltration of contrast); Anterior, Left; Arm (antecubital space); [place] [facility] [place] that it was treated with SQ antidote for contrast (medication), but unable to verify. [facility] [place] border of swelling; Y; Not applicable 04/28/20 0900 by Edwina Hamlin, director compensation 04/28/20; 1145; Inci celso; Midline; Abdomen; N; Full thickness 04/28/20 1145 by Clifton Sorto, LAKHWINDER Peripheral IV 04/27/20; 2359 (unkn own, arrived with IV); 20; B Russell Introcan; Posterior, Right; Hand; Documenting on behalf of someone else (enter name) (arrived with PIV); None; Other (Comment) (unknown, arrived with PIV); 05/02/20; 1000; Discharged; No complications, Dressing applied 04/27/20 2359 by Nessa Dobbins RN 05/02/20 1000 by Min Cantrell RN NG/OG Tube 04/28/20; 1038; In O R by ; Nasogastric; Right nostril; 04/29/20; 0343 04/28/20 1038 by Dalton Xiao, BLOCK MASON 04/29/20 0343 by Maricruz Mitchell RN Peripheral IV 04/28/20; 1100; 20; B Russell Introcan; Right; Wrist; In OR by MD; 04/30/20; 1713; Other (Comment); No complications 04/28/20 1100 by Dalton Xiao, BLOCK MASON 04/30/20 1713 by Laurence Alba FNP Urethral Catheter 04/28/20; 1114; Inse rted by RN; Intraoperative monitoring; Straight-tip, Non-latex; 10 ml; Yes; 04/30/20; 1134 04/28/20 1114 by Clifton Sorto RN 04/30/20 1134 by Laurence Alba FNP documented in this encounter Social History Tobacco [...] 5:17 EST Sexual Orientation Not on file COVID-19 Exposure Response Date Recorded In the last month, have you been in contact with someone who was confirmed or suspected to have Coronavirus / COVID-19? Unable to assess 04/28/2020 4:06 EST documented as of this encounter Functional Status * Are you deaf or do you have serious difficulty hearing? Answer Date of Assessment Author No 04/28/2020 17:23 Olive Bell RN * Are you blind or do you have serious difficulty seeing, even when wearing glasses? Answer Date of Assessment Author No 04/28/2020 17:23 Olive Bell RN * Do you have serious difficulty walking or climbing stairs? (5 years old or older) Answer Date of Assessment Author No 04/28/2020 17:23 Olive Bell RN * Do you have difficulty dressing or bathing? (5 years old or older) Answer Date of Assessment Author No 04/28/2020 17:23 Olive Bell RN * Because of a physical, mental, or emotional condition, do you have difficulty doing errands alone such as visiting a doctor's office or shopping? (15 years old or older) Answer Date of Assessment Author No 04/28/2020 17:23 Olive Bell RN documented as of this encounter Mental Status * Because of a physical, mental, or emotional condition, do you have serious difficulty concentrating, remembering, or making decisions? (5 years old or older) Answer Entry Date Author No 04/28/2020 17:23 Olive Bell RN documented in this encounter OR Notes * Anesthesia Postprocedure Evaluation - Dalton Xiao CRNA - 04/28/2020 1440 EST Patient: Brenna Mc Vital signs were reviewed with the recovery nurse. Complete vitals history is available in the Epicflowsheets. Vitals Value Taken Time BP 127/74 04/28/20 1430 Temp 36.6 ??C (97.9 ??F) 04/28/20 1430 Resp 9 04/28/20 1440 Pulse From Oximetry 87 BPM 04/28/20 1440 SpO2 100 % 04/28/20 1440 Vitals shown include unvalidated device data. Last Pain Score - Numeric Pain Level (Scale 1-10): 10 Type of Anesthesia - general Anesthesia Post Evaluation Post-procedure vitals reviewed and are stable. Level of consciousness: awake and alert and oriented Temperature status: normothermia and patient returned to pre-procedure baseline Respiratory status: airway patent and stable Cardiovascular status: stable Hydration status: adequate Nausea/Vomiting: none Pain management: adequate Post-Op Assessment: patient tolerated procedure well with no complications Patient participation: able to participate Disposition: outpatient/home Anesthesia Complications: No apparent anesthesia complications * Anesthesia Procedure Notes - Dalton Xiao CRNA - 04/28/2020 1129 EST Associated Order(s): Airway Airway Date/Time: 04/28/2020 10:57 Urgency: elective General Information and Staff Patient location during procedure: OR Resident/BLOCK MASON: Dalton Xiao CRNA Performed: resident/BLOCK MASON/AA Indications and Patient Condition Indications for airway management: anesthesia Sedation level: GA Preoxygenated: yes Patient position: sniffing Ventilation assessment: 1 - Easy Final Airway Details Final airway type: endotracheal airway Successful airway: ETT Cuffed: yes Successful intubation technique: direct laryngoscopy Facilitating devices/methods: intubating stylet Endotracheal tube insertion site: oral Blade: Rosales Blade size: #2 ETT size (mm): 7.0 Cormack-Lehane Classification: grade I - full view of glottis Placement verified by: chest auscultation and capnometry Measured from: lips ETT to lips (cm): 20 Number of attempts at approach: 1 * Anesthesia Preprocedure Evaluation - Dalton Xiao CRNA - 04/28/2020 1009 EST Anesthesia Preprocedure Evaluation Patient Medical History, including Anesthesia History reviewed. Chart and Nursing Notes reviewed, including NPO status and Medication History. Additional ROS/History Findings: Allergies Allergen Reactions ??? Codeine Belly pain Review of Systems Past Medical History: Diagnosis Date ??? Activity, other involving cardiorespiratory exercise very active with care of home and pet ??? ADD (attention deficit disorder) on medication with control ??? Arthritis ??? Depression 04/28/20 diagnosed clinical depression ??? Exercise involving walking ??? GERD (gastroesophageal reflux disease) 04/28/20 on meds works well ??? Heart murmur pt reports as part of history ??? History of general anesthesia no issues ??? HLD (hyperlipidemia) ??? Hypertension ??? Hypothy[place] 04/28/20 [place] [facility] [place]?? Psychiatric problem ADD ??? Thyroid disease Relevant Problems No relevant active problems Physical Exam Airway Mallampati: II TM distance: >3 FB Neck ROM: full Cardiovascular Rhythm: regular Rate: normal Dental Comments: Edentulous Pulmonary - normal exam Abdominal Anesthesia Plan ASA 3 Anesthesia Type - general, to include intravenous induction. Anesthesia plan and risks discussed. Informed consent obtained from patient. Use of blood products discussed with patient who consented to blood products. Specific risks discussed were bleeding, nausea, vomiting, post-op intubation, stroke and myocardialinfarction. Code status discussed? No The preoperative history and physical which was performed within 30 days of this procedure, has been reviewed and the clinically appropriate elements of the physical examination have been repeated. There are no changes to the documented history and physical or, if so, such changes are documented inthis note PAT Note (Notes from 03/29/20 through 04/28/20) No notes of this type exist for this encounter. Cosigned by Ata Ho MD at 04/28/2020 16:28 EST documented in this encounter Plan of Treatment Not on file documented as of this encounter Procedures Procedure Name Priority Date/Time Associated Diagnosis Comments ANESTHESIA INTUBATION Routine 04/28/2020 11:29 EST documented in this encounter Results * Airway (04/28/2020 11:29 EST) Narrative Dalton Xiao CRNA - 04/28/2020 11:29 EST Dalton Xiao CRNA ? 04/28/2020 11:30 Airway Date/Time: 04/28/2020 10:57 Urgency: elective General Information and Staff Patient location during procedure: OR Resident/BLOCK MASON: Dalton Xiao CRNA Performed: resident/BLOCK MASON/AA Indications and Patient Condition Indications for airway management: anesthesia Sedation level: GA Preoxygenated: yes Patient position: sniffing Ventilation assessment: 1 - Easy Final Airway Details Final airway type: endotracheal airway Successful airway: ETT Cuffed: yes Successful intubation technique: direct laryngoscopy Facilitating devices/methods: intubating stylet Endotracheal tube insertion site: oral Blade: Rosales Blade size: #2 ETT size (mm): 7.0 Cormack-Lehane Classification: grade I - full view of glottis Placement verified by: chest auscultation and capnometry Measured from: lips ETT to lips (cm): 20 Number of attempts at approach: 1 Ata Ho MD ANESTHESIA ORDERABLES Fi nal Result documented in this encounter Visit Diagnoses Not on filedocumented in this encounter Administered Medications Inactive Administered Medications - up to 3 most recent administrations Medication Order MAR Action Action Date Dose Rate Site fentaNYL citrate (PF) injection PRN, Starting on 04/28/20 at 1056, Until 04/28/20 at 1440, Routine, Anesthesia Intraprocedure Given 04/28/2020 10:56 EST 100 mcg glycopyrrolate (PF) (ROBINUL) 0.4 mg/2 mL (0.2 mg/mL) injection PRN, Starting on 04/28/20 at 1227, Until 04/28/20 at 1440, Routine, Anesthesia Intraprocedure Given 04/28/2020 12:27 EST 0.2 mg heparin 1,000 unit/mL injection PRN, Starting on 04/28/20 at 1120, Until 04/28/20 at 1440, Routine, Anesthesia Intraprocedure Given 04/28/2020 11:20 EST 5,000 Units HYDROmorphone (DILAUDUD) 2 mg/mL injection PRN, Starting on 04/28/20 at 1222, Until 04/28/20 at 1440, Routine, Anesthesia Intraprocedure Given 04/28/2020 13:51 EST 0.5 mg Given 04/28/2020 12:22 EST 0.5 mg indocyanine green (IC-GREEN) injection PRN, Starting on 04/28/20 at 1228, Until 04/28/20 at 1440, Routine, Anesthesia Intraprocedure Given 04/28/2020 12:28 EST 3 mg lactated ringers (LR) infusion FA IP EQF CONTINUOUS PRN FOR ONE STEP MEDS, Starting on 04/28/20 at 1037, Until 04/28/20 at 1440, Routine, Anesthesia Intraprocedure New Bag 04/28/2020 12:52 EST New Bag 04/28/2020 10:37 EST lidocaine (PF) 20 mg/mL (2 %) injection PRN, Starting on 04/28/20 at 1056, Until 04/28/20 at 1440, Routine, Anesthesia Intraprocedure Given 04/28/2020 10:56 EST 60 mg midazolam (PF) (VERSED) injection PRN, Starting on 04/28/20 at 1053, Until 04/28/20 at 1440, Routine, Anesthesia Intraprocedure Given 04/28/2020 10:53 EST 2 mg ondansetron (PF) (ZOFRAN) injection PRN, Starting on 04/28/20 at 1336, Until 04/28/20 at 1440, Routine, Anesthesia Intraprocedure Given 04/28/2020 13:36 EST 4 mg phenylephrine HCl in 0.9% NaCl (NEO_SYNEPHRINE) 20 mg/250 mL (80 mcg/mL) infusion solution FA IP EQF CONTINUOUS PRN FOR ONE STEP MEDS, Starting on 04/28/20 at 1127, Until 04/28/20 at 1440, Routine, Anesthesia Intraprocedure Rate Change 04/28/2020 13:49 EST 30 mcg/min 22.5 mL/hr Rate Change 04/28/2020 13:37 EST 40 mcg/min 30 mL/hr Rate Change 04/28/2020 13:18 EST 50 mcg/min 37.5 mL/hr phenylephrine HCl in 0.9% NaCl injection PRN, Starting on 04/28/20 at 1111, Until 04/28/20 at 1440, Routine, Anesthesia Intraprocedure Given 04/28/2020 11:24 EST 200 mcg Given 04/28/2020 11:11 EST 200 mcg Given 04/28/2020 11:05 EST 200 mcg propOFol (DIPRIVAN) injection PRN, Starting on 04/28/20 at 1056, Until 04/28/20 at 1440, Routine, Anesthesia Intraprocedure Given 04/28/2020 14:00 EST 20 mg Given 04/28/2020 10:56 EST 130 mg rocuronium (ZEMURON) injection PRN, Starting on 04/28/20 at 1115, Until 04/28/20 at 1440, Routine, Anesthesia Intraprocedure Given 04/28/2020 13:05 EST 20 mg Given 04/28/2020 12:31 EST 20 mg Given 04/28/2020 12:08 EST 10 mg succinylcholine (ANECTINE) injection PRN, Starting on 04/28/20 at 1056, Until 04/28/20 at 1440, Routine, Anesthesia Intraprocedure Given 04/28/2020 10:56 EST 80 mg sugammadex (BRIDION) injection PRN, Starting on 04/28/20 at 1403, Until 04/28/20 at 1440, Routine, Anesthesia Intraprocedure Given 04/28/2020 14:03 EST 200 mg documented in this encounter Care Teams Supervisor Tunnel Heading Relationship Specialty Start Date End Date Stuart Leyva MD [address] [place] [address] PCP - General 11/15/15 documented as of this encounter
--- OUTSIDE RECORDS SUMMARY | 2024-03-02 20:27 | XMS_ITS | Referral Summary ---
Author Organization [facility] Address [address] [place] [address] Care Team Providers Care R And D Lab Technician Name Role Phone Stuart Leyva MD Primary Care Provider [phone] Allergies Active Allergy Reactions Criticality Noted Date [...] Problem Noted Date Diagnosed Date Cecal volvulus ([facility]) 04/28/2020 Overview (04/28/2020): Added automatically from request for surgery [id number] Postprocedural non-healing wound 11/16/2015 Social History Tobacco Use Types Packs/Day Years [...] 5:17 EST Sexual Orientation Not on file Last Filed [...] Body Mass Index 24.02 04/28/2020 1723 EST Functional Status * Are you deaf or do you have serious difficulty hearing? Answer Date of Assessment Author No 04/28/2020 17:23 Olive Bell RN * Are you blind or do you have serious difficulty seeing, even when wearing glasses? Answer Date of Assessment Author No 04/28/2020 17:23 Olive Bell, RN * Do you have serious difficulty [...] Author No 04/28/2020 17:23 Olive Bell RN Mental Status * Because of a physical, mental, or emotional condition, do you have serious difficulty concentrating, remembering, or making decisions? (5 years old or older) Answer Entry Date Author No 04/28/2020 17:23 Olive Bell RN Plan of Treatment Not on file Insurance [facility] MEDICARE [facility] MEDICARE Advance Directives For more information, please contact: [phone] * Full Code (Latest Code Status on File) Date Activated Date Inactivated Comments 04/28/2020 14:30 05/02/2020 17:19 Question Answer Comments Reason for decision includes: Full code consistent with overall plan of care Who participated in the discussion? Not Discusse d Care Teams R And D Lab Technician Relationship Specialty Start Date End Date Stuart Leyva MD [address] [place] [address] PCP - General 11/15/15
--- OUTSIDE RECORDS SUMMARY | 2024-03-02 20:27 | XMS_ITS | Encounter Summary ---
Author Organization [facility] Address [address] [place] [address] Care Team Providers Care Differential Repairer Name Role Phone Stuart Leyva MD Primary Care Provider [phone] Reason for Visit * Reason Onset Date Comments Hospital Discharge Follow Up 05/04/2020 Encounter Details Date Type Department Care Team (Late st Contact Info) Description 05/04/2020 Telephone [facility] Acute Care Surgery - [address] [phone] Leena Varela RN Hospital Discharge Follow Up Social History Tobacco Use Types Packs/Day Years [...] Olive Bell RN documented in this encounter Miscellaneous Notes * Telephone Encounter - Leena Varela RN - 05/04/2020 0946 EST ACS/Trauma/Burn Hospital Discharge Call Patient Name: Brenna Mc , : 1950 Admission Date: 04/28/20 Date of Discharge: 05/02/20 Admission Diagnosis: cecal volvulus Surgeon/Attending: Dr. Singh Procedure Date: 04/28/20 Type of Procedure: exp lap, eloa, ileocecectomy, spy c primary anastomosis Trauma: No Wound and/or Incisions: Yes healing well looks great, she is wearing her binder Comments: [facility]?:no Agency:n/a Restrictions: No Driving while on Narcotics No Lifting/Pulling/Pushing greater than 15 lbs for 6 weeks It is ok to shower, wash gently and pat area dry Please no pools, lakes, tubs or hot tubs for 2 weeks Other: Recovery at Home: Fevers since home greater than 101.5?:No Pain: Yes 2 relaxation and pain medication Pain Management: Yes Taking: off the dilaudid, taking tramadol and tylenol prn Medication Reconciliation: Reviewed with Patient Yes Any Discrepancies?No Comments/Concerns: BM's & Voiding Issues:No Normal Comments: Patient states before she was admitted, she felt like something was falling out,she always feels like she has to poop. She states she thinks she had her bladder falling out, she saw a GYNand they said she was fine. She now has another prolapse, looks like her bladder is out again. She is describing that it's her woman parts. She states something is wrong, If she pushes to poop, something comes out of her women parts. It sounds like her vagina is prolapsing. She is not having any issue with her urinating or pooping. She asked that I let her PCP know. Bowel Meds: No Comments: Issues with ADL's: No Assistive Device: No Eating & Drinking ok?: Yes Comments: Sleeping ok?:Yes great Any Other Questions or Concerns: she spoke with her PCP yesterday, they refilled her tramadol for her, they manage this normally for her. Her PCP will remove her suhda, they are waiting for our office to call them Hospital Discharge Follow Up Appointment: 05/25/20 @ 350 pm Visitor Policy Reviewed:Yes Directions to Clinic given:Yes Covid-19 Screening:Yes Phone call to patients PCP, called to have PCP remove sudha next week (thu's or of next week) and follow up on possible vaginal prolapse, patient is very upset/fearful about this. PCP's office will schedule staple removal and discuss prolapse with patient documented in this encounter Plan of Treatment Not on file documented as of this encounter Visit Diagnoses Not on filedocumented in this encounter Discontinued Medications Medication Sig Discontinue Reason Start Date End Da te levothyroxine (SYNTHROID) 50 mcg tablet Take 50 mcg by mouth daily. Pt unsure of dose, pt had thyroidectomy 05/04/2020 CALCIUM CARBONATE/VITAMIN D3 (CALCIUM + D ORAL) Take by mouth. 05/04/2020 documented as of this encounter Historical Medications * This list may reflect changes made after this encounter. levothyroxine (SYNTHROID) 88 mcg tablet 1 tab(s) orally once a day Magnesium Oxide 250 mg magnesium tablet Take 1 Tab by mouth 2 times daily. 04/16/2020 added in this encounter Care Teams Differential Repairer Relationship Specialty Start Date End Date Stuart Leyva MD [address] [place] [address] PCP - General 11/15/15 documented as of this encounter
--- OUTSIDE RECORDS SUMMARY | 2024-03-02 20:27 | XMS_ITS | Encounter Summary ---
Author Organization [facility] Address [address] [place] [address] Care Team Providers Care Cook Helper Preserves Name Role Phone Stuart Leyva MD Primary Care Provider [phone] Reason for Referral * Follow Up (Routine) - Closed Specialty Diagnoses / Procedures Referred By Iraj crowe Referred To Contact Trauma Surgery Diagnoses Cecal volvulus (HCC-CMS) Solange Gabriel MD [address] [place] [phone] Phone: tel: fax: [facility] Acute Care Surgery - [address] [address] Phone: tel: fax: Referral ID Status Reason Start Date Expiration Date V isits Requested Visits Authorized [id number] Closed Specialty Services Required 05/02/2020 1 1 Question Answer Reason for Request: s/p ex-lap, ileocecectomy (04/28/20) for follow up. Hunt out POD10. Follow up in 3-4 weeks * (Routine) - Receiving Office to Obtain Authorization Specialty Diagnoses / Procedures Referred By Iraj crowe Referred To Contact Solange Gabriel MD [address] [place] [phone] Phone: tel: fax: Referral ID Status Reason Start Date Expiration Date Visits Requested Visits Authorized [id number] Receiving Office to Obtain Authorization Specialty Services Required 1 1 1 Comments Pleas follow up in clinic 10 days after your surgery for staple removal. You will then need to follow up in clinic in 3-4 weeks. Our clinic will call you to arrange follow up. Clinic Reason for Visit * Reason Comments Abdominal Pain pt transfer from [facility], found to have fecal volvulus, here for surgery consult * Auth/Cert Specialty Diagnoses / Procedures Referred By Iraj t Referred To Contact Diagnoses Cecal volvulus (HCC-CMS) Cecal Voluvus Referral ID Status Reason Start Date Expiration Date Visits Re quested Visits Authorized [id number] 1 1 Encounter Details Date Type Department Care Team (Late st Contact Info) Description 04/28/2020 5:09 EST - 05/02/2020 15:14 EST Hospital Encounter [facility] General Surgery Unit [address] [place] [id number] Giovani Ragsdale MD [address] [place] [address], [address] [place] [phone] Chas Singh MD PhD [address] [place] [phone] Cecal volvulus ([facility]) (Primary Dx) Discharge Disposition: Home or Self Care Social History Tobacco Use Types Packs/Day Years [...] 4:06 EST documented as of this encounter Last Filed [...] Body Mass Index 24.02 04/28/2020 1723 EST documented in this encounter Functional Status * Are you [...] No 04/28/2020 17:23 Olive Bell, RN * Because of a physical, mental, [...] Answer Entry Date Author No 04/28/2020 17:23 EST Olive Bishop RN documented in this encounter Discharge Summaries * Solange Gabriel MD - 04/28/20201958 EST Surgery Discharge Summary Primary Care Provider: Stuart Leyva Attending Physician: Chas Singh MD PHD Admit Date: 04/28/2020 Discharge Date: 05/02/2020 Disposition: Home or self care Problems and Procedures Admitting Diagnosis: Cecal volvulus Principal/Final Diagnosis: same Additional Problems Managed in the Hospital Active Hospital Problems Diagnosis Date Noted ??? 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[facility]) 04/28/2020 Added automatically from request for surgery [id number] Resolved Hospital Problems No resolved problems to display. Principal Procedure: Exploratory laparotomy, extensive lysis of adhesion, ileocecectomy, spy angiography and primary anastomosis Date: 04/28/20 Secondary Procedures: none Hospital Course Brenna Mc is a 69 y.o. female with past medical history significant for OA, HLD, HTN, and multiple prior abdominal surgeries who presented to the ED with abdominal pain and nausea. Found to have cecal volvulus. She was taken to the OR for exploratory laparotomy, extensive lysis of adhesions, ileocecectomy, spy angiography and primary anastomosis. Postoperatively the patient was transitioned to the PACU after which she was transitioned to the surgical floor. Post-operatively she was managed with a NGT to LCWS, NPO. After minimal output, patient removed her NGT the night of POD0 due to significant discomfort. She recovered well post-operatively. Her diet was advanced slowly, initially clears, then full liquid, then regular diet. She tolerated diet without nausea vomiting or worsening pain. Her pain was well controlled initially with IV pain medications, then PO pain meds. POD1 she began passing flatus, and POD2 she started having regular bowel movements. She voiding well post-op. Her incision has a small area of superficial dehiscence in the inferior portion. initially with some serosanguinous output, that gradually decrease during her admission. Otherwise her incision was clean and intact with sudha in place. At the time of discharge, the patient was afebrile, pain well controlled with PO pain medication, tolerating regular diet, ambulating without assistance, and deemed suitable for discharge home. On 05/02/2020, Brenna Mc was discharged to home with the following plan: ??? Follow up: 10 days for staple removal. 3-4 weeks for follow up. ??? Pain: Tylenol, Dilaudid Allergies and Immunizations Allergies Allergen Reactions ??? Codeine Belly pain There is no immunization history on file for this patient. Transition of Care Plans Condition at Discharge Good Assessment at Discharge Vital signs: Patient Vitals for the past 12 hrs: BP Heart Rate Resp Temp SpO2 O2 Flow Rate (L/min) O2 Device 04/28/20 1742 123/77 81 BPM -- 36 ??C (96.8 ??F) 98 % -- None 04/28/20 1625 116/75 85 BPM 18 36.7 ??C (98.1 ??F) -- -- -- 04/28/20 1545 102/60 70 BPM 10 36.2 ??C (97.2 ??F) 96 % -- -- 04/28/20 1530 105/60 73 BPM 11 -- 96 % -- -- 04/28/20 1515 107/62 75 BPM 10 -- 97 % -- -- 04/28/20 1500 115/74 83 BPM 11 -- 100 % 0 l/min None 04/28/20 1445 120/77 92 BPM 10 -- 100 % -- -- 04/28/20 1430 127/74 86 BPM 10 36.6 ??C (97.9 ??F) 100 % 10 l/min -- 04/28/20 1036 -- -- -- 36 ??C (96.8 ??F) -- -- -- 04/28/20 0916 (!) 148/80 -- 16 35.7 ??C (96.3 ??F) 100 % -- None 04/28/20 0830 -- 60 BPM 14 -- 99 % -- -- 04/28/20 0800 111/53 62 BPM 14 -- 100 % -- -- Results Pending at Discharge Test results still pending from this admission None Relevant Studies at Discharge Ct Abdomen Pelvis W Contrast Result Date: 04/28/2020 IMPRESSION: 1. Moderate prominence of the biliary ducts, correlate with patient labs to exclude obstruction with MRCP or ERCP for further evaluation as clinically indicated. 2. Focal twisting of the cecum on its mesentery suspicious for cecal volvulus with dilated small bowel loops distended cecum suggesting obstruction. 3. Minimal ascites. Last Lab Results at Discharge BUN: Lab Results Component Value Date BUN 19 05/01/2020 Creatinine: Lab Results Component Value Date CREATININE 0.84 05/01/2020 CBC: Lab Results Component Value Date WBC 6.43 05/02/2020 RBC 3.65 (L) 05/02/2020 HGB 10.8 (L) 05/02/2020 HCT 33.0 (L) 05/02/2020 MCV 90 05/02/2020 MCH 29.6 05/02/2020 MCHC 32.7 05/02/2020 PLT 231 05/02/2020 DIFFTYPE Auto 05/02/2020 Electrolytes: Lab Results Component Value Date NA 136 05/01/2020 K 3.6 05/01/2020 CL 108 05/01/2020 CO2 20 (L) 05/01/2020 Discharge Follow Up Follow up in 10 days for staple removal. Follow up in 3-4 weeks for follow up, referrals placed. SOLANGE GABRIEL MD 04/28/2020 19:59 Cosigned by Chas Singh MD PhD at 05/08/2020 20:13 EST documented in this encounter Medications at Time of Discharge acetaminophen (TYLENOL) 500 mg tablet Take 2 Tabs by mouth every 6 hours as needed for Pain. 05/02/2020 aspirin-acetamin ophen-caffeine (EXCEDRIN MIGRAINE) 250-250-65 mg per tablet Take 1 Tab by mouth every 6 hours as needed for Headaches. Extra strength CALCIUM CARBONATE/VITAMI N D3 (VITAMIN D-3 ORAL) Take by mouth. dextroamphetamin e-amphetamine (ADDERALL) 20 mg tablet Take 20 mg by mouth 2 times daily. docusate sodium (COLACE) 100 mg capsule Take 1 Cap by mouth 2 times daily as needed for Constipation. 05/02/2020 DULoxetine (CYMBALTA) 60 mg capsule Take 60 mg by mouth daily. ferrous gluconate (FERGON) 324 mg (38 mg iron) tablet Take 324 mg by mouth 2 times daily with breakfast and dinner. Folic Acid-Vit B6-Vit B12 2.5-25-1 mg tablet Take by mouth daily. gabapentin (NEURONTIN) 400 mg capsule Take 400 mg by mouth as needed. HYDROmorphone (DILAUDID) 2 mg tablet Take 1 Tab by mouth every 4 hours as needed for Pain. Daily Max: 12 mg 10 Tab 05/02/2020 Magnesium Oxide 250 mg magnesium tablet Take 1 Tab by mouth 2 times daily. 04/16/2020 Multivitamins with Minerals tablet tablet Take 1 Tab by mouth daily. omeprazole (PRILOSEC) 20 mg capsule Take 40 mg by mouth daily as needed. polyethylene glycol 3350 (MIRALAX) 17 gram packet Take 17 g by mouth daily as needed (constipation). 05/02/2020 senna (SENOKOT) 8.6 mg tablet Take 1 Tab by mouth daily. topiramate (TOPAMAX) 200 mg tablet Take 200 mg by mouth 2 times daily. traMADol (ULTRAM) 50 mg tablet Take 50 mg by mouth every 6 hours. CALCIUM CARBONATE/VITAMI N D3 (CALCIUM + D ORAL) Take by mouth. levothyroxine (SYNTHROID) 50 mcg tablet Take 50 mcg by mouth daily. Pt unsure of dose, pt had thyroidectomy 1 documented as of this encounter Ordered Prescriptions Prescription Sig Dispense Quantity Refills Last Filled Start Date End Date HYDROmorphone (DILAUDID) 2 mg tablet Take 1 Tab by mouth every 4 hours as needed for Pain. Daily Max: 12 mg 10 Tab 05/02/2020 polyethylene glycol 3350 (MIRALAX) 17 gram packet Take 17 g by mouth daily as needed (constipatio n). 05/02/2020 docusate sodium (COLACE) 100 mg capsule Take 1 Cap by mouth 2 times daily as needed for Constipation . 05/02/2020 acetaminophen (TYLENOL) 500 mg tablet Take 2 Tabs by mouth every 6 hours as needed for Pain. 05/02/2020 documented in this encounter Discharge Disposition Disposition Code Departure Means Destination Home or Self Shelter documented in this encounter Progress Notes * Katina Wilson 05/02/2020 1411 EST CM Discharge Note CASE MANAGEMENT DISCHARGE NOTE DISCHARGE DATE/TIME: Tuesday 05/02 at 15:00 DESTINATION: Home with family (If discharging to [facility]) COVID swab ordered and completed: N/A TRANSPORTATION: family ACCEPTING MD AND NUMBER: n/a RN REPORT/UNIT: n/a DIETARY INTERNSHIP/CHARGE/MD NOTIFIED (Y/N): Y FORMS: N/A IM SIGNED (Y/NA): Y HOME HEALTH: None DME: None needed PHARMACY/PRESCRIPTIONS: Per pt's preference Patient and/or family who participated in discharge plan: Pt herself OTHER: Radha Wilson LMSW [employer] Pager: [phone] * Katina Wilson - 05/02/2020 1410 EST SOCIAL WORK PROGRESS NOTE: Pt medically ready to dc home (PT cleared pt yesterday) with no CM needs. Full DC Note to follow. Radha Wilson LMSW [employer] Pager: [phone] * Katerina Roblero MD - 05/02/2020 1018 EST Acute Care Surgery Daily Progress Note Patient: Brenna Mc Admit Date: 04/28/2020 Date of Service: 05/02/2020 DOS: 04/28/2019 Procedure: Exploratory laparotomy, extensive lysis of adhesions, ileocecectomy, spy angiography, and primary anastomosis 24 Hour Events: ?? NAEO Subjective: Slept well overnight. Mild abdominal pain that responds to her pain meds. Ambulated in the hallway 4 times. Says she is peeing a lot. Had a robust appetite yesterday, ate pot roast, salad, a sandwich, and some jello. Passing flatus and reports she has had 2 tiny BMs. All positive ROS noted in subjective. Objective: MAR reviewed Temp: [36.2 ??C (97.2 ??F)-37.1 ??C (98.8 ??F)] Heart Rate: -- Pulse: [67-75] Pulse From Oximetry: [75 BPM-80 BPM] Resp: [16-18] BP: (114-128)/(63-75) SpO2: [98 %-100 %] Exam: General Appearance: Alert, no acute distress Lung: Breathing comfortably on room air Heart: RRR Abdomen: Soft, non-distended, appropriately-tender. Abdominal binder in place. Midline stapled incision c/d/i no erythema or induration. Minimal serous drainage from inferior end with well-approximated skin edges, no palpable seroma, not able to express drainage Extremities: WWP, no edema Skin: Skin color, temperature, turgor normal. No rashes or lesions Intake/Output Summary (Last 24 hours) at 05/02/2020 1018 Last data filed at 05/01/2020 1841 Gross per 24 hour Intake 590 ml Output -- Net 590 ml I&O By Type - 3 Shifts Including Current In: 470 [P.O.:470] Out: - Assessment: Active Hospital Problems Diagnosis ??? 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HCC-CMS) Added automatically from request for surgery [id number] Brenna Mc is a 69 y.o. female with history of OA, HLD, HTN, and multiple prior abdominal surgeries who presented to the ED with abdominal pain and nasuea, found to have cecal volvulus, now POD# 4 s/p exploratory laparotomy, extensive lysis of adhesions, ileocecectomy, spy angiography, and primary anastomosis. She refused to continue NGT, requested it be removed POD#1. Discussed benefits of NGT in post-operative period with patient and risks of nausea, vomiting, aspiration. However patient refused, so it was removed. Started to have return of bowel function. Was advanced from fulls to a regular diet yesterday, tolerating it well. Plan: ??? Pain: Tylenol, Dilaudid PO ??? Zofran PRN ??? 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 Diet: Regular diet ??? Encourage IS, ambulation, and OOB to chair ??? Bowel regimen ordered ??? Activity as tolerated Home medications held: Ultram, Adderall DVT Prophylaxis: Ambulate, SCD's, Enoxaparin (Lovenox) 40 mg SQ daily Dispo: possibly DC home today if pain well-controlled on PO meds Maria Luisa Wrgiht MD Acute Care Surgery PGY1 #[id number] 05/02/2020 10:18 Attestation: I performed or was present during the nava or critical portions of the visit and participated in the management of the patient on 05/02/2020. I agree with the findings and plan of care documented in the resident's/fellow's note.No new issues O/N. States she's tolerating her diet, have tiny BM's with lots of gas. Less drainage from midline incision. Okay for d/c home later today. Katerina Roblero MD 05/02/2020 15:08 * Katerina Roblero MD - 05/01/2020 1416 EST Acute Care Surgery Daily Progress Note Patient: Brenna Mc Admit Date: 04/28/2020 Date of Service: 05/01/2020 DOS: 04/28/2019 Procedure: Exploratory laparotomy, extensive lysis of adhesions, ileocecectomy, spy angiography, and primary anastomosis 24 Hour Events: ?? NAEO Subjective: Patient had a restful night. Had 2 small BMs last night. No difficulties eating and drinking. She walked 2 laps already this morning. No issues urinating. Denies fever/chills. All positive ROS noted in subjective. Objective: MAR reviewed Temp: [35.9 ??C (96.6 ??F)-37.1 ??C (98.8 ??F)] Heart Rate: -- Pulse: [69-87] Pulse From Oximetry: [55 BPM-74 BPM] Resp: [18] BP: (102-139)/(55-78) SpO2: [95 %-100 %] Exam: General Appearance: Alert, no acute distress Lung: Breathing comfortably on room air Heart: RRR Abdomen: Soft, non-distended, appropriately-tender. Abdominal binder in place. Midline stapled incision c/d/i no erythema or induration. Minimal serous drainage from inferior end with well-approximated skin edges Extremities: WWP, no edema Skin: Skin color, temperature, turgor normal. No rashes or lesions Intake/Output Summary (Last 24 hours) at 05/01/2020 1416 Last data filed at 05/01/2020 1324 Gross per 24 hour Intake 1378 ml Output 550 ml Net 828 ml I&O By Type - 3 Shifts Including Current In: 1378 [P.O.:1378] Out: 550 [Urine:400; Urine/Stool Mix:150] Assessment: Active Hospital Problems Diagnosis ??? 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HCC-CMS) Added automatically from request for surgery [id number] Brenna Mc is a 69 y.o. female with history of OA, HLD, HTN, and multiple prior abdominal surgeries who presented to the ED with abdominal pain and nasuea, found to have cecal volvulus, now POD# 3 s/p exploratory laparotomy, extensive lysis of adhesions, ileocecectomy, spy angiography, and primary anastomosis. She refused to continue NGT, requested it be removed POD#1. Discussed benefits of NGT in post-operative period with patient and risks of nausea, vomiting, aspiration. However patient refused, so it was removed. Started to have return of bowel function. Tolerated clear liquids overnight, will be advanced to fulls. Plan: ??? Pain: Tylenol, Dilaudid IV ??? Zofran PRN ??? 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 Diet: Full liquids ??? Encourage IS, ambulation, and OOB to chair ??? Activity as tolerated Home medications held: Ultram, Adderall DVT Prophylaxis: Ambulate, SCD's, Enoxaparin (Lovenox) 40 mg SQ daily Maria Luisa Wright MD Acute Care Surgery PGY1 #[id number] 05/01/2020 14:16 Attestation: I performed or was present during the nava or critical portions of the visit and participated in the management of the patient on 05/01/2020. I agree with the findings and plan of care documented in the resident's/fellow's note.Up in chair, tolerating full liquids. States she had a BM and is passing gas. Some serosang drainage from midline incision. Will advance to regular diet today. Anticipate d/c home on Thursday if remains stable. Katerina Roblero MD 05/01/2020 16:28 * Guillermo Hidalgo, PT - 05/01/2020 0831 EST [facility] Rehabilitation Therapy Acute Therapies [facility] Physical Therapy Initial Evaluation/discontinue note Date of Service: 05/01/2020 Reason for Referral: Evaluate and treat Precautions: Activity as tolerated SUBJECTIVE: I am never wanders around. I always get up and move around, to minimize my arthritic pain and to keep mentally and physically active. Pain: Location: Abdomen Intensity: 5/10 (at present), 5/10 (at best), 7/10 (at worst) Frequency: Constant Quality: Sore Aggravating factors: Movement and coughing Alleviating factors: Rest and medication Patient also reports chronic low back pain and global arthritic pain OBJECTIVE: PatientProfile: Patient is a 69 y.o. female admitted on 04/28/2020 secondary to Cecal volvulus (HCC-CMS) [K56.2] The patient lives at [address] [place] [address] Home environment Lives:alone Caregiver Support: No assistance available Equipment Available: None Home Environment: mobile home Home Layout: One story. Entry stairs: 4 with rails Prior Level of Function: Independent and active Services prior to admission: None Work/Leisure: Retired Medical/Surgical History: Current: Patient Active Problem List Diagnosis ??? Postprocedural non-healing wound ??? Cecal volvulus (HCC-CMS) Past: Past Medical History: Diagnosis Date ??? Activity, [...] Hypertension ??? Hypothyroidism 04/28/20 thyroidectomy in 2004 [facility] ??? Psychiatric problem ADD ??? Thyroid disease Past Surgical History: Procedure Laterality Date ??? ABDOMINOPLASTY ??? GASTRIC BYPASS SURGERY 1982 ??? INCISIONAL HERNIA REPAIR ??? THYROIDECTOMY ??? VARICOSE VEIN SURGERY Per 04/28 H+P: Patient is a 69 y.o. female with a past medical history significant for OA, HLD, HTN, multiple prior abdominal surgeries who now presents with acute onset abdominal pain since midnight. She notes shewas watching TV and had pain that made her double over. [place] [facility] [place] was done that was concerning for cecal volvulus with obstruction, no perforation. She endorses that she often suffers from constipation has had no recent diarrhea no blood in the toilet no melena. She did have nausea when her pain was at its worst however that has since resolved. No flatus or BMs since the acute onset of pain. She relates that she has had multiple abdominal surgeries including cholecystectomy appendectomy abdominoplasty with ventral hernia repair and per the chart a gastric bypass surgery. Denies blood thinner use. Uses Excedrin and tramadol for her OA often. When asked if she would want surgery she expresses fear and nervousness over this but does state she would want surgery if it was absolutely required. She lives alone in a mobile home in [place], has a landlord who occasionally checks in on her. Date: 04/28/2020 Location: [facility] OR ?? Name: Brenna Mc, : 1950, ?? Diagnosis Pre-op Diagnosis * Cecal volvulus (HCC-CMS) [K56.2] Post-op Diagnosis * Cecal volvulus (HCC-CMS) [K56.2] ?? Procedures Exploratory laparotomy, extensive MONICA (>45min) Ileocecectomy, spy angiography and primary anastomosis. ? Surgeons * Chas Singh MD PHD - Primary * Rashid Bah MD - Resident - Assisting ?? Procedure Summary Anesthesia: General ASA: ASA status not filed in the log. Estimated Blood Loss: 75 mL Total IV Fluids: 1200 mL UOP: 100cc NGT: 100cc LDAs: NGT ?? Staff: Museum Host/Hostess: Clifton Sorto Relief Scrub: Dee Amaya LPN Scrub Person: Colton Sandoval RN Patient Garment Alteration Examiner: Brandy Redd ? Findings: Tedious and dense adhesions in the upper abdomen from prior surgeries able to safely access belly. Massively dilated cecum with 270 rotation, de torsed and ileocecectomy performed after confirming demaraction of proximal and distal resection with spy. ?? Complications: None; patient tolerated the procedure well. Disposition: PACU - hemodynamically stable. Condition: stable Medications: Medications reviewed Arousal, Attention, and Cognition: Orientation: Alert Oriented to person, place, and time Cardiopulmonary: Vital Signs: Activity Heart rate (bpm) Blood Pressure (mmHg) Respiratory rate (breaths/min) Oxygen Sat/ Fractions of inspired Oxygen SPO2/FIO2 % Pre 74 139/74 93% on room air During Post 83 156/78 99% on room air Integumentary/Anthropometric Characteristics: Palpation/Observation: Skin: ABD pad noted under abdominal binder Posture: Forward head and Protracted shoulders Range of Motion and Joint Integrity: Active Range of Motion: Within normal limits Upper Quarter: Left Upper Extremity: Right Upper Extremity: Cervical Spine: not formally evaluated but grossly within normal limits as noted during mobility Lower Quarter: Left Lower Extremity: RightLower Extremity: Lumbar Spine: not formally evaluated but grossly within normal limits as noted during mobility Muscle Performance: Strength: Formal resistive muscle testing was not performed due to recent abdominal surgery, but strength noted to be greater than 3 out of 5 in all extremities Upper Quarter: Left Upper Extremity: Right Upper Extremity: Cervical Spine: not formally evaluated but grossly within normal limits as noted during mobility Lower Quarter: Left Lower Extremity: Right Lower Extremity: LumbarSpine: not formally evaluated but grossly within normal limits as noted during mobility Sensation, Reflexes, and Nerve Integrity: Light Touch Sensation: Upper Quarter:Intact C2-T1 Lower Quarter: Intact for lower extremities Neuromotor Function/Development: No problems noted Balance, Mobility, and Gait: Balance: No loss of balance observed throughout physical therapy session Mobility: supine to sit: Independent sit to supine: independent sit to stand: Independent stand to sit: Independent Gait: Assistive device/distance/assist/deviations: Pt ambulated 400 feet without assistive device, independence, and with verbal cues for breathing technique and pacing. Gait Speed^ (meters/second) 0.83 meters/sec. This test assesses walking speed over an established distance. Age/gender normative values (Chu, 2011) Age Gender 95% CI meters/second 20-29 Male 1.21-1.47 20-29 Female 1.08-1.49 30-39 Male 1.31-1.53 30-39 Female 1.25-1.41 40-49 Male 1.27-1.47 40-49 Female 1.22-1.42 50-59 Male 1.12-1.49 50-59 Female 1.10-1.55 60-69 Male 1.03-1.59 60-69 Female 0.97-1.45 70-79 Male 0.95-1.41 70-79 Female 0.83-1.50 80-89 Male 0.61-1.22 80-89 Female 0.56-1.17 Patients (age 65 and older) who are hospitalized with a gait speed < 0.4 meters/second had significantly decreased odds of discharge to home compared to patients with a gait speed > 0.6 meters/second. (Crissyir, 2012) The minimal clinically important difference (MCID) for community-dwelling elderly is 0.05 to 0.13 meters/second. (Perara, 2006) Stairs: assist needed/number of steps: See interventions Self-Care, Home Management, Work, and Leisure: Outcomes: NA Informed Consent: The patient consented to the physical therapy evaluation. The patient agrees to and understands the physical therapy treatment plan and goals. Interventions Completed Today: Physical Therapy today at: 920 Total treatment time: 30 minutes. Timed code treatment minutes: 15 Intervention included: Therapeutic activities: Patient educated in PT findings, safety awareness, plan of care, goals, and D/C recommendations. The patient was instructed in the importance of regaining independence through therapeutic exercises, increased participation in self care, and increased functional mobility. Recommended that patientrequest assist of nursing staff to mobilize OOB throughout all shifts. supine to sit: Independent with verbal cues for transfer technique to minimize strain on abdomen sit to supine: independent with verbal cues for transfer technique to minimize strain on abdomen Demonstration provided for stair management technique and sequencing. Pt ascended and descended 8 steps with railing on the right, independence, and verbal cueing for sequencing and pacing. Patient instructed/performed in energy conservation techniques, self initiating rest periods coupled with pursed lip breathing with all functional activities. Patient also instructed/performed in planning movements and clustering activities to conserve energy. Therapeutic Activity: During all functional activities noted above this patient was provided with education via combination of verbal and demonstration. This was provided to give movement strategies to increase amount of functional activity while decreasing pain, activity effort and work of breathing. Patient instructed/performed deep breathing exercises and encouraged patient to cough in order to bring up secretions. Patient educated in the importance of upright positioning and progression of mobility. Recommended pt ambulate with nursing staff throughout the day. The patient was instructed in incentive spirometry use, but patient declined, stating she prefers to just perform deep breathing techniques. Patient demonstrated the breathing techniques with verbal cues for cough technique and splinting. The patient was educated in discharge planning process and options. Patient states confidence in her ability to return home when medically ready. Education provided for appropriate activity pacing and progression at home. Gait training: see above for cues provided during ambulation Patient/Family Education: Topic: Activity pacing/Energy conservation Balance Bed mobility Breathing exercises Discharge planning Gait Home program Positioning Role of therapy Safety Stairs Transfers Learner: patient Method: verbal and demonstration Barriers to Learning: none noted Outcome: verbalized understanding and returned demonstration Team Communication: Spoke with nursing before and after PT session ASSESSMENT: Upper Quarter Screen: Positive findings do not have an impact on the patient's function and requireno monitoring, treatment, or detailed examination Physical Therapy Diagnosis: This patient admitted with cecal volvulus presents with a physical therapy diagnosis of decreased mobility, increased pain, impaired aerobic capacity, impaired gas exchange, and decreased activity tolerance. Patient benefited from skilled physical therapy to address these impairments which are likely related to acute medical issues and need for hospitalization leading to deconditioning from limited mobility. Physical Therapy Prognosis: Patient was appropriate for skilled PT evaluation and interventions today. Ms. Mc is a very pleasant 69-year-old woman who is agreeable to therapy interventions and motivated to mobilize. Patient describes a very independent and active lifestyle prior to admission. Patient was able to demonstrate independent mobility capabilities, without the need for assistive device, during PT evaluation. Based on patient's demonstrated mobility capabilities, insight into limitations, receptiveness to therapy recommendations, and scoring on objective measure, discharge recommendation is for home when medically ready. Short-Term Goals: ?? Not applicable Long-Term Goals: 1-3 days goals met ?? The patient will be able to transfer supine to sit and sit to supine with independence. ?? The patient will be able to transfer sit to stand and stand to sit with independence. ?? The patient will be able to ambulate with independence, 300 feet with the least restrictive assistive device. ?? The patient will be able to perform stairs with supervision. ?? The patient will be independent with recommended therapeutic exercises assisted via verbal cues as needed for proper technique. ?? The patient/caregiver will be aware of the recommendations provided and demonstrate an appropriate technique/understanding of the recommendations. ?? The patient will demonstrate appropriate activity pacing strategies with supervision. ?? The patient will demonstrate above functional activities with HR<130, RR<36, SBP<180, RPE<5/10, and SpO2>92% with least amount of FiO2. PLAN: Discontinue Physical Therapy Recommended Discharge Destination: Home alone Recommended Discharge Services: No physical therapy follow-up services at this time Recommended Equipment Needs: No equipment necessary Other recommendations: No other consults recommended at this time Pager: [phone] GUILLERMO HIDALGO, PT 05/01/2020 8:31 * Katnia Wilson - 04/30/2020 1531 EST Initial Case Management/Social Work Assessment and Discharge Plan/Readmission Risk Assessment REASON FOR ADMISSION: Cecal volvulus (HCC-CMS) Patient understands reason for admission: Yes PATIENT CONTACT INFO VERIFIED: Yes PATIENT ADDRESS VERIFIED: Yes Type of housing (single family, condo, apartment, intermediate, single room occupancy, [facility] funded hotel room, group retirement) - mobile home Who does the patient live with? alone Does the patient have access to their own bedroom/bathroom/kitchen - or is it shared with others? Lives alone Name of housing complex (ex [place] [facility], [facility], etc)- n/a Housing Authority/Managing Organization - N/A Community Care Providers (renal case manager, [facility] nurse, etc) name and contact information- N/A LIVING ARRANGEMENTS AND ACCESSIBILITY ISSUES: Living Arrangements: Alone Levels: 1 Stairs to enter: 2 Handicap access: Railings into home Bathroom located on bedroom level?: Yes(mobile home) What in home social supports are available to the patient? Children Is 24/7 care available? No ADVANCED DIRECTIVES, POA &/or COLST IN PLACE: Healthcare Directive: Yes, patient has advance directive for healthcare treatment Type of Healthcare Directive: Health care treatment directive Copy in Chart: No, copy requested from family DIRECTIVES FOR FINANCES: Directive For Finances: Yes TRANSPORTATION: Transportation: Family, Self CULTURAL, SIKHISM and/or LANGUAGE factors affecting health care/discharge planning: Spiritual/Cultural Requests: None Any factors affecting health care/discharge planning?: No Insurance in Place: Yes Medical Insurance: Yes Type of insurance: Commercial insurance, Medicare Medicare type: C Commercial coverage: Medicare HMO Well [employer] Nutrition: DISCHARGE RISK ASSESSMENT: Polypharmacy, > 7 medications Total # selected above: Score of 1 - 2: This patient is at LOW RISK for re-hospitalization Tentative plan to address the risk of re-hospitalization for those at HIGH MODERATE RISK: Bring risk factors to attention of team to be addressed RAPT TOOL: Age: [age] Gender: Female Ambulation distance: 2 or more blocks (600ft) Gait device: None Community Services: Home health, [facility], [facility]-none of one time a week Will you live with someone who will care for you?: No RAPT Tool Score: 7 Patient expects to be discharged to: home alone SBIRT: SASQ (Single Alcohol Screening Question) How many times in the past year have you had 4 or more drinks in a single day?: Never How many times in the past year have you used an illegal drug or used a prescription medication fornon-medical reasons?: Never Intervention in place/initiated?: No, not indicated FUNCTIONAL STATUS: Activities patient requires assistance: None Assistive Device: None COMMUNITY RESOURCES/SUPPORTS: Primary Care Provider: Stuart Leyva PCP Verified: Yes Specialists: None Type of Home Health Services: None DME Provider: Pharmacy: Private Outlet #[id number] [facility], [place] - [address] [place] [address] Home Health: Other: POST HOSPITAL TRANSITION PLAN: SW CM met with pt at bedside. Pt is an AOx3 female. Pt lives alone in a mobile home with [place]- she reports being fully independent with all ADL's no cane or walker.Pt is hopeful to dc home once medically cleared. Her son Raymond [place] [facility]. Pt declined the need for a LEAD EMBEDDED SOFTWARE ENGINEER referral- no CM needs noted during this assessment. SW CM will continue to remain available if needs arise. Radha Wilson LMSW Watch Electrician II Pager: [phone] KATINA WILSON 04/30/2020 15:31 * Katerina Roblero MD - 04/30/2020 1131 EST Acute Care Surgery Daily Progress Note Patient: Brenna Mc Admit Date: 04/28/2020 Date of Service: 04/30/2020 DOS: 04/28/2019 Procedure: Exploratory laparotomy, extensive lysis of adhesions, ileocecectomy, spy angiography, and primary anastomosis 24 Hour Events: ?? NAEO Subjective: Patient is feeling well this morning. States she had some tiny flatus but no BM since surgery. She walked for a few min out into the hallway and then back into the room. No nausea. Denies fever/chills. Pain is well controlled. All positive ROS noted in subjective. Objective: MAR reviewed Temp: [35.8 ??C (96.4 ??F)-37 ??C (98.6 ??F)] Heart Rate: -- Pulse: [66-80] Pulse From Oximetry: [68 BPM-80 BPM] Resp: [18-24] BP: (114-138)/(61-80) SpO2: [94 %-100 %] Exam: General Appearance: Alert, no acute distress Lung: Breathing comfortably on room air Heart: RRR Abdomen: Soft, non-distended, appropriately-tender. Abdominal binder in place. Midline stapled incision c/d/i no erythema or induration. Covered with dry gauze, abd pad under abdominal binder no tape Extremities: WWP, no edema Skin: Skin color, temperature, turgor normal. No rashes or lesions Incision(s)/Wound(s): Midline incision with sanguinous strikethrough Intake/Output Summary (Last 24 hours) at 04/30/2020 1131 Last data filed at 04/30/2020 0604 Gross per 24 hour Intake 2638.7 ml Output 1125 ml Net 1513.7 ml I&O By Type - 3 Shifts Including Current In: 1718.7 [P.O.:210; I.V.:1508.7] Out: 750 [Urine:750] Assessment: Active Hospital Problems Diagnosis ??? 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[facility]) Added automatically from request for surgery [id number] Brenna Mc is a 69 y.o. 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 She refused to continue NGT, requested it be removed POD#1. Discussed benefits of NGT in post-operative period with patient and risks of nausea, vomiting, aspiration. However patient refused, so it was removed. Otherwise awaiting return of bowel function. Plan: ??? Pain: Tylenol, Dilaudid IV ??? Zofran PRN ??? CREATIVE WRITING PROFESSOR Meds o [id number], dulocolax, synthroid 50mcg, Duloxetine, Gabapentin, Toopiramate, PPI ??? Diet: NPO, mIVF until ROBF ??? Encourage IS, ambulation, and OOB to chair ??? Activity as tolerated Home medications held: Ultram, Adderall DVT Prophylaxis: Ambulate, SCD's, Enoxaparin (Lovenox) 40 mg SQ daily Maria Luisa Wright MD Acute Care Surgery PGY1 #[id number] 04/30/2020 11:44 Attestation: I performed or was present during the nava or critical portions of the visit and participated in the management of the patient on 04/30/2020. I agree with the findings and plan of care documented in the resident's/fellow's note.Pt up in chair, no complaints. Incision is clean, some serosanguinous drainage from lower portion. + flatus per pt, no BM yet. Will start clears today. Encourage ambulation. Katerina Roblero MD 04/30/2020 21:42 * Solange Gabriel MD - 04/29/2020 0658 EST Acute Care Surgery Daily Progress Note Patient: Brenna Mc Admit Date: 04/28/2020 Date of Service: 04/29/2020 DOS: 04/28/2019 Procedure: Exploratory laparotomy, extensive lysis of adhesions, ileocecectomy, spy angiography, and primary anastomosis 24 Hour Events: ?? OR for above ?? NGT advanced, confirmed placement, minimal ouptut ?? NGT removed after patient want to leave AMA due to NGT discomfort Subjective: Patient had a difficult night. Significant pain in the back her throat associated with her NGT. Patient threatening to leave AMA due to discomfort, and even stated I don't want to live if I have to have this. I wasn't suppose to wake up with this tube, he mislead me. Improved after removed. Shecontinues to have a very dry throat. She has some back pain, typical for her, she says it is flaredbecause of these very uncomfortable beds. Her abdominal pain is well controlled on current Medications. She denies any nausea or vomiting since NGT was removed. She is having some belching. No flatus, no bowel movements. No fevers, chills, chest pain, SOB. All positive ROS noted in subjective Objective: MAR reviewed Temp: [35.7 ??C (96.3 ??F)-38.1 ??C (100.6 ??F)] Heart Rate: [60 BPM-92 BPM] Pulse: [83-84] Pulse From Oximetry: [71 BPM-94 BPM] Resp: [10-20] BP: (102-149)/(53-80) SpO2: [96 %-100 %] Exam: General Appearance: Alert, no acute distress Lung: Breathing comfortably on room air, unlabored room air Heart: RRR Abdomen: Soft, non-distended, appropriately-tender. Abdominal binder in place Extremities: WWP, no edema Skin: Skin color, temperature, turgor normal. No rashes or lesions Incision(s)/Wound(s): Midline incision with sanguinous strikethrough Intake/Output Summary (Last 24 hours) at 04/29/2020 0658 Last data filed at 04/29/2020 0553 Gross per 24 hour Intake 3073.33 ml Output 900 ml Net 2173.33 ml I&O By Type - 3 Shifts Including Current In: 3073.3 [I.V.:2846.3; IV Piggyback:227] Out: 900 [Urine:725; Emesis/NG output:100; Blood:75] Assessment: Active Hospital Problems Diagnosis ??? 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[facility]) Added automatically from request for surgery [id number] Brenna Mc is a 69 y.o. 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 She refused to continue NGT, removed early this morning. Discussed benefits of NGT in post-operative period with patient and risks of nausea, vomiting, aspiration. However patient refused, so it was removed. Otherwise he pain is currently well controlled. No flatus or BM. Currenthas deysi. Plan: ??? Pain: Tylenol, Dilaudid IV ??? Zofran PRN ??? CREATIVE WRITING PROFESSOR Meds o Duloxetine, Gabapentin, Toopiramate ??? Diet: NPO ??? Activity as tolerated Home medications held: Synthroid, Ultram, Adderall, ASA DVT Prophylaxis: Ambulate, SCD's, Enoxaparin (Lovenox) 40 mg SQ daily 04/29/2020 6:58 SOLANGE GABRIEL MD Cosigned by Yordan Badillo MD at 04/29/2020 17:07 EST Associated attestation - Yordan Badillo MD - 04/29/2020 1707 EST Attending attestation statement: I saw and examined the patient and agree with the findings and plans as documented. Self-DC'd NGT last night. Threatening to leave AMA repeatedly overnight and today. Not medically ready for discharge, but did inform patient she can, of course, go whenever she wants. Currently not ambulating, not tolerating a diet, and requiring IV medications for pain, so I encouraged her to stayfor post- operative care. She is calling her brother to discuss and says she will likely go somewhere I can get the care I need. No ROBF yet, continue to monitor. No ice chips given absence of NG or bowel function. Ronnie Badillo MD Acute Care Surgery Pager #[phone] * Solange Gabriel MD - 04/28/2020 0745 EST SURGERY POST-OP CHECK SUBJECTIVE: Pain well controlled. She is very bothered by the NGT, it is hurting her throat. She denies any nausea, vomiting. No other complaints. Denies: chest pain, shortness of breath OBJECTIVE: VS: Blood pressure 123/77, pulse 89, temperature 36 ??C (96.8 ??F), temperature source Tympanic, resp. rate 18, height 162.6 cm (64.02), weight 63.5 kg (140 lb), SpO2 98 %. I/O: Current Shift 04/28 1500 - 04/28 616 In: 437 [I.V.:337] Out: - Medications: Current Facility-Administered Medications Medication Route Frequency ??? acetaminophen (TYLENOL) tablet 650 mg oral Q4H PRN Or ??? acetaminophen (TYLENOL) suppository 650 mg rectal Q4H PRN ??? bisacodyL (DULCOLAX) suppository 10 mg rectal DAILY ??? electrolyte-A (PLASMALYTE-A) solution intravenous CONTINUOUS ??? enoxaparin (LOVENOX) injection 40 mg subcutaneous QHS ??? HYDROmorphone (PF) (DILAUDID) 0.5 mg/0.5 mL syringe 0.2-0.4 mg intravenous Q3H PRN ??? lactated ringers (LR) infusion intravenous CONTINUOUS ??? ondansetron (PF) (ZOFRAN) injection 4 mg intravenous Q6H PRN ??? pantoprazole (PROTONIX) injection 40 mg intravenous DAILY ??? phenol (CHLORASEPTIC) 1.4 % solution/spray topical Q2H PRN ??? piperacillin-tazobactam 4.5 g in sodium chloride (NS MBP) 100 mL IVPB intravenous Q8H Gen: NAD, alert and oriented HEENT: NGT at nares Pulm: clear to auscultation bilaterally CV: regular rate and rhythm Abd: Soft, appropriately tender, non-distended. Ext: Warm and well perfused Incision/Dressing: Midline incision with dressing. Abdominal binder in placed Drains: NGT without ouptut. ASSESSMENT/PLAN: 69 y.o. female POD#0 s/p exploratory laparotomy, extensive lysis of adhesions, ileocecectomy, spy angiograph and primary anastomosis. VSS. Pain well controlled. Recovering well at this time. No acute concerns. NGT advanced, confirmed placement with imaging NGT to LCWS Pain Control: Tylenol, Dilaudid IS DVT: Lovenox Diet: DIET NPO TIME SPECIFIED SOLANGE GABRIEL MD 04/28/2020 18:43 documented in this encounter H&P Notes * Rashid Bah MD - 04/28/2020 0854 EST EGS Admission H+P Chief Complaint: Acute abdominal pain HPI: Patient is a 69 y.o. female with a past medical history significant for OA, HLD, HTN, multiple prior abdominal surgeries who now presents with acute onset abdominal pain since midnight. She notes shewas watching TV and had pain that made her double over. [place] [facility] [place] that was concerning for cecal volvulus with obstruction, no perforation. She endorses that she often suffers from constipation has had no recent diarrhea no blood in the toilet no melena. She did have nausea when her pain was at its worst however that has since resolved. No flatus or BMs since the acute onset of pain. She relates that she has had multiple abdominal surgeries including cholecystectomy appendectomy abdominoplasty with ventral hernia repair and per the chart a gastric bypass surgery. Denies blood thinner use. Uses Excedrin and tramadol for her OA often. When asked if she would want surgery she expresses fear and nervousness over this but does state she would want surgery if it was absolutely required. She lives alone in a mobile home in [place], has a landlord who occasionally checks in on her. Patient denies CP, SOB, Fever, Chills, Sweats, dysuria, urinary frequency, numbness, or tingling Review of Symptoms: A ten point review of systems was completed and was negative except as noted above in the HPI PMH PSH Past Medical History: Diagnosis Date ??? Arthritis ??? HLD (hyperlipidemia) ??? Hypertension ??? Psychiatric problem ADD ??? Thyroid disease Past Surgical History: Procedure Laterality Date ??? ABDOMINOPLASTY ??? GASTRIC BYPASS SURGERY 1982 ??? INCISIONAL HERNIA REPAIR ??? THYROIDECTOMY ??? VARICOSE VEIN SURGERY Social History Family history Social History Tobacco Use ??? Smoking status: Former Smoker Packs/day: 1.00 Years: 15.00 Pack years: 15.00 Types: Cigarettes Quit date: 04/20/2004 Years since quittin.0 ??? Smokeless tobacco: Never Used Substance Use Topics ??? Alcohol use: Not on file Family History Problem Relation Age of Onset ??? Heart Disease Mother ??? Alcohol Abuse Mother ??? Alcohol Abuse Father ??? Cirrhosis Father Medications No current facility-administered medications on file prior to encounter. Current Outpatient Medications on File Prior to Encounter Medication Sig Dispense Refill ??? aspirin 81 mg EC tablet Take 162 mg by mouth daily. ??? CALCIUM CARBONATE/VITAMIN D3 (CALCIUM + D ORAL) Take by mouth. ??? CALCIUM CARBONATE/VITAMIN D3 (VITAMIN D-3 ORAL) Take by mouth. ??? dextroamphetamine-amphetamine (ADDERALL) 20 mg tablet Take 20 mg by mouth 2 times daily. ??? DULoxetine (CYMBALTA) 60 mg capsule Take 60 mg by mouth daily. ??? ferrous gluconate (FERGON) 324 mg (38 mg iron) tablet Take 324 mg by mouth 2 times daily with breakfast and dinner. ??? Folic Acid-Vit B6-Vit B12 2.5-25-1 mg tablet Take by mouth daily. ??? gabapentin (NEURONTIN) 400 mg capsule Take 400 mg by mouth as needed. ??? Multivitamins with Minerals tablet tablet Take 1 Tab by mouth daily. ??? omeprazole (PRILOSEC) 20 mg capsule Take 40 mg by mouth daily as needed. ??? senna (SENOKOT) 8.6 mg tablet Take 1 Tab by mouth daily. ??? topiramate (TOPAMAX) 200 mg tablet Take 200 mg by mouth 2 times daily. ??? traMADol (ULTRAM) 50 mg tablet Take 50 mg by mouth every 6 hours. Allergies Allergies Allergen Reactions ??? Codeine Belly pain Objective: Blood pressure 140/71, pulse 89, temperature 35.7 ??C (96.3 ??F), temperature source Oral, resp. rate 15, height 162.6 cm (64), weight 63.5 kg (140 lb), SpO2 100 %. Physical Exam: General Appearance: alert, cooperative, no distress Lung: clear to auscultation bilaterally Heart: regular rate and rhythm Abdomen: Firm with palpable mass to the right of midline with multiple well healed abdominal scars.No signs of peritonitis but sig TTP over mass. Tympanitic Extremities: all extremities warm and well perfused Skin: Skin color, temperature, turgor normal. No rashes or lesions Data Review: Labs: CBC: Lab Results Component Value Date WBC 9.86 04/28/2020 RBC 4.78 04/28/2020 HGB 14.2 04/28/2020 HCT 44.2 04/28/2020 PLT 334 04/28/2020 CMP: Lab Results Component Value Date NA 142 04/28/2020 K 4.6 04/28/2020 CL 108 04/28/2020 CO2 21 (L) 04/28/2020 BUN 34 (H) 04/28/2020 CREATININE 1.09 (H) 04/28/2020 MG 2.2 04/28/2020 CALCIUM 9.1 04/28/2020 LIPASE 147 04/28/2020 AST 26 04/28/2020 ALT 22 04/28/2020 ALKPHOS 89 04/28/2020 Cardiac: Lab Results Component Value Date TROPONINI <0.034 04/28/2020 [facility] [place] test negative for flu or COVID-[address]: Ct Abdomen Pelvis W Contrast Result Date: 04/28/2020 IMPRESSION: 1. Moderate prominence of the biliary ducts, correlate with patient labs to exclude obstruction with MRCP or ERCP for further evaluation as clinically indicated. 2. Focal twisting of the cecum on its mesentery suspicious for cecal volvulus with dilated small bowel loops distended cecum suggesting obstruction. 3. Minimal ascites. Assessment: Brenna Mc is a(n) 69 y.o. old female with a past medical history significant for multiple prior abdominal surgeries now with cecal volvulus w/ acute abdominal pain associated with some nausea. Will need operative intervention. Plan: 1. Admit to [facility] per Dr. Singh 2. NPO, MIVF 3. Zosyn pre-op 4. Consented and booked for urgent Ex-lap, poss resection, poss ostomy 5. Patient said to discuss with Son if unable to speak for herself Raymond Chen [phone] Rashid Bah MD 04/28/2020 7:29 Surgery Air Brake Worker Pager #[phone] Cosigned by Chas Singh MD PhD at 04/29/2020 7:24 EST Associated attestation - Chas Singh MD PhD - 04/29/2020 0724 EST Attending attestation statement: I saw and examined the patient on 04/28/20 and agree with the findings and plans as documented in the resident/FLOORING MACHINE OPERATOR note. Chas Singh MD PhD Acute Care Surgery Pager #[phone] documented in this encounter Nursing Notes * Edwina Hamlin RN - 04/28/2020 0920 EST Preop Covid DOS screening questionnaire Please document by exception (only check those that apply). Have you had any of the following symptoms recently? No Yes Chronic ? Cough Shortness of breath or difficulty breathing Fever Chills Fatigue Muscle or body aches arthritis Severe Headache R/t stress New loss of taste or smell Sore throat Congestion or runny nose chronic Rash Nausea, vomiting, or diarrhea (rare in adults. More common in children) Due to illness r/t admission Were you covid tested? Yes When: 04/28/2001/08/300 [facility] [place]: Neg If yes, have you self-isolated/quarantined since your test?Yes See admission vital signs documentation for admission temperature. documented in this encounter OR Notes * OR Surgeon - Chas Singh MD PhD - 04/28/2020 0509 EST OPERATIVE REPORT SERVICE DATE: 04/28/2020 PREOPERATIVE DIAGNOSIS: Cecal volvulus. POSTOPERATIVE DIAGNOSIS: Cecal volvulus with obstruction. PROCEDURE: Exploratory laparotomy with extensive lysis of adhesions (greater than 45 minutes required), ileocecectomy with primary anastomosis, and spy angiography. SURGEON: Chas Singh MD PhD HOME RESTORATION SERVICE SUPERVISOR: Rashid Bah MD ANESTHESIA: General endotracheal. INDICATIONS: This is a 69-year-old female who presented as a transfer from an outside hospital withCT scan diagnosis of cecal volvulus. On arrival to the [facility] ED, she was nontoxic, however, had a massively dilated abdomen and was in significant pain. As such, we emergently took her to the operating room for operative intervention of this. NARRATIVE: The patient was brought to the operating room and placed on the operating room table in a supine fashion. All pressure points were padded. We completed the first portion of our safety checklist, identifying the correct patient, procedure, site as well as all necessary equipment in the room. We then completed the COVID safety timeout for 10 minutes while the patient was induced and intubated with general endotracheal anesthesia. At the completion of this and when the airway was secured, we then completed the second portion of our surgical safety checklist, and the patient was prepped and draped in the usual sterile fashion. We elected to go through her previous midline abdominal scar; however, due to the distention of her bowel, this was somewhat shifted off of midline. The incision was initiated with a scalpel and carried through down with electrocautery and this was tediously carried down to midline and we immediately encountered dense mesh in the upper abdomen. Once we encountered the mesh, we switched to Metzenbaum scissors and this was tediously dissected. We were able to gain entry in the upper abdomen; however, there were dense adhesions. This required extensive and meticulous adhesiolysis until we were able to safely enter a plane that was free of adhesions in the lower abdomen for about 45 minutes. Our incision was then carried caudad safely under direct visu alization down through all layers of the abdomen including the mesh. At this point, we then inspected the bowel finding a massively dilated cecum. This was delivered from the abdomen and found to be torsed around its mesentery, with significant length about 270 degrees rotation. This was detorsed and the bowel was run from the ileocecal valve to the previously-created JJ anastomosis from her prior surgery. This was not disturbed. Our attention was then turned to the cecum and this was examined distally to what appeared to be the hepatic flexure, which was densely adhesed to the liver. At this time, we elected to perform an ileocecectomy, as we had a good distal margin that was freely dissected off the retroperitoneum due tothe laxity of the cecum and significant redundancy of it. We selected our demarcation lines and then confirmed this with SPY angiography, indocyanine green was injected by our anesthesia colleagues, and the pinpoint handheld camera was grasped with a sterile glove and the demarcation line was then marked out with a sterile marking pen on the bowel. The pinpoint camera was then passed off the field and the sterile glove was discarded. We then made a mesenteric defect with a Fouzia clamp on the edge of bowel on the proximal line, and a DELMER 100 load stapler was passed through this and the bowel was divided. There were small bleeders from the staple line that were controlled with silk pop-off [id number] sutures (2-0). The distal resection margin was then confirmed again and the mesenteric side of the bowel was then controlled using the LigaSure device. Great care was taken to ensure no damage to the bowel as well as appropriate sealing of the vessels. Once the mesentery was freed up to the distal resection line, an additional firing of 100 DELMER stapler was taken across the bowel in asingle firing. We then elected to perform a [id number] functional end-to-end anastomosis from thedistal ileum to the right colon. This was done in a tension- free manner. A 2-0 pop-off was used to create a crotch stitch as well as an approximation suture at the previous suture lines. Enterotomieswere made in both ends of the bowel and the Endo-DELMER stapler was passed into them to create a common channel, and this was taken in a single firing. There was no beth bleeding from the internal staple lines. Both ends of the bowel were decompressed with suction and the suction was discarded off the field and then a new suction was set up for us. The common channel was then entered patent and, using Vikas and valerie's we closed the top of the anastomosis, and this was taken with a single firing of a DELMER and then removed sharply with David scissors. This was then discarded as well and sent forspecimen along with the ileocecectomy portion. We then imbricated the TA staple line over the top using a series of 2-0 pop-off sutures in order to tuck in the staple line. Once we were satisfied with this, this was returned to the abdomen and the bowel was run from the ileocecal valve to the previous jejunal anastomosis, finding no other deficits. The sigmoid colon appeared to be intact. The uterus, ovaries, and fallopian tubes appeared to be intact as well. The abdomen was then copiously irrigated with warm saline and this was removed with suction. Small areas of bleeding were controlled with electrocautery. We elected to close the patient with a running #1 Prolene suture. This was done in a continuous fashion through the mesh incorporating the fasciaas well. Once the fascia was closed, the outer wound was then irrigated again and cleansed, and theskin was closed with sudha. A dressing of gauze and tape was then fashioned after cleansing the wound, and the patient was then awoken from general anesthesia and taken to the recovery room in hemodynamically good condition. ESTIMATED BLOOD LOSS: 75 mL URINE OUTPUT: 100 mL NG TUBE OUTPUT: 100 mL FLUIDS: 1200 mL COMPLICATIONS: None apparent. TUBES, LINES, DRAINS: Jo, NG tube, peripheral IVs. SPECIMEN: Ileocecectomy. CULTURES: None. DISPOSITION: Recovery room in hemodynamically normal condition, then floor. Unless otherwise noted, there were no complications, no blood loss, no cultures obtained, no specimens removed, and no drains retained. Chas Singh MD, PhD / Rashid Bah MD / DB/CJ Confirmation: [id number] Dictation ID: [id number] cc: documented in this encounter ED Notes * Dariela Jaramillo RN - 04/28/2020 0850 EST Report given to Pre-op. Pt off unit in stable condition via stretcher with belongings by patient transport staff. * Dariela Jaramillo RN - 04/28/2020 0845 EST Pt reports she was swabbed for COVID at the outside hospital with negative results. * Dariela Jaramillo RN - 04/28/2020 0808 EST Patient is resting quietly with no complaints. Call massey in reach. * Dariela Jaramillo RN - 04/28/2020 0733 EST Pt's son Raymond contacted at this time as per pt request @ [phone] (H), son updated and phone passed to pt to speak with. * Giovani Ragsdale MD - 04/28/2020 0658 EST This patient received an evaluation and medical screening exam for emergent medical conditions at the [facility] on 04/28/2020 Scribe attestation: This documentation is recorded by Donal Jensen acting as Scribe under the direction and presence of Giovani Ragsdale MD. Giovani Ragsdale MD I personally performed the services recorded by the scribe in my presence. I confirm the scribe's documentation has been reviewed by me to accurately and completely record my work, treatment, procedures, and medical decision making. Chief Complaint Abdominal pain HPI Brenna Mc is a 69 y.o. female with PMH including gastric bypass, thyroid disease on synthroid, arthritis, hypertension, hyperlipidemia, psychiatric problem who presents to the ED for abdominal pain. Patient states that her pain waxes and wanes and that she is currently uncomfortable. She describes that it is worse on the right side. Patient states that her last bowel movement was yesterday. Reports having history of multiple abdominal surgeries. [place] chart review [place] [facility] [place] HGB at [address] A/P w contrast demonstrated: 1. Moderate prominence of the biliary ducts, correlate with patient labs to exclude obstruction with MRCP or ERCP for further evaluation as clinically indicated. 2.Focal twisting of the cecum on its mesentery suspicious for cecal volvulus with dilated small bowel loops distended cecum suggesting obstruction 3. Minimal ascites History was provided by: Patient and medical records. Patient's pertinent PMH, FH, SH were reviewed and updated PRN. ROS A 10 point review of systems has been performed and is otherwise negative except as noted in the HPI. Physical Exam Vital Signs Vitals Reassessment?: Yes Temp: 35.7 ??C (96.3 ??F) Temp src: Oral Pulse: 89 Heart Rate: 60 BPM Cardiac Rhythm: Normal sinus rhythm Resp: 16 SpO2: 100 % BP: (!) 148/80 BP MAP: 97 mm Hg BP Device: BP Machine BP Patient Position: Supine BP Cuff Location: Left arm O2 Device: None (Room air) Physical Exam Vitals signs and nursing note reviewed. Constitutional: General: She is not in acute distress. Appearance: She is well-developed. She is not ill-appearing or toxic-appearing. HENT: Head: Normocephalic and atraumatic. Eyes: Pupils: Pupils are equal, round, and reactive to light. Neck: Musculoskeletal: Normal range of motion and neck supple. Cardiovascular: Rate and Rhythm: Regular rhythm. No extrasystoles are present. Pulmonary: Effort: Pulmonary effort is normal. No accessory muscle usage or respiratory distress. Breath sounds: Normal breath sounds. No stridor. Abdominal: General: There is no distension. Palpations: Abdomen is soft. Tenderness: There is abdominal tenderness. Comments: Distended mass in right sided abdomen and tenderness. Musculoskeletal: Normal range of motion. Right lower leg: No edema. Left lower leg: No edema. Skin: General: Skin is warm and dry. Neurological: Mental Status: She is alert and oriented to person, place, and time. She is not disoriented. Cranial Nerves: No cranial nerve deficit. Laboratory Results Labs Reviewed COMPLETE BLOOD COUNT AND DIFFERENTIAL - Abnormal Result Value Status WBC 9.86 Final RBC 4.78 Final Hemoglobin 14.2 Final HCT 44.2 Final MCV 93 Final MCH 29.7 Final MCHC 32.1 Final RDW-CV 14.4 Final RDW-SD 49.1 Final PLT 334 Final MPV 10.3 Final Neutrophils 88.4 Final Lymphocytes 6.7 Final Monocytes 3.8 Final Eosinophils 0.1 Final Basophils 0.3 Final Immature Grans 0.7 Final Absolute Neutrophils 8.72 Final Absolute Lymphocytes 0.66 (*) Final Absolute Monocytes 0.37 Final Absolute Eosinophils 0.01 (*) Final Absolute Basophils 0.03 Final Absolute Immature Grans 0.07 (*) Final Type of Differential: Auto Final COMPREHENSIVE METABOLIC PANEL (CMP) - Abnormal Sodium 142 Final Potassium 4.6 Final Chloride 108 Final CO2 Total 21 (*) Final Glucose 124 (*) Final BUN 34 (*) Final Creatinine 1.09 (*) Final eGFR 52 (*) Final Total Protein 7.2 Final Albumin 4.2 Final Alkaline Phosphatase 89 Final AST 26 Final ALT 22 Final Bilirubin, Total <0.5 Final Calcium 9.1 Final Calculated Calcium 8.9 Final LIPASE - Normal Lipase 147 Final MAGNESIUM - Normal Magnesium 2.2 Final TROPONIN I - Normal Troponin I <0.034 Final Narrative: The results of this assay can be falsely lowered due to the consumption of Biotin. HOLD BLUE TOP Hold Hold Final HOLD GREEN TOP Hold Hold Final HOLD LAVENDER TOP Hold Hold Final HOLD SST Hold Hold Final TYPE AND SCREEN ABO B Final Rh Factor Positive Final Antibody Screen Negative Final Specimen Expires: 05/01/2020 @ 23:59 Final Data Interpretation An EKG was obtained an independently interpreted: Normal sinus with a QRS of 112, QTC 390. No overtSTT changes. Laboratory results independently reviewed, significant for: Mild NEY (Cr of 1.14), otherwise relatively unremarkable. Procedures Procedures None ED Course/Medical Decision Making A medical screening was performed. The patient is a 69 y.o. female with PMH including gastric bypass, thyroid disease on synthroid, arthritis, hypertension, hyperlipidemia, psychiatric problem who presents to the ED for abdominal pain. VS wnl, afebrile. Physical exam was significant for Distended mass in right sided abdomen and tenderness. Given history, exam and outside hospital CT will plan for pain control and surgery team consultation. 0521 Patient administered 50 mg IV fentanyl. 0725 Patient administered 4 mg IV morphine. At this time, the patient was hemodynamically stable for admission to Surgery under the care of Chas Harman. While under my care in the Emergency Department, the patient's pain was managed to an adequate level weighing risk vs. benefit of medication. Clinical Impression Final diagnoses: Cecal volvulus ([facility]) Disposition Admitted The patient's pain was managed to an adequate level weighing risk vs. benefit of further medications.At the end of my care of this patient, the patient's pain was 0 on a zero to ten scale. Any further pain treatment will be at the discretion of the provider following up with the patient based on their clinical assessment. Condition at the end of my care of this patient: Stable * Dayana Nix RN - 04/28/2020 0522 EST DAYANA NIX RN 5:22 69 yo female BIBA as a transfer [place] [facility] [place]. Pt initially went to previous facility with complaints of diffuse abdominal pain and multiple episodes of bowel movements with dry heaving. Found to have cecal volvulus. Denies fever/chills. Pt received 100 mcg of fentanyl and 4 mg ofzofran prior to transfer. Arrives complaining of 10/10 pain. Tearful on arrival. Pt also notable tohave had a left AC contrast extravasation at previous facility. Site is currently marked with skin marker. Received contrast antidote. Pt at this time has CMS intact in left arm. Medicated per MAR for pain. Labs sent. Waiting for provider eval Past Medical History: Diagnosis Date ??? Arthritis ??? HLD (hyperlipidemia) ??? Hypertension ??? Psychiatric problem ADD ??? Thyroid disease 7:00 Report given to LAKHWINDER Lyle documented in this encounter Miscellaneous Notes * Plan of Care - Katina Wilson - 05/02/2020 1410 EST 05/02/20 1410 Medicare IM Notice: IM notice status Patient received notification verbally and in writing while in hospital. IM notice given on admission? Yes IM notice given at discharge? Yes Radha Wilson LMSW Watch Electrician II Pager: [phone] * Plan of Care - Fátima Greene RN - 05/02/2020 1407 EST Problem: Daily Care Plan Goals Goal: Care Plan Documentation Flowsheets (Taken 05/02/2020 0216) Area of Focus: Discharge Plan Goal This Shift: discharge this shift Nursing Discharge Note D: Patient noted with discharge orders to: Home. A: Prescriptions provided to patient. Reviewed discharge instructions and prescriptions with Patient IV d/c'd. Belongings collected and sent home with patient. R: Patient verbalized understanding of discharge instructions and denied further questions. FÁTIMA GREENE RN 05/02/2020 14:08 * Plan of Care - Mariana Turner RN - 05/02/2020 0322 EST Data: Pt POD#4 ex lap, MONICA, ileocecectomy, spy angiography, and primary anastomosis. Midline w/ sudha, distal portion of incision w/ small amount of serosanguinous drainage, ABD binder in place. VSS, regular diet, pt ambulating independently. ?? Action: Gauze to midline replaced PRN for drainage, medicated per MAR, encouraged PO intake as tolerated, clustered care. ?? Response: Pt tolerating regular diet, VS remain stable, no acute events overnight, will continue tomonitor. MARIANA TURNER RN 05/02/2020 3:22 * Plan of Care - Mariana Dietz RN - 05/01/2020 1604 EST Problem: Daily Care Plan Goals Goal: Care Plan Documentation Flowsheets (Taken 05/01/2020 0709) Area of Focus: Nutrition/ Diet Goal This Shift: Tolerate advance in diet Note: Data: Pt admitted for cecal volvulus, now POD#3 from ex lap and MONICA. Full liquid diet, tolerating well. Pt reports minimal pain upon assessment and denies any nausea. Action: Administered scheduled meds and PRN dilaudid (see MAR). Care clustered and lights dimmed topromote rest. Diet advanced to regular per MD order. Response: Pt is resting in bed comfortably at this time. Tolerating advance in diet well. Pt statespain is well controlled and denies any needs. Will continue to monitor and assess. MARIANA DIETZ RN 05/01/2020 15:47 * Plan of Care - Mariana Turner RN - 05/01/2020 0323 EST Data: Pt POD#3 ex lap, MONICA, ileocecectomy, spy angiography, and primary anastomosis. Midline w/ sudha, distal portion of incision w/ moderate amount of serosanguinous drainage, ABD binder in place.VSS, full liquid diet, pt ambulating independently, +voiding, +BM. Action: MD notified of continued drainage, new drsg and ABD binder placed, encouraged PO intake as tolerated, clustered care. Response: Pt tolerating fulls, VS remain stable, no acute events overnight, will continue to monitor. MARIANA TURNER RN 05/01/2020 3:23 * Plan of Care - Lea Richardson - 04/30/2020 1504 EST Data: POD 1 s/p ex lap MONICA, ileocectomy. Midline incision with dry dressing, c/d/I. Abdominal binder in place. Advanced to clear liquid diet and IVF d/c. Jo removed. Passing flatus, very small formed BM. Rating pain 5/10. Action: Administered meds per eMAR including PRN dilaudid and gabapentin. Assisted with bathing. Encouraged IS use and ambulation. Contact guard assist provided. Monitored pain and I&O. Response: Patient last rated pain as 4/10, states this is tolerable. Repositioning self in bed. OOBto chair for meals and ambulated 400ft in hallway, tolerated well and steady on feet. Tolerating clears without n/v. Voided x2, urine missed hat x1 and urine/stool mix x1 - will continue to monitor urine output. LEA RICHARDSON RN 04/30/2020 15:04 * Plan of Care - Mariana Turner RN - 04/30/2020 0445 EST Data: Pt POD#2 ex lap, MONICA, ileocecectomy, spy angiography, and primary anastomosis. Original surgical drsg to midline w/ moderate serosanguinous strike through drainage, ABD binder in place. Pt NPO w/ MIVF infusing, c/o 6/10 ABD pain, denies nausea, VSS. Jo in place w/ brandy urine output. Action: Medicated per MAR, repositioned Q2hrs, MD notified of drainage, clustered care. Response: Pt tolerating sips of water with PO meds, pain well controlled w/ 2mg PO dilaudid and scheduled tylenol, no acute events overnight, will continue to monitor. MARIANA TURNER RN 04/30/2020 4:45 * Plan of Care - Lea Richardson - 04/29/2020 1341 EST Data: POD 1 s/p ex lap MONICA, ileocectomy. Midline incision with surgical dressing, intact with strikethrough drainage. Abdominal binder in place. NPO except meds and mouth swabs, pt very frustrated bythis. Jo draining. Hypoactive BS, no flatus or BM. Rating pain 8/10 at start of shift, then obser kash to be asleep. Requesting to rest. Frustrated not all of home CREATIVE WRITING PROFESSOR meds ordered. Contacted her son this morning to request ride home, wanting to leave AMA to go home and eat/drink, son requesting to know more information about plan of care and risk of leaving AMA. Action: Administered meds per eMAR including PRN dilaudid and gabapentin. New orders for addition scheduled and PRN pain medication. Notified team at bedside of patient concerns and requested MD teamcontact son. Assisted with bathing and jo care. Encouraged IS use and ambulation with nursing, pt refused at this time. Monitored pain and I&O. Clustered care to promote rest. Response: Patient last rated pain as 4/10, states this is tolerable. Often observed to be asleep during hourly checks. Repositioning self in bed, will continue to encourage ambulation. Recliner at BSfor when pt is willing to get OOB. LEA RICHARDSON RN 04/29/2020 13:38 * Plan of Care - Colton Hammer RN - 04/29/2020 7306 EST Data: Pt POD#1 ex lap, monica, ileocecectomy.. Dry dressing to midline incision dry and intact with small amount of strikethrough drainage. Reports 8/10 pain to head and abdomen. Npo, ivfs infusing, jo in place. Pt extremely distressed about ngt placement, states she is suicidal and cannot go on with ngt in place. Pt refused to answer when asked if she will hurt herself. Pt states she wants ngtout now and she will pull it out herself. Action: md solange gabriel notified and at bedside, per md gabriel ok to take ngt out, ngt removed, hourly checks, continuous pulse o2 monitoring, prn dilaudid for pain, iv abx administered, offered pt emotional support, monitored I&Os, offered non-pharmaceutical interventions (reposition, ice, throat spray), clustered care Response: pt states she feels better with ngt removal, plan to notify provider immediately if pt mentions suicide or self harm again COLTON HAMMER RN 04/29/2020 2:59 * Brief Op Note - Rashid Bah MD - 04/28/2020 6012 EST Date: 04/28/2020 Location: [facility] OR Name: Brenna Mc, : 1950, Diagnosis Pre-op Diagnosis * Cecal volvulus (HCC-CMS) [K56.2] Post-op Diagnosis * Cecal volvulus (HCC-CMS) [K56.2] Procedures Exploratory laparotomy, extensive MONICA (>45min) Ileocecectomy, spy angiography and primary anastomosis. Surgeons * Chas Singh MD PHD - Primary * Rashid Bah MD - Resident - Assisting Procedure Summary Anesthesia: General ASA: ASA status not filed in the log. Estimated Blood Loss: 75 mL Total IV Fluids: 1200 mL UOP: 100cc NGT: 100cc LDAs: NGT Staff: Museum Host/Hostess: Clifton Sorto Relief Scrub: Dee Amaya LPN Scrub Person: Colton Sandoval RN Patient Garment Alteration Examiner: Brandy Redd Findings: Tedious and dense adhesions in the upper abdomen from prior surgeries able to safely access belly. Massively dilated cecum with 270 rotation, de torsed and ileocecectomy performed after confirming demaraction of proximal and distal resection with spy. Complications: None; patient tolerated the procedure well. Disposition: PACU - hemodynamically stable. Condition: stable Specimens Collected: No specimens collected during this procedure. Plan: 24 hour dose zosyn then stop abx NPO, NGT, MIVF Repeat labs tomorrow am DVT ppx tonight No Nsaids for anastomosis, but APAP, dilaudid IV for now Rashid Bah MD 04/28/2020 14:01 documented in this encounter Plan of Treatment Scheduled Referrals Name Type Priority Associated Diagnoses Order Schedule PROVIDER FOLLOW-UP INSTRUCTIONS Outpatient Referral Routine Ordered: 05/02/2020 AMB CONS/FOLLOW UP TRAUMA/CRITICAL CARE Outpatient Referral Routine Cecal volvulus ([facility]) Ordered: 05/02/2020 documented as of this encounter Procedures Procedure Name Priority Date/Time Associated Diagnosis Comments ECG REPORT - SCANNED 05/08/2020 15:08 EST COMPLETE BLOOD COUNT AND DIFFERENTIAL Routine 05/02/2020 7:41 EST COMPLETE BLOOD COUNT AND DIFFERENTIAL Routine 05/01/2020 6:10 EST BUN Routine 05/01/2020 6:10 EST CREATININE Routine 05/01/2020 6:10 EST ELECTROLYTES Routine 05/01/2020 6:10 EST COMPLETE BLOOD COUNT AND DIFFERENTIAL Routine 04/30/2020 6:29 EST BUN Routine 04/30/2020 6:29 EST CREATININE Routine 04/30/2020 6:29 EST ELECTROLYTES Routine 04/30/2020 6:29 EST COMPLETE BLOOD COUNT AND DIFFERENTIAL Routine 04/29/2020 7:31 EST BUN Routine 04/29/2020 7:31 EST CREATININE Routine 04/29/2020 7:31 EST ELECTROLYTES Routine 04/29/2020 7:31 EST XR FEEDING TUBE PLACEMENT Routine 04/28/2020 19:10 EST XR FEEDING TUBE PLACEMENT Routine 04/28/2020 16:33 EST SURGICAL PATHOLOGY Routine 04/28/2020 12 :34 EST LAPAROTOMY, EXPLORATORY 04/28/2020 10:28 EST Cecal volvulus (HCC-CMS) CT OUTSIDE IMAGES BODY Routine 04/28/2020 7:49 EST TYPE AND SCREEN STAT 04/28/2020 7:20 EST EKG 12-LEAD STAT 04/28/2020 6:42 EST HOLD SST Routine 04/28/2020 5:20 EST HOLD LAVENDER TOP Routine 04/28/2020 5:2 0 EST HOLD GREEN TOP Routine 04/28/2020 5:20 EST HOLD BLUE TOP Routine 04/28/2020 5:20 EST TROPONIN I STAT Add-on 04/28/2020 5:20 EST COMPLETE BLOOD COUNT AND DIFFERENTIAL STAT Add-on 04/28/2020 5:20 EST MAGNESIUM STAT Add-on 04/28/2020 5:20 EST LIPASE STAT Add-on 04/28/2020 5:20 EST COMPREHENSIVE METABOLIC PANEL (CMP) STAT Add-on 04/28/2020 5:20 EST documented in this encounter Results * ECG REPORT - SCANNED (05/08/2020 15:08 EST) 05/08/2020 15:0 8 EST us Scan 2 Front Desk Administrator PROCEDURE/MINOR SURGICAL OR DERABLES Final Result * (ABNORMAL) COMPLETE BLOOD COUNT AND DIFFERENTIAL (05/02/2020 7:41 EST) WBC 6.43 4.00 - 12.40 K/cmm 05/02/2020 8:11 [facility] RBC 3.65(L) 3.86 - 5.04 M/cmm 05/02/2020 8:11 [facility] Hemoglobin 10.8(L) 11.6 - 15.2 gm/dL 05/02/2020 8:11 [facility] HCT 33.0(L) 34.9 - 44.4 % 05/02/2020 8:11 [facility] MCV 90 81 - 98 fl 05/02/2020 8:11 [facility] MCH 29.6 26.7 - 33.3 pg 05/02/2020 8:11 [facility] MCHC 32.7 32.1 - 35.9 gm/dL 05/02/2020 8:11 [facility] RDW-CV 14.4 <14.7 % 05/02/2020 8:11 [facility] RDW-SD 48.2 <50.4 fl 05/02/2020 8:11 [facility] PLT 231 141 - 377 K/cmm 05/02/2020 8:11 [facility] MPV 10.5 9.5 - 12.7 fl 05/02/2020 8:11 [facility] % Neutrophils 72.3 % 05/02/2020 8:11 [facility] % Lymphocytes 13.2 % 05/02/2020 8:11 [facility] % Monocytes 6.8 % 05/02/2020 8:11 [facility] % Eosinophils 6.7 % 05/02/2020 8:11 [facility] % Basophils 0.5 % 05/02/2020 8:11 [facility] % Immature Grans 0.5 % 05/02/19 8:11 [facility] Absolute Neutrophils 4.65 2.20 - 8.85 K/cmm 05/02/2020 8:11 [facility] Absolute Lymphocytes 0.85(L) 1.09 - 3.30 K/cmm 05/02/2020 8:11 [facility] Absolute Monocytes 0.44 0.10 - 0.80 K/cmm 05/02/2020 8:11 [facility] Absolute Eosinophils 0.43 0.03 - 0.61 K/cmm 05/02/2020 8:11 [facility] ABS Basophils 0.03 0.01 - 0.11 K/cmm 05/02/2020 8:11 [facility] Absolute Immature Grans 0.03 0.00 - 0.06 K/cmm 05/02/2020 8:11 [facility] Type of Differential: Auto 05/02/2020 8:11 [facility] Blood VENOUS BLOOD / Unknown Venipuncture / Unknown 05/02/2020 7:41 EST 05/02/2020 8:00 EST us Rashid Bah MD PACKAGES & DNA PROBE ORDERA BLES Final Result [facility] [address] [place] [address] * (ABNORMAL) COMPLETE BLOOD COUNT AND DIFFERENTIAL (05/01/2020 6:10 EST) WBC 7.89 4.00 - 12.40 K/cmm 05/01/2020 6:33 [facility] RBC 3.67(L) 3.86 - 5.04 M/cmm 05/01/2020 6:33 [facility] Hemoglobin 10.8(L) 11.6 - 15.2 gm/dL 05/01/2020 6:33 [facility] HCT 32.6(L) 34.9 - 44.4 % 05/01/2020 6:33 [facility] MCV 89 81 - 98 fl 05/01/2020 6:33 [facility] MCH 29.4 26.7 - 33.3 pg 05/01/2020 6:33 [facility] MCHC 33.1 32.1 - 35.9 gm/dL 05/01/2020 6:33 [facility] RDW-CV 14.4 <14.7 % 05/01/2020 6:33 [facility] RDW-SD 46.5 <50.4 fl 05/01/2020 6:33 [facility] PLT 218 141 - 377 K/cmm 05/01/2020 6:33 [facility] MPV 10.0 9.5 - 12.7 fl 05/01/2020 6:33 [facility] % Neutrophils 75.1 % 05/01/2020 6:33 [facility] % Lymphocytes 10.6 % 05/01/2020 6:33 [facility] % Monocytes 7.1 % 05/01/2020 6:33 [facility] % Eosinophils 6.3 % 05/01/2020 6:33 [facility] % Basophils 0.5 % 05/01/2020 6:33 [facility] % Immature Grans 0.4 % 05/01/19 6:33 [facility] Absolute Neutrophils 5.92 2.20 - 8.85 K/cmm 05/01/2020 6:33 [facility] Absolute Lymphocytes 0.84(L) 1.09 - 3.30 K/cmm 05/01/2020 6:33 [facility] Absolute Monocytes 0.56 0.10 - 0.80 K/cmm 05/01/2020 6:33 [facility] Absolute Eosinophils 0.50 0.03 - 0.61 K/cmm 05/01/2020 6:33 [facility] ABS Basophils 0.04 0.01 - 0.11 K/cmm 05/01/2020 6:33 [facility] Absolute Immature Grans 0.03 0.00 - 0.06 K/cmm 05/01/2020 6:33 [facility] Type of Differential: Auto 05/01/2020 6:33 [facility] Blood VENOUS BLOOD / Unknown Venipuncture / Unknown 05/01/2020 6:10 EST 05/01/2020 6:20 EST Rashid Bah MD PACKAGES & DNA PROBE ORDERA BLES Final Result Performing Organization Address [facility] de Phone Number [facility] [address] [place] [address] * CREATININE (05/01/2020 6:10 EST) Creatinine 0.84 0.52 - 1.04 mg/dL 05/01/2020 7:04 [facility] eGFR 72 >60 mL/min/1.7 3m2 05/01/2020 7:04 [facility] Comment:eGFR calculated tosin monterroso CKD-EPI equation for non- Americans. Multiply eGFR by 1.16 for patients. Blood VENOUS BLOOD / Unknown Venipuncture / Unknown 05/01/2020 6:10 EST 05/01/2020 6:30 EST Rashid Bah MD CHEMISTRY & BLOOD GAS ORDER DAVID Final Result Performing Organization Address [facility] Co de Phone Number [facility] [address] [place] [address] * BUN (05/01/2020 6:10 EST) BUN 19 10 - 26 mg/dL 05/01/2020 7:04 [facility] Blood VENOUS BLOOD / Unknown Venipuncture / Unknown 05/01/2020 6:10 EST 05/01/2020 6:30 EST Rashid Bah MD CHEMISTRY & BLOOD GAS ORDER DAVID Final Result Performing Organization Address [facility] de Phone Number [facility] [address] [place] [address] * (ABNORMAL) ELECTROLYTES (05/01/2020 6:10 EST) Sodium 136 136 - 145 mEq/L 05/01/2020 7:04 [facility] Potassium 3.6 3.5 - 5.0 mEq/L 05/01/2020 7:04 [facility] Chloride 108 96 - 110 mEq/L 05/01/2020 7:04 [facility] CO2 Total 20(L) 22 - 32 mEq/L 05/01/2020 7:04 [facility] Blood VENOUS BLOOD / Unknown Venipuncture / Unknown 05/01/2020 6:10 EST 05/01/2020 6:30 EST Rashid Bah MD CHEMISTRY & BLOOD GAS ORDER DAVID Final Result Performing Organization Address [facility] de Phone Number [facility] [address] [place] [address] * (ABNORMAL) COMPLETE BLOOD COUNT AND DIFFERENTIAL (04/30/2020 6:29 EST) WBC 7.82 4.00 - 12.40 K/cmm 04/30/2020 7:10 [facility] RBC 3.25(L) 3.86 - 5.04 M/cmm 04/30/2020 7:10 [facility] Hemoglobin 9.7(L) 11.6 - 15.2 gm/dL 04/30/2020 7:10 [facility] HCT 29.3(L) 34.9 - 44.4 % 04/30/2020 7:10 [facility] MCV 90 81 - 98 fl 04/30/2020 7:10 [facility] MCH 29.8 26.7 - 33.3 pg 04/30/2020 7:10 [facility] MCHC 33.1 32.1 - 35.9 gm/dL 04/30/2020 7:10 [facility] RDW-CV 14.6 <14.7 % 04/30/2020 7:10 [facility] RDW-SD 48.4 <50.4 fl 04/30/2020 7:10 [facility] PLT 190 141 - 377 K/cmm 04/30/2020 7:10 [facility] MPV 10.4 9.5 - 12.7 fl 04/30/2020 7:10 [facility] % Neutrophils 78.4 % 04/30/2020 7:10 [facility] % Lymphocytes 10.5 % 04/30/2020 7:10 [facility] % Monocytes 7.5 % 04/30/2020 7:10 [facility] % Eosinophils 2.6 % 04/30/2020 7:10 [facility] % Basophils 0.6 % 04/30/2020 7:10 [facility] % Immature Grans 0.4 % 04/30/19 7:10 [facility] Absolute Neutrophils 6.13 2.20 - 8.85 K/cmm 04/30/2020 7:10 [facility] Absolute Lymphocytes 0.82(L) 1.09 - 3.30 K/cmm 04/30/2020 7:10 [facility] Absolute Monocytes 0.59 0.10 - 0.80 K/cmm 04/30/2020 7:10 [facility] Absolute Eosinophils 0.20 0.03 - 0.61 K/cmm 04/30/2020 7:10 [facility] ABS Basophils 0.05 0.01 - 0.11 K/cmm 04/30/2020 7:10 [facility] Absolute Immature Grans 0.03 0.00 - 0.06 K/cmm 04/30/2020 7:10 EST [facility] Type of Differential: Auto 04/30/2020 7:10 EST [facility] Blood VENOUS BLOOD / Unknown Venipuncture / Unknown 04/30/2020 6:29 EST 04/30/2020 6:48 EST Rashid Bah MD PACKAGES & DNA PROBE ORDERA BLES Final Result Performing Organization Address City/[facility] Co de Phone Number [facility] [address] [place] [address] * CREATININE (04/30/2020 6:29 EST) Creatinine 0.78 0.52 - 1.04 mg/dL 04/30/2020 7:22 EST [facility] eGFR 78 >60 mL/min/1.7 3m2 04/30/2020 7:22 EST [facility] Comment:eGFR calculated tosin monterroso CKD-EPI equation for non- Americans. Multiply eGFR by 1.16 for patients. Blood VENOUS BLOOD / Unknown Venipuncture / Unknown 04/30/2020 6:29 EST 04/30/2020 6:51 EST us Rashid Bah MD CHEMISTRY & BLOOD GAS ORDER DAVID Final Result Performing Organization Address City/[facility] Co de Phone Number [facility] [address] [place] [address] * BUN (04/30/2020 6:29 EST) BUN 23 10 - 26 mg/dL 04/30/2020 7:22 EST [facility] Blood VENOUS BLOOD / Unknown Venipuncture / Unknown 04/30/2020 6:29 EST 04/30/2020 6:51 EST us Rashid Bah MD CHEMISTRY & BLOOD GAS ORDER DAVID Final Result [facility] [address] [place] [address] * (ABNORMAL) ELECTROLYTES (04/30/2020 6:29 EST) Pathologist [facility] [place] Sodium 137 136 - 145 mEq/L 04/30/2020 7:22 [facility] Potassium 3.6 3.5 - 5.0 mEq/L 04/30/2020 7:22 [facility] Chloride 110 96 - 110 mEq/L 04/30/2020 7:22 [facility] CO2 Total 19(L) 22 - 32 mEq/L 04/30/2020 7:22 [facility] Blood VENOUS BLOOD / Unknown Venipuncture / Unknown 04/30/2020 6:29 EST 04/30/2020 6:51 EST Rashid Bah MD CHEMISTRY & BLOOD GAS ORDER DAVID Final Result Performing Organization Address City/State/[facility] Co de Phone Number [facility] [address] [place] [address] * (ABNORMAL) COMPLETE BLOOD COUNT AND DIFFERENTIAL (04/29/2020 7:31 EST) Pathologist [facility] [place] WBC 9.39 4.00 - 12.40 K/cmm 04/29/2020 8:29 [facility] RBC 3.85(L) 3.86 - 5.04 M/cmm 04/29/2020 8:29 [facility] Hemoglobin 11.4(L) 11.6 - 15.2 gm/dL 04/29/2020 8:29 [facility] HCT 35.5 34.9 - 44.4 % 04/29/2020 8:29 [facility] MCV 92 81 - 98 fl 04/29/2020 8:29 [facility] MCH 29.6 26.7 - 33.3 pg 04/29/2020 8:29 [facility] MCHC 32.1 32.1 - 35.9 gm/dL 04/29/2020 8:29 [facility] RDW-CV 14.9(H) <14.7 % 04/29/2020 8:29 [facility] RDW-SD 50.2 <50.4 fl 04/29/2020 8:29 [facility] PLT 259 141 - 377 K/cmm 04/29/2020 8:29 [facility] MPV 10.4 9.5 - 12.7 fl 04/29/2020 8:29 [facility] % Neutrophils 84.0 % 04/29/2020 8:29 [facility] % Lymphocytes 8.1 % 04/29/2020 8:29 [facility] % Monocytes 7.0 % 04/29/2020 8:29 [facility] % Eosinophils 0.1 % 04/29/2020 8:29 [facility] % Basophils 0.4 % 04/29/2020 8:29 [facility] % Immature Grans 0.4 % 04/29/19 8:29 [facility] Absolute Neutrophils 7.88 2.20 - 8.85 K/cmm 04/29/2020 8:29 [facility] Absolute Lymphocytes 0.76(L) 1.09 - 3.30 K/cmm 04/29/2020 8:29 [facility] Absolute Monocytes 0.66 0.10 - 0.80 K/cmm 04/29/2020 8:29 [facility] Absolute Eosinophils 0.01(L) 0.03 - 0.61 K/cmm 04/29/2020 8:29 [facility] ABS Basophils 0.04 0.01 - 0.11 K/cmm 04/29/2020 8:29 [facility] Absolute Immature Grans 0.04 0.00 - 0.06 K/cmm 04/29/2020 8:29 [facility] Type of Differential: Auto 04/29/2020 8:29 [facility] Blood VENOUS BLOOD / Unknown Venipuncture / Unknown 04/29/2020 7:31 EST 04/29/2020 7:57 EST Rashid Bah MD PACKAGES & DNA PROBE ORDERA BLES Final Result Performing Organization Address [facility] Co de Phone Number [facility] [address] [place] [address] * (ABNORMAL) CREATININE (04/29/2020 7:31 EST) Creatinine 1.14(H) 0.52 - 1.04 mg/dL 04/29/2020 8:34 EST [facility] eGFR 50(L) >60 mL/min/1.7 3m2 04/29/2020 8:34 EST [facility] Comment:eGFR calculated tosin monterroso CKD-EPI equation for non- Americans. Multiply eGFR by 1.16 for patients. Blood VENOUS BLOOD / Unknown Venipuncture / Unknown 04/29/2020 7:31 EST 04/29/2020 8:03 EST Rashid Bah MD CHEMISTRY & BLOOD GAS ORDER DAVID Final Result Performing Organization Address [facility] Co de Phone Number [facility] [address] [place] [address] * BUN (04/29/2020 7:31 EST) Pathologist [facility] [place] BUN 25 10 - 26 mg/dL 04/29/2020 8:34 EST [facility] Blood VENOUS BLOOD / Unknown Venipuncture / Unknown 04/29/2020 7:31 EST 04/29/2020 8:03 EST Rashid Bah MD CHEMISTRY & BLOOD GAS ORDER DAVID Final Result Performing Organization Address [facility] Co de Phone Number [facility] [address] [place] [address] * (ABNORMAL) ELECTROLYTES (04/29/2020 7:31 EST) Sodium 143 136 - 145 mEq/L 04/29/2020 8:34 EST [facility] Potassium 4.1 3.5 - 5.0 mEq/L 04/29/2020 8:34 EST [facility] Chloride 109 96 - 110 mEq/L 04/29/2020 8:34 EST [facility] CO2 Total 19(L) 22 - 32 mEq/L 04/29/2020 8:34 EST [facility] Blood VENOUS BLOOD / Unknown Venipuncture / Unknown 04/29/2020 7:31 EST 04/29/2020 8:03 EST us Rashid Bah MD CHEMISTRY & BLOOD GAS ORDER DAVID Final Result [facility] [address] [place] [address] * XR FEEDING TUBE PLACEMENT (04/28/2020 19:10 EST) Anatomical Region Laterality Modality Abdomen Computed Radiogr aphy 04/28/2020 19:2 0 EST Impressions 04/28/2020 19:20 EST Tip of NG tube in mid body of stomach. Narrative 04/28/2020 19:20 EST XR FEEDING TUBE PLACEMENT ??04/28/2020 6:55 PM Signs and Symptoms/Comments: ?? NGT advanced, confirm placement Technique: Single supine AP radiograph of the lower chest and abdomen. Findings: The NG tube has been advanced into the stomach. Procedure Note Jude Sands MD - 04/28/2020 XR FEEDING TUBE PLACEMENT 04/28/2020 6:55 PM Signs and Symptoms/Comments: NGT advanced, confirm placement Technique: Single supine AP radiograph of the lower chest and abdomen. Findings: The NG tube has been advanced into the stomach. IMPRESSION Tip of NG tube in mid body of stomach. us Solange Gabriel MD IMG DIAGNOSTIC IMAGING ORDERABL ES Final Result * XR FEEDING TUBE PLACEMENT (04/28/2020 16:33 EST) Anatomical Region Laterality Modality Abdomen Computed Radiogr aphy 04/28/2020 17:1 5 EST Impressions 04/28/2020 17:15 EST Malpositioned nasogastric tube terminates in the distal esophagus with the side port roughly 9 mm from the esophageal hiatus. I have personally reviewed the images and the above interpretation and agree with the findings. Narrative 04/28/2020 17:15 EST XR FEEDING TUBE PLACEMENT ??04/28/2020 4:15 PM SIGNS AND SYMPTOMS/COMMENTS: Portable, s/p ileocectomy, unable to confirm location of NGT in OR COMPARISON: Outside body CT with contrast from 04/28/2020 TECHNIQUE: A single radiograph centered on the mid abdomen was obtained. FINDINGS: A nasogastric tube is present terminating in the distal esophagus, with the side port terminating at least 9 cm proximal to the diaphragm. Pneumoperitoneum is present, not unexpected following recent surgery. Midline sudha and a subcostal suture line are present. There are numerous loops of dilated small and large bowel throughout the abdomen without evidence of obstruction. The included chest is within normal limits. Procedure Note Jude Sands MD - 04/28/2020 XR FEEDING TUBE PLACEMENT 04/28/2020 4:15 PM SIGNS AND SYMPTOMS/COMMENTS: Portable, s/p ileocectomy, unable to confirmlocation of NGT in OR COMPARISON: Outside body CT with contrast from 04/28/2020 TECHNIQUE: A single radiograph centered on the mid abdomen was obtained. FINDINGS: A nasogastric tube is present terminating in the distal esophagus, withthe side port terminating at least 9 cm proximal to the diaphragm.Pneumoperitoneum is present, not unexpected following recent surgery.Midline sudha and a subcostal suture line are present. There arenumerous loops of dilated small and large bowel throughout the abdomenwithout evidence of obstruction. The included chest is within normallimits. IMPRESSION Malpositioned nasogastric tube terminates in the distal esophagus with theside port roughly 9 mm from the esophageal hiatus. I have personally reviewed the images and the above interpretation andagree with the findings. us Rashid Bah MD [facility] DIAGNOSTIC IMAGING ORDE VIDA Final Result * SURGICAL PATHOLOGY (04/28/2020 12:34 EST) Final Diagnosis A. ILEUM, CECUM, ILEOCECECTOMY: - Colon: - Diverticulum with intraluminal fecalith. - Marked dilatation (19 cm in maximum diameter) consistent with clinical history of cecal volvulus. - Terminal ileum: - No specific pathologic features. 05/03/2020 10:19 [facility] Attestation By the signature below, the attending physician certifies that they have 1) personally conducted a gross and/or microscopic examination of the described specimen(s), and/or personally interpreted the results of laboratory testing of the described specimen(s), and 2) personally rendered or confirmed the above diagnosis. 05/03/2020 10:19 [facility] at 1019 Clinical History Cecal volvulus 05/03/2020 10:19 [facility] Gross Description A. Received fresh labelled with proper patient identification (initials E, S) and ileocecectomy is an intact portion of ileum (4.5 cm in length by 5.2 cm in maximum diameter) and cecum (15.0 cm in length by 19.0 cm in maximum diameter) with 2 stapled margins.. An appendix is not present. The serosa is smooth and leger-fox to focally purple. There is A1 5 x 1.2 x 0.8 cm firm leger nodule located along 1 side of the proximal portion of the serosa. The nodule is bivalved to reveal leger-brown apparent fecal material. Sectioning reveals leger-brown mucosa with denuded folds. The wall thickness averages 0.1 cm. No obvious masses identified. Cargo Worker sections are submitted as follows: BLOCK NAVA A1- proximal margin, en face A2- distal margin, en face A3- serosal nodule, bisected A4- ileocecal valve RENEE MALDONADO(ASCP) 05/01/2020 9:17 05/03/2020 10:19 [facility] Performing Lab [facility] 05/03/2020 10:19 [facility] Scanned Images 05/03/2020 10:19 [facility] Tissue ENTIRE SIGMOID COLON / Unknown 04/28/2020 12:34 EST 04/30/2020 12:37 EST us Chas Singh MD PhD PATHOLOGY ORDERABLES Fin al Result [facility] [address] [place] [address] * CT OUTSIDE IMAGES BODY (04/28/2020 7:49 EST) Narrative 04/28/2020 7:49 EST This is a non-reportable exam. us Provider Unknown IMG OTHER IMAGING ORDERABLES Final Result * TYPE AND SCREEN (04/28/2020 7:20 EST) ABO B 04/28/2020 9:02 EST [facility] Rh Factor Positive 04/28/2020 9:02 EST [facility] Antibody Screen Negative 04/28/2020 9:02 EST [facility] Specimen Expires: 05/01/2020 @ 23:59 04/28/2020 9:02 EST [facility] Blood VENOUS BLOOD / Unknown Venipuncture / Unknown 04/28/2020 7:20 EST 04/28/2020 7:25 EST us Giovani Ragsdale MD BLOOD BANK TESTS Edited Resu lt - Final Performing Organization Address [facility] Co de Phone Number [facility] [address] [place] [address] * EKG 12-LEAD (04/28/2020 6:42 EST) 04/28/2020 6:42 EST Narrative [facility] EKG - 05/08/2020 14:56 EST ?[facility] Emergency ? Test Date: ?2020-04-28 Pat Name: ? BRENNA MC ?Department: ?? ED ? Room: ? AC17 Gender: ? Female ? 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 [id number] : ?1950 ? Requested By: KELSI Estrada Order Number: [id number] ? Reading MD: ?? LORENZO PEREYRA DE SA MD ? Measurements Intervals ?[place] ? Rate: ? 64 ? P: ?62 ME: ? 160 ?QRS: ?-64 QRSD: ? 112 ?T: ?55 QT: ? 380 ? QTc: ?395 ? Interpretive Statements SINUS RHYTHM MARKED LEFT AXIS DEVIATION MODERATE INTRAVENTRICULAR CONDUCTION DELAY No previous ECG available for comparison This is a preliminary report. ??Edited by KARISHMA TILLEY MD on 05-04-2020 6:08:26 EST. I reviewed the tracing and have either agreed or edited the findings in this report. Electronically Signed On 05-08-2020 14:56:36 EST by LORENZO CARTER SA, MD. 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 Edited by KARISHMA TILLEY MD on 05-04-2020 6:08:26 EST. I reviewed the tracing and have either agreed or edited the findings inthis report. Electronically Signed On 05-08-2020 14:56:36 EST by LORENZO CRUZ SA, MD. Giovani Ragsdale MD CARDIAC ECG ORDERABLES Final Result [facility] EKG * TROPONIN I (04/28/2020 5:20 EST) Troponin I (ng/mL) <0.034 <0.034 ng/mL 04/28/2020 6:51 EST [facility] Blood VENOUS BLOOD / Unknown Venipuncture / Unknown 04/28/2020 5:20 EST 04/28/2020 5:24 EST Narrative [facility] - 04/28/2020 6:51 EST The results of this assay can be falsely lowered due to the consumption of Biotin. us Giovani Ragsdale MD CHEMISTRY & BLOOD GAS ORDERA BLES Final Result Performing Organization Address City/[facility]/ZIP Co de Phone Number [facility] [address] [place] [address] * MAGNESIUM (04/28/2020 5:20 EST) Magnesium 2.2 1.7 - 2.8 mg/dL 04/28/2020 6:41 [facility] Blood VENOUS BLOOD / Unknown Venipuncture / Unknown 04/28/2020 5:20 EST 04/28/2020 5:24 EST Giovani Ragsdale MD CHEMISTRY & BLOOD GAS ORDERA BLES Final Result Performing Organization Address [facility] Co de Phone Number [facility] [address] [place] [address] * (ABNORMAL) COMPREHENSIVE METABOLIC PANEL (CMP) (04/28/2020 5:20 EST) Pathologist [facility] [place] Sodium 142 136 - 145 mEq/L 04/28/2020 6:44 [facility] Potassium 4.6 3.5 - 5.0 mEq/L 04/28/2020 6:44 [facility] Comment: NOTE: Interpret with caution. Prolonged sample storage may alter the result. Chloride 108 96 - 110 mEq/L 04/28/2020 6:44 [facility] CO2 Total 21(L) 22 - 32 mEq/L 04/28/2020 6:44 [facility] Comment: NOTE: Interpret with caution. Prolonged sample storage may alter the result. Glucose 124(H) 70 - 100 mg/dL 04/28/2020 6:44 [facility] BUN 34(H) 10 - 26 mg/dL 04/28/2020 6:44 [facility] Creatinine 1.09(H) 0.52 - 1.04 mg/dL 04/28/2020 6:44 [facility] eGFR 52(L) >60 mL/min/1.7 3m2 04/28/2020 6:44 [facility] Comment:eGFR calculated usin g CKD-EPI equation for non- Americans. Multiply eGFR by 1.16 for patients. Total Protein 7.2 6.3 - 8.2 g/dL 04/28/2020 6:44 [facility] Albumin 4.2 3.4 - 4.9 g/dL 04/28/2020 6:44 [facility] Alkaline Phosphatase 89 38 - 126 U/L 04/28/2020 6:44 [facility] AST 26 15 - 46 U/L 04/28/2020 6:44 [facility] ALT 22 <35 U/L 04/28/2020 6:44 [facility] Bilirubin, Total <0.5 <1.4 mg/dL 04/28/19 6:44 [facility] Calcium 9.1 8.5 - 10.5 mg/dL 04/28/2020 6:44 [facility] Calculated Calcium 8.9 8.5 - 10.5 mg/dL 04/28/2020 6:44 [facility] Blood VENOUS BLOOD / Unknown Venipuncture / Unknown 04/28/2020 5:20 EST 04/28/2020 5:24 EST Giovani Ragsdale MD CHEMISTRY & BLOOD GAS ORDERA BLES Final Result Performing Organization Address [facility] Co de Phone Number [facility] [address] [place] [address] * LIPASE (04/28/2020 5:20 EST) Lipase 147 <251 U/L 04/28/2020 6:41 EST [facility] Blood VENOUS BLOOD / Unknown Venipuncture / Unknown 04/28/2020 5:20 EST 04/28/2020 5:24 EST us Giovani Ragsdale MD CHEMISTRY & BLOOD GAS ORDERA BLES Final Result Performing Organization Address [facility]/ZIP Co de Phone Number [facility] [address] [place] [address] * (ABNORMAL) COMPLETE BLOOD COUNT AND DIFFERENTIAL (04/28/2020 5:20 [facility]) WBC 9.86 4.00 - 12.40 K/cmm 04/28/2020 6:32 [facility] RBC 4.78 3.86 - 5.04 M/cmm 04/28/2020 6:32 [facility] Hemoglobin 14.2 11.6 - 15.2 gm/dL 04/28/2020 6:32 [facility] HCT 44.2 34.9 - 44.4 % 04/28/2020 6:32 [facility] MCV 93 81 - 98 fl 04/28/2020 6:32 [facility] MCH 29.7 26.7 - 33.3 pg 04/28/2020 6:32 [facility] MCHC 32.1 32.1 - 35.9 gm/dL 04/28/2020 6:32 [facility] RDW-CV 14.4 <14.7 % 04/28/2020 6:32 [facility] RDW-SD 49.1 <50.4 fl 04/28/2020 6:32 [facility] PLT 334 141 - 377 K/cmm 04/28/2020 6:32 [facility] MPV 10.3 9.5 - 12.7 fl 04/28/2020 6:32 [facility] % Neutrophils 88.4 % 04/28/2020 6:32 [facility] % Lymphocytes 6.7 % 04/28/2020 6:32 [facility] % Monocytes 3.8 % 04/28/2020 6:32 [facility] % Eosinophils 0.1 % 04/28/2020 6:32 [facility] % Basophils 0.3 % 04/28/2020 6:32 [facility] % Immature Grans 0.7 % 04/28/19 6:32 [facility] Absolute Neutrophils 8.72 2.20 - 8.85 K/cmm 04/28/2020 6:32 [facility] Absolute Lymphocytes 0.66(L) 1.09 - 3.30 K/cmm 04/28/2020 6:32 [facility] Absolute Monocytes 0.37 0.10 - 0.80 K/cmm 04/28/2020 6:32 [facility] Absolute Eosinophils 0.01(L) 0.03 - 0.61 K/cmm 04/28/2020 6:32 [facility] ABS Basophils 0.03 0.01 - 0.11 K/cmm 04/28/2020 6:32 [facility] Absolute Immature Grans 0.07(H) 0.00 - 0.06 K/cmm 04/28/2020 6:32 [facility] Type of Differential: Auto 04/28/2020 6:32 [facility] Blood VENOUS BLOOD / Unknown Venipuncture / Unknown 04/28/2020 5:20 EST 04/28/2020 5:24 EST Giovani Ragsdale MD PACKAGES & DNA PROBE ORDERAB LES Final Result [facility] [address] [place] [address] * HOLD SST (04/28/2020 5:20 EST) Hold Hold 04/28/2020 6:30 EST [facility] Blood VENOUS BLOOD / Unknown Venipuncture / Unknown 04/28/2020 5:20 EST 04/28/2020 5:24 EST Giovani Ragsdale MD LAB INFO SERVICE AND SUPPORT & PHONE RESULT Final Result [facility] [address] [place] [address] * HOLD LAVENDER TOP (04/28/2020 5:20 EST) Hold Hold 04/28/2020 6:30 EST [facility] Blood VENOUS BLOOD / Unknown Venipuncture / Unknown 04/28/2020 5:20 EST 04/28/2020 5:24 EST us Giovani Ragsdale MD LAB INFO SERVICE AND SUPPORT & PHONE RESULT Final Result [facility] [address] [place] [address] * HOLD GREEN TOP (04/28/2020 5:20 EST) Hold Hold 04/28/2020 6:30 EST [facility] Blood VENOUS BLOOD / Unknown Venipuncture / Unknown 04/28/2020 5:20 EST 04/28/2020 5:24 EST us Giovani Ragsdale MD LAB INFO SERVICE AND SUPPORT & PHONE RESULT Final Result Performing Organization Address [facility] Co de Phone Number [facility] [address] [place] [address] * HOLD BLUE TOP (04/28/2020 5:20 EST) Hold Hold 04/28/2020 6:30 EST [facility] Blood VENOUS BLOOD / Unknown Venipuncture / Unknown 04/28/2020 5:20 EST 04/28/2020 5:24 EST us Giovani Ragsdale MD LAB INFO SERVICE AND SUPPORT & PHONE RESULT Final Result Performing Organization Address [facility] Co de Phone Number [facility] [address] [place] [address] documented in this encounter Visit Diagnoses Diagnosis 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 If No, state reason why oral acetaminophen cannot be used in Comment field. Yes, Is this patient nothing by rectum? If No, state why rectal acetaminophen cannot be used in the Comment field. Yes, Are NSAIDs contraindicated in this patient? Yes, Is the patient in ED, PACU or ICU? Yes, Routine Given 04/28/2020 14:57 EST 1,000 mg acetaminophen (TYLENOL) tablet 1,000 mg 1,000 mg, oral, EVERY 6 HOURS, First dose on 04/29/20 at 1200, Until Discontinued, Routine Given 05/02/2020 9:22 EST 1,000 mg Given 05/01/2020 20:01 EST 1,000 mg Given 05/01/2020 14:08 EST 1,000 mg aspirin chewable tablet 81 mg 81 mg, oral, DAILY, First dose on 04/29/20 at 1030, Until Discontinued, Routine Given 05/02/2020 9:22 EST 81 mg Given 05/01/2020 8:09 EST 81 mg Given 04/30/2020 8:49 EST 81 mg bisacodyL (DULCOLAX) suppository 10 mg 10 mg, rectal, DAILY, First dose on 04/28/20 at 1630, Until Discontinued, Routine Given 04/30/2020 8:55 EST 10 mg chlorhexidine gluconate 2 % cloth 1 Each 1 Each, topical, DAILY, First dose on 04/28/20 at 0945, Until Discontinued, Routine Given 04/28/2020 9:59 EST 1 Each docusate sodium (COLACE) capsule 100 mg 100 mg, oral, 2 TIMES DAILY, First dose on 04/29/20 at 1045, Until Discontinued, Routine Given 05/02/2020 9:22 EST 10 0 mg Given 05/01/2020 20:01 EST 100 mg Given 05/01/2020 8:09 EST 100 mg DULoxetine (CYMBALTA) delayed release capsule 20 mg 20 mg, oral, 2 TIMES DAILY, First dose on 04/29/20 at 0900, Until Discontinued, Routine Given 04/29/2020 9:57 EST 20 mg DULoxetine (CYMBALTA) delayed release capsule 60 mg 60 mg, oral, DAILY, First dose on 04/29/20 at 1030, Until Discontinued, Routine Given 05/02/2020 9:22 EST 60 mg Given 05/01/2020 8:09 EST 60 mg Given 04/30/2020 8:49 EST 60 mg electrolyte-A (PLASMALYTE-A) solution 100 mL/hr, intravenous, CONTINUOUS, Starting on 04/28/20 at 1445, Until 05/01/20 at 1703, Routine Rate Documented 04/30/2020 7:04 EST 100 mL/hr 100 mL/hr Rate Documented 04/29/2020 19:06 EST 100 mL/hr 100 mL/hr New Bag 04/29/2020 18:45 EST 100 mL/hr 100 mL/hr enoxaparin (LOVENOX) injection 40 mg 40 mg, subcutaneous, AT BEDTIME, First dose on 04/28/20 at 2100, Until Discontinued, Routine Given 05/01/2020 2 0:00 EST 40 mg Given 04/30/2020 20:12 EST 40 mg Given 04/29/2020 20:47 EST 40 mg fentaNYL citrate (PF) injection 25-50 mcg 25-50 mcg, intravenous, EVERY 5 MIN PRN, Starting on 04/28/20 at 1426, Until 04/28/20 at 1616, Pain, Routine, Recovery (only) Given 04/28/2020 14 :43 EST 50 mcg fentaNYL citrate (PF) injection 50 mcg 50 mcg, intravenous, NOW X1, 1 dose, On 04/28/20 at 0530, STAT Given 04/28/2020 5:21 EST 50 mcg gabapentin (NEURONTIN) capsule 400 mg 400 mg, oral, 2 TIMES DAILY PRN, Starting on 04/29/20 at 0723, Until Thu05/02/20 at 1714, Pain, Routine Given 05/02/2020 4:03 EST 400 mg Given 05/01/2020 8:16 EST 400 mg Given 04/30/2020 20:12 EST 400 mg HYDROmorphone (DILAUDID) tablet 2-4 mg 2-4 mg, oral, EVERY 4 HOURS PRN, Starting on 04/29/20 at 1011, Until Thu05/02/20 at 1714, Pain, Routine Given 05/02/2020 9:22 EST 2 mg Given 05/02/2020 4:03 EST 2 mg Given 05/01/2020 20:00 EST 2 mg HYDROmorphone (PF) (DILAUDID) 0.5 mg/0.5 mL syringe 0.2-0.4 mg 0.2-0.4 mg, intravenous, EVERY 3 HOURS PRN, Starting on 04/28/20 at 1613, Until 04/29/20 at 1011, Pain, Routine Given 04/29/2020 6:57 EST 0.4 mg Given 04/29/2020 0:50 EST 0.4 mg Given 04/28/2020 21:45 EST 0.4 mg HYDROmorphone (PF) (DILAUDID) 0.5 mg/0.5 mL syringe 0.2-0.4 mg 0.2-0.4 mg, intravenous, EVERY 4 HOURS PRN, Starting on 04/29/20 at 1015, Until 05/02/20 at 0711, Pain, Routine Given 04/29/2020 10:38 EST 0.4 mg HYDROmorphone (PF) (DILAUDID) 0.5 mg/0.5 mL syringe 0.3-0.5 mg 0.3-0.5 mg, intravenous, EVERY 10 MINUTES PRN, Starting on 04/28/20 at 1426, Until 04/28/20 at 1616, Pain, Routine, Recovery (only) Given 04/28/2020 14 :30 EST 0.5 mg HYDROmorphone (PF) (DILAUDID) 0.5 mg/0.5 mL syringe 1 dose, Starting on 04/28/20 at 1427, Until 04/28/20 at 1430 levothyroxine (SYNTHROID) tablet 50 mcg 50 mcg, oral, DAILY BEFORE BREAKFAST, First dose on 04/30/20 at 0700, Until Discontinued, Routine Given 05/02/2020 6:23 EST 50 mcg Given 05/01/2020 5:56 EST 50 mcg Given 04/30/2020 6:05 EST 50 mcg morphine injection 4 mg 4 mg, intravenous, NOW X1, 1 dose, On 04/28/20 at 0715, STAT Given 04/28/2020 7:25 EST 4 mg morphine injection 4 mg 4 mg, intravenous, ONCE PRN, 1 dose, Starting on 04/28/20 at 1014, Until 04/28/20 at 1032, Pain, Routine Given 04/28/2020 10:32 EST 4 mg pantoprazole (PROTONIX) injection 40 mg 40 mg, intravenous, DAILY, First dose on 04/28/20 at 1630, Until Discontinued, Routine Given 04/30/2020 8:49 EST 40 mg Given 04/29/2020 9:57 EST 40 mg Given 04/28/2020 17:16 EST 40 mg pantoprazole (PROTONIX) tablet 40 mg 40 mg, oral, DAILY, First dose on Thu05/02/20 at 0900, Until Discontinued, Routine Given 05/02/2020 9:22 EST 40 mg phenol (CHLORASEPTIC) 1.4 % solution/spray topical, EVERY 2 HOURS PRN, Starting on 04/28/20 at 1651, Until Thu05/02/20 at 1714, Throat Pain/NG Pain Given 04/29/2020 3:13 EST Given 04/28/2020 17:17 EST piperacillin-tazobactam 4.5 g in sodium chloride (NS MBP) 100 mL IVPB 4.5 g, intravenous, Administer over 30 Minutes, NOW X1, 1 dose, On 04/28/20 at 0830, Controlled antibiotic: has ID approved? No: Pre-operative surgical prophylaxis, Type of Therapy: Prophylaxis, Suspected Indication (Select all that apply): Other, Other Indication: Cecal volvulus, pre-op, ID Consult: No, STAT Given 04/28/2020 9:48 EST 4.5 g piperacillin-tazobactam 4.5 g in sodium chloride (NS MBP) 100 mL IVPB 4.5 g, intravenous, Administer over 30 Minutes, EVERY 8 HOURS, 2 doses, First dose (after last reorder) on 04/28/20 at 1800, Last dose on 04/29/20 at 0000, Controlled antibiotic: has ID approved? No: Pre-operative surgical prophylaxis, Type of Therapy: Prophylaxis, Suspected Indication (Select all that apply): Other, Other Indication: Cecal volvulus, pre-op, ID Consult: No, STAT Given 04/29/2020 0:42 EST 4.5 g Given 04/28/2020 17:15 EST 4.5 g senna (SENOKOT) tablet 1 Tab 1 Tablet, oral, AT BEDTIME, First dose on 04/29/20 at 2100, Until Discontinued, Routine Given 05/01/2020 20:0 0 EST 1 Tablet Given 04/30/2020 20:12 EST 1 Tablet Given 04/29/2020 20:47 EST 1 Tablet sodium chloride 0.9 % (flush) flush 3 mL 3 mL, intravenous, EVERY 8 HOURS, First dose on 04/30/20 at 1600, Until Discontinued, Routine Given 05/02/2020 9:24 EST 3 mL Given 05/01/2020 23:43 EST 3 mL Given 05/01/2020 8:10 EST 3 mL topiramate (TOPAMAX) tablet 200 mg 200 mg, oral, EVERY 12 HOURS, First dose on 04/29/20 at 0900, Until Discontinued, Routine Given 05/02/2020 9:22 EST 20 0 mg Given 05/01/2020 20:00 EST 200 mg Given 05/01/2020 8:09 EST 200 mg documented in this encounter Discontinued Medications Medication Sig Discontinue Reason Start Date End Da te aspirin 81 mg EC tablet Take 162 mg by mouth daily. Therapy completed 04/28/2020 documented as of this encounter Historical Medications * This list may reflect changes made after this encounter. aspirin-acetamin ophen-caffeine (EXCEDRIN MIGRAINE) 250-250-65 mg per tablet Take 1 Tab by mouth every 6 hours as needed for Headaches. Extra strength levothyroxine (SYNTHROID) 50 mcg tablet Take 50 mcg by mouth daily. Pt unsure of dose, pt had thyroidectomy added in this encounter Active and Recently Administered Medications Times are shown in EST. Scheduled Medication Order 04/30/2020 05/01/2020 05/02/2020 acetaminophen (TYLENOL) tablet 1,000 mg 1,000 mg, oral, EVERY 6 HOURS, First dose on 04/29/20 at 1200, Until Discontinued, Routine 328 (Given - Provider: Mariana Turner RN)0849 (Given - Provider: Veronika Wallis RN)1405 (Given - Provider: Lea Richardson)2011 (Given - Provider: Mariana Turner RN) 0208 (Not Given - Provider: Mariana Turner RN - Reason: Patient/family refused)0809 (Not Given - Provider: Mariana Dietz RN - Reason: Patient/family refused)1408 (Given - Provider: Mariana Dietz RN)2000 (Given - Provider: Mariana Turner RN) 022 (Not Given - Provider: Mariana Turner RN - Reason: Patient/family refused)921 (Given - Provider: Fátima Greene RN)1500 (Canceled Entry - Provider: Batch Job User Admin - Comment: Automatically canceled at discontinue of medication order) aspirin chewable tablet 81 mg 81 mg, oral, DAILY, First dose on 04/29/20 at 1030, Until Discontinued, Routine 0849 (Given - Provider: Veronika Wallis RN) 08 (Given - Provider: Mariana Dietz RN) 921 (Given - Provider: Fátima Greene, LAKHWINDER) bisacodyL (DULCOLAX) suppository 10 mg 10 mg, rectal, DAILY, First dose on 04/28/20 at 1630, Until Discontinued, Routine 0855 (Given - Provider: Veronika Wallis RN) 08 (Not Given - Provider: Mariana Dietz RN - Reason: Patient/family refused) 09 (Not Given - Provider: Fátima Greene RN - Reason: Patient/family refused) docusate sodium (COLACE) capsule 100 mg 100 mg, oral, 2 TIMES DAILY, First dose on 04/29/20 at 1045, Until Discontinued, Routine 0849 (Given - Provider: Veronika Wallis RN)2011 (Given - Provider: Mariana Turner RN) 08 (Given - Provider: Mariana Dietz RN)2000 (Given - Provider: Mariana Turner RN) 921 (Given - Provider: Fátima Greene, LAKHWINDER) DULoxetine (CYMBALTA) delayed release capsule 60 mg 60 mg, oral, DAILY, First dose on 04/29/20 at 1030, Until Discontinued, Routine 0849 (Given - Provider: Veronika Wallis RN) 08 (Given - Provider: Mariana Dietz RN) 921 (Given - Provider: Fátima Greene, LAKHWINDER) enoxaparin (LOVENOX) injection 40 mg 40 mg, subcutaneous, AT BEDTIME, First dose on 04/28/20 at 2100, Until Discontinued, Routine 2011 (Given - Provider: Mariana Turner RN) 1999 (Given - Provider: Mariana Turner RN) levothyroxine (SYNTHROID) tablet 50 mcg 50 mcg, oral, DAILY BEFORE BREAKFAST, First dose on Thu04/30/20 at 0700, Until Discontinued, Routine 0605 (Given - Provider: Mariana Turner RN) 0556 (Given - Provider: Mariana Turner RN) 0623 (Given - Provider: Mariana Turner RN) pantoprazole (PROTONIX) injection 40 mg (CANCELED) 40 mg, intravenous, DAILY, First dose on Thu04/28/20 at 1630, Until Discontinued, Routine 0849 (Given - Provider: Veronika Wallis RN) 0809 (Not Given - Provider: Mariana Dietz RN - Reason: Loss of IV access) pantoprazole (PROTONIX) tablet 40 mg 40 mg, oral, DAILY, First dose on Thu05/02/20 at 0900, Until Discontinued, Routine 0922 (Given - Provid er: Fátima Greene RN) senna (SENOKOT) tablet 1 Tab 1 Tablet, oral, AT BEDTIME, First dose on 04/29/20 at 2100, Until Discontinued, Routine 2011 (Given - Provider: Mariana Turner RN) 1999 (Given - Provider: Mariana Turner RN) sodium chloride 0.9 % (flush) flush 3 mL(Linked Group 1) 3 mL, intravenous, EVERY 8 HOURS, First dose on Thu04/30/20 at 1600, Until Discontinued, Routine 1503 (Not Given - Provider: Lea Richardson - Reason: Other - Comment: Given already) 0001 (Not Given - Provider: Mariana Turner RN - Reason: Patient/family refused)0810 (Given - Provider: Mariana Dietz RN)1526 (Not Given - Provider: Mariana Dietz RN - Reason: Order parameters not met)2343 (Given - Provider: Mariana Turner RN) 0924 (Given - Provider: Fátima Greene RN)1600 (Canceled Entry - Provider: Batch Job User Admin - Comment: Automatically canceled at discontinue of medication order) topiramate (TOPAMAX) tablet 200 mg 200 mg, oral, EVERY 12 HOURS, First dose on 04/29/20 at 0900, Until Discontinued, Routine 0850 (Given - Provider: Veronika Wallis, RN)2011 (Given - Provider: Mariana Turner RN) 0809 (Given - Provider: Mariana Dietz RN)1999 (Given - Provider: Mariana Turner RN) 09 (Given - Provider: Fátima Greene, RN) Continuous Medication Order 04/30/2020 05/01/2020 05/02/2020 electrolyte-A (PLASMALYTE-A) solution (CANCELED) 100 mL/hr, intravenous, CONTINUOUS, Starting on 04/28/20 at 1445, Until 05/01/20 at 1703, Routine 0704 (Rate Documented - Provider: Lea Richardson)1738 (Completed - Provider: Lea Richardson) PRN Medication Order 04/30/2020 05/01/2020 05/02/2020 gabapentin (NEURONTIN) capsule 400 mg 400 mg, oral, 2 TIMES DAILY PRN, Starting on 04/29/20 at 0723, Until Thu05/02/20 at 1714, Pain, Routine 1405 (Given - Provider: Lea Richardson)2011 (Given - Provider: Mariana Turner RN) 0816 (Given - Provider: Mariana Dietz RN) 402 (Given - Provider: Mariana Turner RN) HYDROmorphone (DILAUDID) tablet 2-4 mg 2-4 mg, oral, EVERY 4 HOURS PRN, Starting on 04/29/20 at 1011, Until Thu05/02/20 at 1714, Pain, Routine 0329 (Given - Provider: Mariana Turner RN)0850 (Given - Provider: Veronika Wallis, LAKHWINDER)2011 (Given - Provider: Mariana Turner RN) 0556 (Given - Provider: Mariana Turner, LAKHWINDER)1352 (Given - Provider: Mariana Dietz, LAKHWINDER)1999 (Given - Provider: Mariana Turner RN) 0403 (Given - Provider: Mariana Turner RN)0922 (Given - Provider: Fátima Greene, RN) ondansetron (PF) (ZOFRAN) injection 4 mg 4 mg, intravenous, EVERY 6 HOURS PRN, Starting on 04/28/20 at 1613, Until Thu05/02/20 at 1714, Nausea, Vomiting, Routine phenol (CHLORASEPTIC) 1.4 % solution/spray topical, EVERY 2 HOURS PRN, Starting on 04/28/20 at 1651, Until Thu05/02/20 at 1714, Throat Pain/NG Pain Linked Groups Order Group 1: Change IV to Saline Lock (CANCELED) Routine, ONE TIME, On Thu04/30/20 at 1200, For 1 occurrence, Once taking > 500 cc PO clears And sodium chloride 0.9 % (flush) flush 3 mLJump to med 3 mL, intravenous, EVERY 8 HOURS, First dose on Thu04/30/20 at 1600, Until Discontinued, Routine documented in this encounter Orders Medications Ordered That Cong ht Not Have Been Administered Count Last Ordered Date First Ordered Date HYDROmorphone (DILAUDID) tablet 2 mg 1 04/20 acetaminophen (TYLENOL) suppository 650 mg 1 04/28/2020 acetaminophen (TYLENOL) tablet 650 mg 1 12/2020 atropine 0.1 mg/mL syringe 0.5 mg 1 021 bupivacaine (PF) (MARCAINE) 0.5% injection 1 04/28/2020 diphenhydrAMINE (BENADRYL) i njection 12.5 mg 1 04/28/2020 fentaNYL citrate (PF) injection 100 mcg 1 0 04/28/2020 lactated ringers (LR) infusion 1 04/28/2020 metoCLOPramide (REGLAN) injection 10 mg 1 0 04/28/2020 morphine 2 mg/ml (DURAMORPH) Alaris PRN, 30 ml 1 04/28/2020 naloxone (NARCAN) injection 0.2 mg 1 2020 ondansetron (PF) (ZOFRAN) injection 4 mg 2 04/28/2020 oxyCODONE (ROXICODONE) immed iate release tablet 5-10 mg 1 04/28/2020 sodium chloride 0.9 % irrigation 1 04/28/19 Diet Count Last Ordered Date First Orde red Date DISCHARGE DIET 1 05/02/2020 Nursing Count Last Ordered Date First Orde red Date ACTIVITY INSTRUCTIONS 05/02/2020 BATHING INSTRUCTIONS 1 05/02/2020 DRIVING INSTRUCTIONS 05/02/2020 WOUND CARE INSTRUCTIONS 2 05/02/2020 NASOGASTRIC TUBE MAINTENANCE 1 04/28/2020 PT Count Last Ordered Date First Orde red Date PT EVALUATION AND TREAT 1 04/28/2020 Admission Count Last Ordered Date First Orde red Date ADMIT TO INPATIENT 1 04/28/2020 Transfer Count Last Ordered Date First Orde red Date ED BED REQUEST 1 04/28/2020 TEACHING SERVICE 1 04/28/2020 Discharge Count Last Ordered Date First Orde red Date DISCHARGE PATIENT 1 05/02/2020 Legal Count Last Ordered Date First Orde red Date MISCELLANEOUS DISCHARGE INSTRUCTIONS 3 04/20 Case Request Count Last Ordered Date First Orde red Date CASE REQUEST OPERATING ROOM 1 04/28/2020 documented in this encounter Care Teams Cook Helper Preserves Relationship Specialty Start Date End Date Stuart Leyva MD [address] [place] [address] PCP - General 11/15/15 documented as of this encounter
--- OUTSIDE RECORDS SUMMARY | 2024-03-02 20:27 | XMS_ITS | Encounter Summary ---
Author Organization Formerly [facility], [facility] [place] [address] Care Team Providers Care Wire Lather Name Role Phone Stuart Leyva MD Primary Care Provider [phone] Encounter Details Date Type Department Care Team (Late st Contact Info) Description 01/12/2008 Orders Only Orthopaedics at [facility] [address] [place] [address] Jae Zuleta MD [address] [place] [address] Social History Tobacco Use Types Packs/Day Years [...] Associated Diagnosis Comments SURGICAL PATHOLOGY REPORT Routine 01/12/2008 3:03 PM EDT documented in this encounter Results * Surgical Pathology Report (01/12/2008 3:03 PM EDT) Surgical Pathology Report [id number] ? [facility]; A The signing pathologist has (i) examined the relevant preparation(s) for the specimen(s) and (ii) rendered or confirmed the diagnosis(es). . ?Pathology Surgical Pathology Final Report Clinical Information Specimen Submitted: A - Femoral head, rt. Clinical History: Not provided Clinical Diagnosis: Right hip OA Gross Description Labeled/Fixativ e: ? Femoral head, right; fresh. Quantity/Size: ?One femoral head, 5.3 x 4.8 x 4.8 cm. Tissue Description: ?? Femoral head. ?? Margin: ?Smooth, firm, bony surgical margin. ?? Articular surface: Granular, leger-pink. ? Eburnation: ?Focal. ? Osteophytes: ? Present. ?? Cut surface: ? Reveals firm, leger-yellow marrow. ? Subchondral Sclerosis: ??Focal. ? Subchondral Cysts: ?Not appreciated. Sections/Proces sing: ??No sections are submitted. ??aje/PPS Diagnosis Articular bone and soft tissue consistent with osteoarthritis, right femoral head. ?? Gross surgical pathology examination. CR-0 01/20/08 AJE 01/20/08 Verified by: ? Nohelia COOK, [place] ?Pathologist ?(Electronic Signature) The attending pathologist whose signature appears on this report has reviewed all diagnostic slides and has edited the gross and/or microscopic portion of the report in rendering the final pathologic diagnosis. MARTA HERNDON 01/12/2008 3:03 PM EDT Jae Zuleta MD PATHOLOGY/CYTOLOGY O RDERABLES MARTA HERNDON documented in this encounter Visit Diagnoses Not on filedocumented in this encounter Care Teams Wire Lather Relationship Specialty Start Date End Date Stuart Leyva MD [address] [place] [address] PCP - General Internal Medicine 06/28/15 documented as of this encounter
--- OUTSIDE RECORDS SUMMARY | 2024-03-02 20:28 | XMS_ITS | Encounter Summary ---
Author Organization [facility] Address [address] [place] [address] Care Team Providers Care Assembler Golf Wood Head Name Role Phone Stuart Leyva MD Primary Care Provider [phone] Encounter Details Date Type Department Care Team (Late st Contact Info) Description 04/28/2020 Results Only Imaging [facility] [address] [place] [address] Unknown, Provider, Social History Tobacco Use Types Packs/Day [...] Olive Bell RN documented in this encounter Plan of Treatment Not on file documented as of this encounter Procedures Procedure Name Priority Date/Time Associated Diagnosis Comments CT ABDOMEN PELVIS W CONTRAST 04/28/2020 3:13 EST EKG 12-LEAD 04/28/2020 2:19 EST documented in this encounter Results * CT ABDOMEN PELVIS W CONTRAST (04/28/2020 3:13 EST) Anatomical Region Laterality Modality Body, Abdomen, Pelvis, Abdomen and Pelvis Computed Tomography 04/28/2020 3:13 EST Narrative 04/28/2020 3:13 EST ? AN ADDENDUM IS INCLUDED ON THIS REPORT ? ADDENDUM ? THIS REPORT CONTAINS FINDINGS THAT MAY BE CRITICAL TO PATIENT ? CARE. The findings were discussed with Dr Vásquez at 3:16 AM ? EST on 04/28/2020. The findings were acknowledged and understood. ? ADDENDUM SIGNED IN OTHER VENDOR SYSTEM 04/28/2020 ?Reported By: Finn Madrid MD ?Transcribed: 04/28/2020 (0317) HIS.VRAD ?REPORT ? EXAM: CAT SCAN/ABDOMEN PELVIS WITH CONTRA EX. D/ (0251) ? CLINICAL INFORMATION: ? Acute onset abd pain w/ radiation to back ? PROCEDURE INFORMATION: ? Exam: CT Abdomen And Pelvis With Contrast ? Exam date and time: 04/28/2020 2:15 AM ? Age: 69 years old ? Clinical indication: Other: Acute onset abd pain w/ radiation to ? back; Prior surgery; Surgery date: 6+ months; Surgery type: ? Hysterectomy, yoselin, hernia repair ? TECHNIQUE: ? Imaging protocol: Computed tomography of the abdomen and pelvis ? with intravenous contrast. ? Radiation optimization: All CT scans at this facility use at ? least one of these dose optimization techniques: automated ? exposure control; mA and/or kV adjustment per patient size ? (includes targeted exams where dose is matched to clinical ? indication); or iterative reconstruction. ? Contrast material: OMNIPAQUE 350; Contrast volume: 100 ml; ? Contrast route: INTRAVENOUS (IV); ? COMPARISON: ? No relevant prior studies available. ? FINDINGS: ? Mediastinal space: Mole hiatal hernia. ? Liver: Normal. No mass. ? Gallbladder and bile ducts: Moderate prominence of the biliary ? ducts, correlate with patient labs to exclude obstruction with ? MRCP or ERCP for further evaluation as clinically indicated. ? Pancreas: Normal. No ductal dilation. ? Spleen: Normal. No splenomegaly. ? Adrenal glands: Normal. No mass. ? Kidneys and ureters: Cysts up to 4.7 cm. No hydronephrosis. ? Stomach and bowel: Colonic diverticula. Focal twisting of the ? cecum on its mesentery suspicious for cecal volvulus with ? dilated small bowel loops distended cecum suggesting ? obstruction. ? Appendix: No evidence of appendicitis. ? Intraperitoneal space: Minimal ascites. ? PAGE 1 ? Signed Report ? (CONTINUED) ? AN ADDENDUM IS INCLUDED ON THIS REPORT ? Vasculature: Unremarkable. No abdominal aortic aneurysm. ? Lymph nodes: Unremarkable. No enlarged lymph nodes. ? Urinary bladder: Unremarkable as visualized. ? Reproductive: Status post hysterectomy. ? Bones/joints: Unremarkable. No acute fracture. ? Soft tissues: Unremarkable. ? IMPRESSION: ? 1. Moderate prominence of the biliary ducts, correlate with ? patient labs to exclude obstruction with MRCP or ERCP for ? further evaluation as clinically indicated. ? 2. Focal twisting of the cecum on its mesentery suspicious for ? cecal volvulus with dilated small bowel loops distended cecum ? suggesting obstruction. ? 3. Minimal ascites. ? REPORT SIGNED IN OTHER VENDOR SYSTEM 04/28/2020 ?Reported By: Finn Madrid MD ? CC: ? Transcribed Date/Time: 04/28/2020 (312) ? Carpet Measurer: ? Printed Date/Time: 04/28/2020 (316) ? PAGE 2 ? Signed Report ? Procedure Note Finn Madrid MD - 04/28/2020 AN ADDENDUM IS INCLUDED ON THIS REPORT ADDENDUM THIS REPORT CONTAINS FINDINGS THAT MAY BE CRITICAL TO PATIENT CARE. The findings were discussed with Dr Vásquez at 3:16 AM EST on 04/28/2020. The findings were acknowledged and understood. ADDENDUM SIGNED IN OTHER VENDOR SYSTEM 04/28/2020 Reported By: Finn Madrid MD Transcribed: 04/28/2020 (316) REPORT EXAM: CAT SCAN/ABDOMEN PELVIS WITH CONTRA EX. D/ (0251) CLINICAL INFORMATION: Acute onset abd pain w/ radiation to back PROCEDURE INFORMATION: Exam: CT Abdomen And Pelvis With Contrast Exam date and time: 04/28/2020 2:15 AM Age: 69 years old Clinical indication: Other: Acute onset abd pain w/ radiation to back; Prior surgery; Surgery date: 6+ months; Surgery type: Hysterectomy, yoselin, hernia repair TECHNIQUE: Imaging protocol: Computed tomography of the abdomen and pelvis with intravenous contrast. Radiation optimization: All CT scans at this facility use at least one of these dose optimization techniques: automated exposure control; mA and/or kV adjustment per patient size (includes targeted exams where dose is matched to clinical indication); or iterative reconstruction. Contrast material: OMNIPAQUE 350; Contrast volume: 100 ml; Contrast route: INTRAVENOUS (IV); COMPARISON: No relevant prior studies available. FINDINGS: Mediastinal space: Mole hiatal hernia. Liver: Normal. No mass. Gallbladder and bile ducts: Moderate prominence of the biliary ducts, correlate with patient labs to exclude obstruction with MRCP or ERCP for further evaluation as clinically indicated. Pancreas: Normal. No ductal dilation. Spleen: Normal. No splenomegaly. Adrenal glands: Normal. No mass. Kidneys and ureters: Cysts up to 4.7 cm. No hydronephrosis. Stomach and bowel: Colonic diverticula. Focal twisting of the cecum on its mesentery suspicious for cecal volvulus with dilated small bowel loops distended cecum suggesting obstruction. Appendix: No evidence of appendicitis. Intraperitoneal space: Minimal ascites. PAGE 1 Signed Report (CONTINUED) AN ADDENDUM IS INCLUDED ON THIS REPORT Vasculature: Unremarkable. No abdominal aortic aneurysm. Lymph nodes: Unremarkable. No enlarged lymph nodes. Urinary bladder: Unremarkable as visualized. Reproductive: Status post hysterectomy. Bones/joints: Unremarkable. No acute fracture. Soft tissues: Unremarkable. IMPRESSION: 1. Moderate prominence of the biliary ducts, correlate with patient labs to exclude obstruction with MRCP or ERCP for further evaluation as clinically indicated. 2. Focal twisting of the cecum on its mesentery suspicious for cecal volvulus with dilated small bowel loops distended cecum suggesting obstruction. 3. Minimal ascites. REPORT SIGNED IN OTHER VENDOR SYSTEM 04/28/2020 Reported By: Finn Madrid MD CC: Transcribed Date/Time: 04/28/2020 (0313) Carpet Measurer: Printed Date/Time: 04/28/2020 (0317) PAGE 2 Signed Report us Provider Unknown MD STORM CT ORDERABLES Edited Res ult - Final * EKG 12-LEAD (04/28/2020 2:19 EST) 04/28/2020 2:[address] [facility] - 04/28/2020 2:19 EST ? [facility] ? Test Date: ?2020-04-28 02:19:05 Pat Name: ? BRENNA EGERSHEIM ?Department: ?Room: ? Gender: ? F ?Psychological Stress Evaluator: ?? SAP : ?1950 ? Requested By: Order Number: ?Reading MD: ?? Val Zari, MD ? Measurements Intervals ?[employer] ? Rate: ? 54 ? P: ?65 [place]: ? 148 ?QRS: ?-51 QRSD: ? 104 ?T: ?62 QT: ? 506 ? QTc: ?479 ? Interpretive Statements Sinus bradycardia Left axis deviation Abnormal ECG Compared to ECG 04/10/2015 07:48:29 No significant change Electronically Signed On 04-28-2020 13:21:23 EST by Val Hameed MD [email or web address] Procedure Note Val Hameed MD - 04/28/2020 [facility] Test Date: 2020-04-28 02:19:05 Pat Name: BRENNA MC Department: Room: Gender: F Psychological Stress Evaluator: [facility] : 1950 Requested By: Order Number: Reading MD: Val Hameed MD Measurements Intervals [employer] Rate: 54 P: 65 AZ: 148 QRS: -51 QRSD: 104 T: 62 QT: 506 QTc: 479 Interpretive Statements Sinus bradycardia Left axis deviation Abnormal ECG Compared to ECG 04/10/2015 07:48:29 No significant change Electronically Signed On 04-28-2020 13:21:23 EST by Val Hameed MD [email or web address] us Provider Unknown CARDIAC ECG ORDERABLES Final Result [facility] [address] [place] [address] documented in this encounter Visit Diagnoses Not on filedocumented in this encounter Care Teams Assembler Golf Wood Head Relationship Specialty Start Date End Date Stuart Leyva MD [address] [place], [place] [id number] PCP - General 11/15/15 documented as of this encounter
--- OUTSIDE RECORDS SUMMARY | 2024-03-02 20:28 | XMS_ITS | Encounter Summary ---
Author Organization [facility] Address [address] [place] [address] Care Team Providers Care Laundry Operator Name Role Phone Stuart Leyva MD Primary Care Provider [phone] Reason for Visit * Reason Comments Non-healing Wound Encounter Details Date Type Department Care Team (Latest Contact Info) Description 11/16/2015 13:05 EDT Office Visit [facility] - [place] [address] [address] Jeanette Sharma MD [address] [address] Postprocedural non-healing wound, initial encounter (Primary Dx) Social History Tobacco Use Types Packs/Day Years Used Date Smoking Tobacco: Former Cigarettes 1 15 0 04/20/1989 - 04/20/2004 Comments Unknown Sex and Gender Information Value Date Recorded Sex Assigned at Not on file Legal Sex Female 18:26 EST Gender Identity Female 04/28/2020 5:17 EST Sexual Orientation Not on file documented as of this encounter Last Filed Vital Signs Vital Sign Reading Time Taken Comments Blood Pressure 120/70 11/16/2015 1304 EDT Pulse 77 11/16/2015 1304 EDT Temperature - - Respiratory Rate - - Oxygen Saturation - - Inhaled Oxygen Concentration - - Weight 69.4 kg (153 lb) 11/16/2015 1304 EDT Height 162.6 cm (5' 4) 11/16/2015 1304 EDT Body Mass Index 26.26 11/16/2015 1304 EDT documented in this encounter Progress Notes * Jeanette Sharma MD - 11/16/2015 9144 EDT [facility] HISTORY AND PHYSICAL EXAMINATION Date of Service: 11/16/2015 PROBLEM: Chief Complaint Patient presents with ??? Non-healing Wound SUBJECTIVE: Ms. Mc is a 64-year-old woman sent to me by the wound care clinic for large chronic, post surgical, nonhealing abdominal wound. The patient is very agitated when she describes the past series of events, but eventually becomes calmer. She had gastric bypass surgery in 1982. She was originally 400 pounds and is now 153 pounds. In early September 2015 she had an incisional hernia that was getting extremely large and uncomfortable. She also had a large pannus after more recent weight loss. The hernia was repaired in an open manner by a surgeon at [facility] in conjunction with abdominoplasty by a plastic surgeon at [facility]. She was hospitalized for several days and then discharged to home with VNA checking on her drains. In early October, she says that her surgeons encouraged her primary care provider to remove some of the abdominal sutures. She says at this time the incision atthe newly placed umbilicus and started draining a pink and yellowish colored fluid. By the time she had her follow-up appointment with her surgeons at [facility], she was admitted for wound infection. She says at this time the drainage had turned green. She says she was taken to the OR andthe wound was debrided and she was maintained on antibiotics. She remained in the hospital for about a week and was advised to have wound VAC placed. It is unclear the exact circumstances but she refused to have the wound VAC there and was discharged to home. She has been taking oral antibiotics sin ce. She has also been doing wet to dry dressing changes of the open wound 3 times daily. She does it herself twice daily and visiting nurses change it once daily. The wound is no longer draining any foul-smelling fluid. It is covered in fibrinous exudate. She was evaluated at the wound care clinic on this week and they felt that she needed surgical debridement and wound VAC placement. The wound is described as being quite large, approximately 10 cm x 5 cm with a tunneling towards the right of her umbilicus. The patient denies any pain at the site. She adamantly refuses to return to [facility] for follow-up care. PROBLEM LIST: does not have any pertinent problems on file. Past Medical History Diagnosis Date ??? Arthritis ??? Thyroid disease ??? Psychiatric problem ADD ??? Hypertension ??? HLD (hyperlipidemia) Past Surgical History Procedure Laterality Date ??? Gastric bypass surgery 1982 ??? Varicose vein surgery ??? Thyroidectomy ??? Incisional hernia repair ??? Abdominoplasty Family History Problem Relation Age of Onset ??? Heart Disease Mother ??? Alcohol Abuse Mother ??? Alcohol Abuse Father ??? Cirrhosis Father History Social History ??? Marital Status: Spouse Name: N/A ??? Number of Children: N/A ??? Years of Education: N/A Social History Main Topics ??? Smoking status: Former Smoker -- 1.00 packs/day for 15 years Types: Cigarettes Quit date: 04/20/2004 ??? Smokeless tobacco: Not on file ??? Alcohol Use: Not on file ??? Drug Use: Not on file ??? Sexual Activity: Not on file Other Topics Concern ??? None Social History Narrative ??? 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 . Current Outpatient Prescriptions Medication Sig Dispense Refill ??? aspirin 81 mg EC tablet Take 162 mg by mouth daily. ??? atorvastatin (LIPITOR) 40 mg tablet Take 40 mg by mouth daily. ??? azelastine (ASTELIN) nasal spray Instill 1 [place] into right nostril 2 times daily. ??? chlorthalidone (HYGROTON) 25 mg tablet Take 25 mg by mouth daily. ??? Folic Acid-Vit B6-Vit B12 2.5-25-1 mg tablet Take by mouth daily. ??? losartan (COZAAR) 100 mg tablet Take 100 mg by mouth daily. ??? metoprolol XL (TOPROL-XL) 50 mg tablet Take 50 mg by mouth daily. No current facility-administered medications for this visit. ALLERGIES: Allergies Allergen Reactions ??? Codeine Belly pain REVIEW OF SYSTEMS: A 10-point review of systems was conducted. Pertinent positives are listed in the HPI above and listed below. All other systems are negative. Constitutional: Weight loss, excess sweating, weakness Skin: Itching Head and neck: Headaches, ringing in ears, nose bleeds, congestion Eyes: Sensitivity to light Cardiovascular: Palpitations, leg swelling Psychiatric: Depression, nervous/anxious, ADD Gastrointestinal: Nausea, vomiting, abdominal pain, diarrhea, constipation Genitourinary: Urgency, flank pain Musculoskeletal: Muscle aches, neck pain, back pain, joint pain PHYSICAL EXAM: BP 120/70 mmHg Pulse 77 Ht 162.6 cm (64) Wt 69.4 kg (153 lb) BMI 26.25 kg/m2 General: well-nourished, NAD, initially agitated but becomes much calmer towards the end of the exam HEENT: head normocephalic, atraumatic, oronasopharynx clear. Neck supple without masses. Eyes: sclera non-icteric Heart: RRR, no M/R/G Lungs: ctab Abd: bowel sounds present, soft, non-tender, non-distended, no organomegaly Skin: warm and dry, no rashes. Abdominoplasty incision intact except for to the right of her umbilicus. The skin flaps have and the right lateral side of her skin has pulled away from the umbilicus, leaving an open wound that measure 10cm tall and 5cm wide. At the base of this is healthy granulation tissue with some exposed fat and fibrinous exudate. Lateral to this area, the wound tunnels for an additional 15cm under a full thickness flap of skin. Within the tunnel is nonviable fat and all is covered in a layer of thick fibrinous exudate. There is no foul smell or drainage and the wound does not appear infected. I was able to debride a lot of the nonviable fat and fibrinous exudate at the bedside. I repacked the wound with a wet to dry kerlix, covered by dry gauze, ABD pad, Medipore tape Musculoskeletal: full range of motion, normal muscle strength and tone for age Psychiatric: A&Ox3, appropriate mood and affect ASSESSMENT: 1. Postprocedural non-healing wound, initial encounter Ms. Mc is a 64-year-old woman with a chronic, nonhealing post surgical wound after breakdownof a part of her abdominoplasty incision. I recommend further debridement in the operating room with wound VAC placement. PLAN: We had a very lengthy discussion about her wound and possible ways to treat it. She asked me why itis not closing on its own and how well it ever close on its own, and I answered that there needed to be better granulation tissue in the pocket and no fibrinous exudate before the wound would start to close. She has been very diligent and doing a good job with dressing changes, however I think the wound clearly needs debridement and would be better served by a wound VAC. She asked if the wound could be sutured shut, and I explained that now that it has been open for a month, the risk of abscessand infection would be too great. I explained that she may even need a skin graft to cover the openarea where the right lateral skin has receded from the umbilicus (the 5 cm wide gap). She is very open now to the idea of having a wound VAC in place. She is worried about her active lifestyle and having to carry around the wound VAC machine. But she also admits that 3 times daily wound changes andwaiting for visiting nurses every day is limiting her lifestyle severely. She agreed to wound VAC placement in the operating room after surgical debridement, which we will try to schedule for next week pending approval of the home wound VAC system. I will be on vacation the following week, so the plan would be for debridement and wound VAC placement on November 21. Then I would ask visiting nursesto change the wound VAC 3 times per week while I am gone, then I would see her on December 02to change the wound VAC myself and to evaluate progression. Until then, she should continue with 3 times daily wet-to-dry packing of the wound. The patient demonstrated understanding. There were no barriers to understanding. I spent a total of 70 minutes in rbdt-do-ndro time with this patient and 70 minutes of that time was spent in counseling and coordination of care as described in the progress note. Jeanette Sharma MD 11/16/2015 documented in this encounter Plan of Treatment Not on file documented as of this encounter Visit Diagnoses Diagnosis Postprocedural non-healing wound, initial encounter- Primary documented in this encounter Historical Medications * This list may reflect changes made after this encounter. Folic Acid-Vit B6-Vit B12 2.5-25-1 mg tablet Take by mouth daily. metoprolol XL (TOPROL-XL) 50 mg tablet Take 50 mg by mouth daily. 01/01/2016 losartan (COZAAR) 100 mg tablet Take 100 mg by mouth daily. 01/01/2016 atorvastatin (LIPITOR) 40 mg tablet Take 40 mg by mouth daily. 01/01/2016 chlorthalidone (HYGROTON) 25 mg tablet Take 25 mg by mouth daily. 01/01/2016 azelastine (ASTELIN) nasal spray Instill 1 [place] into right nostril 2 times daily. 01/01/2016 aspirin 81 mg EC tablet Take 162 mg by mouth daily. 04/28/2020 added in this encounter Care Teams Laundry Operator Relationship Specialty Start Date End Date Stuart Leyva MD [address] [place] [address] PCP - General 11/15/15 documented as of this encounter
--- OUTSIDE RECORDS SUMMARY | 2024-03-02 20:28 | XMS_ITS | Encounter Summary ---
Author Organization [facility] Address [address] [place] [address] Care Team Providers Care Accounts Executive Name Role Phone Stuart Leyva MD Primary Care Provider [phone] Encounter Details Date Type Department Care Team (Latest Contact Info) Description 04/28/2020 7:49 EST - 04/28/2020 23:59 EST Hospital Encounter [facility] Medical [facility] Secondary Reads [place] Discharge Disposition: Home or Self Care Social [...] No 04/28/2020 17:23 Olive Bell, RN * Are you blind or do you have serious difficulty seeing, even when wearing glasses? Answer Date of Assessment Author No 04/28/2020 17:23 Olive Bell, RN * Do you have serious difficulty walking or climbing stairs? (5 years old or older) Answer Date of Assessment Author No 04/28/2020 17:23 Olive Bell, RN * Do you have difficulty dressing [...] Olive Bell RN documented in this encounter Medications at Time [...] thyroidectomy 1 documented as of this encounter Discharge Disposition Disposition Code Departure Means Destination Home or Self Care documented in this encounter Plan of Treatment Not on file documented as of this encounter Procedures Procedure Name Priority Date/Time Associated Diagnosis Comments CT OUTSIDE IMAGES BODY Routine 04/28/2020 7:49 EST documented in this encounter Results * CT OUTSIDE IMAGES BODY (04/28/2020 7:49 EST) Narrative 04/28/2020 7:49 EST This is a non-reportable exam. us Provider Unknown MD STORM OTHER IMAGING ORDERABLES Final Result documented in this encounter Visit Diagnoses Not on filedocumented in this encounter Care Teams Accounts Executive Relationship Specialty Start Date End Date Stuart Leyva MD [address] [place] [address] PCP - General 11/15/15 documented as of this encounter
--- OUTSIDE RECORDS SUMMARY | 2024-03-02 20:28 | XMS_ITS | Encounter Summary ---
Author Organization [facility] Address [address] [place] [address] Care Team Providers Care Supervisor Building Maintenance Name Role Phone Sturat Leyva MD Primary Care Provider [phone] Encounter Details Date Type Department Care Team (Late st Contact Info) Description 02/11/2020 Lab Requisition [facility] Pathology & Laboratory Medicine - [address] [address] Outr Resulting Lab, Provider Social History Tobacco Use Types Packs/Day Years Used Date Smoking Tobacco: Never Assessed Comments Unknown Sex and Gender Information Value Date Recorded Sex Assigned at Not on file Legal Sex Female 18:26 EST Gender Identity Female 04/28/2020 5:17 EST Sexual Orientation Not on file documented as of this encounter Plan of Treatment Not on file documented as of this encounter Procedures Procedure Name Priority Date/Time Associated Diagnosis Comments SPEP, INCLUDES QUANTITATION OF MONOCLONAL SPIKE Routine 02/10/2020 14:30 EDT documented in this encounter Results * (ABNORMAL) SPEP, INCLUDES QUANTITATION OF MONOCLONAL SPIKE (02/10/2020 14:30 EDT) Total Protein 6.4 6.3 - 8.2 g/dL 02/13/2020 12:43 EDT [facility] Albumin % 60.1 55.8 - 66.1 % 02/13/2020 12:43 EDT [facility] Alpha-1 % 6.0(H) 2.9 - 4.9 % 02/13/2020 12:43 EDT [facility] Alpha-2 % 12.1(H) 7.1 - 11.8 % 02/13/2020 12:43 EDT [facility] Beta % 10.5 8.4 - 13.1 % 02/13/2020 12:43 EDT [facility] Gamma % 11.3 11.1 - 18.8 % 02/13/2020 12:43 EDT [facility] SPEP Comment No apparent monoclonal protein seen on serum electrophoresis 02/13/2020 12:43 EDT [facility] Comment:See scanned/suppleme ntary report. Blood VENOUS BLOOD / Unknown 02/10/2020 14:30 EDT 02/12/2020 16:19 EDT us Provider Outr Resulting Lab CHEMISTRY & BLOOD GA S ORDERABLES Final Result [facility] [address] [place] [address] documented in this encounter Visit Diagnoses Not on filedocumented in this encounter Care Teams Supervisor Building Maintenance Relationship Specialty Start Date End Date Stuart Leyva MD [address] [place], [place] [id number] PCP - General 11/15/15 documented as of this encounter
--- OUTSIDE RECORDS SUMMARY | 2024-03-02 20:28 | XMS_ITS | Encounter Summary ---
Author Organization [facility] Address [address] [place] [address] Care Team Providers Care Railway Head Tender Name Role Phone Royer Serrano MD Primary Care Provider [phone] Encounter Details Date Type Department Care Team (Latest Contact Info) Description 04/09/2015 6:03 EST - 04/09/2015 23:59 EST Hospital Encounter [facility] [address] [place] [address] Unknown, Provider, Discharge Disposition: Home or Self Care Social History Tobacco Use Types Packs/Day Years Used Date Smoking Tobacco: Never Assessed Comments Unknown Sex and Gender Information Value Date Recorded Sex Assigned at Not on file Legal Sex Female 18:26 EST Gender Identity Female 04/28/2020 5:17 EST Sexual Orientation Not on file documented as of this encounter Discharge Disposition Disposition Code Departure Means Destination Home or Self [facility] documented in this encounter Plan of Treatment Not on file documented as of this encounter Visit Diagnoses Not on filedocumented in this encounter Care Teams Railway Head Tender Relationship Specialty Start Date End Date Royer Serrano MD [address] [place] [address] PCP - General 03/02/15 11/14/15 documented as of this encounter
--- OUTSIDE RECORDS SUMMARY | 2024-03-02 20:28 | XMS_ITS | Encounter Summary ---
Author Organization [facility] Address [address] [place] [address] Care Team Providers Care Structural Designer Name Role Phone Royer Serrano MD Primary Care Provider [phone] Stuart Leyva MD Primary Care Provider [phone] Encounter Details Date Type Department Care Team (Late st Contact Info) Description 04/09/2015 Historical Results Only [facility] Radiology Results [address] [id number] Raffi Perea MD [address] [place] [address] Social History Tobacco Use Types Packs/Day Years [...] Name Priority Date/Time Associated Diagnosis Comments XR CHEST 1 VIEW 04/09/2015 9:17 EST documented in this encounter Results * XR CHEST 1 VIEW (04/09/2015 9:17 EST) Anatomical Region Laterality Modality Other 04/09/2015 9:17 EST Narrative 04/09/2015 9:21 EST ? EXAM: RADIOLOGY/CHEST-PORTABLE ?EX. D/ (0907) ? CLINICAL INFORMATION: ? overdose ? Indication: Methadone overdose. ? Comparison: None. ? Technique: Sitting upright AP portable view. ? Findings: The cardiomediastinal silhouette and pulmonary vasculature ? are within normal limits. The lungs are clear. No pleural effusion or ? pneumothorax is seen. ? Impression: No acute process. ? REPORT SIGNED IN OTHER VENDOR SYSTEM 04/09/2015 ?Reported By: Maxwell Solis MD ? CC: ? Transcribed Date/Time: 04/09/2015 (920) ? Automatic Washer Mechanic: ? Printed Date/Time: 09/29/2018 (32) ? PAGE 1 ? Signed Report ? Procedure Note Maxwell Solis MD - 02/23/2019 EXAM: RADIOLOGY/CHEST-PORTABLE EX. D/ (0907) CLINICAL INFORMATION: overdose Indication: Methadone overdose. Comparison: None. Technique: Sitting upright AP portable view. Findings: The cardiomediastinal silhouette and pulmonaryvasculature are within normal limits. The lungs are clear. No pleural effusionor pneumothorax is seen. Impression: No acute process. REPORT SIGNED IN OTHER VENDOR SYSTEM 04/09/2015 Reported By: Maxwell Solis MD CC: Transcribed Date/Time: 04/09/2015 (920) Automatic Washer Mechanic: Printed Date/Time: 09/29/2018 (00) PAGE 1 Signed Report Raffi Kimi Loera MD IMG DIAGNOSTIC IMAG ING ORDERABLES Final Result documented in this encounter Visit Diagnoses Not on filedocumented in this encounter Care Teams Structural Designer Relationship Specialty Start Date End Date Royer Serrano MD [address] [place] [address] PCP - General 03/02/15 11/14/15 Stuart Leyva MD [address] [place] [address] PCP - General 11/15/15 documented as of this encounter
--- OUTSIDE RECORDS SUMMARY | 2024-03-02 20:28 | XMS_ITS | Encounter Summary ---
Author Organization [facility] Address [address] [place] [address] Care Team Providers Care Oil Rig Driller Name Role Phone Stuart Leyva MD Primary Care Provider [phone] Encounter Details Date Type Department Care Team (Late st Contact Info) Description 11/19/2015 Orders Only [facility] General Surgery - [place] [address] [facility] [address] [place] [address] Jeanette Sharma MD [address] [facility] [address] [place] [address] Postprocedural non-healing wound, initial encounter (Primary [...] initial encounter- Primary documented in this encounter Care Teams Oil Rig Driller Relationship Specialty Start Date End Date Stuart Leyva MD [address] [place] [address] PCP - General 11/15/15 documented as of this encounter
--- OUTSIDE RECORDS SUMMARY | 2024-03-02 20:28 | XMS_ITS | Encounter Summary ---
Author Organization [facility] Address [address] [place] [address] Care Team Providers Care Home Theater Experience Expert Name Role Phone Stuart Leyva MD Primary Care Provider [phone] Encounter Details Date Type Department Care Team (Latest Contact Info) Description 11/22/2015 7:50 EDT - 11/22/2015 23:59 EDT Hospital Encounter [facility] [address] [place] [address] Unknown, Provider, Discharge Disposition: Home or Self [...] this encounter Medications at Time of Discharge Folic Acid-Vit B6-Vit B12 2.5-25-1 mg tablet Take by mouth daily. aspirin 81 mg EC tablet Take 162 mg by mouth daily. 04/28/2020 atorvastatin (LIPITOR) 40 mg tablet Take 40 mg by mouth daily. 01/01/2016 azelastine (ASTELIN) nasal spray Instill 1 [place] into right nostril 2 times daily. 01/01/2016 chlorthalidone (HYGROTON) 25 mg tablet Take 25 mg by mouth daily. 01/01/2016 losartan (COZAAR) 100 mg tablet Take 100 mg by mouth daily. 01/01/2016 metoprolol XL (TOPROL-XL) 50 mg tablet Take 50 mg by mouth daily. 01/01/2016 documented as of this encounter Discharge Disposition Disposition Code Departure Means Destination Home or Self [facility] documented in this encounter Plan of Treatment Not on file documented as of this encounter Visit Diagnoses Not on filedocumented in this encounter Care Teams Home Theater Experience Expert Relationship Specialty Start Date End Date Stuart Leyva MD [address] [place] [address] PCP - General 11/15/15 documented as of this encounter
--- OUTSIDE RECORDS SUMMARY | 2024-03-02 20:28 | XMS_ITS | Encounter Summary ---
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 04/28/2020 1000 Posted [facility] OR MOR 01 General Emergency C - Less than 4 hours Panel 1 Procedure LRB Anes Op Region Wound Class Comments LAPAROTOMY, EXPLORATORY, with ILEOCECECTOMY N/A General Class II/ Du an Contaminated Surgeon Surgeon Role Service Panel Chas Singh MD PhD Primary General 1 Rashid Bah MD Resident - Assisting General 1 documented in this encounter Social History Tobacco [...] Sign Reading Time Taken Comments Blood Pressure 148/80 04/28/2020 0916 EST Pulse 89 04/28/2020 0511 EST Temperature 36 ??C (96.8 ??F) 04/28/2020 1036 EST Respiratory Rate 16 04/28/2020 0916 EST Oxygen Saturation 100% 04/28/2020 0916 EST Inhaled Oxygen Concentration - - Weight 63.5 kg (140 lb) 04/28/2020 0511 EST Height 162.6 cm (5' 4) 04/28/2020 0511 EST Body Mass Index 24.02 04/28/2020 1723 [...] Olive Bell RN documented in this encounter Discharge Summaries [...] Problems Diagnosis Date Noted ??? 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[facility]) 04/28/2020 Added automatically from request for surgery [id number] Resolved Hospital Problems No resolved problems to [...] Code Departure Means Destination Home or Self Intermediate documented in this encounter Progress Notes * Katina Wilson - 05/02/2020 1411 EST CM Discharge Note CASE MANAGEMENT DISCHARGE NOTE DISCHARGE DATE/TIME: Tuesday 05/02 at 15:00 DESTINATION: Home with family (If discharging to [facility]) COVID swab ordered and completed: N/A TRANSPORTATION: family ACCEPTING MD AND NUMBER: n/a RN REPORT/UNIT: n/a LEAF STAMPER/CHARGE/MD NOTIFIED (Y/N): Y FORMS: N/A IM SIGNED (Y/NA): Y HOME HEALTH: None DME: None needed PHARMACY/PRESCRIPTIONS: Per pt's preference Patient and/or family who participated in discharge plan: Pt herself OTHER: Radha Wilson LMSW Tele Rn II Pager: [phone] * Katina Wilson - 05/02/2020 1410 EST SOCIAL WORK PROGRESS NOTE: Pt medically ready to dc home (PT cleared pt yesterday) with no CM needs. Full DC Note to follow. Radha Wilson LMSW Tele Rn II Pager: [phone] * Katerina Roblero MD - 05/02/2020 1018 [...] (HCC-CMS) Added automatically from request for surgery [id number] Brenna Mc is a 69 y.o. female [...] Tylenol, Dilaudid PO ??? Zofran PRN ??? CRUISE CONSULTANT Meds o [id number], dulocolax, synthroid 50mcg, Duloxetine, Gabapentin, Toopiramate, PPI ??? Diet: Regular diet ??? Encourage IS, ambulation, and OOB to chair ??? Bowel regimen ordered ??? Activity as tolerated Home medications held: Ultram, Adderall DVT Prophylaxis: Ambulate, SCD's, Enoxaparin (Lovenox) 40 mg SQ daily Dispo: possibly DC home today if pain well-controlled on PO meds Maria Luisa Wright MD Acute Care Surgery PGY1 #[id number] 05/02/2020 10:18 Attestation: I performed or was [...] Active Hospital Problems Diagnosis ??? 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 female [...] Tylenol, Dilaudid IV ??? Zofran PRN ??? CRUISE CONSULTANT Meds o [id number], dulocolax, synthroid 50mcg, Duloxetine, Gabapentin, Toopiramate, PPI ??? Diet: Full liquids ??? Encourage IS, ambulation, and OOB to chair ??? Activity as tolerated Home medications held: Ultram, Adderall DVT Prophylaxis: Ambulate, SCD's, Enoxaparin (Lovenox) 40 mg SQ daily Maria Luisa Wright MD Acute Care Surgery PGY1 #[id number] 05/01/2020 14:16 Attestation: I performed or was [...] Hidalgo, PT - 05/01/2020 0831 EST [facility] Rehabilitation Therapy Acute Therapies [facility] Physical Therapy Initial Evaluation/discontinue note Date [...] lives at [address] [place] [address] Home environment Lives:alone Caregiver Support: No assistance [...] Hypertension ??? Hypothyroidism 04/28/20 thyroidectomy [place] [facility] ??? Psychiatric problem ADD ??? Thyroid disease [...] made her double over. She went to [facility] ED where CT was done that was [...] alone in a mobile home in [place], has a landlord who occasionally checks in on her. Date: 04/28/2020 Location: [facility] OR ?? Name: Brenna Mc, : 1950, [...] 100cc NGT: 100cc LDAs: NGT ?? Staff: Pattern Cutter: Clifton Sorto Relief Scrub: Dee Amaya LPN Scrub Person: Colton Sandoval RN Patient Fire Control Technician G: Brandy Redd ? Findings: Tedious and dense [...] with a gait speed > 0.6 meters/second. (Rich, 2012) The minimal clinically important difference (MCID) for community-dwelling elderly is 0.05 to 0.13 meters/second. (Yadiel, 2006) Stairs: assist needed/number of steps: See [...] other consults recommended at this time Pager: [phone] GUILLERMO HIDALGO, PT 05/01/2020 8:31 * Katina Wilson - 04/30/2020 1531 EST Initial Case Management/Social Work Assessment and Discharge Plan/Readmission Risk Assessment REASON FOR ADMISSION: Cecal volvulus (HCC-CMS) Patient understands reason for admission: Yes PATIENT CONTACT INFO VERIFIED: Yes PATIENT ADDRESS VERIFIED: Yes Type of housing (single family, condo, apartment, mcfp, single room occupancy, [facility] funded hotel room, group mcfp) - mobile home Who does the patient live with? alone Does the patient have access to their own bedroom/bathroom/kitchen - or is it shared with others? Lives alone Name of housing complex (ex [facility], [facility], etc)- n/a Housing Authority/Managing Organization - N/A Community Care Providers (disease case manager, [facility] nurse, etc) name and contact information- N/A [...] Finances: Yes TRANSPORTATION: Transportation: Family, Self CULTURAL, CONGREGATIONAL and/or LANGUAGE factors affecting health care/discharge planning: [...] device: None Community Services: Home health, MOW, SAS-none of one time a week Will you [...] Home Health Services: None DME Provider: Pharmacy: [id number] - [place], [place] - [address] [facility] [address] [place] [address] Home Health: Other: POST HOSPITAL TRANSITION PLAN: TAMMI CM met with pt at bedside. Pt is an AOx3 female. Pt lives alone in a mobile home with [place]- she reports being fully independent with all ADL's no cane or walker.Pt is hopeful to dc home once medically cleared. Her son Raymond can pick her up at dc. Pt declined the need for a COAL WASHER referral- no CM needs noted during this assessment. TAMMI CM will continue to remain available if needs arise. Radha Wilson LMSW Tele Rn II Pager: [phone] KATINA WILSON 04/30/2020 15:31 * Katerina Roblero [...] Active Hospital Problems Diagnosis ??? 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 female [...] Tylenol, Dilaudid IV ??? Zofran PRN ??? CRUISE CONSULTANT Meds o [id number], dulocolax, synthroid 50mcg, Duloxetine, Gabapentin, Toopiramate, PPI ??? Diet: NPO, mIVF until ROBF ??? Encourage IS, ambulation, and OOB to chair ??? Activity as tolerated Home medications held: Ultram, Adderall DVT Prophylaxis: Ambulate, SCD's, Enoxaparin (Lovenox) 40 mg SQ daily Maria Luisa Wright MD Acute Care Surgery PGY1 #[id number] 04/30/2020 11:44 Attestation: I performed or was [...] (HCC-CMS) Added automatically from request for surgery [id number] Brenna Mc is a 69 y.o. female [...] well controlled. No flatus or BM. Currenthas jo. Plan: ??? Pain: Tylenol, Dilaudid IV ??? Zofran PRN ??? CRUISE CONSULTANT Meds o Duloxetine, Gabapentin, Toopiramate ??? Diet: [...] Ronnie Badillo MD Acute Care Surgery Pager #[phone] * Solange Gabriel MD - 04/28/2020 8175 EST SURGERY POST-OP CHECK SUBJECTIVE: Pain well [...] I/O: Current Shift 04/28 1500 - 04/28 8474 In: 437 [I.V.:337] Out: - Medications: Current [...] advanced, confirmed placement with imaging NGT to WS Pain Control: Tylenol, Dilaudid IS DVT: Lovenox [...] made her double over. She went to [facility] ED where CT was done that was [...] alone in a mobile home in [place], has a landlord who occasionally checks in [...] Results Component Value Date TROPONINI <0.034 04/28/2020 [facility] FLUVID test negative for flu or COVID-19 [...] if unable to speak for herself Raymond Guevarahard [phone] Rashid Bah MD 04/28/2020 7:29 Surgery Application Analyst Pager #[phone] Cosigned by Chas Singh MD PhD at 04/29/2020 7:24 EST Associated attestation - Chas Singh MD PhD - 04/29/2020 0724 EST Attending attestation statement: I saw and examined the patient on 04/28/20 and agree with the findings and plans as documented in the resident/PATTERN DRUM MAKER note. Chas Singh MD PhD Acute Care Surgery Pager #[phone] documented in this encounter Nursing Notes * [...] Were you covid tested? Yes When: 04/28/2001/08/300 [facility] Results: Neg If yes, have you self-isolated/quarantined [...] spy angiography. SURGEON: Chas Singh MD PhD ROPE SILICA MACHINE OPERATOR: Rashid Bah MD ANESTHESIA: General endotracheal. INDICATIONS: This is a 69-year-old female who presented as a transfer from an outside hospital withCT scan diagnosis of cecal volvulus. On arrival to the [facility] ED, she was nontoxic, however, had a [...] line that were controlled with silk pop-off [id number] sutures (2-0). The distal resection margin was [...] firing. We then elected to perform a jlvj-fa-kjst functional end-to-end anastomosis from thedistal ileum to [...] / Rashid Bah MD / DB/CJ Confirmation: [id number] Dictation ID: [id number] cc: documented in this encounter ED Notes [...] this time as per pt request @ [phone] (H), son updated and phone passed to pt to speak with. * Giovani Ragsdale MD - 04/28/2020 0658 EST This patient received an evaluation and medical screening exam for emergent medical conditions at the [facility] on 04/28/2020 Scribe attestation: This documentation [...] multiple abdominal surgeries. Per chart review of [facility] records, HGB at [address] A/P [...] medication. Clinical Impression Final diagnoses: Cecal volvulus (HCC-[facility]) Disposition Admitted The patient's pain was managed [...] yo female BIBA as a transfer from [facility] for eval by surgery. Pt initially went [...] CMS intact in left arm. Medicated per JUN for pain. Labs sent. Waiting for provider [...] given at discharge? Yes Radha Wilson LMSW Tele Rn II Pager: [phone] * Plan of Care - Fátima Greene RN - 05/02/2020 1407 EST Problem: Daily Care Plan Goals Goal: Care Plan Documentation Flowsheets (Taken 05/02/2020 0716) Area of Focus: Discharge Plan Goal This [...] to rest. Frustrated not all of home CRUISE CONSULTANT meds ordered. Contacted her son this morning [...] Care - Colton Hammer RN - 04/29/2020 7896 EST Data: Pt POD#1 ex lap, monica, [...] Note - Rashid Bah MD - 04/28/2020 3683 EST Date: 04/28/2020 Location: [facility] OR Name: Brenna Bell Jesusita, : 1950, Diagnosis Pre-op Diagnosis * Cecal [...] UOP: 100cc NGT: 100cc LDAs: NGT Staff: Pattern Cutter: Clifton Sorto Relief Scrub: Dee Amaya LPN Scrub Person: Colton Sandoval RN Patient Fire Control Technician G: Brandy Redd Findings: Tedious and dense adhesions [...] TRAUMA/CRITICAL CARE Outpatient Referral Routine Cecal volvulus (HCC-CMS) Ordered: 05/02/2020 documented as of this encounter [...] 05/08/2020 15:0 8 EST us Scan 2 Nurse Discharge Planner PROCEDURE/MINOR SURGICAL OR DERABLES Final Result * (ABNORMAL) COMPLETE BLOOD COUNT AND DIFFERENTIAL (05/02/2020 7:41 EST) WBC 6.43 4.00 - 12.40 K/cmm 05/02/2020 8:11 [facility] RBC 3.65(L) 3.86 - 5.04 M/cmm 05/02/2020 8:11 [facility] Hemoglobin 10.8(L) 11.6 - 15.2 gm/dL 05/02/2020 8:11 [facility] HCT 33.0(L) 34.9 - 44.4 % 05/02/2020 8:11 [facility] MCV 90 81 - 98 fl 05/02/2020 8:11 [facility] MCH 29.6 26.7 - 33.3 pg 05/02/2020 8:11 [facility] MCHC 32.7 32.1 - 35.9 gm/dL 05/02/2020 8:11 [facility] RDW-CV 14.4 <14.7 % 05/02/2020 8:11 [facility] RDW-SD 48.2 <50.4 fl 05/02/2020 8:11 [facility] PLT 231 141 - 377 K/cmm 05/02/2020 8:11 [facility] MPV 10.5 9.5 - 12.7 fl 05/02/2020 8:11 [facility] % Neutrophils 72.3 % 05/02/2020 8:11 [facility] % Lymphocytes 13.2 % 05/02/2020 8:11 [facility] % Monocytes 6.8 % 05/02/2020 8:11 [facility] % Eosinophils 6.7 % 05/02/2020 8:11 [facility] % Basophils 0.5 % 05/02/2020 8:11 [facility] % Immature Grans 0.5 % 05/02/19 8:11 [facility] Absolute Neutrophils 4.65 2.20 - 8.85 K/cmm 05/02/2020 8:11 [facility] Absolute Lymphocytes 0.85(L) 1.09 - 3.30 K/cmm 05/02/2020 8:11 [facility] Absolute Monocytes 0.44 0.10 - 0.80 K/cmm 05/02/2020 8:11 [facility] Absolute Eosinophils 0.43 0.03 - 0.61 K/cmm 05/02/2020 8:11 [facility] ABS Basophils 0.03 0.01 - 0.11 K/cmm 05/02/2020 8:11 [facility] Absolute Immature Grans 0.03 0.00 - 0.06 K/cmm 05/02/2020 8:11 [facility] Type of Differential: Auto 05/02/2020 8:11 [facility] Blood VENOUS BLOOD / Unknown Venipuncture / Unknown 05/02/2020 7:41 EST 05/02/2020 8:00 EST us Rashid Bah MD PACKAGES & DNA PROBE ORDERA BLES Final Result [facility] [address] [place] [address] * (ABNORMAL) COMPLETE BLOOD COUNT AND DIFFERENTIAL (05/01/2020 6:10 EST) WBC 7.89 4.00 - 12.40 K/cmm 05/01/2020 6:33 [facility] RBC 3.67(L) 3.86 - 5.04 M/cmm 05/01/2020 6:33 [facility] Hemoglobin 10.8(L) 11.6 - 15.2 gm/dL 05/01/2020 6:33 [facility] HCT 32.6(L) 34.9 - 44.4 % 05/01/2020 6:33 [facility] MCV 89 81 - 98 fl 05/01/2020 6:33 [facility] MCH 29.4 26.7 - 33.3 pg 05/01/2020 6:33 [facility] MCHC 33.1 32.1 - 35.9 gm/dL 05/01/2020 6:33 [facility] RDW-CV 14.4 <14.7 % 05/01/2020 6:33 [facility] RDW-SD 46.5 <50.4 fl 05/01/2020 6:33 [facility] PLT 218 141 - 377 K/cmm 05/01/2020 6:33 [facility] MPV 10.0 9.5 - 12.7 fl 05/01/2020 6:33 [facility] % Neutrophils 75.1 % 05/01/2020 6:33 [facility] % Lymphocytes 10.6 % 05/01/2020 6:33 [facility] % Monocytes 7.1 % 05/01/2020 6:33 [facility] % Eosinophils 6.3 % 05/01/2020 6:33 [facility] % Basophils 0.5 % 05/01/2020 6:33 [facility] % Immature Grans 0.4 % 05/01/19 6:33 [facility] Absolute Neutrophils 5.92 2.20 - 8.85 K/cmm 05/01/2020 6:33 [facility] Absolute Lymphocytes 0.84(L) 1.09 - 3.30 K/cmm 05/01/2020 6:33 [facility] Absolute Monocytes 0.56 0.10 - 0.80 K/cmm 05/01/2020 6:33 [facility] Absolute Eosinophils 0.50 0.03 - 0.61 K/cmm 05/01/2020 6:33 [facility] ABS Basophils 0.04 0.01 - 0.11 K/cmm 05/01/2020 6:33 [facility] Absolute Immature Grans 0.03 0.00 - 0.06 K/cmm 05/01/2020 6:33 [facility] Type of Differential: Auto 05/01/2020 6:33 [facility] Blood VENOUS BLOOD / Unknown Venipuncture / Unknown 05/01/2020 6:10 EST 05/01/2020 6:20 EST us Rashid Bah MD PACKAGES & DNA PROBE ORDERA BLES Final Result [facility] [address] [place] [address] * CREATININE (05/01/2020 6:10 EST) Creatinine 0.84 0.52 - 1.04 mg/dL 05/01/2020 7:04 [facility] eGFR 72 >60 mL/min/1.7 3m2 05/01/2020 7:04 [facility] Comment:eGFR calculated tosin monterroso CKD-EPI equation for non- Americans. Multiply eGFR by 1.16 for patients. Blood VENOUS BLOOD / Unknown Venipuncture / Unknown 05/01/2020 6:10 EST 05/01/2020 6:30 EST Rashid Bah MD CHEMISTRY & BLOOD GAS ORDER DAVID Final Result Performing Organization Address [facility] Co de Phone Number [facility] [address] [place] [address] * BUN (05/01/2020 6:10 EST) BUN 19 10 - 26 mg/dL 05/01/2020 7:04 EST [facility] Blood VENOUS BLOOD / Unknown Venipuncture / Unknown 05/01/2020 6:10 EST 05/01/2020 6:30 EST Rashid Bah MD CHEMISTRY & BLOOD GAS ORDER DAVID Final Result Performing Organization Address [facility] Phone Number [facility] [address] [place] [address] * (ABNORMAL) ELECTROLYTES (05/01/2020 6:10 EST) Sodium 136 136 - 145 mEq/L 05/01/2020 7:04 [facility] Potassium 3.6 3.5 - 5.0 mEq/L 05/01/2020 7:04 [facility] Chloride 108 96 - 110 mEq/L 05/01/2020 7:04 [facility] CO2 Total 20(L) 22 - 32 mEq/L 05/01/2020 7:04 [facility] Blood VENOUS BLOOD / Unknown Venipuncture / Unknown 05/01/2020 6:10 EST 05/01/2020 6:30 EST Rashid Bah MD CHEMISTRY & BLOOD GAS ORDER DAVID Final Result Performing Organization Address [facility] Co de Phone Number [facility] [address] [place] [address] * (ABNORMAL) COMPLETE BLOOD COUNT AND DIFFERENTIAL (04/30/2020 6:29 EST) WBC 7.82 4.00 - 12.40 K/cmm 04/30/2020 7:10 [facility] RBC 3.25(L) 3.86 - 5.04 M/cmm 04/30/2020 7:10 [facility] Hemoglobin 9.7(L) 11.6 - 15.2 gm/dL 04/30/2020 7:10 [facility] HCT 29.3(L) 34.9 - 44.4 % 04/30/2020 7:10 [facility] MCV 90 81 - 98 fl 04/30/2020 7:10 [facility] MCH 29.8 26.7 - 33.3 pg 04/30/2020 7:10 [facility] MCHC 33.1 32.1 - 35.9 gm/dL 04/30/2020 7:10 [facility] RDW-CV 14.6 <14.7 % 04/30/2020 7:10 [facility] RDW-SD 48.4 <50.4 fl 04/30/2020 7:10 [facility] PLT 190 141 - 377 K/cmm 04/30/2020 7:10 [facility] MPV 10.4 9.5 - 12.7 fl 04/30/2020 7:10 [facility] % Neutrophils 78.4 % 04/30/2020 7:10 [facility] % Lymphocytes 10.5 % 04/30/2020 7:10 [facility] % Monocytes 7.5 % 04/30/2020 7:10 [facility] % Eosinophils 2.6 % 04/30/2020 7:10 [facility] % Basophils 0.6 % 04/30/2020 7:10 [facility] % Immature Grans 0.4 % 04/30/19 7:10 [facility] Absolute Neutrophils 6.13 2.20 - 8.85 K/cmm 04/30/2020 7:10 [facility] Absolute Lymphocytes 0.82(L) 1.09 - 3.30 K/cmm 04/30/2020 7:10 [facility] Absolute Monocytes 0.59 0.10 - 0.80 K/cmm 04/30/2020 7:10 [facility] Absolute Eosinophils 0.20 0.03 - 0.61 K/cmm 04/30/2020 7:10 [facility] ABS Basophils 0.05 0.01 - 0.11 K/cmm 04/30/2020 7:10 [facility] Absolute Immature Grans 0.03 0.00 - 0.06 K/cmm 04/30/2020 7:10 [facility] Type of Differential: Auto 04/30/2020 7:10 [facility] Blood VENOUS BLOOD / Unknown Venipuncture / Unknown 04/30/2020 6:29 EST 04/30/2020 6:48 EST Rashid Bah MD PACKAGES & DNA PROBE ORDERA BLES Final Result Performing Organization Address [facility] Co de Phone Number [facility] [address] [place] [address] * CREATININE (04/30/2020 6:29 EST) Creatinine 0.78 0.52 - 1.04 mg/dL 04/30/2020 7:22 [facility] eGFR 78 >60 mL/min/1.7 3m2 04/30/2020 7:22 [facility] Comment:eGFR calculated tosin monterroso CKD-EPI equation for non- Americans. Multiply eGFR by 1.16 for patients. Blood VENOUS BLOOD / Unknown Venipuncture / Unknown 04/30/2020 6:29 EST 04/30/2020 6:51 EST Rashid Bah MD CHEMISTRY & BLOOD GAS ORDER DAVID Final Result Performing Organization Address City/[facility]/ZIP Co de Phone Number [facility] [address] [place] [address] * BUN (04/30/2020 6:29 EST) Pathologist [facility] BUN 23 10 - 26 mg/dL 04/30/2020 7:22 [facility] Blood VENOUS BLOOD / Unknown Venipuncture / Unknown 04/30/2020 6:29 EST 04/30/2020 6:51 EST Rashid aBh MD CHEMISTRY & BLOOD GAS ORDER DAVID Final Result Performing Organization Address [facility] de Phone Number [facility] [address] [place] [address] * (ABNORMAL) ELECTROLYTES (04/30/2020 6:29 EST) Pathologist [facility] Sodium 137 136 - 145 mEq/L 04/30/2020 7:22 [facility] Potassium 3.6 3.5 - 5.0 mEq/L 04/30/2020 7:22 [facility] Chloride 110 96 - 110 mEq/L 04/30/2020 7:22 [facility] CO2 Total 19(L) 22 - 32 mEq/L 04/30/2020 7:22 [facility] Blood VENOUS BLOOD / Unknown Venipuncture / Unknown 04/30/2020 6:29 EST 04/30/2020 6:51 EST Rashid Bah MD CHEMISTRY & BLOOD GAS ORDER DAVID Final Result Performing Organization Address City/[facility]/ZIP Co de Phone Number [facility] [address] [place] [address] * (ABNORMAL) COMPLETE BLOOD COUNT AND DIFFERENTIAL (04/29/2020 7:31 EST) Pathologist [facility] WBC 9.39 4.00 - 12.40 K/cmm 04/29/2020 8:29 [facility] RBC 3.85(L) 3.86 - 5.04 M/cmm 04/29/2020 8:29 [facility] Hemoglobin 11.4(L) 11.6 - 15.2 gm/dL 04/29/2020 8:29 [facility] HCT 35.5 34.9 - 44.4 % 04/29/2020 8:29 [facility] MCV 92 81 - 98 fl 04/29/2020 8:29 [facility] MCH 29.6 26.7 - 33.3 pg 04/29/2020 8:29 [facility] MCHC 32.1 32.1 - 35.9 gm/dL 04/29/2020 8:29 [facility] RDW-CV 14.9(H) <14.7 % 04/29/2020 8:29 [facility] RDW-SD 50.2 <50.4 fl 04/29/2020 8:29 [facility] PLT 259 141 - 377 K/cmm 04/29/2020 8:29 [facility] MPV 10.4 9.5 - 12.7 fl 04/29/2020 8:29 [facility] % Neutrophils 84.0 % 04/29/2020 8:29 [facility] % Lymphocytes 8.1 % 04/29/2020 8:29 [facility] % Monocytes 7.0 % 04/29/2020 8:29 [facility] % Eosinophils 0.1 % 04/29/2020 8:29 [facility] % Basophils 0.4 % 04/29/2020 8:29 [facility] % Immature Grans 0.4 % 04/29/19 8:29 [facility] Absolute Neutrophils 7.88 2.20 - 8.85 K/cmm 04/29/2020 8:29 [facility] Absolute Lymphocytes 0.76(L) 1.09 - 3.30 K/cmm 04/29/2020 8:29 [facility] Absolute Monocytes 0.66 0.10 - 0.80 K/cmm 04/29/2020 8:29 [facility] Absolute Eosinophils 0.01(L) 0.03 - 0.61 K/cmm 04/29/2020 8:29 [facility] ABS Basophils 0.04 0.01 - 0.11 K/cmm 04/29/2020 8:29 [facility] Absolute Immature Grans 0.04 0.00 - 0.06 K/cmm 04/29/2020 8:29 [facility] Type of Differential: Auto 04/29/2020 8:29 [facility] Blood VENOUS BLOOD / Unknown Venipuncture / Unknown 04/29/2020 7:31 EST 04/29/2020 7:57 EST Rashid Bah MD PACKAGES & DNA PROBE ORDERA BLES Final Result Performing Organization Address City/[facility] Co de Phone Number [facility] [address] [place] [address] * (ABNORMAL) CREATININE (04/29/2020 7:31 EST) Creatinine 1.14(H) 0.52 - 1.04 mg/dL 04/29/2020 8:34 [facility] eGFR 50(L) >60 mL/min/1.7 3m2 04/29/2020 8:34 [facility] Comment:eGFR calculated tosin monterroso CKD-EPI equation for non- Americans. Multiply eGFR by 1.16 for patients. Blood VENOUS BLOOD / Unknown Venipuncture / Unknown 04/29/2020 7:31 EST 04/29/2020 8:03 EST Rashid Bah MD CHEMISTRY & BLOOD GAS ORDER DAVID Final Result [facility] [address] [place] [address] * BUN (04/29/2020 7:31 EST) BUN 25 10 - 26 mg/dL 04/29/2020 8:34 [facility] Blood VENOUS BLOOD / Unknown Venipuncture / Unknown 04/29/2020 7:31 EST 04/29/2020 8:03 EST us Rashid Bah MD CHEMISTRY & BLOOD GAS ORDER DAVID Final Result Performing Organization Address [facility] Co de Phone Number [facility] [address] [place] [address] * (ABNORMAL) ELECTROLYTES (04/29/2020 7:31 EST) Sodium 143 136 - 145 mEq/L 04/29/2020 8:34 EST [facility] Potassium 4.1 3.5 - 5.0 mEq/L 04/29/2020 8:34 EST [facility] Chloride 109 96 - 110 mEq/L 04/29/2020 8:34 EST [facility] CO2 Total 19(L) 22 - 32 mEq/L 04/29/2020 8:34 EST [facility] Blood VENOUS BLOOD / Unknown Venipuncture / Unknown 04/29/2020 7:31 EST 04/29/2020 8:03 EST us Rashid Bah MD CHEMISTRY & BLOOD GAS ORDER DAVID Final Result Performing Organization Address [facility] de Phone Number [facility] [address] [place] [address] * XR FEEDING TUBE PLACEMENT (04/28/2020 19:10 [...] with the findings. us Rashid Bah MD IMG DIAGNOSTIC IMAGING ORDE VIDA Final Result * SURGICAL PATHOLOGY (04/28/2020 12:34 EST) Final Diagnosis A. ILEUM, CECUM, ILEOCECECTOMY: - Colon: - Diverticulum with intraluminal fecalith. - Marked dilatation (19 cm in maximum diameter) consistent with clinical history of cecal volvulus. - Terminal ileum: - No specific pathologic features. 05/03/2020 10:19 [facility] Attestation By the signature below, the attending physician certifies that they have 1) personally conducted a gross and/or microscopic examination of the described specimen(s), and/or personally interpreted the results of laboratory testing of the described specimen(s), and 2) personally rendered or confirmed the above diagnosis. 05/03/2020 10:19 [facility] at 1019 Clinical History Cecal volvulus 05/03/2020 10:19 [facility] Gross Description A. Received fresh [...] averages 0.1 cm. No obvious masses identified. Aircraft Maintenance Supervisor sections are submitted as follows: BLOCK NAVA A1- proximal margin, en face A2- distal margin, en face A3- serosal nodule, bisected A4- ileocecal valve RENEE MALDONADO(ASCP) 05/01/2020 9:17 05/03/2020 10:19 EST [facility] Performing Lab [facility] 05/03/2020 10:19 EST [facility] Scanned Images 05/03/2020 10:19 EST [facility] Tissue ENTIRE SIGMOID COLON / Unknown 04/28/2020 12:34 EST 04/30/2020 12:37 EST us Chas Singh MD PhD PATHOLOGY ORDERABLES Fin al Result [facility] [address] [place] [address] * CT OUTSIDE IMAGES BODY (04/28/2020 7:49 EST) Narrative 04/28/2020 7:49 EST This is a non-reportable exam. us Provider Unknown IMG OTHER IMAGING ORDERABLES Final Result * TYPE AND SCREEN (04/28/2020 7:20 EST) ABO B 04/28/2020 9:02 EST [facility] Rh Factor Positive 04/28/2020 9:02 EST [facility] Antibody Screen Negative 04/28/2020 9:02 EST [facility] Specimen Expires: 05/01/2020 @ 23:59 04/28/2020 9:02 EST [facility] Blood VENOUS BLOOD / Unknown Venipuncture / Unknown 04/28/2020 7:20 EST 04/28/2020 7:25 EST us Giovani Ragsdale MD BLOOD BANK TESTS Edited Resu lt - Final [facility] [address] [place] [address] * EKG 12-LEAD (04/28/2020 6:42 EST) 04/28/2020 6:42 EST Narrative [facility] EKG - 05/08/2020 14:56 EST ?[facility] Emergency ? Test Date: ?2020-04-28 Pat Name: ? BRENNA EGERSHEIM ?Department: ?? ED ? Room: ? AC17 Gender: ? Female ? Finance Intern: ?? [id number] : ?1950 ? Requested By: KELSI Estrada Order Number: [id number] ? Reading MD: ?? LORENZO CARTER SA MD ? Measurements Intervals ?[place] ? Rate: ? 64 ? P: ?62 KS: ? 160 ?QRS: ?-64 QRSD: ? 112 [...] Lorenzo Talamantes Sa, MD - 05/08/2020 [facility] Emergency Test Date: 2020-04-28 Pat Name: BRENNA MC Department: ED Room: [facility] Gender: Female Finance Intern: [id number] : 1950 Requested By: KELSI Estrada Order Number: [id number] Reading MD: LORENZO PAK Measurements Intervals [place] Rate: 64 P: 62 KS: 160 QRS: -64 QRSD: 112 T: 55 [...] Ragsdale MD CARDIAC ECG ORDERABLES Final Result [facility] EKG * TROPONIN I (04/28/2020 5:20 EST) [facility] Troponin I (ng/mL) <0.034 <0.034 ng/mL 04/28/2020 6:51 EST [facility] Blood VENOUS BLOOD / Unknown Venipuncture / Unknown 04/28/2020 5:20 EST 04/28/2020 5:24 EST Narrative [facility] - 04/28/2020 6:51 EST The results of this assay can be falsely lowered due to the consumption of Biotin. us Giovani Ragsdale MD CHEMISTRY & BLOOD GAS ORDERA BLES Final Result Performing Organization Address [facility]/ZIP Co de Phone Number [facility] [address] [place] [address] * MAGNESIUM (04/28/2020 5:20 EST) [facility] Magnesium 2.2 1.7 - 2.8 mg/dL 04/28/2020 6:41 EST [facility] Blood VENOUS BLOOD / Unknown Venipuncture / Unknown 04/28/2020 5:20 EST 04/28/2020 5:24 EST Giovani Ragsdale MD CHEMISTRY & BLOOD GAS ORDERA BLES Final Result Performing Organization Address City/[facility]/ZIP Co de Phone Number [facility] [address] [place] [address] * (ABNORMAL) COMPREHENSIVE METABOLIC PANEL (CMP) (04/28/2020 5:20 EST) [facility] Sodium 142 136 - 145 mEq/L 04/28/2020 6:44 [facility] Potassium 4.6 3.5 - 5.0 mEq/L 04/28/2020 6:44 EST [facility] Comment: NOTE: Interpret with caution. Prolonged sample storage may alter the result. Chloride 108 96 - 110 mEq/L 04/28/2020 6:44 EST [facility] CO2 Total 21(L) 22 - 32 mEq/L 04/28/2020 6:44 [facility] Comment: NOTE: Interpret with caution. Prolonged sample storage may alter the result. Glucose 124(H) 70 - 100 mg/dL 04/28/2020 6:44 [facility] BUN 34(H) 10 - 26 mg/dL 04/28/2020 6:44 [facility] Creatinine 1.09(H) 0.52 - 1.04 mg/dL 04/28/2020 6:44 [facility] eGFR 52(L) >60 mL/min/1.7 3m2 04/28/2020 6:44 [facility] Comment:eGFR calculated tosin monterroso CKD-EPI equation for non- Americans. Multiply eGFR by 1.16 for patients. Total Protein 7.2 6.3 - 8.2 g/dL 04/28/2020 6:44 [facility] Albumin 4.2 3.4 - 4.9 g/dL 04/28/2020 6:44 [facility] Alkaline Phosphatase 89 38 - 126 U/L 04/28/2020 6:44 [facility] AST 26 15 - 46 U/L 04/28/2020 6:44 [facility] ALT 22 <35 U/L 04/28/2020 6:44 [facility] Bilirubin, Total <0.5 <1.4 mg/dL 04/28/19 6:44 [facility] Calcium 9.1 8.5 - 10.5 mg/dL 04/28/2020 6:44 [facility] Calculated Calcium 8.9 8.5 - 10.5 mg/dL 04/28/2020 6:44 [facility] Blood VENOUS BLOOD / Unknown Venipuncture / Unknown 04/28/2020 5:20 EST 04/28/2020 5:24 EST us Giovani Ragsdale MD CHEMISTRY & BLOOD GAS ORDERA BLES Final Result [facility] [address] [place] [address] * LIPASE (04/28/2020 5:20 EST) Lipase 147 <251 U/L 04/28/2020 6:41 [facility] Blood VENOUS BLOOD / Unknown Venipuncture / Unknown 04/28/2020 5:20 EST 04/28/2020 5:24 EST us Giovani Ragsdale MD CHEMISTRY & BLOOD GAS ORDERA BLES Final Result [facility] [address] [place] [id number] * (ABNORMAL) COMPLETE BLOOD COUNT AND DIFFERENTIAL (04/28/2020 5:20 EST) WBC 9.86 4.00 - 12.40 K/cmm 04/28/2020 6:32 [facility] RBC 4.78 3.86 - 5.04 M/cmm 04/28/2020 6:32 [facility] Hemoglobin 14.2 11.6 - 15.2 gm/dL 04/28/2020 6:32 [facility] HCT 44.2 34.9 - 44.4 % 04/28/2020 6:32 [facility] MCV 93 81 - 98 fl 04/28/2020 6:32 [facility] MCH 29.7 26.7 - 33.3 pg 04/28/2020 6:32 [facility] MCHC 32.1 32.1 - 35.9 gm/dL 04/28/2020 6:32 [facility] RDW-CV 14.4 <14.7 % 04/28/2020 6:32 [facility] RDW-SD 49.1 <50.4 fl 04/28/2020 6:32 [facility] PLT 334 141 - 377 K/cmm 04/28/2020 6:32 [facility] MPV 10.3 9.5 - 12.7 fl 04/28/2020 6:32 [facility] % Neutrophils 88.4 % 04/28/2020 6:32 [facility] % Lymphocytes 6.7 % 04/28/2020 6:32 [facility] % Monocytes 3.8 % 04/28/2020 6:32 [facility] % Eosinophils 0.1 % 04/28/2020 6:32 [facility] % Basophils 0.3 % 04/28/2020 6:32 [facility] % Immature Grans 0.7 % 04/28/19 6:32 [facility] Absolute Neutrophils 8.72 2.20 - 8.85 K/cmm 04/28/2020 6:32 [facility] Absolute Lymphocytes 0.66(L) 1.09 - 3.30 K/cmm 04/28/2020 6:32 [facility] Absolute Monocytes 0.37 0.10 - 0.80 K/cmm 04/28/2020 6:32 [facility] Absolute Eosinophils 0.01(L) 0.03 - 0.61 K/cmm 04/28/2020 6:32 [facility] ABS Basophils 0.03 0.01 - 0.11 K/cmm 04/28/2020 6:32 [facility] Absolute Immature Grans 0.07(H) 0.00 - 0.06 K/cmm 04/28/2020 6:32 [facility] Type of Differential: Auto 04/28/2020 6:32 [facility] Blood VENOUS BLOOD / Unknown Venipuncture / Unknown 04/28/2020 5:20 EST 04/28/2020 5:24 EST us Giovani Ragsdale MD PACKAGES & DNA PROBE ORDERAB LES Final Result [facility] [address] [place] [address] * HOLD SST (04/28/2020 5:20 EST) Hold Hold 04/28/2020 6:30 [facility] Blood VENOUS BLOOD / Unknown Venipuncture / Unknown 04/28/2020 5:20 EST 04/28/2020 5:24 EST us Giovani Ragsdale MD LAB INFO SERVICE AND SUPPORT & PHONE RESULT Final Result [facility] [address] [place] [address] * HOLD LAVENDER TOP (04/28/2020 5:20 EST) Hold Hold 04/28/2020 6:30 EST [facility] Blood VENOUS BLOOD / Unknown Venipuncture / Unknown 04/28/2020 5:20 EST 04/28/2020 5:24 EST us Giovani Ragsdale MD LAB INFO SERVICE AND SUPPORT & PHONE RESULT Final Result Performing Organization Address City/[facility]/ZIP Co de Phone Number [facility] [address] [place] [address] * HOLD GREEN TOP (04/28/2020 5:20 EST) Hold Hold 04/28/2020 6:30 EST [facility] Blood VENOUS BLOOD / Unknown Venipuncture / Unknown 04/28/2020 5:20 EST 04/28/2020 5:24 EST us Giovani Ragsdale MD LAB INFO SERVICE AND SUPPORT & PHONE RESULT Final Result [facility] [address] [place] [address] * HOLD BLUE TOP (04/28/2020 5:20 EST) Hold Hold 04/28/2020 6:30 EST [facility] Blood VENOUS BLOOD / Unknown Venipuncture / Unknown 04/28/2020 5:20 EST 04/28/2020 5:24 EST us Giovani Ragsdale MD LAB INFO SERVICE AND SUPPORT & PHONE RESULT Final Result [facility] [address] [place] [address] documented in this encounter Visit Diagnoses 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 documented in [...] Routine Given 04/30/2020 8:55 EST 10 mg bupivacaine (PF) (MARCAINE) 0.5% injection As needed, Starting on 04/28/20 at 1353, Until 04/28/20 at 1353, Routine, Intraprocedure Given 04/28/2020 13:53 EST 30 mL Abdom en docusate sodium (COLACE) capsule 100 mg 100 mg, oral, 2 TIMES DAILY, First dose on 04/29/20 at 1045, Until Discontinued, Routine Given 05/02/2020 9:22 EST 100 mg Given 05/01/2020 20:01 EST 100 mg Given 05/01/2020 8:09 EST 100 mg DULoxetine (CYMBALTA) delayed release capsule 60 mg 60 mg, oral, DAILY, First dose on 04/29/20 at 1030, Until Discontinued, Routine Given 05/02/2020 9:22 EST 60 mg Given 05/01/2020 8:09 EST 60 mg Given 04/30/2020 8:49 EST 60 mg enoxaparin (LOVENOX) injection 40 mg 40 mg, subcutaneous, AT BEDTIME, First dose on 04/28/20 at 2100, Until Discontinued, Routine Given 05/01/2020 2 0:00 EST 40 mg Given 04/30/2020 20:12 EST 40 mg Given 04/29/2020 20:47 EST 40 mg gabapentin (NEURONTIN) capsule 400 mg 400 mg, [...] mg Given 05/01/2020 20:00 EST 2 mg levothyroxine (SYNTHROID) tablet 50 mcg 50 mcg, oral, DAILY BEFORE BREAKFAST, First dose on 04/30/20 at 0700, Until Discontinued, Routine Given 05/02/2020 6:23 EST 50 mcg Given 05/01/2020 5:56 EST 50 mcg Given 04/30/2020 6:05 EST 50 mcg pantoprazole (PROTONIX) tablet 40 mg 40 mg, oral, DAILY, First dose on Thu05/02/20 at 0900, Until Discontinued, Routine Given 05/02/2020 9:22 EST 40 mg phenol (CHLORASEPTIC) 1.4 % solution/spray topical, EVERY 2 HOURS PRN, Starting on 04/28/20 at 1651, Until Thu05/02/20 at 1714, Throat Pain/NG Pain Given 04/29/2020 3:13 EST Given 04/28/2020 17:17 EST senna (SENOKOT) tablet 1 Tab 1 Tablet, oral, AT BEDTIME, First dose on Thu04/29/20 at 2100, Until Discontinued, Routine Given 05/01/2020 [...] mL Given 05/01/2020 8:10 EST 3 mL sodium chloride 0.9 % irrigation As needed, Starting on 04/28/20 at 1311, Until 04/28/20 at 1326, Routine, Intraprocedure Given 04/28/2020 13:40 EST 1,000 mL Given 04/28/2020 13:11 EST 2,000 mL topiramate (TOPAMAX) tablet 200 mg 200 [...] on 04/29/20 at 1200, Until Discontinued, Routine 0329 (Given - Provider: Mariana Turner RN)0819 (Given - Provider: Veronika Wallis RN)1405 (Given - Provider: Lea Richardson)2011 (Given - Provider: Mariana Turner RN) 0208 (Not Given - Provider: Mariana Turner RN - Reason: Patient/family refused)08 (Not Given - Provider: Mariana Dietz RN - Reason: Patient/family refused)1408 (Given - Provider: Mariana Dietz RN)2000 (Given - Provider: Mariana Turner RN) 022 (Not Given - Provider: Mariana Turner RN - Reason: Patient/family refused)09 (Given - Provider: Fátima Greene RN)1500 (Canceled Entry - Provider: Batch Job User Admin - Comment: Automatically canceled at discontinue of medication order) aspirin chewable tablet 81 mg 81 mg, oral, DAILY, First dose on 04/29/20 at 1030, Until Discontinued, Routine 0849 (Given - Provider: Veronika Wallis RN) 08 (Given - Provider: Mariana Dietz RN) 09 (Given - Provider: Fátima Greene RN) bisacodyL (DULCOLAX) suppository 10 mg 10 mg, rectal, DAILY, First dose on 04/28/20 at 1630, Until Discontinued, Routine 0855 (Given - Provider: Veronika Wallis RN) 0804 (Not Given - Provider: Mariana Dietz RN - Reason: Patient/family refused) 0923 (Not Given - Provider: Fátima Greene RN - Reason: Patient/family refused) docusate sodium (COLACE) capsule 100 mg 100 mg, oral, 2 TIMES DAILY, First dose on 04/29/20 at 1045, Until Discontinued, Routine 0849 (Given - Provider: Veronika Wallis RN)2011 (Given - Provider: Mariana Turner RN) 08 (Given - Provider: Mariana Dietz RN)2000 (Given - Provider: Mariana Turner RN) 09 (Given - Provider: Fátima Greene RN) DULoxetine (CYMBALTA) delayed release capsule 60 mg 60 mg, oral, DAILY, First dose on 04/29/20 at 1030, Until Discontinued, Routine 0849 (Given - Provider: Veronika Wallis RN) 0809 (Given - Provider: Mariana Dietz RN) 09 (Given - Provider: Fátima Greene RN) enoxaparin (LOVENOX) injection 40 mg 40 mg, subcutaneous, AT BEDTIME, First dose on Thu04/28/20 at 2100, Until Discontinued, Routine 2011 (Given - Provider: Mariana Turner RN) 1999 (Given - Provider: Mariana Turner RN) levothyroxine (SYNTHROID) tablet 50 mcg 50 mcg, oral, DAILY BEFORE BREAKFAST, First dose on Thu04/30/20 at 0700, Until Discontinued, Routine 06 (Given - Provider: Mariana Turner RN) 0556 [...] on Thu05/02/20 at 0900, Until Discontinued, Routine 09 (Given - Provid er: Fátima Greene RN) senna (SENOKOT) tablet 1 Tab 1 Tablet, oral, AT BEDTIME, First dose on Thu04/29/20 at 2100, Until Discontinued, Routine 2011 (Given [...] Discontinued, Routine 0850 (Given - Provider: Veronika Wallis RN)2011 (Given - Provider: Mariana Turner RN) 0809 (Given - Provider: Mariana Dietz RN)1999 (Given - Provider: Mariana Turner RN) 09 (Given - Provider: Fátima Greene RN) Continuous Medication Order 04/30/2020 05/01/2020 05/02/2020 [...] PRN, Starting on 04/29/20 at 1011, Until 05/02/20 at 1714, Pain, Routine 0329 (Given - Provider: Mariana Turner RN)0850 (Given - Provider: Veronika Wallis RN)2011 (Given - Provider: Mariana Turner RN) 0556 (Given - Provider: Mariana Turner RN)1352 (Given - Provider: Mariana Dietz RN)1999 (Given - Provider: Mariana Turner RN) 040 (Given - Provider: Mariana Turner RN)0916 (Given - Provider: Fátima Greene RN) ondansetron (PF) (ZOFRAN) injection 4 mg [...] Count Last Ordered Date First Ordered Date pantoprazole (PROTONIX) tablet 40 mg 1 04/20 sodium chloride 0.9 % (flush) flush 3 mL 1 04/30/2020 acetaminophen (TYLENOL) tablet 1,000 mg 1 0 04/29/2020 aspirin chewable tablet 81 mg 1 04/29/2020 docusate sodium (COLACE) capsule 100 mg 1 0 04/29/2020 DULoxetine (CYMBALTA) delaye d release capsule 20 mg 1 04/29/2020 DULoxetine (CYMBALTA) delaye d release capsule 60 mg 1 04/29/2020 gabapentin (NEURONTIN) capsule 400 mg 1 01/2021 HYDROmorphone (DILAUDID) tablet 2 mg 1 04/20 HYDROmorphone (DILAUDID) tablet 2-4 mg 1 HYDROmorphone (PF) (DILAUDID ) 0.5 mg/0.5 mL syringe 0.2-0.4 mg 2 04/29/2020 04/28/2020 levothyroxine (SYNTHROID) tablet 50 mcg 1 0 04/29/2020 senna (SENOKOT) tablet 1 Tab 1 04/29/2020 topiramate (TOPAMAX) tablet 200 mg 1 2020 acetaminophen (OFIRMEV) IV s olution 1,000 mg 1 04/28/2020 acetaminophen (TYLENOL) suppository 650 mg 1 04/28/2020 acetaminophen (TYLENOL) tablet 650 mg 1 12/2020 atropine 0.1 mg/mL syringe 0.5 mg 1 021 bisacodyL (DULCOLAX) suppository 10 mg 1 chlorhexidine gluconate 2 % cloth 1 Each 1 04/28/2020 diphenhydrAMINE (BENADRYL) i njection 12.5 mg 1 04/28/2020 electrolyte-A (PLASMALYTE-A) solution 1 12/2020 enoxaparin (LOVENOX) injection 40 mg 1 12/2020 fentaNYL citrate (PF) injection 100 mcg 1 0 04/28/2020 fentaNYL citrate (PF) injection 25-50 mcg 1 04/28/2020 fentaNYL citrate (PF) injection 50 mcg 1 HYDROmorphone (PF) (DILAUDID ) 0.5 mg/0.5 mL syringe 0.3-0.5 mg 1 04/28/2020 lactated ringers (LR) infusion 1 04/28/2020 metoCLOPramide (REGLAN) injection 10 mg 1 0 04/28/2020 morphine 2 mg/ml (DURAMORPH) Alaris PRN, 30 ml 1 04/28/2020 morphine injection 4 mg 2 04/28/2020 naloxone (NARCAN) injection 0.2 mg 1 2020 ondansetron (PF) (ZOFRAN) injection 4 mg 2 04/28/2020 oxyCODONE (ROXICODONE) immed iate release tablet 5-10 mg 1 04/28/2020 pantoprazole (PROTONIX) injection 40 mg 1 0 04/28/2020 phenol (CHLORASEPTIC) 1.4 % solution/spray 1 04/28/2020 piperacillin-tazobactam 4.5 g in sodium chloride (NS MBP) 100 mL IVPB 2 04/28/2020 Diet Count Last Ordered Date First Orde red Date DISCHARGE DIET 1 05/02/2020 Nursing Count Last Ordered Date First Orde red Date ACTIVITY INSTRUCTIONS 1 05/02/2020 BATHING INSTRUCTIONS 1 05/02/2020 DRIVING INSTRUCTIONS 1 05/02/2020 WOUND CARE INSTRUCTIONS 2 05/02/2020 NASOGASTRIC [...] 04/28/2020 documented in this encounter Care Teams Commercial Lease Administrator Relationship Specialty Start Date End Date Stuart Leyva MD [address] [place] [address] PCP - General 11/15/15 documented as of this encounter
--- OUTSIDE RECORDS SUMMARY | 2024-03-02 20:28 | XMS_ITS | Encounter Summary ---
Author Organization [facility] Address [address] [place] [address] Care Team Providers Care Flume Ride Operator Name Role Phone Stuart Leyva MD Primary Care Provider [phone] Encounter Details Date Type Department Care Team (Late st Contact Info) Description 08/27/2018 Results Only [facility]- [facility] [phone] Alessia Martinez, FINANCE LEAD [address] [facility] [address] [place] [phone] Social History Tobacco Use Types Packs/Day Years [...] Procedure Name Priority Date/Time Associated Diagnosis Comments PAP TEST- RESULT ONLY Routine 08/27/2018 0:00 EDT documented in this encounter Results * PAP TEST- RESULT ONLY (08/27/2018 0:00 EDT) Pathology Report: CYTOPATHOLOGY REPORT Reports generated via electronic interface contain original data; however they are lacking the format of the original report. Caution should be taken when reading/interpreti ng unformatted reports. Name: ? BRENNA MC ? Accession #: ? [id number] ? : ? 1950 (Age: 67) ??F ?Collect Date: ? 08/27/2018 ? Location: ? [facility] ? Receive Date: ? 08/31/2018 ? Provider: ALESSIA MARTINEZ FINANCE LEAD Copy to: ? Final Report SPECIMEN ADEQUACY ? Satisfactory for Evaluation - assessment of transformation zone component not applicable ( e.g. atrophy, vaginal sample, hysterectomy) GENERAL CATEGORIZATION ? Negative for Intraepithelial Lesion or Malignancy ?? Other: Additional clinical information: Z00.00 Z12.4 Z01.419 Specimen/Source: ??Pap Test, Cervix, ThinPrep Imaging System with manual evaluation Document reviewed and electronically signed by: ? CAMILO Barakat(ASCP) ? Report ??Date: 09/03/2018 09:15 HPV with Pap Test ? Date Ordered: ? 09/03/2018 ? Status: ?? Signed Out ?Date Complete: ? 09/06/2018 ? By: ??System Interface ? Date Reported: ? 09/06/2018 ? Interpretation RESULT: Negative for HPV. No E6 or E7 mRNA is detected from HPV types 16,18,31,33,35, 39,45,51,52,56,58, 59,66, and 68 by business architect mediated amplification. Comments Document reviewed and electronically signed by: ? System Interface ? Report date: 09/06/2018 By the signature above, the attending physician certifies that he/she has personally conducted a gross and/or microscopic examination of the described specimens and rendered or confirmed the above diagnosis. End of Report [facility] 08/27/2018 08/31/2018 us Alessia Martinez FINANCE LEAD PATHOLOGY ORDERABLES Lola limon Result [facility] [address] [place] [address] documented in this encounter Visit Diagnoses Not on filedocumented in this encounter Care Teams Flume Ride Operator Relationship Specialty Start Date End Date Stuart Leyva MD [address] [place], [place] [phone] PCP - General 11/15/15 documented as of this encounter
--- OUTSIDE RECORDS SUMMARY | 2024-03-02 20:28 | XMS_ITS | Encounter Summary ---
Author Organization [facility] Address [address] [place] [address] Care Team Providers Care Basketball Referee Name Role Phone Stuart Leyva MD Primary Care Provider [phone] Encounter Details Date Type Department Care Team (Latest Contact Info) Description 04/28/2020 Travel Social History Tobacco Use Types Packs/Day Years [...] Date of Assessment Author No 04/28/2020 17:23 EST Olive Bishop, RN * Are you blind or do [...] on filedocumented in this encounter Care Teams Basketball Referee Relationship Specialty Start Date End Date Stuart Leyva MD [address] [place] [address] PCP - General 11/15/15 documented as of this encounter
--- OUTSIDE RECORDS SUMMARY | 2024-03-02 20:28 | XMS_ITS | Encounter Summary ---
Author Organization [facility] Address [address] [place] [address] Care Team Providers Care Electronic Gluer Name Role Phone Stuart Leyva MD Primary Care Provider [phone] Reason for Visit * Reason Onset Date Comments Appointment Related 12/21/2015 Encounter Details Date Type Department Care Team (Late st Contact Info) Description 12/21/2015 Telephone [facility] General Surgery - [place] [address] [address] Jeanette Sharma MD [address] [address] Appointment Related Social History Tobacco Use Types Packs/Day Years Used Date Smoking Tobacco: Former Cigarettes 1 15 0 04/20/1989 - 04/20/2004 Comments Unknown Sex and Gender Information Value Date Recorded Sex Assigned at Not on file Legal Sex Female 18:26 EST Gender Identity Female 04/28/2020 5:17 EST Sexual Orientation Not on file documented as of this encounter Miscellaneous Notes * Telephone Encounter - Pallavi Camp - 12/21/2015 1220 EDT LMTCB to reschedule missed 12/11/15 appt for wound vac takedown. documented in this encounter Plan of Treatment Not on file documented as of this encounter Visit Diagnoses Not on filedocumented in this encounter Care Teams Electronic Gluer Relationship Specialty Start Date End Date Stuart Leyva MD [address] [place] [address] PCP - General 11/15/15 documented as of this encounter
--- OUTSIDE RECORDS SUMMARY | 2024-03-02 20:28 | XMS_ITS | Encounter Summary ---
Author Organization [facility] Address [address] [place] [address] Care Team Providers Care Traffic Or System Dispatcher Name Role Phone Stuart Leyva MD Primary Care Provider Encounter Details Date Type Department Care Team (Late st Contact Info) Description 04/28/2020 Results Only [facility] - [facility] - Main [address] [phone] Unknown, Provider, Social History Tobacco Use Types [...] on file documented as of this encounter Functional Status [...] Procedure Name Priority Date/Time Associated Diagnosis Comments LACTIC ACID SEPSIS REFLEX - [facility] Routine 04/28/2020 2:35 EST LIPASE - [facility] Routine 04/28/2020 2:15 EST COMPLETE BLOOD COUNT WITH DIFFERENTIAL (AUTO) Routine 04/28/2020 2:15 EST COMPREHENSIVE METABOLIC PANEL (CMP) Routine 04/28/2020 2:15 EST documented in this encounter Results * LACTIC ACID SEPSIS REFLEX - [facility] (04/28/2020 2:35 EST) LACTIC ACID - CV 1.0 <2.0 mmol/L 04/28/2020 2:51 EST [facility] 04/28/2020 2:35 EST 04/28/2020 2:35 EST us Provider Unknown MD CHEMISTRY & BLOOD GAS ORDERA BLES Final Result [facility] [address] [place] [phone] * (ABNORMAL) LIPASE - [facility] (04/28/2020 2:15 EST) Pathologist [facility] LIPASE SERPL-CCNC - [facility] 280(H) <251 U/L 04/28/2020 2:32 [facility] 04/28/2020 2:15 EST 04/28/2020 2:18 EST us Provider Unknown MD CHEMISTRY & BLOOD GAS ORDERA BLES Final Result [facility] [address] [place] [phone] * (ABNORMAL) COMPREHENSIVE METABOLIC PANEL (CMP) (04/28/2020 2:15 EST) [facility] Albumin % 4.2 3.4 - 4.9 g/dL 04/28/2020 2:32 [facility] ALKALINE PHOSPHATASE - [facility] 104 38 - 126 U/L 04/28/2020 2:32 [facility] BILIRUBIN TOTAL 0.4 0.2 - 1.3 mg/dL 04/28/2020 2:32 [facility] BUN - [facility] 34(H) 10 - 26 mg/dL 04/28/2020 2:32 [facility] CALCIUM - [facility] 9.5 8.5 - 10.5 mg/dL 04/28/2020 2:32 [facility] Chloride 110 96 - 110 mmol/L 04/28/2020 2:32 [facility] CO2 Total 20(L) 22 - 32 mEq/L 04/28/2020 2:32 [facility] CREATININE 1.09(H) 0.52 - 1.04 mg/dL 04/28/2020 2:32 [facility] eGFR 50 04/28/2020 2:32 [facility] Comment: Stage 3: Moderate renal impairment is defined as GFR 30-59 Multiply result by 1.210 for patients. eGFR calculated using the IDMS-traceable MDRD Study Equation. ??(effective 02/20/2014) Anion Gap 12 0 - 18 04/28/2020 2:32 [facility] GLUCOSE - [facility] 123(H) 70 - 100 mg/dL 04/28/2020 2:32 [facility] Potassium 4.8 3.5 - 5.0 mEq/L 04/28/2020 2:32 [facility] Sodium 142 136 - 145 mEq/L 04/28/2020 2:32 [facility] TOTAL PROTEIN - [facility] 6.8 6.2 - 8.2 gm/dL 04/28/2020 2:32 [facility] SGOT/AST - [facility] 24 14 - 36 U/L 04/28/2020 2:32 [facility] SGPT/ALT - [facility] 21 0 - 35 U/L 2:32 [facility] 04/28/2020 2:15 EST 04/28/2020 2:18 EST us Provider Unknown MD CHEMISTRY & BLOOD GAS ORDERA BLES Final Result [facility] [address] [place] [address] * (ABNORMAL) COMPLETE BLOOD COUNT WITH DIFFERENTIAL (AUTO) (04/28/2020 2:15 EST) ABSOLUTE NEUTROPHIL COUN - [facility] 9.4(H) 2.2 - 8.85 10e3/uL 04/28/2020 2:21 [facility] BASO # - [facility] 0.09 0.01 - 0.11 10e/uL 04/28/2020 2:21 [facility] BASO % - [facility] 1 0 - 2 % 04/28/2020 2:21 [facility] EOS # - [facility] 0.24 0.03 - 0.61 10e3/ul 04/28/2020 2:21 [facility] EOS % - [facility] 2 0 - 5 % 04/28/2020 2:21 [facility] GRAN % - [facility] 76.7 40 - 80 % 04/28/2020 2:21 [facility] HEMATOCRIT - [facility] 44.7(H) 34.9 - 44.4 % 04/28/2020 2:21 [facility] HEMOGLOBIN - [facility] 14.0 11.6 - 15.2 g/dl 04/28/2020 2:21 [facility] IG# - CV 0.08 0 - 0.7 10e3/uL 04/28/2020 2:21 [facility] IG% - [facility] 0.7 0 - 0.9 % 04/28/2020 2:21 [facility] LYMPH # - [facility] 1.8 1.09 - 3.3 10e3/ul 04/28/2020 2:21 [facility] LYMPH% - [facility] 14.5(L) 20 - 40 % 04/28/2020 2:21 [facility] MEAN CORPUSCULAR HGB - [facility] 29.4 26.7 - 33.3 pg 04/28/2020 2:21 [facility] MEAN CORPUSCULAR HGB CONC - [facility] 31.3(L) 32.1 - 35.9 g/dL 04/28/2020 2:21 [facility] MEAN CELL VOLUME - [facility] 93.7 81 - 98 fl 04/28/2020 2:21 [facility] MONO # - [facility] 0.7 0.1 - 0.8 10e3/uL 04/28/2020 2:21 [facility] MONO% - [facility] 5.4 0 - 12 % 04/28/2020 2:21 [facility] PLATELET COUNT 388(H) 141 - 377 10e3/ul 04/28/2020 2:21 [facility] RED BLOOD COUNT - [facility] 4.77 3.86 - 5.04 10e3/ul 04/28/2020 2:21 [facility] RED CELL DISTRI WIDTH - [facility] 14.4 <14.7 % 04/28/2020 2:21 [facility] WHITE BLOOD COUNT - [facility] 12.3 4.0 - 12.4 10e3/ul 04/28/2020 2:21 EST [facility] 04/28/2020 2:15 EST 04/28/2020 2:18 EST us Provider Unknown MD HEMATOLOGY & PF4 ORDERABLES Final Result [facility] [address] [place] [address] documented in this encounter Visit Diagnoses Not on filedocumented in this encounter Care Teams Traffic Or System Dispatcher Relationship Specialty Start Date End Date Stuart Leyva MD [address] [place] [address] PCP - General 11/15/15 documented as of this encounter
--- OUTSIDE RECORDS SUMMARY | 2024-03-02 20:28 | XMS_ITS | Encounter Summary ---
Author Organization [facility] Address [address] [place] [address] Care Team Providers Care Javascript Application Developer Name Role Phone Stuart Leyva MD Primary Care Provider [phone] Reason for Visit * Reason Comments Wound Check Encounter Details Date Type Department Care Team (Latest Contact Info) Description 01/01/2016 10:30 EDT Office Visit [facility] General Surgery - [address] [address] Jeanette Sharma MD 130 [facility] [address] [address] Postprocedural non-healing wound, subsequent encounter (Primary Dx) Social History Tobacco Use [...] Sign Reading Time Taken Comments Blood Pressure 121/71 01/01/2016 1019 EDT Pulse 77 01/01/2016 1019 EDT Temperature - - Respiratory Rate - - Oxygen Saturation - - Inhaled Oxygen Concentration - - Weight - - Height - - Body Mass Index - - documented in this encounter Progress Notes * Jeanette Sharma MD - 01/01/2016 1145 EDT I am seeing Ms Mc following lower abdominal wound debridement and wound vac placement on 11/22/15. She was unable to make her last two scheduled appointments due to lack of transportation. Visiting nurses have been changing the wound vac dressing three times per week and the patient says it looks great. She denies any pain. She has been eating a healthy diet and feels the best she has in many years. She is looking forward to getting rid of the wound vac. Visit Vitals ??? BP 121/71 ??? Pulse 77 Gen: NAD, AOx3, extremely pleasant Skin: lower abdominal wound much better than post-op. Right lateral skin flap is completely closed (no longer tunnels) and remaining open wound with healthy granulation tissue. Superficial wound to right of umbilicus now measures 9wmp4ds in a half-fleming shape. No fibrinous exudate, no evidence of infection. Ms. Mc's wound has healed and closed quickly in the past month. We can stop the wound vac application and switch to Medihoney topical dressing, which I applied at the bedside. My office will contact visiting nurses to make the dressing change orders: --d/c wound vac order --three times weekly dressing change: MediHoney, dry 4x4 gauze, Medipore tape. Outer dressing can be changed more frequently if it becomes saturated I am happy to see Ms. Mc in clinic should any issues arise before I leave on maternity leave. Otherwise, she can be seen at [facility]. Jeanette Sharma MD documented in this encounter Plan of Treatment Not on file documented as of this encounter Visit Diagnoses Diagnosis Postprocedural non-healing wound, subsequent encounter- Primary documented in this encounter Discontinued Medications Medication Sig Discontinue Reason Start Date End Da te atorvastatin (LIPITOR) 40 mg tablet Take 40 mg by mouth daily. Therapy completed 01/01/2016 azelastine (ASTELIN) nasal spray Instill 1 [place] into right nostril 2 times daily. Therapy completed 01/01/2016 chlorthalidone (HYGROTON) 25 mg tablet Take 25 mg by mouth daily. Therapy completed 01/01/2016 losartan (COZAAR) 100 mg tablet Take 100 mg by mouth daily. Patient Stopped Taking 01/01/2016 metoprolol XL (TOPROL-XL) 50 mg tablet Take 50 mg by mouth daily. Patient Stopped Taking 01/01/2016 documented as of this encounter Historical Medications * This list may reflect changes made after this encounter. senna (SENOKOT) 8.6 mg tablet Take 1 Tab by mouth daily. ferrous gluconate (FERGON) 324 mg (38 mg iron) tablet Take 324 mg by mouth 2 times daily with breakfast and dinner. CALCIUM CARBONATE/VITAMI N D3 (VITAMIN D-3 ORAL) Take by mouth. Multivitamins with Minerals tablet tablet Take 1 Tab by mouth daily. dextroamphetamin e-amphetamine (ADDERALL) 20 mg tablet Take 20 mg by mouth 2 times daily. omeprazole (PRILOSEC) 20 mg capsule Take 40 mg by mouth daily as needed. DULoxetine (CYMBALTA) 60 mg capsule Take 60 mg by mouth daily. traMADol (ULTRAM) 50 mg tablet Take 50 mg by mouth every 6 hours. gabapentin (NEURONTIN) 400 mg capsule Take 400 mg by mouth as needed. topiramate (TOPAMAX) 200 mg tablet Take 200 mg by mouth 2 times daily. CALCIUM CARBONATE/VITAMI N D3 (CALCIUM + D ORAL) Take by mouth. 1 added in this encounter Care Teams Javascript Application Developer Relationship Specialty Start Date End Date Stuart Leyva MD [address] [place] [address] PCP - General 11/15/15 documented as of this encounter
--- OUTSIDE RECORDS SUMMARY | 2024-03-02 20:28 | XMS_ITS | Encounter Summary ---
Author Organization [facility] Address [address] [place] [address] Care Team Providers Care Shuttler Car Name Role Phone Stuart eLyva MD Primary Care Provider [phone] Encounter Details Date Type Department Care Team (Late st Contact Info) Description 04/28/2020 Results Only [facility] [phone] Edwina Vásquez, DO [address] [place] [address] Social History Tobacco Use Types [...] Procedure Name Priority Date/Time Associated Diagnosis Comments FLU/COVID KARLA(FLUVID) Routine 04/28/2020 3:19 EST documented in this encounter Results * FLU/COVID KARLA(FLUVID) (04/28/2020 3:19 EST) SARS-CoV-2 RT-PCR Not Detected 04/28/2020 4:21 [facility] Comment: The 2019 novel coronavirus (SARS-CoV-2) target nucleic acids are not detected. INFLUENZA A PCR - [facility] Negative 04/28/2020 4:21 [facility] INFLUENZA B PCR - [facility] Negative 04/28/2020 4:21 [facility] RSV PCR - [facility] Negative 04/28/2020 4:21 [facility] 04/28/2020 3:19 EST 04/28/2020 3:34 EST Narrative [facility] - 04/28/2020 4:21 EST FLUVID PATIENT STATUS: A [facility] 1 FLUVID us Edwina Vásquez DO MICROBIOLOGY - GENERAL O RDERABLES Final Result Performing Organization Address City/State/[facility] Co de Phone Number [facility] [address] [place] [address] documented in this encounter Visit Diagnoses Not on filedocumented in this encounter Care Teams Shuttler Car Relationship Specialty Start Date End Date Stuart Leyva MD [address] [place], [place] [id number] PCP - General 11/15/15 documented as of this encounter
[2024-03-02] MEDS: oxyCODONE 5 MG TAB PO (20:37)
[2024-03-02] MEDS: predniSONE 20 MG TAB 60 MG PO (20:37)
== END 2024-03-02 20:44 | disposition home or self-care (01) ==
PROVIDERS: Emergency Provider Physician Assistant; PCP Internal Medicine
DX: M54.50 Low back pain, unspecified (principal); G89.29 Other chronic pain; I10 Essential (primary) hypertension; E78.5 Hyperlipidemia, unspecified; Z98.84 Bariatric surgery status
CPT/HCPCS: 99283; J7512

== ENCOUNTER 2024-03-18 14:57 | Outpatient (REF) | payer OTHER, SELFPAY ==
[2024-03-18 15:51] LABS: Bilirubin Small (Negative); Blood Negative (Negative); Clarity Clear (Clear); Glucose Negative (Negative); Ketones Negative (Negative); Leukocyte Esterase Negative (Negative); Nitrite Negative (Negative); Specific Gravity >= 1.030 (1.005-1.025); Urobilinogen 0.2 mg/dL (Up to 0.2); pH 5.5 (5-8)
[2024-03-18 16:14] LABS: Bacteria Few HPF (Negative); Epithelial Cells Few HPF (Negative); RBC 0-2 HPF (0-2)
[2024-03-18 16:16] LABS: Casts 0-2 Hyaline LPF (Negative)
[2024-03-18 16:17] LABS: C & S Indicated? No; Other Cells Few Transitional (Negative)
[2024-03-18 16:18] LABS: COMMENT (LAB VIEW ONLY) 198.74 mg/dL
[2024-03-18 16:24] LABS: Calculated LDL 158 mg/dL (<100); Cholesterol 261 mg/dL (<200); HDL Cholesterol 76 mg/dL (40-60); Triglyceride 135 mg/dL (<150); Vitamin B12 342 pg/mL (193-986)
[2024-03-18 16:47] LABS: TSH (W/Ref FT4) 226.98 uIU/mL (0.36-3.74)
[2024-03-18 17:03] LABS: FREE T4 0.25 ng/dL (0.76-1.46)
== END 2024-03-18 14:58 | disposition home or self-care (01) ==
LOC: NCHCN 14:57
PROVIDERS: PCP Internal Medicine; Visit Provider Nurse Practitioner Family
DX: I10 Essential (primary) hypertension (principal)
CPT/HCPCS: 80053; 80061; 81003; 81015; 82043; 82570; 82607; 84439; 84443

== ENCOUNTER 2024-10-04 12:26 | Outpatient (REF) | payer MEDICARE, SELFPAY ==
[2024-10-04 17:44] LABS: FREE T4 0.26 ng/dL (0.76-1.46)
== END 2024-10-04 12:27 | disposition home or self-care (01) ==
LOC: NCHCN 12:26
PROVIDERS: PCP Nurse Practitioner Family; Visit Provider Nurse Practitioner Family
DX: E03.9 Hypothyroidism, unspecified (principal)
CPT/HCPCS: 84439; 84443

== ENCOUNTER 2024-10-12 21:23 | Outpatient (REF) | payer MEDICARE, SELFPAY ==
[2024-10-12 21:50] LABS: Abs Immature Grans 0.03 10^3/uL (0.0-0.06); Absolute Basophil Count 0.06 10^3/uL (0.0-0.2); Absolute Eosinophil Count 0.42 10^3/uL (0.0-0.7); Absolute Lymphocyte Count 2.08 10^3/uL (1.2-3.4); Absolute Monocyte Count 0.73 10^3/uL (0.1-0.8); Absolute Neutrophil Count 3.97 10^3/uL (1.2-6.7); Basophils % 0.8 %; Eosinophils % 5.8 %; HCT 40.2 % (36.0-46.0); HGB 13.1 g/dL (11.2-15.7); Immature Grans % 0.4 %; Lymphocytes % 28.5 %; MCHC 32.6 % (32.0-36.0); MCV 98 fL (80-95); MPV 10.3 fL (8.0-11.0); Neutrophils % 54.5 %; Platelet Count 341 10^3/uL (130-400); RDW 14.9 % (11.7-14.6); RDW-SD 54.2 fL; WBC 7.29 10^3/uL (4.4-10.8)
[2024-10-12 22:17] LABS: ALT 27 U/L (14-59); AST 25 U/L (15-37); Albumin 3.8 g/dL (3.4-5.0); Alkaline Phosphatase 96 U/L (46-116); Anion Gap 11.5 mmol/L (3-11); BUN 35 mg/dL (7-18); Bilirubin, Total 0.3 mg/dL (0.2-1.0); CO2 24.5 mmol/L (21.0-32.0); CREATININE 1.6 mg/dL (0.55-1.02); Calcium 7.6 mg/dL (8.5-10.1); Calculated LDL 157 mg/dL (<100); Chloride 106 mmol/L (98-107); Cholesterol 241 mg/dL (<200); Estimated GFR 34.05 (mL/min/1.73m2); Glucose 88 mg/dL (74-106); HDL Cholesterol 66 mg/dL (>or=50); LDL CHOLESTEROL 165 mg/dL (<100); Potassium 4.6 mmol/L (3.5-5.1); Sodium 142 mmol/L (136-145); Total Protein 6.8 g/dL (6.4-8.2); Triglyceride 94 mg/dL (<150)
[2024-10-12 23:29] LABS: COMMENT (LAB VIEW ONLY) 128.81 mg/dL
[2024-10-12 23:31] LABS: Microalb ug/mg Crea 101.3 ug/mg Cr
[2024-10-13 10:37] LABS: Hemoglobin A1C 5.3 % (<5.7)
[2024-10-14 11:09] LABS: Hepatitis C Ab w Rflx HCV PCR Negative (Negative)
== END 2024-10-12 21:24 | disposition home or self-care (01) ==
LOC: NCHCN 21:23
PROVIDERS: PCP Nurse Practitioner Family; Visit Provider Family Medicine
DX: Z00.00 Encounter for general adult medical examination without abnormal findings (principal); Z13.1 Encounter for screening for diabetes mellitus; Z13.6 Encounter for screening for cardiovascular disorders; I10 Essential (primary) hypertension; E78.5 Hyperlipidemia, unspecified
CPT/HCPCS: 80053; 80061; 83721; 86803; 82043; 82570; 83036; 85025